=== PATIENT | female | born 1935 | race Caucasian/White ===

== ENCOUNTER 2023-06-09 07:44 | Inpatient (IN) | payer OTHER, SELFPAY ==
[2023-06-09] VITALS (42 sets, daily range): BP systolic 85–189; BP diastolic 40–94; PULSE 72; BMI 26.3
[2023-06-09 05:29] LABS: % Basophils 0.2 % (0-2); % Eosinophils 0.1 % (0-6); % Immature Granulocytes 0.5 % (0-0.5); % Lymphocytes 6.7 % (20.5-51.1); % Neutrophils 78.5 % (42.2-75.2); Absolute Lymphocytes 0.6 10^3/uL (1.2-3.4); Absolute Monocytes 1.2 10^3/uL (0.1-0.6); Absolute Neutrophils 6.7 10^3/uL (1.4-6.5); Hematocrit 30.4 % (37.0-47.0); Hemoglobin 10.6 g/dL (12.0-16.0); Mean Corp Hgb Conc. 34.9 g/dL (33.0-37.0); Mean Corpuscular Hgb 31.5 pg (27.0-31.0); Mean Corpuscular Volume 90.2 fL (81.0-99.0); Mean Platelet Volume 10.7 fL (7.4-10.4); Nucleated Red Blood Cells % 0 %; Platelet Count 186 10^3/uL (130-400); Red Blood Cell Count 3.37 10^6/uL (4.20-5.40); Red Cell Dist. Width 16.5 % (11.5-14.5); White Blood Cell Count 8.5 10^3/uL (4.8-10.8)
[2023-06-09 05:41] LABS: APTT 34.3 Sec (23.4-35.0)
[2023-06-09 05:48] LABS: ALT (SGPT) 14 U/L (0-35); AST (SGOT) 27 U/L (14-36); Albumin 2.9 g/dl (3.5-5.0); Alkaline Phosphatase 81 U/L (38-126); Blood Urea Nitrogen 26 mg/dl (7-17); Calcium 8.4 mg/dl (8.4-10.2); Carbon Dioxide 21 mmol/L (22-30); Chloride 98 mmol/L (98-107); Glucose 154 mg/dl (70-99); Potassium 3.9 mmol/L (3.5-5.1); Sodium 131 mmol/L (135-145); Total Bilirubin 1.4 mg/dl (0.2-1.3); Total Protein 5.4 g/dl (6.3-8.2); eGFR > 60.00
[2023-06-09 06:02] LABS: NT-proBNP 8220 pg/ml; Troponin I 0.375 ng/ml
[2023-06-09] MEDS: HEPARIN 4000 UNITS IV (07:18)
[2023-06-09] MEDS: HEPARIN 25000 UNITS/250 ML IV (07:26)
--- NOTE | 2023-06-09 07:28 | ED.GENMED ---
History of Present Illness
General
Chief Complaint: Chest Pain
Source: patient, records, family (Son) and ambulance crew
Exam Limitations: none
Time Seen by Provider: 06/09/23 06:03
Nursing documentation reviewed up to this point in time: agreed with
Travel History
Have you had any contact with someone who has COVID-19?: No
Do you have any symptoms of coronavirus? Fever > 100 degrees, chills, cough, shortness of breath, sore throat, loss of taste or smell, muscle aches, or headache?: No
History of Present Illness
History of Present Illness:
87-year-old female with a past medical history of hypertension, CAD status post stent, atrial fibrillation on Eliquis, pacemaker, Parkinson's disease who presents to the emergency department for evaluation of chest pain. Patient currently lives in
[facility] in assisted living facility. She says that she woke up in the middle the night with chest pain. She describes a dull pressure in the left side of her chest. No radiation. No clear trigger. Denies any associated symptoms
including nausea, vomiting, diaphoresis, shortness of breath. She says that she called the nurse at her living facility who called EMS to bring her to the hospital. EMS provided nitroglycerin and patient received another dose of nitroglycerin on
arrival here (verbal orders from night physician) and at the time my assessment she is completely chest pain-free. She also received a full dose aspirin from EMS. Patient says that she had similar symptoms with CO earlier this year�chart review
shows that she was admitted in January had cardiac catheterization at that point in time which showed triple-vessel disease, patient deemed not a surgical candidate, RCA was stented at that time with residual CAD to be managed medically. She sees
Dr. Weaver for cardiology.
Past History
Past History
ED Past Medical History: Arrthythmia (A. fib), CAD, HTN, CO, Psychiatric (Anxiety) and Other (Parkinson's disease, Vertigo, Chronic indwelling sykes, Macular degeneration, bladder prolapse)
ED Past Surgical History: Cardiac (Stent, Pacemaker), Gynecological (Hysterectomy) and Other (Hernia repair X 2)
Patient has exhibited threatening behavior?: No
PSI?: No
Social History
Tobacco: Non-smoker
Alcohol: None
Drug: None
Personal:
Living: assisted living
Review of Systems
Review of Systems
All Other Systems: ROS reviewed and negative except as documented in HPI and ROS
Constitutional: Denies fever or chills
EENT: Denies sore throat or runny nose
Respiratory: Denies cough or trouble breathing
Cardiac: Reports chest pain; Denies diaphoresis or palpitations
ABD/GI: Denies abdominal pain, nausea or vomiting
: Denies flank pain
Musculoskeletal: Denies edema, neck pain or back pain
Neurological: Denies dizzy, headache, weakness or numbness
Phy Exam
Physical Exam
Physical Exam:
General: Awake, alert; resting comfortably in no acute distress
Head: Normocephalic, atraumatic
Eyes: Conjunctiva normal, sclera anicteric
Throat: Airway intact, handling secretions
Neck: Trachea midline, supple without meningismus
Lungs: Clear to auscultation bilaterally, no wheezing, rales, rhonchi
Heart: Regular rate and rhythm, no murmurs, gallops, or rubs
Abd: Soft, non distended, nontender
Neuro: Cranial nerves grossly intact, speech fluid
Skin: no rash
Extremities: No edema in extremities, equal pulses in all extremities
Scores
Heart Failure Risk
Heart Failure Risk Score: Not Applicable
Heart Score for Chest Pain Patients
STEMI patient?: No
History: Moderately Suspicious
ECG: Nonspecific Repolarization
Age: >/= 65 years
Risk Factors: >/= 3 Risk Factors or History of CAD
Troponin: >/= 3 x Normal Limit
Heart Score for Chest Pain Patients: 8
Heart Score Risk: 72.7 % MACE over next 6 weeks
Withdrawal Assessment of Alcohol
Withdrawal Assessment Completed?: Not applicable
Course
Orders/Labs/Results
Orders:
Orders
06/09/23 05:05
Electrocardiogram (*1) Urgent
Reason for Study: Other
Other Reason for Exam: Respiratory Distress
Cardiac Monitoring- Treatment ONCE
EKG- Treatment ONCE
IV Insert/Care/Rem.- Treatment PRN
CR Chest - 2 Views Urgent
Comment:
Reason For Exam: respiratory distress
O2 Therapy [RESP] Urgent
Titrate/Wean O2 to maintain O2 sat greater than (%): 93
Special Instructions: TO MAINTAIN CONTINUOUS O2 SATS >/= 93%
Pulse Ox/cont/shift [RESP] Urgent
Quantity: 1
Special Instructions: continuous pulse ox
06/09/23 05:10
Complete Blood Count/With Diff Urgent
Comprehensive Metabolic Panel Urgent
NT-proBNP Urgent
Troponin I Urgent
06/09/23 05:14
PTT Urgent
06/09/23 06:44
CARDIOLOGY CONSULT Urgent
Consulting Provider: Gwyn Valle
Was physician already notified: Yes
06/09/23 07:04
Heparin 4,000 units IV NOW STA
Nursing to Place Non Medication Order As Directed
Physician Order: PTT 6 hours after initial start of Heparin infusion
06/09/23 07:15
Heparin 69570 Units/250 ml 25,000 units in 250 ml IV PER PROTOCOL
Weight to be used for heparin protocol in kilograms (kg):: 71.7
Protocol:: Cardiac Tx/Acute Coronary
PTT Goal Range to be used:: PTT 73 to 111 seconds
Order type:: Initial
INITIAL Infusion Dose (UNITS/KG/hr) & then follow protocol:: 12 units/kg/hr
Infusion Dose in UNITS/hr & then follow protocol (UNITS/hr):: 850
INFUSION RATE in mL/hr & then follow protocol (mL/hr):: 8.5
PTT less than or equal to 64 seconds:: Increase rate by 200 units/hr (+ 2 mL/hr)
PTT 64.1 to 72.9 seconds:: Increase rate by 100 units/hr (+ 1 mL/hr)
PTT 73 to 111 seconds:: Target Range. No change in rate.
PTT 111.1 to 130.9 seconds:: Decrease rate by 100 units/hr (- 1 mL/hr)
PTT 131 to 199.9 seconds:: HOLD for 1 hr. Then decrease rate by 200 units/hr (- 2 mL/hr)
PTT greater than or equal to 200 seconds:: HOLD for 2 hrs & Notify Provider. Then decrease by 200 units/hr (-
2 mL/hr)
Lab follow-up:: Each change, PTT q6h until 2 consecutive are therapeutic. Then PTT
daily.
Abnormal Lab Results
06/09/23
05:10
RBC 3.37 L 10^6/uL
(4.20-5.40)
Hgb 10.6 L g/dL
(12.0-16.0)
Hct 30.4 L %
(37.0-47.0)
MCH 31.5 H pg
(27.0-31.0)
RDW 16.5 H %
(11.5-14.5)
MPV 10.7 H fL
(7.4-10.4)
Absolute Neuts (auto) 6.7 H 10^3/uL
(1.4-6.5)
Absolute Lymphs (auto) 0.6 L 10^3/uL
(1.2-3.4)
Absolute Monos (auto) 1.2 H 10^3/uL
(0.1-0.6)
Neutrophils % 78.5 H %
(42.2-75.2)
Lymphocytes % 6.7 L %
(20.5-51.1)
Monocytes % 14.0 H %
(1.7-9.3)
Sodium 131 L mmol/L
(135-145)
Carbon Dioxide 21 L mmol/L
(22-30)
BUN 26 H mg/dl
(7-17)
Glucose 154 H mg/dl
(70-99)
Total Bilirubin 1.4 H mg/dl
(0.2-1.3)
Troponin I 0.375 H* ng/ml
Total Protein 5.4 L g/dl
(6.3-8.2)
Albumin 2.9 L g/dl
(3.5-5.0)
06/09/23 05:10
06/09/23 05:10
Vital Signs
Initial and Last Documented VS:
Initial Vital Signs
Temp Pulse Resp BP Pulse Ox
36.9 C 65 17 153/61 93
06/09/23 05:06 06/09/23 05:06 06/09/23 05:06 06/09/23 05:06 06/09/23 05:06
Last Documented Vital Signs
Temp Pulse Resp BP Pulse Ox
36.9 C 60 16 158/52 92
06/09/23 05:06 06/09/23 07:00 06/09/23 07:00 06/09/23 07:00 06/09/23 07:00
MDM/Problems Addressed
Differential Diagnosis Includes:
ACS, GERD, costochondritis, arrhythmia including A-fib; PE consideration but much less likely patient on Eliquis and with symptoms improved with nitroglycerin
MDM/Problems Addressed:
87-year-old female presents for evaluation of chest pain started last night similar to prior angina; symptoms resolved with nitro patient currently chest pain-free. She has some mild hypertension here with a blood pressure of 153/61. Rest of
vitals are within acceptable range. Physical exam as above. EKG shows some new T wave inversions precordial leads compared to prior. Plan to place an IV check labs including a CBC and a CMP, serial troponins. Check a chest x-ray. Repeat nitro
as needed for return of chest pain. Patient received full dose aspirin by EMS. Reassess after the above.
Labs reviewed: CBC shows stable anemia otherwise unremarkable. CMP shows acceptable creatinine. Troponin elevated to 0.375 concerning for NSTEMI. Will continue to trend. Will initiate heparin infusion. Case discussed with cardiology�agree with
above they will consult on patient. Case discussed with hospitalist for admission.
Chronic conditions affecting care:
CAD
Acute Exacerbation and/or Progression of Chronic Illness:
Acutely hypertensive
Acute Exacerbation and/or Progression of Chronic Illness: HTN
*Radiology
Radiology exam reviewed: preliminary read by ED provider (Chest x-ray reviewed by me-no pneumonia or, no clear signs of CHF, no other acute pathology when compared to prior)
*Pulse Oximetry
Patient hypoxic: no
*EKG
Interpreted by ED Provider?: Yes
Comparison EKG: changes noted (New T wave versions precordial leads)
Heart Rate: 66
Rate: normal
Rhythm: other (Atrial paced rhythm)
[place]: left axis deviation
QRS Pattern: left vent hypertrophy
Ischemia: T-wave inversion
*Critical Care Note
Total Time (30-74mins, 75-104mins- exclusive of procedures): Not Applicable
Data Reviewed
Review of Other/Old Records Reveals: Labs, Records, Operative Reports (Reviewed report from prior catheterization) and Discharge Summary
Source: patient, records, family and ambulance crew
Patient Management
Discussion with other providers: Hospitalist (Discussed with hospitalist) and Shank Skinner (Discussed with cardiology)
Escalation/DeEscalation of care consider admission/obs:
Admission indicated
ED Attending Note
-
Portions of this chart may have been created with voice recognition software.� Occasional wrong word or��sound alike� substitutions may have occurred due to the inherent limitations of voice recognition software.
Discharge Plan
Departure
Prescriptions:
No Action
Eliquis 5 MG tablet
5 mg PO BID
metoprolol succinate 50 MG tablet extended release 24 hr
50 mg PO DAILY
magnesium hydroxide [Milk of Magnesia] 400 MG/5 ML suspension
30 ml PO HSPRN PRN (Reason: if no bm on 2nd day)
ascorbic acid (vitamin C) [Vitamin C] 1,000 MG tablet
1,000 mg PO BID
meclizine 25 MG tablet
25 mg PO [id number] PRN (Reason: dizziness)
calcium carbonate 500 mg calcium (1,250 mg) Tablet,Chewable
500 mg PO [id number] PRN (Reason: heartburn )
metronidazole 1 % Gel
1 applic TOPICAL DAILYPRN PRN (Reason: rosacea)
Patient Comments:
apply to b/l cheeks and forehead
melatonin 3 mg Capsule
6 mg PO HSPRN PRN (Reason: insomnia)
bisacodyl [Dulcolax (bisacodyl)] 10 mg Suppository
10 mg MS DAILYPRN PRN (Reason: if no bm for 3 days)
lidocaine 4 % Adhesive Patch,Medicated
1 patch TOPICAL DAILYPRN PRN (Reason: lower back pain)
cholecalciferol (vitamin D3) [Vitamin D3] 50 mcg (2,000 unit) Capsule
50 mcg PO DAILY
nystatin 100,000 unit/gram Cream
1 applic TOPICAL BIDPRN PRN (Reason: rash)
atorvastatin 40 mg Tablet
40 mg PO QPM Qty: 30 0RF
clopidogrel 75 mg Tablet
75 mg PO DAILY Qty: 30 0RF
pantoprazole 40 mg Tablet,Delayed Release (Dr/Ec)
40 mg PO DAILY Qty: 30 0RF
acetaminophen 325 mg Tablet
650 mg PO Q6HPRN PRN (Reason: mild pain)
Fleet Enema 19-7 gram/118 mL Enema
118 ml MS DAILYPRN PRN (Reason: if no bm for 4 days )
carbidopa-levodopa 25-100 mg Tablet
2 tab PO TID
nitroglycerin 0.4 mg Tablet, Sublingual
0.4 mg SUBLINGUAL [id number] PRN (Reason: chest pain)
acetaminophen 325 mg Tablet
650 mg PO Q4HPRN PRN (Reason: mild pain/JAY/temp> 100.4F) Qty: 20 0RF
polyethylene glycol 3350 [Miralax] 17 gram Powder In Packet
17 g PO DAILY Qty: 0 0RF
Rx Instructions:
HOLD FOR LOOSE STOOLS
ondansetron HCl [Zofran] 4 mg Tablet
4 mg PO Q12H PRN (Reason: nausea)
amiodarone [Pacerone] 200 mg tablet
100 mg PO DAILY
Rx Instructions:
Take 400mg daily (2 tabs) x 2 weeks then 200mg daily (1 tab)
sertraline 25 mg tablet
50 mg PO DAILY
Referrals:
PRIVATE,PHYSICIAN [Family Provider] -
Interventions
Interventions:
*Risk Screen - Suicide Last Done: 06/09/23 05:06
*General Assessment Last Done: 06/09/23 05:06
*Neglect/Abuse Screening Last Done: 06/09/23 05:06
ED- Fall Risk Assessment Last Done: 06/09/23 05:12
*ED COVID-19 Vaccine History Last Done: 06/09/23 05:06
ED- Cardiac Assessment Last Done: 06/09/23 07:06
--- NOTE | 2023-06-09 07:31 | HPS.HSE ---
Family Physician
-
Family Physician: PHYSICIAN PRIVATE
Chief Complaint
-
Left sided chest pain
History of Present Illness
7 years old female presented with chest pain described as discomfort, central, not radiating that started earlier today, awoke her from sleeping.� She reports on and off chest discomfort.�.� She lives in assisted living.� Ambulance was called.� She
received aspirin.�
Was at the bedside, he denied history of cough, shortness of breath, GI symptoms or fever before this event. He took his mother to eye doctor 2 days ago and she was at her baseline.
Her ECG shows anterolateral T waves concerning for possible ischemia and she has an elevated troponin.
Medical History
Past Medical History
Past Medical History: Reports Other (Parkinson disease, hypertension, paroxysmal atrial fibrillation, chronic Padilla catheter.)
Past Surgical History: Reports Other (No recent major surgery )
Social History
Tobacco: Non-smoker
Alcohol: None
Drug: None
Personal: Single
Living: Assisted Living
Employment: Retired
Family History
Family History: Not pertinent
Allergies / Home Medications
Allergies reflects when Allergies were last updated in [employer].
Home Medications with original date entered in [employer]
Allergy/Medication List:
Allergies
Allergy/AdvReac Type Severity Reaction Status Date / Time
No Known Allergies Allergy Verified 06/09/23 05:06
Home Medications
apixaban 5 mg tablet (Eliquis) 5 mg PO BID Blood clot prevention/tx 09/21/19
metoprolol succinate 50 mg tablet,extended release 24 hr 50 mg PO HS Blood pressure 09/21/19
ascorbic acid (vitamin C) 1,000 mg tablet (Vitamin C) 1,000 mg PO BID Supplement 05/05/20
meclizine 25 mg tablet 25 mg PO [id number] PRN dizziness/vertigo 09/27/21
calcium carbonate 500 mg calcium (1,250 mg) chewable tablet 500 mg PO [id number] PRN heartburn 03/23/22
lidocaine 4 % topical patch 1 patch topical DAILYPRN PRN apply to lower back 03/23/22
metronidazole 1 % topical gel 1 applic topical DAILYPRN PRN apply to B/L cheeks/forehead 03/23/22
atorvastatin 40 mg tablet 40 mg PO QPM #30 tabs 02/08/23
clopidogrel 75 mg tablet 75 mg PO DAILY #30 tabs 02/08/23
pantoprazole 40 mg tablet,delayed release 40 mg PO DAILY #30 tabs 02/08/23
acetaminophen 325 mg tablet 650 mg PO Q6HPRN PRN mild pain/temp>100 02/09/23
carbidopa 25 mg-levodopa 100 mg tablet 2 tab PO TID 02/09/23
nitroglycerin 0.4 mg sublingual tablet 0.4 mg sublingual [id number] PRN chest pain 02/16/23
polyethylene glycol 3350 17 gram oral powder packet (Miralax) 17 g PO DAILY Constipation #0 ea 02/19/23
amiodarone 100 mg tablet 100 mg PO HS 06/09/23
cholecalciferol (vitamin D3) 25 mcg (1,000 unit) tablet 50 mcg PO DAILY 06/09/23
melatonin 3 mg tablet 6 mg PO HSPRN PRN insomnia 06/09/23
nystatin 100,000 unit/gram topical powder 1 applic topical [id number] PRN rash 06/09/23
ondansetron HCl 4 mg tablet 4 mg PO Q12H PRN nausea 06/09/23
sertraline 50 mg tablet 50 mg PO DAILY 06/09/23
Review of Systems
-
History Source: Patient
A 12 point ROS was completed and negative except as noted: Yes
Constitutional: Denies Fever
EENT: Denies Sore Throat
Respiratory: Denies Cough
Cardiac: Denies Chest Pain
Abdomen/GI: Denies Abdominal Pain
: Denies Dysuria
Musculoskeletal: Denies Joint Pain
Skin: Denies Rash
Neurological: Denies Numbness
Endocrine: Denies Temp Intolerance
Hematologic/Lymphatic: Denies Bruising
Psych: Denies Panic Disorder
Physical Exam
Vital Signs
Vital Signs
Temp Pulse Resp BP Pulse Ox
98.5 F 60 16 158/52 92
06/09/23 05:06 06/09/23 07:00 06/09/23 07:00 06/09/23 07:00 06/09/23 07:00
Physical Exam
General: No Apparent Distress and Comfortable
HEENT: Moist mucous membranes and Atraumatic
Respiratory: Clear
Cardiac: S1/S2
GI: Soft, Non Tender and Non Distended
Rectal: No Maroon Stools
Genito-urinary: No costovertebral tender
Musculoskeletal: No Cyanosis and No Edema
Skin: Warm and Dry
Neuro: Awake and Oriented; No Tremors
Psych: Calm; No Agitated
Laboratory Results
-
06/09/23 05:10
06/09/23 05:10
Laboratory Results
APTT 34.3 Sec (23.4-35.0) 06/09/23 05:14
Total Bilirubin 1.4 mg/dl (0.2-1.3) H 06/09/23 05:10
AST 27 U/L (14-36) 06/09/23 05:10
ALT 14 U/L (0-35) 06/09/23 05:10
Alkaline Phosphatase 81 U/L (38-126) 06/09/23 05:10
Troponin I 0.375 ng/ml H* 06/09/23 05:10
Impression/Plan
-
87 years old female presented with chest pain was found to have myocardial infarction
#Non-ST elevation myocardial infarction
Currently patient is pain-free.� Admit to the hospital, IVU.� Continue with heparin drip/monitor PTT.� Monitor vital signs.� Continue with antiplatelet therapy.� Plan for cardiac catheterization.
Echocardiogram is ordered
She is not hypotensive.� As needed nitroglycerin for chest pain
Appreciate cardiology input
#Paroxysmal atrial fibrillation
Currently sinus rhythm and heart rate around 60.� Continue with beta-blockers.� She takes Eliquis at home
# Hyponatremia, mild
BMP in AM
No hx of confusion
#Primary hypertension
Patient denies headache.
#Chronic Padilla catheter.
No history of fever or chills.
#History of Parkinson disease with memory impairment.� Continue medical treatment, eventual PT/OT
# code status,, she is DNR
Total time spent to see the patient, examine the patient on the floor, review data and lab results, discuss treatment plan with patient, ER doctor, family, nursing staff around 75 minutes.
PLAN:
--- NOTE | 2023-06-09 08:44 | CON.CAR ---
Consultation
Consultation Request
Date/Time Consultation Requested: 06/09/2023 0730
Date/Time Consultation Performed: 06/09/2023 0845
Requesting Provider: ER physician
Performing Provider: [facility]
Reason for Consultation: chest pain
Medical History
-
Chief Complaint: chest pain
History of Present Illness:
87 yo female, accompanied by her son, w/ PMH of PAF on Eliquis, HTN, Parkinson's disease, and chronic indwelling sykes catheter who was recently admitted for NSTEMI with RCA stent placement 02/03/23- residual disease with plans for medical management
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 She is here for chest pain that was abrupt and awoke her from sleeping. She describes it as similar to her pain in January, located centrally,
nonradiating, and severe in quality pressure/squeezing sensation. This is her first reoccurrence since January, however, the son notes progressive fatigue. She denies SOB and is able to sleep lying flat, and her weight appears stable. In
discussion with her and her son they would like to proceed with coronary angiography.
Her ECG shows anterolateral T waves concerning for possible ischemia and she has an elevated troponin.
Past Medical History
Past Medical History: Other (Arrhythmias, CAD, HTN and Other (parkinson's disease, chronic sykse))
Social History
Tobacco: Non-Smoker
Alcohol: None
Drug: None
Living: Assisted Living
Employment: Retired
Family History
Family History: Reviewed & Not Pertinent
Allergies / Home Medications
Allergy/AdvReac Type Severity Reaction Status Date / Time
No Known Allergies Allergy Verified 06/09/23 05:06
Medication Instructions Recorded Confirmed Type
apixaban 5 mg tablet (Eliquis) 5 mg PO BID Blood clot 09/21/19 06/09/23 History
prevention/tx
metoprolol succinate 50 mg 50 mg PO DAILY Blood pressure 09/21/19 06/09/23 History
tablet,extended release 24 hr
ascorbic acid (vitamin C) 1,000 mg 1,000 mg PO BID Supplement 05/05/20 06/09/23 History
tablet (Vitamin C)
magnesium hydroxide 400 mg/5 mL 30 ml PO HSPRN PRN if no bm on 2nd 05/05/20 06/09/23 History
oral suspension (Milk of Magnesia) day
meclizine 25 mg tablet 25 mg PO [id number] PRN dizziness 09/27/21 06/09/23 History
bisacodyl 10 mg rectal suppository 10 mg MA DAILYPRN PRN if no bm for 03/23/22 06/09/23 History
(Dulcolax (bisacodyl)) 3 days
calcium carbonate 500 mg calcium 500 mg PO [id number] PRN heartburn 03/23/22 06/09/23 History
(1,250 mg) chewable tablet
cholecalciferol (vitamin D3) 50 50 mcg PO DAILY Supplement 03/23/22 06/09/23 History
mcg (2,000 unit) capsule (Vitamin
D3)
lidocaine 4 % topical patch 1 patch topical DAILYPRN PRN lower 03/23/22 06/09/23 History
back pain
melatonin 3 mg capsule 6 mg PO HSPRN PRN insomnia 03/23/22 06/09/23 History
metronidazole 1 % topical gel 1 applic topical DAILYPRN PRN 03/23/22 06/09/23 History
rosacea
nystatin 100,000 unit/gram topical 1 applic topical BIDPRN PRN rash 02/03/23 06/09/23 History
cream
atorvastatin 40 mg tablet 40 mg PO QPM #30 tabs 02/08/23 06/09/23 Rx
clopidogrel 75 mg tablet 75 mg PO DAILY #30 tabs 02/08/23 06/09/23 Rx
pantoprazole 40 mg tablet,delayed 40 mg PO DAILY #30 tabs 02/08/23 06/09/23 Rx
release
acetaminophen 325 mg tablet 650 mg PO Q6HPRN PRN mild pain 02/09/23 06/09/23 History
carbidopa 25 mg-levodopa 100 mg 2 tab PO TID 02/09/23 06/09/23 History
tablet
sodium phosphates 19 gram-7 118 ml MA DAILYPRN PRN if no bm 02/09/23 06/09/23 History
gram/118 mL enema (Fleet Enema) for 4 days
nitroglycerin 0.4 mg sublingual 0.4 mg sublingual [id number] PRN 02/16/23 06/09/23 History
tablet chest pain
acetaminophen 325 mg tablet 650 mg PO Q4HPRN PRN mild 02/19/23 06/09/23 Rx
pain/JAY/temp> 100.4F #20 tabs
polyethylene glycol 3350 17 gram 17 g PO DAILY Constipation #0 ea 02/19/23 06/09/23 Rx
oral powder packet (Miralax)
amiodarone 200 mg tablet (Pacerone) 100 mg PO DAILY 06/09/23 06/09/23 History
ondansetron HCl 4 mg tablet 4 mg PO Q12H PRN nausea 06/09/23 06/09/23 History
sertraline 25 mg tablet 50 mg PO DAILY 06/09/23 06/09/23 History
Review of Systems
-
All other systems: Negative unless noted
Physical Exam
Vital Signs
Temp Pulse Resp BP Pulse Ox
98.5 F 66 17 157/50 93
06/09/23 05:06 06/09/23 08:30 06/09/23 08:30 06/09/23 08:00 06/09/23 08:15
Lab Results
06/09/23 05:10
06/09/23 05:10
Troponin I 0.375 ng/ml H* 06/09/23 05:10
Iul-F-Zezfjnanozg Pept 8220 pg/ml 06/09/23 05:10
Physical Exam
General: Well Developed
HEENT: Normocephalic and Anicteric
Respiratory: Clear and Non Labored Respirations
Cardiac: Other (a paced rhythm )
GI: Soft
Musculoskeletal: No Clubbing, No Cyanosis and No Edema
Skin: Warm and Dry
Neuro: AO x 3
Psych: Calm and Other (tired )
Impression / Plan
-
87 yo female, accompanied by her son, w/ PMH of PAF on Eliquis, HTN, Parkinson's disease, and chronic indwelling sykes catheter who was recently admitted for NSTEMI with RCA stent placement 02/03/23- followed by diagnosis of tachy-josafat syndrome
requiring pacemaker placement 02/07/23. She is here with similar CP awakening her from sleep and elevated troponin.
NSTEMI CAD w/ RCA stenting in Jan 2023
- heparin gtt, will give 325 aspirin
- cont atorvastatin, metoprolol
- cont plavix
- update TTE
pAF
- a paced
- hold Eliquis, on Heparin gtt
HLD
- atorvastatin
tachy-josafat syndrome
- s/p PPM
HTN
- med titration
hyponatremia
- per primary
parkinson's disease
chronic sykes
Data Reviewed
-
EKG: Tracing Personally Visualized and interpreted
Medical Tests (Nuc Med, Echo etc): Image Personally Visualized and interpreted
Labs: Labs Reviewed by me, Discussed with Patient and Discussed with Family
[2023-06-09] MEDS: TOPROL XL 50 MG PO (09:28)
[2023-06-09] MEDS: ASPIRIN 325 MG PO (09:28)
[2023-06-09 10:21] LABS: Troponin I 0.296 ng/ml
--- NOTE | 2023-06-09 10:41 | EDRN ---
Provider TT re - critical value troponin
[2023-06-09] MEDS: MORPHINE SULFATE 1 MG IV (13:36)
[2023-06-09 13:55] LABS: APTT 79.3 Sec (23.4-35.0)
[2023-06-09] MEDS: NITROSTAT (SUBLINGUAL) 0.400000000000000022 MG SL (14:24)
[2023-06-09] MEDS: NSS 1000 IV (16:15)
--- NOTE | 2023-06-09 16:43 | ITS.CL.CATH ---
Silverware Supervisor - Catheterization
Cardiac Catheterization
Procedure Report:
CARDIAC CATHETERIZATION REPORT
Date of Procedure: 06/09/2023
Referring: Gwyn Valle M.D.
INDICATION: Chest pain, non-ST elevation myocardial infarction, known coronary artery disease.
PROCEDURE:
1. Left heart catheterization.
2. Coronary angiography.
3. Intraprocedural consultation.
ACCESS:
6 Maltese right radial artery.
CATHETERS:
1. 5 Maltese JR4.
2. 5 Maltese JL 3.5.
HEMODYNAMIC DATA
Weight (kg): 71.7
AO (s/d/x, mmHg): 164/65/101
LV (s/x mmHg): 164/16
LEFT VENTRICULOGRAPHY: Not performed.
CORONARY ANGIOGRAPHY
Dominance: Right.
Left Main: Normal size, bifurcating vessel. There is no coronary artery disease.
LAD: Normal size vessel giving rise to 3 diagonals. The first diagonal is a small, vestigial vessel. The second diagonal is a more substantial vessel supplying part of the distal anterolateral wall. The third diagonal runs parallel to the
distal LAD. There is moderate, diffuse disease within the body of the LAD, including a long, 60% lesion spanning the origin of the second and third diagonal. There is a 90%, possibly culprit lesion in the terminal aspect of the second diagonal
right at the bifurcation into 2 smaller vessels.
Ramus: Congenitally absent.
Circumflex: Normal size, nondominant vessel giving rise to 3 obtuse marginals. The mid circumflex is a chronic total occlusion with robust collaterals to the distal circumflex, OM1 and OM 2 from both right to left and left to left collaterals.
OM1 is a reasonably substantial vessel with a 60% lesion in the proximal margin.
RCA: Large size, dominant vessel with a large posterolateral arcade. A patent stent is present in the mid vessel with no evidence of in-stent restenosis. There is a stable, 40-50% lesion in the distal RCA, immediately proximal to the RPDA.
INTERVENTION(S)
1. Intraprocedural consultation.
Narrative:
After reviewing the patient's angiography, I reviewed the prior films. I asked Drs. Person and made set to consult regarding possible revascularization versus medical therapy. Ultimately, we all agreed that medical therapy would be ideal given the
distal nature of the patient's culprit diagonal lesion and the small territory of myocardium that supplies.
Closure Device: Vascular band.
Radiation (mGy): 310.15
DAP (cm2.Gy): 26.3044
Fluoroscopy time (minutes): 2.1
Sedation time (minutes): 23
CONCLUSIONS
1. Right dominant circulation with a patent stent in the mid RCA, a stable 40-50% lesion in the distal RCA immediately proximal to the RPDA, diffuse, moderate disease within the body of the LAD including a long, 60% lesion spanning the origin of
the second and third diagonal, a ACTIVITIES COUNSELOR of the mid circumflex, a 60 lesion of the proximal OM 2% and a culprit, 90% lesion in the distal margin of the second diagonal. Compared to prior angiography from 02/03/2023, the distal D2 lesion appears worse
but the subtended myocardium is small. After intraprocedural consultation, the decision was made to pursue medical management only.
2. Severe systemic hypertension (200/110 mmHg at the beginning of the case).
3. Mildly elevated filling pressures (LVEDP = 16 mmHg at 71.7 kg).
RECOMMENDATIONS:
1. Expectant management after cardiac catheterization via right radial approach.
2. Limited weight bearing on the right wrist for one week.
3. Continue medical management and treatment of blood pressure.
4. Nitroglycerin drip was started for blood pressure control as well as for chest pain management.
5. We will uptitrate her antianginal medications.
6. Continue her antithrombotic and antiplatelet therapy.
7. Echocardiogram ordered and pending.
Copy to: Gwyn Valle M.D., HERIBERTO Angela, Jensen Talley M.D.
Waqas Gonzalez DO, FACC, FACP
[2023-06-09] MEDS: LIPITOR 40 MG PO (18:12)
[2023-06-09] MEDS: PACERONE 100 MG PO (23:33)
[2023-06-09] MEDS: TOPROL XL PO (23:34)
[2023-06-09] MEDS: SINEMET 25-100 2 TABLET PO (23:34)
[2023-06-10] VITALS (10 sets, daily range): BP systolic 104–144; BP diastolic 46–59; PULSE 74; O2SAT 95; BMI 26.3; BMI 26.0
--- NOTE | 2023-06-10 00:37 | PTCARENOTE ---
Pt received at start of shift HR SR w/ BBB 60s-70s. Nitro drip infusing at 40mcg/min. Per protocol, drip tapered down to off. Pt's BP remained SBP<160 and pt states CP free. Pt appears fatigued and withdrawn, arousing to verbal stimuli but only
giving short responses. Pt AAOx4, follows commands. Neuro check WNL. R radial dressing CDI, slightly ecchymotic. Pt denies any CP, SOB, or lightheadedness/dizziness at this time. Informed to notify RN if any changes, call ramirez within reach.
Evening Toprol held as BP not within admin parameters (SBP<100).
[2023-06-10 04:31] LABS: Hemoglobin 9.1 g/dL (12.0-16.0); Mean Corpuscular Hgb 30.8 pg (27.0-31.0); Mean Corpuscular Volume 88.1 fL (81.0-99.0); Mean Platelet Volume 10.9 fL (7.4-10.4); Platelet Count 168 10^3/uL (130-400); Red Blood Cell Count 2.95 10^6/uL (4.20-5.40); Red Cell Dist. Width 16.8 % (11.5-14.5); White Blood Cell Count 9.6 10^3/uL (4.8-10.8)
[2023-06-10 05:01] LABS: Blood Urea Nitrogen 27 mg/dl (7-17); Carbon Dioxide 23 mmol/L (22-30); Chloride 98 mmol/L (98-107); Estimated Creatinine Clearance 45 ml/min; Glucose 160 mg/dl (70-99); HDL Cholesterol 21 mg/dl; LDL Cholesterol, Calculated 33 mg/dl; Potassium 3.6 mmol/L (3.5-5.1); Sodium 130 mmol/L (135-145); Total Cholesterol 74 mg/dl (50-199); Triglyceride 100 mg/dl (10-149); Very Low Density Lipoprotein 20 mg/dl (0-30); eGFR > 60.00
--- NOTE | 2023-06-10 06:58 | W.PN.HOSP.TC ---
Today's Communication/Plan
-
likely dc today or tomorrow
Assessment / Plan
Assessment / Plan
Physical Exam
General: No Apparent Distress and Comfortable
HEENT: Moist mucous membranes and Atraumatic
Respiratory: Clear
Cardiac: S1/S2
GI: Soft, Non Tender and Non Distended
Rectal: No Maroon Stools
Genito-urinary: No costovertebral tender
Musculoskeletal: No Cyanosis and No Edema
Skin: Warm and Dry
Neuro: Awake and Oriented, + stiffness, flat facial expression,; No Tremors
Psych: Calm; No Agitated
87 years old female presented with chest pain was found to have myocardial infarction
#Non-ST elevation myocardial infarction
s/p cardiac cath 06/09, no stent, and recommended medical management
Consider oral nitrate therapy
c/w Plavix, BB,Statin, Eliquis.
Appreciate cardiology help
#HTN urgency, hx of primary HTN
started on Nitro gtt over night and then weaned off
#Paroxysmal atrial fibrillation
c/w Amiodarone, BB, Eliquis
Off heparin gtt
# Hyponatremia, mild
c/w regular diet
No hx of confusion
#Chronic Padilla catheter.
No history of fever or chills.
#History of Parkinson disease with memory impairment.� Continue medical treatment, eventual PT/OT
# code status,, she is DNR
Total time spent to see the patient on the floor, examine the patient, review data and lab results, discuss treatment plan with patient and nursing staff around 55 minutes
Anticipated Discharge: Within 24 hours
Subjective/Interval History
-
Date of Service: June 10, 2023
Off nitro gtt
No chest pain over night
Objective Data
-
Labs:
Laboratory Results
06/10/23 06/10/23
03:54 03:55
WBC 9.6
Hgb 9.1 L
Hct 26.0 L
Plt Count 168
Sodium 130 L
Potassium 3.6
Chloride 98
Carbon Dioxide 23
BUN 27 H
Creatinine 0.8
Glucose 160 H
Calcium 8.0 L
Vital Signs:
Vital Signs
Temp Pulse Resp BP Pulse Ox
97.5 F 75 20 125/49 95
06/10/23 06:51 06/10/23 06:51 06/10/23 06:51 06/10/23 03:41 06/10/23 06:51
I&O
06/08/23 06/09/23 06/10/23
06:59 06:59 06:59
Output Total 375 / 375
Balance -375 / -375
--- NOTE | 2023-06-10 07:48 | W.PN.CD ---
Today's Communication / Plan
-
- TTE pending
- addition of Imdur
Impression / Plan
-
87 yo female, accompanied by her son, w/ PMH of PAF on Eliquis, HTN, Parkinson's disease, and chronic indwelling sykes catheter who was recently admitted for NSTEMI with RCA stent placement 02/03/23- followed by diagnosis of tachy-josafat syndrome
requiring pacemaker placement 02/07/23. She is here with similar CP awakening her from sleep and elevated troponin.
NSTEMI CAD w/ RCA stenting in Jan 2023
- Diagonal culprit felt to distal and supplied only small amount of myocardium --> medical management
- cont atorvastatin, metoprolol
- cont plavix
- update TTE
- Add Imdur today
pAF
- a paced
- cont Eliquis
HLD
- atorvastatin
tachy-josafat syndrome
- s/p PPM
HTN
- stable
hyponatremia
- per primary
parkinson's disease
chronic sykes
Physical Exam
Vital Signs/Labs
Vital Signs
Temp Pulse Resp BP Pulse Ox
97.5 F 68 20 129/55 95
06/10/23 06:51 06/10/23 07:00 06/10/23 06:51 06/10/23 06:53 06/10/23 06:51
06/09/23 06/10/23 06/11/23
06:59 06:59 06:59
Actual Weight 158 lb 1.143 oz 156 lb 4 oz
06/10/23 03:55
06/10/23 03:54
APTT 79.3 Sec (23.4-35.0) H 06/09/23 13:34
Triglycerides 100 mg/dl (10-149) 06/10/23 03:54
LDL Cholesterol, Calc 33 mg/dl 06/10/23 03:54
VLDL Cholesterol, Calc 20 mg/dl (0-30) 06/10/23 03:54
HDL Cholesterol 21 mg/dl 06/10/23 03:54
06/09/23
05:10
Udv-X-Duyammklkot Pept 8220
LAB Results
06/09/23 06/09/23
05:10 09:47
Troponin I 0.375 H* 0.296 H*
Physical Exam
Constitutional: No acute distress and Comfortable
Cardiovascular: Rhythm & rate is regular and Pedal edema is absent
Respiratory: Respiratory effort normal and Lungs clear to auscul.
GI: Soft
Neuro/Psych: Alert and Oriented
Data Reviewed
-
Date of Service: June 10, 2023
EKG: Tracing Personally Visualized and interpreted
Labs: Labs Reviewed by me
[2023-06-10] MEDS: IMDUR (EXTENDED RELEASE) 30 MG PO (09:09)
[2023-06-10] MEDS: PROTONIX 40 MG PO (09:09)
[2023-06-10] MEDS: SINEMET 25-100 2 TABLET PO ×3 (09:09→22:27)
[2023-06-10] MEDS: ELIQUIS 5 MG PO ×2 (09:10→19:41)
[2023-06-10] MEDS: PLAVIX 75 MG PO (09:10)
[2023-06-10] MEDS: ZOLOFT 50 MG PO (09:10)
--- NOTE | 2023-06-10 11:00 | CM ---
Addendum entered by Torie Escalante RN 06/10/23 16:34:
I spoke to the patient's son and he is interested in his mom going to [facility] or [facility]. Referral placed to both. [facility] not have a bed until Tuesday and [facility] not have a female bed available. CM to follow up on Tuesday.
Addendum entered by Torie Escalante RN 06/10/23 15:33:
[facility] let us know they won't have a bed until Tuesday. Also waiting on therapy notes to send for insurance authorization.
Original Note:
Chart reviewed. Met with the patient and her son, Iglesia, at bedside. Patient lives in the assisted living at [facility] and receives care from private aides in the morning and evening. Patient is not current with VN. Patient's son expressed concern
about his mom being weak and deconditioned. Consult requested for PT/OT evaluation. Plan is for the patient to go to skilled rehab when medically stable for discharge. Patient has [employer] Insurance, so she will need authorization. Case management
to follow
[2023-06-10] MEDS: TYLENOL 650 MG PO (15:53)
[2023-06-10] MEDS: LIPITOR 40 MG PO (16:34)
--- NOTE | 2023-06-10 17:42 | PTCARENOTE ---
Pt c/o chest pain, L side of chest, rated 5/10. She recently came back from echo. The pain is reproducible. Dr Daniel aware. Med with Tylenol 650 mg PO with relief noted.
[2023-06-10] MEDS: TOPROL XL 50 MG PO (22:27)
[2023-06-10] MEDS: PACERONE 100 MG PO (22:27)
--- NOTE | 2023-06-10 22:45 | PTCARENOTE ---
Addendum entered by Ashli Lorenzo RN 06/11/23 03:33:
Pt c/o dull CP 5/10. Pt agrees to take Tylenol. See MAR.
Original Note:
Received pt at handoff. Aox4. Assessment noted as documented. R radial site c/d/i. Complains of dull CP 4/10. Pt refused Tylenol. After re-assessing one hour later, pt states relief from CP. No other c/o pain/discomfort. Pt OOB to commode for BM via
walker and x1 nursing assist. Pt resting in bed; call james w/in reach.
[2023-06-11] VITALS (7 sets, daily range): BP systolic 90–146; BP diastolic 45–57
[2023-06-11] MEDS: TYLENOL 650 MG PO ×2 (02:56→11:04)
--- NOTE | 2023-06-11 06:24 | W.PN.HOSP.TC ---
Addendum entered and electronically signed by Phuc Daniel MD 06/11/23 12:14:
Addendum
Patient had shivering with fever at 100.8
Will do stat COVID test. t denies sore throat / cough/ no hypoxia
Will do urinalysis and empiric Rocephin. Chronic Padilla is a risk for CAUTI
Give one time bolus NSS to help with fever.
Blood culture X2
Padilla and urine bag looked dark yellow urine.
End
Original Note:
Today's Communication/Plan
-
.
Assessment / Plan
Assessment / Plan
Physical Exam
General: No Apparent Distress and Comfortable
HEENT: Moist mucous membranes and Atraumatic
Respiratory: Clear
Cardiac: S1/S2
GI: Soft, Non Tender and Non Distended
Rectal: No Maroon Stools
Genito-urinary: No costovertebral tender
Musculoskeletal: No Cyanosis and No Edema
Skin: Warm and Dry
Neuro: Awake and Oriented, + stiffness, flat facial expression,; No Tremors
Psych: Calm; No Agitated
87 years old female presented with chest pain was found to have myocardial infarction
#Non-ST elevation myocardial infarction
s/p cardiac cath 06/09, no stent, and recommended medical management
Echocardiogram showed normal left ventricular function, left ventricular ejection fraction of 55 to 60%, mild mitral regurgitation.
Started on extended release oral nitrate therapy
c/w Plavix, BB,Statin, Eliquis.
Appreciate cardiology help
#HTN urgency, hx of primary HTN
started on Nitro gtt over night and then weaned off
Continue with metoprolol, isosorbide mononitrate
#Paroxysmal atrial fibrillation
c/w Amiodarone, BB, Eliquis
Off heparin gtt
#Infrequent chest pain which could be noncardiac. Add Maalox
# Hyponatremia, mild
c/w regular diet
No hx of confusion
#Chronic Padilla catheter.
No history of fever or chills.
#History of Parkinson disease with memory impairment.� Continue medical treatment, eventual PT/OT
# code status,, she is DNR
# Gait dysfunction. Rehab
Total time spent to see the patient on the floor, examine the patient, review data and lab results, discuss treatment plan with patient and nursing staff around 57 minutes
Anticipated Discharge: 24 - 48 hours
Subjective/Interval History
-
Date of Service: June 11, 2023
No chest pain over night
Objective Data
-
Vital Signs:
Vital Signs
Temp Pulse Resp BP Pulse Ox
98.5 F 69 20 137/56 91
06/11/23 02:53 06/11/23 03:00 06/11/23 02:53 06/11/23 02:42 06/11/23 02:53
I&O
06/09/23 06/10/23 06/11/23
06:59 06:59 06:59
Output Total 375 / 375 300 / 300
Balance -375 / -375 -300 / -300
[2023-06-11] MEDS: ELIQUIS 5 MG PO ×2 (09:17→19:27)
[2023-06-11] MEDS: PLAVIX 75 MG PO (09:17)
[2023-06-11] MEDS: PROTONIX 40 MG PO (09:17)
[2023-06-11] MEDS: ZOLOFT 50 MG PO (09:17)
[2023-06-11] MEDS: IMDUR (EXTENDED RELEASE) 30 MG PO (09:17)
[2023-06-11] MEDS: SINEMET 25-100 2 TABLET PO ×3 (09:17→22:13)
--- NOTE | 2023-06-11 11:57 | W.PN.CD ---
Addendum entered and electronically signed by Iglesia Weaver MD 06/11/23 12:54:
I saw and examined the patient.
The TRANSMITTER OPERATOR or PA's note was reviewed and I agree with the note.
Comment: Chest pain has resolved
Cont w Med Rx for CAD and chest pain
please call back if needed
Original Note:
Today's Communication / Plan
-
Stable on cardiac meds
Fever today-primary team following.
f/u as OP , will sign off , please call back if any new issues.
Impression / Plan
-
87 yo female, accompanied by her son, w/ PMH of PAF on Eliquis, HTN, Parkinson's disease, and chronic indwelling sykes catheter who was recently admitted for NSTEMI with RCA stent placement 02/03/23- followed by diagnosis of tachy-josafat syndrome
requiring pacemaker placement 02/07/23. She is here with similar CP awakening her from sleep and elevated troponin.
NSTEMI CAD w/ RCA stenting in Jan 2023
- Diagonal culprit felt to distal and supplied only small amount of myocardium --> medical management
- cont atorvastatin, metoprolol
- cont plavix
- echo 06/10/23 EF 55-60, MAC trace MR, dilated aortic root
- imdur added this admit
PAF
- a paced/SR
- cont Eliquis , chronic amio
HLD
- atorvastatin
tachy-josafat syndrome
- s/p PPM
HTN
- stable
Fever/chills today:
-primary team following
-chronic sykes
hyponatremia
- per primary
parkinson's disease
Subjective: Pt c/o chills and fever today. She denies CP, SOB.
Physical Exam
Vital Signs/Labs
Vital Signs
Temp Pulse Resp BP Pulse Ox
100.8 F H 69 18 137/56 92
06/11/23 10:49 06/11/23 03:00 06/11/23 08:44 06/11/23 02:42 06/11/23 08:44
06/10/23 06/11/23 06/12/23
06:59 06:59 06:59
Actual Weight 70.874 kg
06/10/23 03:55
06/10/23 03:54
APTT 79.3 Sec (23.4-35.0) H 06/09/23 13:34
Triglycerides 100 mg/dl (10-149) 06/10/23 03:54
LDL Cholesterol, Calc 33 mg/dl 06/10/23 03:54
VLDL Cholesterol, Calc 20 mg/dl (0-30) 06/10/23 03:54
HDL Cholesterol 21 mg/dl 06/10/23 03:54
06/09/23
05:10
Dbh-Z-Fvcswhmfgaj Pept 8220
LAB Results
06/09/23 06/09/23
05:10 09:47
Troponin I 0.375 H* 0.296 H*
Physical Exam
Constitutional: No acute distress
Cardiovascular: Rhythm & rate is regular and Pedal edema is absent
Respiratory: Respiratory effort normal and Lungs clear to auscul.
Neuro/Psych: AO x 3
Data Reviewed
-
Date of Service: June 11, 2023
Echo: Report Reviewed by me (Echo 06/10/23 Normal left ventricular size, wall thickness and systolic function. Thickened aortic valve with normal leaflet excursion. This is a follow-up study for comparison with 02/09/2023. Mitral regurgitation
appears less significant in the present study. Otherwise, there is no significan)
Labs: Labs Reviewed by me
[2023-06-11] MEDS: ROCEPHIN 1000 MG IV (12:51)
[2023-06-11] MEDS: STERILE WATER FOR INJECTION 10 ML IV (12:51)
[2023-06-11 12:58] LABS: Urine Albumin 2+ (Neg - Trace); Urine Bilirubin Negative (Negative); Urine Character Slightly Cloudy (Clear); Urine Color Yellow; Urine Glucose Negative (Negative); Urine Ketone Negative (Negative); Urine Leukocyte 2+ (Negative); Urine Nitrite Negative (Negative); Urine Occult Blood 3+ (Negative); Urine Specific Gravity 1.015 (<1.030); Urine Urobilinogen 2+ (Neg - 1+)
[2023-06-11] MEDS: NSS 500 IV (13:11)
[2023-06-11 13:28] LABS: COVID-19 Antigen Negative (Negative)
[2023-06-11 13:37] LABS: Urine White Cell >100 /HPF (0-5)
[2023-06-11 13:42] LABS: Urine Bacteria Many (Negative)
--- NOTE | 2023-06-11 14:43 | PTCARENOTE ---
Pt having chills and temp [address] Daniel notified. Cov test done and negative. Blood cultures and urine C&S sent. Medicated with tylenol 650mg po as ordered. Rocephin IV started and 500m NSS bolus completed. Temp 97.7 at 1400.
[2023-06-11] MEDS: LIPITOR 40 MG PO (17:07)
--- NOTE | 2023-06-11 17:30 | PTCARENOTE ---
Pt slept off and on most of the day. Temp 98.4. Assisted oob to the chair for dinner with the walker. Gait steady with 1-2 assists.
--- NOTE | 2023-06-11 20:00 | PTCARENOTE ---
Received pt at handoff. AOx4. Assessment noted as documented. Pt tele reads afib 90-100s. Asymptomatic. BP 90/48. Pt aware of her history w/ afib. Pt sating at 92% and dyspneic at rest. 2L O2 nasal cannula placed per order. Now sating at 97%. Padilla
care completed. No other c/o pain/discomfort. Pt in bed; call ramirez w/in reach.
[2023-06-11] MEDS: TOPROL XL PO (22:13)
[2023-06-11] MEDS: PACERONE 100 MG PO (22:13)
[2023-06-12] VITALS (12 sets, daily range): BP systolic 110–193; BP diastolic 41–80; PULSE 69
[2023-06-12 01:57] LABS: Glucose - Point of Care 146 mg/dl (70-99)
--- NOTE | 2023-06-12 02:34 | PTCARENOTE ---
Addendum entered by Ashli Lorenzo RN 06/12/23 05:12:
Reassessed pt. BP 114/41. Temp 98.8
Original Note:
At 0200 pt rang call james. Pt reports being very cold. Pt very shaky, temp 98.4. Manual BP 168/50. Clint Benavides PLATE FURNACE OPERATOR aware. No further orders but will continue to monitor BP. Warm blankets provided. Padilla bag changed draining cloudy yellow urine. Blood
and urine cultures pending. No c/o pain. Labs drawn and sent. Call james w/in reach.
[2023-06-12 02:56] LABS: Hematocrit 27.4 % (37.0-47.0); Hemoglobin 9.5 g/dL (12.0-16.0); Mean Corp Hgb Conc. 34.7 g/dL (33.0-37.0); Mean Corpuscular Hgb 31.5 pg (27.0-31.0); Mean Corpuscular Volume 90.7 fL (81.0-99.0); Platelet Count 220 10^3/uL (130-400); Red Blood Cell Count 3.02 10^6/uL (4.20-5.40); Red Cell Dist. Width 17.2 % (11.5-14.5); White Blood Cell Count 10.3 10^3/uL (4.8-10.8)
[2023-06-12 03:23] LABS: ALT (SGPT) 11 U/L (0-35); AST (SGOT) 46 U/L (14-36); Albumin 2.4 g/dl (3.5-5.0); Alkaline Phosphatase 240 U/L (38-126); Blood Urea Nitrogen 39 mg/dl (7-17); Calcium 8.3 mg/dl (8.4-10.2); Carbon Dioxide 19 mmol/L (22-30); Chloride 98 mmol/L (98-107); Estimated Creatinine Clearance 32 ml/min; Glucose 152 mg/dl (70-99); Potassium 3.7 mmol/L (3.5-5.1); Sodium 129 mmol/L (135-145); Total Bilirubin 2.4 mg/dl (0.2-1.3); Total Protein 4.8 g/dl (6.3-8.2); eGFR 48.63
--- NOTE | 2023-06-12 06:55 | W.PN.HOSP.TC ---
Addendum entered and electronically signed by Phuc Daniel MD 06/12/23 11:29:
Addendum
I was just more notified by microbiology that initial culture showing extended spectrum beta-lactamase E. coli
Will stop Rocephin. Will start the patient on ertapenem.
Start isolation precautions
End
Original Note:
Today's Communication/Plan
-
.
Assessment / Plan
Assessment / Plan
Physical Exam
General: No Apparent Distress and Comfortable
HEENT: Moist mucous membranes and Atraumatic
Respiratory: Clear
Cardiac: S1/S2
GI: Soft, Non Tender and Non Distended
Rectal: No Maroon Stools
Genito-urinary: No costovertebral tender
Musculoskeletal: No Cyanosis and No Edema
Skin: Warm and Dry
Neuro: Awake and Oriented, + stiffness, flat facial expression,; No Tremors
Psych: Calm; No Agitated
87 years old female presented with chest pain was found to have myocardial infarction
# Gram-negative bacteremia, source UTI
Sepsis POA and evolving while in hospital
No fever overnight. White count is normal. She reports feeling better today
Blood culture 06/11 showed positive culture. Started empirically on Rocephin. Will increase the dose to 2 g
Await urine and blood culture
Repeat culture 06/12
#Non-ST elevation myocardial infarction
s/p cardiac cath 06/09, no stent, and recommended medical management
Echocardiogram showed normal left ventricular function, left ventricular ejection fraction of 55 to 60%, mild mitral regurgitation.
Started on extended release oral nitrate therapy
c/w Plavix, BB,Statin, Eliquis.
Appreciate cardiology help
#HTN urgency, hx of primary HTN
started on Nitro gtt over night and then weaned off
Continue with metoprolol, isosorbide mononitrate
#Paroxysmal atrial fibrillation
c/w Amiodarone, BB, Eliquis
Off heparin gtt
#Infrequent chest pain which could be noncardiac. Added Maalox
# Hyponatremia, mild
c/w regular diet
No hx of confusion
#Chronic Padilla catheter.
No history of fever or chills.
#History of Parkinson disease with memory impairment.� Continue medical treatment, eventual PT/OT
# code status,, she is DNR
# Gait dysfunction. Rehab
Total time spent to see the patient on the floor, examine the patient, review data and lab results, discuss treatment plan with patient, son and nursing staff around 59 minutes
Anticipated Discharge: 24 - 48 hours
Subjective/Interval History
-
Date of Service: June 12, 2023
No chest pain
No sob
No abd pain
Objective Data
-
Labs:
Laboratory Results
06/12/23
02:27
WBC 10.3
Hgb 9.5 L
Hct 27.4 L
Plt Count 220 D
Sodium 129 L
Potassium 3.7
Chloride 98
Carbon Dioxide 19 L
BUN 39 H
Creatinine 1.1 H
Glucose 152 H
Calcium 8.3 L
Total Bilirubin 2.4 H D
AST 46 H
ALT 11
Alkaline Phosphatase 240 H
Vital Signs:
Vital Signs
Temp Pulse Resp BP Pulse Ox
98.5 F 74 20 133/50 95
06/12/23 06:50 06/12/23 05:02 06/12/23 06:50 06/12/23 06:50 06/12/23 06:50
I&O
06/10/23 06/11/23 06/12/23
06:59 06:59 06:59
Intake Total 740 / 740
Output Total 375 / 375 300 / 300 750 / 750
Balance -375 / -375 -300 / -300 -10 / -10
[2023-06-12] MEDS: ROCEPHIN 1000 MG IV ×2 (07:22→09:57)
[2023-06-12] MEDS: STERILE WATER FOR INJECTION 10 ML IV ×2 (07:22→09:57)
[2023-06-12] MEDS: SINEMET 25-100 2 TABLET PO ×3 (07:32→22:33)
[2023-06-12] MEDS: ELIQUIS 5 MG PO ×2 (07:33→20:26)
[2023-06-12] MEDS: IMDUR (EXTENDED RELEASE) 30 MG PO (07:33)
[2023-06-12] MEDS: PROTONIX 40 MG PO (07:33)
[2023-06-12] MEDS: PLAVIX 75 MG PO (07:33)
[2023-06-12] MEDS: ZOLOFT 50 MG PO (07:33)
--- NOTE | 2023-06-12 11:20 | PTCARENOTE ---
Pt remains afebrile. Assisted OOB to the chair with the walker. Blood culture results back for E coli - ESBL. Dr. Daniel notified.
[2023-06-12] MEDS: INVANZ 60 MG IV (11:54)
[2023-06-12] MEDS: LIPITOR 40 MG PO (18:19)
--- NOTE | 2023-06-12 18:24 | PTCARENOTE ---
Pt tolerated oob in the chair until 1700. Denies any pain or discomfort.
[2023-06-12] MEDS: FLUSH (NSS) 1 FLUSH IV (20:26)
[2023-06-12] MEDS: PACERONE 100 MG PO (22:33)
[2023-06-12] MEDS: TOPROL XL 50 MG PO (22:34)
--- NOTE | 2023-06-12 22:43 | PTCARENOTE ---
Received patient at change of shift this PM. AAOx3. She has Parkinson Disease and has a flat affect in the room. VSS. She is NSR on the monitor. HR in the 60s-70s. INT patent. Right radial site is ZULMA and is clean, dry, and intact. She denies chest
pain or discomfort. Plan of care discussed. She appearsw receptive to teaching, but may need encouragement. We discussed her medications. She understands that she is to continue to received antibiotics. She denies pain and appears comfortable in bed
at this time. Will continue to monitor.
[2023-06-13 04:10] VITALS: BP 146/59
[2023-06-13 04:45] LABS: Hematocrit 26.4 % (37.0-47.0); Hemoglobin 9.1 g/dL (12.0-16.0); Mean Corp Hgb Conc. 34.5 g/dL (33.0-37.0); Mean Corpuscular Hgb 31.2 pg (27.0-31.0); Mean Corpuscular Volume 90.4 fL (81.0-99.0); Mean Platelet Volume 10.5 fL (7.4-10.4); Platelet Count 263 10^3/uL (130-400); Red Blood Cell Count 2.92 10^6/uL (4.20-5.40); Red Cell Dist. Width 17.2 % (11.5-14.5); White Blood Cell Count 13.3 10^3/uL (4.8-10.8)
[2023-06-13 05:13] LABS: ALT (SGPT) < 10 U/L (0-35); AST (SGOT) 32 U/L (14-36); Albumin 2.3 g/dl (3.5-5.0); Alkaline Phosphatase 168 U/L (38-126); Blood Urea Nitrogen 45 mg/dl (7-17); Calcium 8.4 mg/dl (8.4-10.2); Carbon Dioxide 25 mmol/L (22-30); Chloride 98 mmol/L (98-107); Estimated Creatinine Clearance 36 ml/min; Glucose 142 mg/dl (70-99); Potassium 3.9 mmol/L (3.5-5.1); Sodium 129 mmol/L (135-145); Total Bilirubin 1.1 mg/dl (0.2-1.3); Total Protein 4.7 g/dl (6.3-8.2); eGFR 54.53
[2023-06-13 08:31] VITALS: BP 132/57
[2023-06-13] MEDS: IMDUR (EXTENDED RELEASE) 30 MG PO (08:32)
[2023-06-13] MEDS: ZOLOFT 50 MG PO (08:32)
[2023-06-13] MEDS: PLAVIX 75 MG PO (08:32)
[2023-06-13] MEDS: SINEMET 25-100 2 TABLET PO ×3 (08:32→22:34)
[2023-06-13] MEDS: PROTONIX 40 MG PO (08:32)
[2023-06-13] MEDS: ELIQUIS 5 MG PO ×2 (08:32→20:35)
[2023-06-13] MEDS: FLUSH (NSS) 1 FLUSH IV ×2 (08:33→20:34)
--- NOTE | 2023-06-13 09:12 | W.PN.HOSP.TC ---
Today's Communication/Plan
-
see bold
Assessment / Plan
Assessment / Plan
87 years old female presented with chest pain was found to have myocardial infarction
# ESBL positive E. coli/multidrug resistant bacteremia and urinary tract infection
ID consulted, continue ertapenem day 2
Repeat culture 06/11 NTD, 06/12 NTD
#Non-ST elevation myocardial infarction
S/p cardiac cath 06/09, no stent, and recommended medical management
Echocardiogram showed normal left ventricular function, left ventricular ejection fraction of 55 to 60%, mild mitral regurgitation.
Started on extended release oral nitrate therapy
Cardiology following, continue Plavix, BB,Statin, Eliquis.
#HTN urgency, hx of primary HTN
S/p Nitro gtt
Continue with metoprolol, isosorbide mononitrate
#Paroxysmal atrial fibrillation
C/w Amiodarone, BB, Eliquis
S/p heparin gtt
#Infrequent chest pain which could be noncardiac. Added Maalox
# Hyponatremia
Fluid restrict, check TSH, free T4, urine studies
#Chronic Padilla catheter.
No history of fever or chills.
#History of Parkinson disease with memory impairment.� Continue medical treatment, eventual PT/OT
# Gait dysfunction. Rehab
DVT prophylaxis�Eliquis
DNR
Total time spent to see the patient on the floor, examine the patient, review data and lab results, discuss treatment plan with patient, nursing staff around 51 minutes.
Physical Exam
General: No Apparent Distress and Comfortable
HEENT: Moist mucous membranes and Atraumatic
Respiratory: Clear
Cardiac: S1/S2
GI: Soft, Non Tender and Non Distended
Rectal: No Maroon Stools
Genito-urinary: No costovertebral tender
Musculoskeletal: No Cyanosis and No Edema
Skin: Warm and Dry
Neuro: Awake and Oriented, + stiffness, flat facial expression
Anticipated Discharge: > 48 hours
Subjective/Interval History
-
Date of Service: June 13, 2023
Patient reports feeling weak.
Objective Data
-
Labs:
Laboratory Results
06/13/23
04:20
WBC 13.3 H
Hgb 9.1 L
Hct 26.4 L
Plt Count 263
Sodium 129 L
Potassium 3.9
Chloride 98
Carbon Dioxide 25
BUN 45 H
Creatinine 1.0
Glucose 142 H
Calcium 8.4
Total Bilirubin 1.1 D
AST 32
ALT < 10
Alkaline Phosphatase 168 H
Vital Signs:
Vital Signs
Temp Pulse Resp BP Pulse Ox
98.3 F 63 20 132/57 95
06/13/23 08:07 06/13/23 08:31 06/13/23 08:07 06/13/23 08:31 06/13/23 08:07
I&O
06/12/23 06/13/23 06/14/23
06:59 06:59 06:59
Intake Total 740 / 740 240 / 240
Output Total 750 / 750 375 / 375 450 / 450
Balance -10 / -10 -135 / -135 -450 / -450
--- NOTE | 2023-06-13 09:27 | PTCARENOTE ---
Received patient this morning resting in bed and requesting to use the commode. Required assist of two with the rolling walker to transfer from the bed to the commode. Encouraged to sit oob in the chair, however rang ramirez several times after one
hour, requesting to go back to bed with complaints that her back was bothering her despite being repositioned. Patient's affect is very flat but answers questions appropriately when asked but does not engage in conversation. Resting in bed now, call
ramirez within reach.
--- NOTE | 2023-06-13 10:16 | CON.ID ---
Consultation
-
Date/Time Consultation Requested: June 12, 2023 1129
Date/Time Consultation Performed: June 13, 2023 1015
Requesting Provider: Dr. Cesilia Daniel
Performing Provider: Dr. Tyra Steen
Reason for Consultation: Bacteremia
Chief Complaint / Past History
Chief Complaint
Chest pain
History of Present Illness
87-year-old female with Parkinson's, urinary retention with chronic indwelling Sykes catheter, CAD, history of pacemaker placement who presented from assisted living facility on June 09 complaining of acute onset of chest pain that woke her up.
Admission temperature was 100.4. Patient was very hypertensive. Troponin positive. EKG suggestive of non-ST elevation CO. She was taken to the [facility] which showed diffuse disease to be manage medically. On June 11 she spiked fevers up to
101. COVID-negative. Influenza negative. She was pancultured including urine. She was started on empiric ceftriaxone. However the blood culture resulted as ESBL E. coli. Ceftriaxone was changed to ertapenem yesterday. She denies suprapubic
pain or flank pain. She reports no history of frequent UTI.. Sykes is changed once a month.
Past History
Additional Past Medical History:
Hypertension
Parkinson's
CAD status post stent
Arrhythmia status post pacemaker placement
Atrial fibrillation
Urinary retention with chronic indwelling Sykes catheter
Allergy History:
No Known Allergies Allergy (Verified 06/09/23 05:06)
Medications Reviewed: Yes
Current Antibiotics:
Ertapenem d2
Social History
Tobacco: Non-Smoker
Alcohol: None
Drug: None
Living: Assisted Living
Family History
Family History: Not Pertinent
Review of Systems
Review of Systems
General: Change in Appetite
HEENT: Negative Stiff Neck, Sinus Problems or Headache
Respiratory: Negative Dyspnea or Cough
Gasteroenterology: Other (no diarrhea); Negative Nausea or Vomiting
Genital / Urological: Negative Dysuria or Flank Pain
Endocrine: Weakness
Skin / Hair / Nails: Negative Rash
Neurological: Negative Headache or Dizziness
All systems: All other systems were reviewed and were negative
Vital Signs
Temp Pulse Resp BP Pulse Ox
98.3 F 63 20 132/57 95
06/13/23 08:07 06/13/23 08:31 06/13/23 08:07 06/13/23 08:31 06/13/23 08:07
Physical Exam
Physical Exam
Constitutional: Comfortable
Eyes: No Conjunctival Hemorrhage and Sclera Anicteric
Cardiovascular: Regular Rate and S1/S2
Pulmonary: Clear
Gastrointestinal: Soft, Non Tender, Non Distended and Normal Bowel Sounds
Genito-Urinary: Sykes and Clear Urine
Extremities: Negative Edema
Neurological: Awake and Alert
Psychological: Other (Flat affect)
Lab / Diagnostic Study Results
06/13/23 04:20
06/13/23 04:20
Abs Immat Gran (auto) 0.0 10^3/uL (0-0.05) 06/09/23 05:10
Absolute Neuts (auto) 6.7 10^3/uL (1.4-6.5) H 06/09/23 05:10
Absolute Lymphs (auto) 0.6 10^3/uL (1.2-3.4) L 06/09/23 05:10
Absolute Monos (auto) 1.2 10^3/uL (0.1-0.6) H 06/09/23 05:10
Absolute Basos (auto) 0.0 10^3/uL (0-0.2) 06/09/23 05:10
Immature Gran % 0.5 % (0-0.5) 06/09/23 05:10
Neutrophils % 78.5 % (42.2-75.2) H 06/09/23 05:10
Lymphocytes % 6.7 % (20.5-51.1) L 06/09/23 05:10
Monocytes % 14.0 % (1.7-9.3) H 06/09/23 05:10
Eosinophils % 0.1 % (0-6) 06/09/23 05:10
Basophils % 0.2 % (0-2) 06/09/23 05:10
Ur Squamous Epith Cells 11-15 /LPF (Few) 06/11/23 12:28
Microbiology Results
Micro:
06/12/23 09:32 Blood Culture - Preliminary
Blood/Venous No Growth in 24 hours- Final report to follow
06/11/23 12:28 Urine Culture - Final
Urine Escherichia coli - ESBL
06/11/23 13:07 Blood Culture - Preliminary
Blood/Venous Escherichia coli - ESBL
Gram Stain - Preliminary
06/11/23 13:46 Blood Culture - Preliminary
Blood/Venous No Growth in 24 hours- Final report to follow
06/09/23 20:08 MRSA Screen - Final
Nose No Methicillin Resistant Staphylococcus aureus isolated.
06/09/23 CXR: No acute cardiopulmonary process.
Assessment / Plan
# ESBL E. coli CAUTI
# ESBL E. coli bacteremia
# Fever resolved
# Leukocytosis today
- Continue Ertapenem.
-Repeat blood cx's
- Change sykes.
-Follow wbc.
Care Review
Plan reviewed with: Physician (Dr. Leanna Rivas)
--- NOTE | 2023-06-13 12:01 | PTCARENOTE ---
Sykes draining lizbeth urine with cloudy discharge noted in catheter tubing. Sykes removed as per ID order. Yokasta care given and sykes replaced with 16F sykes without difficulty. Patient more alert, eating yogurt and drinking juice. Call ramirez at the
bedside.
[2023-06-13 12:28] VITALS: BP 114/44
--- NOTE | 2023-06-13 12:40 | CM ---
Chart reviewed. Patient is currently living in the Assisted Care at [facility] with private care givers in the morning and evening. Patient with a supportive son to assist in decision making. PT/OT evaluation recommending Skilled Rehab.
Patient's son prefers patient to go to [facility]. [facility] will have a bed available tomorrow. Precertification request for SNF requested from [facility]. Ref# [id number] Fax . CM to follow
[2023-06-13] MEDS: INVANZ 60 MG IV (12:47)
[2023-06-13 16:22] VITALS: BP 115/53
[2023-06-13] MEDS: LIPITOR 40 MG PO (17:06)
[2023-06-13 17:47] LABS: Osmolality Urine 410 mOsm/kg (300-900)
--- NOTE | 2023-06-13 17:55 | PTCARENOTE ---
Patient's son spent the afternoon with her. She remained in bed, not wanting to get oob. Very poor appetite, unable to talk her into eating anything. Drinking PO fluids, but not excessively. Son brought in a chocolate protein drink that she sipped
on but did not want anymore. Repositioned and lying on her side, rectal temp 100, urines sent to the lab.
[2023-06-13 18:06] LABS: Urine Sodium < 5 mmol/L (30-90)
[2023-06-13 20:13] VITALS: BP 128/49
[2023-06-13 22:27] VITALS: BP 118/44
[2023-06-13] MEDS: PACERONE 100 MG PO (22:34)
[2023-06-13] MEDS: TOPROL XL 50 MG PO (22:34)
--- NOTE | 2023-06-13 23:59 | PTCARENOTE ---
Received patient at change of shift this PM. AAOx3. She has a history of Parkinsons with generalized weakness and occasional tremors. VSS. She is NSR on the monitor. HR in the 60s-80s. INT patent. Right radial site is [employer] SPEC and clean, dry, and intact.
She denies chest pain or discomfort. Plan of care discussed. She is receptive to teaching, but lacks motivation and is mostly uninterested. We discussed her medications. She denies pain and appears comfortable in bed at this time. Will continue to
monitor.
[2023-06-14] VITALS (10 sets, daily range): BP systolic 102–155; BP diastolic 34–70; PULSE 63–70; O2SAT 92
[2023-06-14 04:15] LABS: Hematocrit 26.3 % (37.0-47.0); Mean Corp Hgb Conc. 34.2 g/dL (33.0-37.0); Mean Corpuscular Hgb 30.5 pg (27.0-31.0); Mean Corpuscular Volume 89.2 fL (81.0-99.0); Mean Platelet Volume 10.3 fL (7.4-10.4); Platelet Count 268 10^3/uL (130-400); Red Blood Cell Count 2.95 10^6/uL (4.20-5.40); Red Cell Dist. Width 17.4 % (11.5-14.5); White Blood Cell Count 12.7 10^3/uL (4.8-10.8)
[2023-06-14 04:47] LABS: Blood Urea Nitrogen 47 mg/dl (7-17); Calcium 8.3 mg/dl (8.4-10.2); Carbon Dioxide 23 mmol/L (22-30); Chloride 98 mmol/L (98-107); Estimated Creatinine Clearance 40 ml/min; Glucose 105 mg/dl (70-99); Phosphorus 4.2 mg/dl (2.5-4.5); Potassium 4.2 mmol/L (3.5-5.1); Sodium 129 mmol/L (135-145); eGFR > 60.00
[2023-06-14 05:16] LABS: TSH Reflex To Free T4 1.32 uIU/ml (0.47-4.68)
--- NOTE | 2023-06-14 08:26 | PTCARENOTE ---
Received patient this morning lying in bed, pressed call button stating that she had to move her bowels. Patient is alert and oriented but appears very weak, mouth breathing and required maximum assistance to turn in the bed. Unable to transfer to "the bedside commode due to her generalized weakness and placed on the bedpan. Patient very withdrawn but after questioning admits to feeling very weak, appetite remains very poor.
--- NOTE | 2023-06-14 08:43 | PN.CDI ---
CDI
- -
CDI:
Physician Documentation Request
Admit Date: 06/09/23 07:44
Dear Doctor Do,
Patient admitted with NSTEMI.
06/13 PN, 'ESBL positive E. coli/multidrug resistant bacteremia and urinary tract infection....Chronic Padilla catheter.'
Please clarify the likely relationship between these conditions:
Yes, UTI is related to/associated with/due to chronic Padilla catheter.
No, UTI is not related to/associated with/due to chronic Padilla catheter but it is due to ___. (Please specify)
Unable to determine
Use of terms such as suspected, likely, concern for, or probable (associated with a specific diagnosis that is being evaluated, monitored, or treated as if it exists) are acceptable and can be coded in the inpatient setting, when documented at the
time of discharge.
Thank you,
Becki MCGRAW,RN,CCDS
CDI Specialist
Available via [place] text
Please use your independent medical judgment in providing your response.
--- NOTE | 2023-06-14 08:45 | W.PN.HOSP.TC ---
Today's Communication/Plan
-
see bold
Assessment / Plan
Assessment / Plan
87 years old female presented with chest pain was found to have myocardial infarction
#ESBL positive E. coli/multidrug resistant bacteremia
#Padilla catheter associated UTI
ID consulted, continue ertapenem day 3
Padilla changed on 06/13
Repeat culture 06/11 NTD, 06/12 NTD
# Hyponatremia
TSH/a.m. cortisol normal, urine studies reviewed
Patient is vomiting with sodium 129, continue fluids restriction, gentle IV fluids, consult nephrology
#Non-ST elevation myocardial infarction
S/p cardiac cath 06/09, no stent, and recommended medical management
Echocardiogram showed normal left ventricular function, left ventricular ejection fraction of 55 to 60%, mild mitral regurgitation.
Started on extended release oral nitrate therapy
Cardiology signed off, continue Plavix, BB,Statin, Eliquis.
#HTN urgency, hx of primary HTN
S/p Nitro gtt
Continue with metoprolol, isosorbide mononitrate
#Paroxysmal atrial fibrillation
C/w Amiodarone, BB, Eliquis
S/p heparin gtt
#Infrequent chest pain which could be noncardiac. Added Maalox
#Chronic Padilla catheter.
No history of fever or chills.
#History of Parkinson disease with memory impairment
Continue Sinemet, PT/OT recommends SNF
# Gait dysfunction. Rehab
DVT prophylaxis�Eliquis
DNR
Updated son on the phone 06/14
Total time spent to see the patient on the floor, examine the patient, review data and lab results, discuss treatment plan with patient, nursing staff around 50 minutes.
Physical Exam
General: Appears to not feel well, lethargic, but in no acute distress
HEENT: Normocephalic, Atraumatic, EOMI, MMM
Respiratory: Clear to Auscultation bilaterally
Cardiac: Normal S1/S2, Regular Rate and Rhythm
GI: Soft, Nontender, Nondistended, Normal Bowel Sounds
Extremities: No Clubbing, Cyanosis, or Edema
Neuro: Cogwheel rigidity noted
Anticipated Discharge: > 48 hours
Subjective/Interval History
-
Date of Service: June 14, 2023
Patient appears weak and lethargic, she is nauseated this morning.
Objective Data
-
Labs:
Laboratory Results
06/14/23
03:39
WBC 12.7 H
Hgb 9.0 L
Hct 26.3 L
Plt Count 268
Sodium 129 L
Potassium 4.2
Chloride 98
Carbon Dioxide 23
BUN 47 H
Creatinine 0.9
Glucose 105 H
Calcium 8.3 L
Vital Signs:
Vital Signs
Temp Pulse Resp BP Pulse Ox
100 F 68 22 130/61 92
06/14/23 07:30 06/14/23 07:20 06/14/23 07:30 06/14/23 07:20 06/14/23 07:30
I&O
06/13/23 06/14/23 06/15/23
06:59 06:59 06:59
Intake Total 240 / 240 470 / 470 240 / 240
Output Total 375 / 375 750 / 750 350 / 350
Balance -135 / -135 -280 / -280 -110 / -110
[2023-06-14] MEDS: SINEMET 25-100 2 TABLET PO ×3 (09:49→22:47)
[2023-06-14] MEDS: ELIQUIS 5 MG PO ×2 (09:49→20:08)
[2023-06-14] MEDS: PLAVIX 75 MG PO (09:49)
[2023-06-14] MEDS: PROTONIX 40 MG PO (09:49)
[2023-06-14] MEDS: IMDUR (EXTENDED RELEASE) 30 MG PO (09:50)
[2023-06-14] MEDS: ZOLOFT 50 MG PO (09:50)
[2023-06-14] MEDS: FLUSH (NSS) 1 FLUSH IV ×2 (09:50→20:08)
--- NOTE | 2023-06-14 11:33 | W.PN.ID1 ---
Date of Service
Date of Service: June 14, 2023
Today's Communication
- Continue Ertapenem (d3)
-At time of discharge, can transition to Bactrim DS 1 tab bid through 06/21/23
Follow K+ and Cr while on Bactrim.
Assessment / Plan
# ESBL E. coli CAUTI
# ESBL E. coli bacteremia
# Fever resolved
# Leukocytosis improving
-Repeat blood cx's neg to date
-Padilla changed
- Continue Ertapenem (d3)
-At time of discharge, can transition to Bactrim DS 1 tab bid through 06/21/23
Follow K+ and Cr while on Bactrim.
-Follow wbc.
#Additional Past Medical History:
Hypertension
Parkinson's
CAD status post stent
Arrhythmia status post pacemaker placement
Atrial fibrillation
Urinary retention with chronic indwelling Padilla catheter
Chief Complaint
-: UTI and Bacteremia
Vital Signs / Physical Exam
Vital Signs
Vital Signs
Temp Pulse Resp BP Pulse Ox
100 F 68 22 130/61 92
06/14/23 07:30 06/14/23 07:20 06/14/23 07:30 06/14/23 07:20 06/14/23 07:30
Physical Exam
Cardiovascular: Regular Rate and S1/S2
Pulmonary: Clear
Gastrointestinal: Soft, Non Tender, Non Distended and Normal Bowel Sounds
Genito-Urinary: Padilla; Negative Clear Urine
Objective Data
Lab Data
Lab Results
06/14/23 03:39
06/14/23 03:39
APTT 79.3 Sec (23.4-35.0) H 06/09/23 13:34
Estimated Creat Clear 40 ml/min 06/14/23 03:39
Total Bilirubin 1.1 mg/dl (0.2-1.3) D 06/13/23 04:20
AST 32 U/L (14-36) 06/13/23 04:20
ALT < 10 U/L (0-35) 06/13/23 04:20
Alkaline Phosphatase 168 U/L (38-126) H 06/13/23 04:20
Most recent labs reviewed.
Micro Results:
06/12/23 09:32 Blood Culture - Preliminary
Blood/Venous No Growth in 48 hours- Final report to follow
06/11/23 13:07 Blood Culture - Final
Blood/Venous Escherichia coli - ESBL
Gram Stain - Final
06/11/23 13:46 Blood Culture - Preliminary
Blood/Venous No Growth in 48 hours- Final report to follow
06/11/23 12:28 Urine Culture - Final
Urine Escherichia coli - ESBL
06/09/23 20:08 MRSA Screen - Final
Nose No Methicillin Resistant Staphylococcus aureus isolated.
06/09/23 CXR: No acute cardiopulmonary process.
Care Review
Plan reviewed with: Physician (Dr. alvaro Rivas)
[2023-06-14] MEDS: INVANZ 60 MG IV (12:00)
--- NOTE | 2023-06-14 12:56 | PTCARENOTE ---
Son and granddaughter in to visit and updated on the patient's status and lethargy this morning. Son very concerned about how deconditioned his mother is becoming and that she wasn't able to participate in PT today. Requesting to speak with case
er manager re: discharge planning.
[2023-06-14] MEDS: NSS 1000 IV (14:27)
[2023-06-14] MEDS: LIPITOR 40 MG PO (16:25)
--- NOTE | 2023-06-14 16:48 | CON.MD ---
Consultation - Medical
-
Assessment
-hyponatremia
-hypotension
-NSTEMI, CAD
-ESBL bacteremia/sepsis
-poor po intake
-PAFib
-chronic sykes
Plan
-urine suggests hypovolemic hyponatremia
-try NSS first
-if Na remains low can do 3%NaCl tomorrow
-abx per ID
-maintain light FR, pt currently will not drink enough to exceed it anyways
-d/w family at bedside
[id number]
[2023-06-14] MEDS: TOPROL XL 50 MG PO (22:53)
[2023-06-14] MEDS: PACERONE 100 MG PO (22:54)
--- NOTE | 2023-06-15 02:05 | PTCARENOTE ---
Received patient at [facility] e of shift this PM. AAOx3. She is more drowsy and lethargic at this time. VSS. She is NSR on the monitor. HR in the 60s. INT patent. Right radial site is [employer] and appears clean, dry, and intact. She denies chest pain or
discomfort. Plan of care discussed with her son at the bedside. She is disinterested and unable to learn much at this time and needs reinforcement in teaching. She denies pain and appears comfortable at this time. Will continue to monitor.
[2023-06-15 02:45] VITALS: BP 127/54
[2023-06-15 03:30] LABS: Hematocrit 23.4 % (37.0-47.0); Hemoglobin 8.3 g/dL (12.0-16.0); Mean Corp Hgb Conc. 35.5 g/dL (33.0-37.0); Mean Corpuscular Hgb 31.4 pg (27.0-31.0); Mean Corpuscular Volume 88.6 fL (81.0-99.0); Mean Platelet Volume 10.3 fL (7.4-10.4); Platelet Count 254 10^3/uL (130-400); Red Blood Cell Count 2.64 10^6/uL (4.20-5.40); Red Cell Dist. Width 17.8 % (11.5-14.5); White Blood Cell Count 11.5 10^3/uL (4.8-10.8)
[2023-06-15 03:49] LABS: Blood Urea Nitrogen 40 mg/dl (7-17); Calcium 7.8 mg/dl (8.4-10.2); Carbon Dioxide 23 mmol/L (22-30); Chloride 100 mmol/L (98-107); Estimated Creatinine Clearance 45 ml/min; Glucose 111 mg/dl (70-99); Phosphorus 4.1 mg/dl (2.5-4.5); Potassium 3.9 mmol/L (3.5-5.1); Sodium 131 mmol/L (135-145); eGFR > 60.00
[2023-06-15 06:44] VITALS: BP 133/57
--- NOTE | 2023-06-15 08:02 | W.PN.HOSP.TC ---
Today's Communication/Plan
-
see bold
Assessment / Plan
Assessment / Plan
87 years old female presented with chest pain was found to have myocardial infarction
#ESBL positive E. coli/multidrug resistant bacteremia
#Padilla catheter associated UTI
ID consulted, continue ertapenem day 4
Padilla changed on 06/13
Repeat culture 06/11 NTD, 06/12 NTD
#Hypovolemic hyponatremia
TSH/a.m. cortisol normal, urine studies reviewed
Appreciate nephrology input, sodium improved to 131 status post IV fluid
Salt tabs as per nephrology
#Non-ST elevation myocardial infarction
S/p cardiac cath 06/09, no stent, and recommended medical management
Echocardiogram showed normal left ventricular function, left ventricular ejection fraction of 55 to 60%, mild mitral regurgitation.
Started on extended release oral nitrate therapy
Cardiology signed off, continue Plavix, BB,Statin, Eliquis.
#Anemia
Due to sepsis
No signs or symptoms of bleeding, continue to monitor
#HTN urgency, hx of primary HTN
S/p Nitro gtt
Continue with metoprolol, isosorbide mononitrate
#Paroxysmal atrial fibrillation
C/w Amiodarone, BB, Eliquis
S/p heparin gtt
#Infrequent chest pain which could be noncardiac. Added Maalox
#Chronic Padilla catheter.
No history of fever or chills.
#History of Parkinson disease with memory impairment
Continue Sinemet, PT/OT recommends SNF
# Gait dysfunction. Rehab
DVT prophylaxis�Eliquis
DNR
Updated son on the phone 06/15
Physical Exam
General: Appears to not feel well, lethargic, but in no acute distress
HEENT: Normocephalic, Atraumatic, EOMI, MMM
Respiratory: Clear to Auscultation bilaterally
Cardiac: Normal S1/S2, Regular Rate and Rhythm
GI: Soft, Nontender, Nondistended, Normal Bowel Sounds
Extremities: No Clubbing, Cyanosis, or Edema
Neuro: Cogwheel rigidity noted
Anticipated Discharge: > 48 hours
Subjective/Interval History
-
Date of Service: June 15, 2023
Patient continues to be lethargic and tired. Minimal oral intake.
Objective Data
-
Labs:
Laboratory Results
06/15/23
02:51
WBC 11.5 H
Hgb 8.3 L
Hct 23.4 L
Plt Count 254
Sodium 131 L
Potassium 3.9
Chloride 100
Carbon Dioxide 23
BUN 40 H
Creatinine 0.8
Glucose 111 H
Calcium 7.8 L
Vital Signs:
Vital Signs
Temp Pulse Resp BP Pulse Ox
97.6 F 65 18 133/57 94
06/15/23 06:45 06/15/23 06:45 06/15/23 06:45 06/15/23 06:44 06/15/23 06:45
I&O
06/14/23 06/15/23 06/16/23
06:59 06:59 06:59
Intake Total 470 / 470 1080 / 1080
Output Total 750 / 750 650 / 650
Balance -280 / -280 430 / 430
[2023-06-15] MEDS: IMDUR (EXTENDED RELEASE) 30 MG PO (09:20)
[2023-06-15] MEDS: ZOLOFT 50 MG PO (09:20)
[2023-06-15] MEDS: PLAVIX 75 MG PO (09:20)
[2023-06-15] MEDS: PROTONIX 40 MG PO (09:20)
[2023-06-15] MEDS: ELIQUIS 5 MG PO ×2 (09:21→21:16)
[2023-06-15] MEDS: SINEMET 25-100 2 TABLET PO ×3 (09:21→21:16)
[2023-06-15 11:23] VITALS: BP 112/51
--- NOTE | 2023-06-15 11:28 | W.PN.NEPH.PH ---
Today's Communication / Plan
-
observe
salt tab
Assessment/Plan
-
Assessment
-hyponatremia
-hypotension
-NSTEMI, CAD
-ESBL bacteremia/sepsis
-poor po intake
-PAFib
-chronic sykes
Plan
-urine suggests hypovolemic hyponatremia
improving sodium with NS
encourage solute intake
-abx per ID
-maintain light FR
may add salt tab
-
-
Date of Service: June 15, 2023
CC / HPI / ROS
-
Chief Complaint:
hyponatremia
History of Present Illness:
sodium better at 131
Bp stable
hb low 8.3
Review of Systems:
feels well today more awake
eating well
no n/v
no cp or sob
Labs
-
Labs:
WBC 11.5 10^3/uL (4.8-10.8) H 06/15/23 02:51
RBC 2.64 10^6/uL (4.20-5.40) L 06/15/23 02:51
Hgb 8.3 g/dL (12.0-16.0) L 06/15/23 02:51
Hct 23.4 % (37.0-47.0) L 06/15/23 02:51
Plt Count 254 10^3/uL (130-400) 06/15/23 02:51
Sodium 131 mmol/L (135-145) L 06/15/23 02:51
Potassium 3.9 mmol/L (3.5-5.1) 06/15/23 02:51
Chloride 100 mmol/L (98-107) 06/15/23 02:51
Carbon Dioxide 23 mmol/L (22-30) 06/15/23 02:51
BUN 40 mg/dl (7-17) H 06/15/23 02:51
Creatinine 0.8 mg/dL (0.6-1.0) 06/15/23 02:51
eGFR > 60.00 06/15/23 02:51
Glucose 111 mg/dl (70-99) H 06/15/23 02:51
Calcium 7.8 mg/dl (8.4-10.2) L 06/15/23 02:51
Phosphorus 4.1 mg/dl (2.5-4.5) 06/15/23 02:51
Prp-A-Jviuvtivdkt Pept 8220 pg/ml 06/09/23 05:10
Albumin 2.3 g/dl (3.5-5.0) L 06/13/23 04:20
Physical Exam
-
Vital Signs:
Vital Signs
Temp Pulse Resp BP Pulse Ox
98.2 F 62 18 133/57 94
06/15/23 11:23 06/15/23 11:23 06/15/23 11:23 06/15/23 06:44 06/15/23 11:23
Cardiovascular:: Regular rate and rhythm
Respiratory:: Bilateral: CTA
Lung Excursion:: Normal
Abdomen:: Nontender and Soft
Extremity Edema:: None: Bilateral:
Sykes Catheter: No
[2023-06-15] MEDS: SODIUM CHLORIDE 0.5 GRAM PO ×2 (13:09→21:15)
[2023-06-15] MEDS: INVANZ 60 MG IV (13:09)
--- NOTE | 2023-06-15 13:22 | W.PN.ID1 ---
Date of Service
Date of Service: June 15, 2023
Today's Communication
Continue Ertapenem (d4)
At time of discharge, can transition to Bactrim DS 1 tab bid through 06/21/23
Follow K+ and Cr while on Bactrim.
Assessment / Plan
# ESBL E. coli CAUTI
# ESBL E. coli bacteremia
# Fever resolved
# Leukocytosis improving
-Repeat blood cx's neg to date
-Padilla changed
- Continue Ertapenem (d4)
-At time of discharge, can transition to Bactrim DS 1 tab bid through 06/21/23
Follow K+ and Cr while on Bactrim.
#Additional Past Medical History:
Hypertension
Parkinson's
CAD status post stent
Arrhythmia status post pacemaker placement
Atrial fibrillation
Urinary retention with chronic indwelling Padilla catheter
Chief Complaint
-: UTI and Bacteremia
Subjective / Review of Systems
Sitting up in chair. Feeling better. No bladder pain. No flank pain.
Vital Signs / Physical Exam
Vital Signs
Vital Signs
Temp Pulse Resp BP Pulse Ox
98.2 F 62 18 133/57 94
06/15/23 11:23 06/15/23 11:23 06/15/23 11:23 06/15/23 06:44 06/15/23 11:23
Physical Exam
Constitutional: No Acute Distress and Comfortable
Pulmonary: Clear
Gastrointestinal: Soft, Non Tender and Non Distended
Genito-Urinary: Padilla and Clear Urine; Negative CVA Tenderness
Neurological: Awake and Alert
Objective Data
Lab Data
Lab Results
06/15/23 02:51
06/15/23 02:51
APTT 79.3 Sec (23.4-35.0) H 06/09/23 13:34
Estimated Creat Clear 45 ml/min 06/15/23 02:51
Total Bilirubin 1.1 mg/dl (0.2-1.3) D 06/13/23 04:20
AST 32 U/L (14-36) 06/13/23 04:20
ALT < 10 U/L (0-35) 06/13/23 04:20
Alkaline Phosphatase 168 U/L (38-126) H 06/13/23 04:20
Most recent labs reviewed.
Micro Results:
06/12/23 09:32 Blood Culture - Preliminary
Blood/Venous No Growth in 72 hours- Final report to follow
06/11/23 13:46 Blood Culture - Preliminary
Blood/Venous No Growth in 72 hours- Final report to follow
06/11/23 13:07 Blood Culture - Final
Blood/Venous Escherichia coli - ESBL
Gram Stain - Final
06/11/23 12:28 Urine Culture - Final
Urine Escherichia coli - ESBL
06/09/23 20:08 MRSA Screen - Final
Nose No Methicillin Resistant Staphylococcus aureus isolated.
06/09/23 CXR: No acute cardiopulmonary process.
--- NOTE | 2023-06-15 13:59 | CM ---
Chart reviewed. Patient more awake and interactive today, son at bedside. I spoke to Dr. Rivas, looks like the patient may be able to go to SNF or Tuesday. Patient currently lives assisted living at [facility], with a aviation survival technician Tuesday
and Tuesday. PT/OT evaluation recommending Skilled Rehab. Patient's son would like for the patient to go [facility] for [facility]. Authorization obtained from [employer]. DENISE 06/17. CM to follow
[2023-06-15 15:45] VITALS: BP 118/46
[2023-06-15] MEDS: LIPITOR 40 MG PO (17:18)
--- NOTE | 2023-06-15 17:27 | PTCARENOTE ---
Pt OOB in chair today with max assist of 2 and rolling walker. She walked later with 2 assist about 10 feet before she could no longer bear weight and needed to sit in chair. Her appetite today has been slightly better, she ate approx 50% of 2 of
her meals.
[2023-06-15 19:36] VITALS: BP 119/50
[2023-06-15 21:14] VITALS: BP 108/47
[2023-06-15] MEDS: PACERONE 100 MG PO (21:16)
[2023-06-15] MEDS: TOPROL XL 50 MG PO (21:16)
[2023-06-16] VITALS (8 sets, daily range): BP systolic 96–154; BP diastolic 52–68; PULSE 61–63; O2SAT 95
[2023-06-16 04:22] LABS: Hemoglobin 8.7 g/dL (12.0-16.0); Mean Corp Hgb Conc. 34.8 g/dL (33.0-37.0); Mean Corpuscular Hgb 31.3 pg (27.0-31.0); Mean Corpuscular Volume 89.9 fL (81.0-99.0); Mean Platelet Volume 10.2 fL (7.4-10.4); Platelet Count 279 10^3/uL (130-400); Red Blood Cell Count 2.78 10^6/uL (4.20-5.40); Red Cell Dist. Width 17.3 % (11.5-14.5); White Blood Cell Count 10.9 10^3/uL (4.8-10.8)
[2023-06-16 04:47] LABS: Blood Urea Nitrogen 36 mg/dl (7-17); Calcium 7.9 mg/dl (8.4-10.2); Carbon Dioxide 25 mmol/L (22-30); Chloride 104 mmol/L (98-107); Estimated Creatinine Clearance 45 ml/min; Glucose 123 mg/dl (70-99); Magnesium 2.2 mg/dl (1.6-2.3); Phosphorus 3.4 mg/dl (2.5-4.5); Potassium 4.2 mmol/L (3.5-5.1); Sodium 131 mmol/L (135-145); eGFR > 60.00
--- NOTE | 2023-06-16 07:33 | W.PN.HOSP.TC ---
Today's Communication/Plan
-
Discharge to rehab when bed available
Assessment / Plan
Assessment / Plan
87 years old female presented with chest pain was found to have myocardial infarction
#ESBL positive E. coli/multidrug resistant bacteremia
#Padilla catheter associated UTI
ID following, continue ertapenem day 5
Padilla changed on 06/13. Repeat culture 06/11 NTD, 06/12 NTD
At time of discharge, can transition to Bactrim DS 1 tab bid through 06/21/23.� Follow K+ and Cr while on Bactrim.
#Hypovolemic hyponatremia
TSH/a.m. cortisol normal, urine studies reviewed
Appreciate nephrology input, sodium improved to 131 status post IV fluid and salt tabs
Salt tabs as per nephrology
#Non-ST elevation myocardial infarction
S/p cardiac cath 06/09, no stent, and recommended medical management
Echocardiogram showed normal left ventricular function, left ventricular ejection fraction of 55 to 60%, mild mitral regurgitation.
Started on extended release oral nitrate therapy
Cardiology signed off, continue Plavix, BB,Statin, Eliquis.
#Anemia
Due to sepsis
No signs or symptoms of bleeding, continue to monitor
#HTN urgency, hx of primary HTN
S/p Nitro gtt
Continue with metoprolol, isosorbide mononitrate
#Paroxysmal atrial fibrillation
C/w Amiodarone, BB, Eliquis
S/p heparin gtt
#Infrequent chest pain which could be noncardiac. Added Maalox
#Chronic Padilla catheter.
No history of fever or chills.
#History of Parkinson disease with memory impairment
Continue Sinemet, PT/OT recommends SNF
# Gait dysfunction. Rehab
DVT prophylaxis�Eliquis
DNR
Updated son on the phone 06/15
Physical Exam
General: Appears to not feel well, lethargic, but in no acute distress
HEENT: Normocephalic, Atraumatic, EOMI, MMM
Respiratory: Clear to Auscultation bilaterally
Cardiac: Normal S1/S2, Regular Rate and Rhythm
GI: Soft, Nontender, Nondistended, Normal Bowel Sounds
Extremities: No Clubbing, Cyanosis, or Edema
Neuro: Cogwheel rigidity noted
Anticipated Discharge: Today
Subjective/Interval History
-
Date of Service: June 16, 2023
Patient is sleepy and lethargic in the morning, but she perks up later in the day. Nursing staff reports she ate 50% of her meals yesterday.
Objective Data
-
Labs:
Laboratory Results
06/16/23
04:01
WBC 10.9 H
Hgb 8.7 L
Hct 25.0 L
Plt Count 279
Sodium 131 L
Potassium 4.2
Chloride 104
Carbon Dioxide 25
BUN 36 H
Creatinine 0.8
Glucose 123 H
Calcium 7.9 L
Vital Signs:
Vital Signs
Temp Pulse Resp BP Pulse Ox
98.9 F 63 20 122/52 92
06/16/23 07:11 06/16/23 04:00 06/16/23 07:11 06/16/23 04:06 06/16/23 07:11
I&O
06/15/23 06/16/23 06/17/23
06:59 06:59 06:59
Intake Total 1080 / 1080
Output Total 650 / 650 450 / 450
Balance 430 / 430 -450 / -450
--- NOTE | 2023-06-16 09:33 | W.PN.ID1 ---
Date of Service
Date of Service: June 16, 2023
Today's Communication
At time of discharge, can transition to Bactrim DS 1 tab bid through 06/21/23. Follow K+ and Cr while on Bactrim.
Assessment / Plan
# ESBL E. coli CAUTI
# ESBL E. coli bacteremia
# Fever resolved
# Leukocytosis resolving
-Repeat blood cx's neg t
-Padilla changed
- Continue Ertapenem (d5)
-At time of discharge, can transition to Bactrim DS 1 tab bid through 06/21/23
Follow K+ and Cr while on Bactrim.
#Additional Past Medical History:
Hypertension
Parkinson's
CAD status post stent
Arrhythmia status post pacemaker placement
Atrial fibrillation
Urinary retention with chronic indwelling Padilla catheter
Chief Complaint
-: UTI and Bacteremia
Subjective / Review of Systems
Feels OK
Vital Signs / Physical Exam
Vital Signs
Vital Signs
Temp Pulse Resp BP Pulse Ox
98.9 F 63 20 122/52 92
06/16/23 07:11 06/16/23 04:00 06/16/23 07:11 06/16/23 04:06 06/16/23 07:11
Physical Exam
Constitutional: No Acute Distress
Cardiovascular: Regular Rate and S1/S2
Pulmonary: Clear
Genito-Urinary: Padilla and Clear Urine
Neurological: Awake and Alert
Objective Data
Lab Data
Lab Results
06/16/23 04:01
06/16/23 04:01
APTT 79.3 Sec (23.4-35.0) H 06/09/23 13:34
Estimated Creat Clear 45 ml/min 06/16/23 04:01
Total Bilirubin 1.1 mg/dl (0.2-1.3) D 06/13/23 04:20
AST 32 U/L (14-36) 06/13/23 04:20
ALT < 10 U/L (0-35) 06/13/23 04:20
Alkaline Phosphatase 168 U/L (38-126) H 06/13/23 04:20
Most recent labs reviewed.
Micro Results:
06/11/23 13:46 Blood Culture - Preliminary
Blood/Venous No Growth in 4 days- Final report to follow
06/12/23 09:32 Blood Culture - Preliminary
Blood/Venous No Growth in 72 hours- Final report to follow
06/11/23 13:07 Blood Culture - Final
Blood/Venous Escherichia coli - ESBL
Gram Stain - Final
06/11/23 12:28 Urine Culture - Final
Urine Escherichia coli - ESBL
06/09/23 20:08 MRSA Screen - Final
Nose No Methicillin Resistant Staphylococcus aureus isolated.
06/09/23 CXR: No acute cardiopulmonary process.
[2023-06-16] MEDS: SODIUM CHLORIDE 0.5 GRAM PO (09:51)
[2023-06-16] MEDS: PROTONIX 40 MG PO (09:51)
[2023-06-16] MEDS: IMDUR (EXTENDED RELEASE) 30 MG PO (09:51)
[2023-06-16] MEDS: ELIQUIS 5 MG PO (09:53)
[2023-06-16] MEDS: PLAVIX 75 MG PO (09:53)
[2023-06-16] MEDS: ZOLOFT 50 MG PO (09:53)
[2023-06-16] MEDS: SINEMET 25-100 2 TABLET PO (09:54)
[2023-06-16] MEDS: INVANZ 60 MG IV (12:01)
--- NOTE | 2023-06-16 12:50 | W.PN.NEPH.PH ---
Today's Communication / Plan
-
cont slat tab and FR
BMP on Tuesday
f/u PCP
Assessment/Plan
-
Assessment
-hyponatremia
-hypotension
-NSTEMI, CAD
-ESBL bacteremia/sepsis
-poor po intake
-PAFib
-chronic sykes
Plan
-urine suggests hypovolemic hyponatremia
sodium stable at 131, cont salt tab and FR
encourage solute intake
-abx per ID
d/c plan
-
-
Date of Service: June 16, 2023
CC / HPI / ROS
-
Chief Complaint:
hyponatremia
History of Present Illness:
sodium stable at 131
Bp stable
hb stable 8.7
Review of Systems:
feels well today more awake
eating well
no n/v
no cp or sob
Labs
-
Labs:
WBC 10.9 10^3/uL (4.8-10.8) H 06/16/23 04:01
RBC 2.78 10^6/uL (4.20-5.40) L 06/16/23 04:01
Hgb 8.7 g/dL (12.0-16.0) L 06/16/23 04:01
Hct 25.0 % (37.0-47.0) L 06/16/23 04:01
Plt Count 279 10^3/uL (130-400) 06/16/23 04:01
Sodium 131 mmol/L (135-145) L 06/16/23 04:01
Potassium 4.2 mmol/L (3.5-5.1) 06/16/23 04:01
Chloride 104 mmol/L (98-107) 06/16/23 04:01
Carbon Dioxide 25 mmol/L (22-30) 06/16/23 04:01
BUN 36 mg/dl (7-17) H 06/16/23 04:01
Creatinine 0.8 mg/dL (0.6-1.0) 06/16/23 04:01
eGFR > 60.00 06/16/23 04:01
Glucose 123 mg/dl (70-99) H 06/16/23 04:01
Calcium 7.9 mg/dl (8.4-10.2) L 06/16/23 04:01
Phosphorus 3.4 mg/dl (2.5-4.5) 06/16/23 04:01
Oty-J-Wzswfjvpjfj Pept 8220 pg/ml 06/09/23 05:10
Albumin 2.3 g/dl (3.5-5.0) L 06/13/23 04:20
Physical Exam
-
Vital Signs:
Vital Signs
Temp Pulse Resp BP Pulse Ox
98.9 F 64 20 154/59 95
06/16/23 07:11 06/16/23 10:00 06/16/23 07:11 06/16/23 09:16 06/16/23 08:55
Cardiovascular:: Regular rate and rhythm
Respiratory:: Bilateral: Rales (at bases better with deep inspiration)
Lung Excursion:: Normal
Abdomen:: Nontender and Soft
Extremity Edema:: None: Bilateral: (trace)
Sykes Catheter: Yes
--- NOTE | 2023-06-16 14:27 | PTCARENOTE ---
Prt very drowsy this morning but awake to take her meds with applesauce. Pt sitting OOB in chair all morning. She ate 25% of her breakfast
--- NOTE | 2023-06-16 14:36 | W.DCSUMMARY ---
Discharge Summary
Discharge Data
Date of Admission: 06/09/23
Date of Discharge: 06/16/23
-
Pending Results: No
Hospital Course
Discharge diagnoses:
Multidrug-resistant bacteremia
Multidrug-resistant Padilla catheter associated urinary tract infection
Chronic urinary retention with chronic Padilla catheter
Non-ST elevation myocardial infarction status post cardiac catheterization
Lethargy/weakness
Hypovolemia hyponatremia
Acute normocytic anemia
Paroxysmal atrial fibrillation on Eliquis
Parkinson's disease
Ambulatory dysfunction
Consults: Cardiology, ID, nephrology
Procedures:
06/09/2023 cardiac catheterization showing 90% stenosis of the distal margin of the second diagonal.
Hospital course:
87-year-old female with a past medical history of paroxysmal atrial fibrillation on Eliquis, Parkinson's disease, and ambulatory dysfunction was admitted for chest pain. Patient was seen in conjunction with cardiology, and had cardiac
catheterization showing 90% stenosis of the distal margin of the second diagonal. Cardiology recommends conservative management. She was treated with Imdur, Plavix, Eliquis, and statin. Her chest pain resolved.
Patient's hospital course was complicated by ESBL positive E. coli bacteremia from ESBL positive UTI. Patient has a chronic Padilla, that was changed. She was seen in conjunction with ID, and treated with Invanz. She received 5 days of Invanz, and
will be discharged on Bactrim double strength tabs twice a day through 06/21/2023.
Patient also had poor oral intake and lethargy. She had hyponatremic hypovolemia. She was seen in conjunction with nephrology, received gentle IV fluids. She was started on salt tablets 500 mg twice a day. Her sodium improved, and was 131 on the
day of discharge. Nephrology recommends her continuing a light fluid restriction as well as the salt tablets upon discharge.
Patient had acute on chronic normocytic anemia. Her hemoglobin was 10.6 upon admission, trended down to 8.7 on the day of discharge. There were no signs or symptoms of bleeding. Suspect this is due to her sepsis.
Patient has a history of Parkinson's disease, is chronically weak and lethargic. She did tolerate 50% of her meals. Her medical conditions are optimized. She is discharged to short-term rehab in hopes of regaining her strength. The rehab has
been instructed to check a CBC and BMP on 06/20/2023. Patient has been instructed to follow-up with her primary care doctor 1 week after she leaves rehab.
Disposition: Short-term rehab
Discharge planning: Required 45 minutes
Discharge Plan
-
Patient Disposition: Longterm/SNF
Discharge Diagnosis/Procedures: Bacteremia, urinary tract infection, hyponatremia, myocardial infarction status post cardiac cath, paroxysmal atrial fibrillation, chronic Padilla catheter, Parkinson's disease, gait dysfunction
Condition: Fair
Diet: Low Cholesterol and Restrict fluids to 64 oz
Activity: As tolerated
Driving Restrictions: No driving
Blood Work: CBC and BMP on Tuesday, 06/20
Activity Restrictions/Additional Instructions:
Take Bactrim DS 1 tab bid through 06/21/23, start first dose 06/17/23.�
Follow K+ and Cr while on Bactrim.
Stand Alone Forms: DC Instructions- Cath/EP Lab
Referrals:
[facility] [Outside]
Mary Zelaya NP [Specified Professional Personl] - 06/29/25 10:20 am
PRIVATE,PHYSICIAN [Family Provider] - in one week
Prescriptions:
New
isosorbide mononitrate 30 mg Tablet Extended Release 24 Hr
30 mg PO DAILY Qty: 0 0RF
sodium chloride 1,000 mg Tablet,Soluble
500 mg PO BID Qty: 0 0RF
sulfamethoxazole-trimethoprim [Bactrim DS] 800-160 mg tablet
1 tab PO BID 5 Days Qty: 10 0RF
Continued
Eliquis 5 MG tablet
5 mg PO BID
metoprolol succinate 50 MG tablet extended release 24 hr
50 mg PO HS
Rx Instructions:
06/09/2023, hold if SBP<100 or HR<60.
ascorbic acid (vitamin C) [Vitamin C] 1,000 MG tablet
1,000 mg PO BID
meclizine 25 MG tablet
25 mg PO [id number] PRN (Reason: dizziness/vertigo)
calcium carbonate 500 mg calcium (1,250 mg) Tablet,Chewable
500 mg PO [id number] PRN (Reason: heartburn )
metronidazole 1 % Gel
1 applic TOPICAL DAILYPRN PRN (Reason: apply to B/L cheeks/forehead)
lidocaine 4 % Adhesive Patch,Medicated
1 patch TOPICAL DAILYPRN PRN (Reason: apply to lower back)
atorvastatin 40 mg Tablet
40 mg PO QPM Qty: 30 0RF
clopidogrel 75 mg Tablet
75 mg PO DAILY Qty: 30 0RF
pantoprazole 40 mg Tablet,Delayed Release (Dr/Ec)
40 mg PO DAILY Qty: 30 0RF
acetaminophen 325 mg Tablet
650 mg PO Q6HPRN MDD 3000 mg PRN (Reason: mild pain/temp>100)
carbidopa-levodopa 25-100 mg Tablet
2 tab PO TID
nitroglycerin 0.4 mg Tablet, Sublingual
0.4 mg SUBLINGUAL [id number] PRN (Reason: chest pain)
polyethylene glycol 3350 [Miralax] 17 gram Powder In Packet
17 g PO DAILY Qty: 0 0RF
Rx Instructions:
06/09/2023, hold for loose stools.
ondansetron HCl 4 mg Tablet
4 mg PO Q12H PRN (Reason: nausea)
melatonin 3 mg Tablet
6 mg PO HSPRN PRN (Reason: insomnia)
nystatin 100,000 unit/gram Powder
1 applic TOPICAL [id number] PRN (Reason: rash)
sertraline 50 mg Tablet
50 mg PO DAILY
amiodarone 100 mg Tablet
100 mg PO HS
cholecalciferol (vitamin D3) 25 mcg (1,000 unit) Tablet
50 mcg PO DAILY
Discharge Orders:
Discharge Patient (As Directed); Ordered 06/16/23
Ordered By: Ezekiel Rivas
Care Plan Goals
Care Plan Goals:
Problem: Readiness for enhanced knowledge related to diagnosis and treatment plan
Goal: Understand your diagnosis and treatment plan needs, including medications if applicable.
Instructions: Know your diagnosis, underlying causes and treatment plan options, including medications if applicable. Consult with your health care team to learn about your diagnosis and treatment plan, including medications if applicable.
== END 2023-06-16 15:53 | DRG 280 ==
LOC: IVU 07:44
PROVIDERS: Emergency Medicine; Internal Medicine Cardiovascular Disease; Nurse Practitioner Adult Health; ADMITTING PHYSICIAN Internal Medicine; ATTENDING PHYSICIAN Family Medicine; CONSULT PHYSICIAN Internal Medicine Cardiovascular Disease; CONSULT PHYSICIAN Specialist; EMERGENCY PHYSICIAN Emergency Medicine; OTHER PHYSICIAN Internal Medicine Infectious Disease
PROC: B2111ZZ Fluoroscopy of Multiple Coronary Arteries using Low Osmolar Contrast (ICD-10-PCS; 2023-06-09)
PROC: 4A023N7 Measurement of Cardiac Sampling and Pressure, Left Heart, Percutaneous Approach (ICD-10-PCS; 2023-06-09)
DX: I21.4 Non-ST elevation (NSTEMI) myocardial infarction (principal); A41.51 Sepsis due to Escherichia coli [E. coli]; T83.511A Infection and inflammatory reaction due to indwelling urethral catheter, initial encounter; E87.1 Hypo-osmolality and hyponatremia; Z16.24 Resistance to multiple antibiotics; N39.0 Urinary tract infection, site not specified; I10 Essential (primary) hypertension; G20.A1 Parkinson's disease without dyskinesia, without mention of fluctuations; I48.0 Paroxysmal atrial fibrillation; I25.10 Atherosclerotic heart disease of native coronary artery without angina pectoris; Z95.0 Presence of cardiac pacemaker; I49.5 Sick sinus syndrome; D64.9 Anemia, unspecified; E86.1 Hypovolemia; Y84.6 Urinary catheterization as the cause of abnormal reaction of the patient, or of later complication, without mention of misadventure at the time of the procedure; Z11.52 Encounter for screening for COVID-19; I16.0 Hypertensive urgency
CPT/HCPCS: 71046; 80048; 80053; 80061; 81003; 81015; 82533; 82570; 82962; 83735; 83880; 83935; 84100; 84300; 84443; 84484; 85025; 85027; 85730; 87040; 87070; 87077; 87086; 87149; 87186; 87205; 87811; 93005; 93306; 93458; 96374; 97162; 97166; 97530; 97535; 99285; C1894; J1335; Q9967

== ENCOUNTER 2023-06-25 04:12 | Emergency (ER) | payer OTHER, SELFPAY ==
[2023-06-25 04:17] VITALS: BP 149/57
[2023-06-25 04:19] VITALS: BP 149/57
--- NOTE | 2023-06-25 04:29 | ED.GENMED ---
History of Present Illness
<ANNETTE Joseph - Last Filed: 06/25/23 04:52>
General
Chief Complaint: Fall
Source: records and ambulance crew
Exam Limitations: clinical condition
Time Seen by Provider: 06/25/23 04:29
Nursing documentation reviewed up to this point in time: agreed with
History of Present Illness
History of Present Illness:
Pt is an 87 year old female, with a PMH of chronic urinary retention, NSTEMI, anemia, atrial fibrillation on Eliquis, and Parkinsons, who reports to the ED via EMS s/p fall. Per EMS, pt is a resident at [facility] and had an unwitnessed fall
around 5 hours ago. She also fell 2 days ago. Pt's PCP wanted her to have a CAT Scan. Pt is in and out of deep sleep and briefly complained of right shoulder pain. History limited due to pt's condition.
Past History
<ANNETTE Joseph - Last Filed: 06/25/23 04:52>
Past History
ED Past Medical History: Arrthythmia (A. fib), CAD, HTN, MA, Psychiatric (Anxiety) and Other (Parkinson's disease, Vertigo, Chronic indwelling sykes, Macular degeneration, bladder prolapse)
ED Past Surgical History: Cardiac (Stent, Pacemaker), Gynecological (Hysterectomy) and Other (Hernia repair X 2)
Patient has exhibited threatening behavior?: No
PSI?: No
Social History
Tobacco: Non-smoker
Alcohol: None
Drug: None
Personal:
Living: assisted living
Review of Systems
<ANNETTE Joseph - Last Filed: 06/25/23 04:52>
Review of Systems
Allergies reviewed?: Yes
Unable to obtain full review of systems at this time due to: other
Other source history: ambulance crew
All Other Systems: Not applicable
Phy Exam
<ANNETTE Joseph - Last Filed: 06/25/23 04:52>
General Physical Exam
General Presentation: no apparent distress
General Skin: warm and dry
General Habitus: elderly
General Mental: other (pt in deep sleep, arouses to painful stimulation, does not respond to voice)
General Chronic Disability: urinary catheter
Eye Exam
Eye Exam: PERRL
Cardiovascular Exam
Cardiovascular Exam: regular rate/rhythm, no murmur and normal peripheral pulses
Heart Sounds: normal
Pulmonary Exam
Pulmonary Exam: lungs clear, no respiratory distress, no rales, no rhonchi and no cough
Oxygen Status: room air
Gastrointestinal Exam
Gastrointestinal Exam: normal bowel sounds, non tender, soft and non distended
Neurological Exam
Neurological Exam: other (pt is in deep sleep, arousable only to painful stimuli)
Musculoskeletal Exam
Musculoskeletal Exam: other (b/l hip pain upon passive ROM)
Skin Exam
Skin Exam: warm/dry and other (ecchymoses along L dorsal hand)
<Johan Garcia DO - Last Filed: 06/25/23 05:50>
Physical Exam
Physical Exam:
Physical Exam
General: elderly female no signs of head or neck trauma
Neck: No tongue bite
Heart: Urinary
Lungs: no acute respiratory distress.
Abdomen: Nontender
Neuro: Elderly female sleeping arouses
Skin: no rash
Extremities: No pain with range of motion of the shoulders, minimal pain with range of motion of bilateral hips
Course
<ANNETTE Joseph - Last Filed: 06/25/23 04:52>
Orders/Labs/Results
Orders:
Orders
06/25/23 04:49
Pelvis, 1 or 2 Views CR [CR Pelvis - 1 Or 2 Views ] Urgent
Comment:
Reason For Exam: fall
06/25/23 04:50
CT Cervical Spine W/o Iv Contr Urgent
Comment:
Reason For Exam: fall
CT Head W/o Iv Contrast Urgent
Comment:
Reason For Exam: fall
Cardiac Monitoring- Treatment ONCE
Vital Signs
Initial and Last Documented VS:
Initial Vital Signs
Temp Pulse Resp BP Pulse Ox
98.0 F 67 16 149/57 94
06/25/23 04:17 06/25/23 04:17 06/25/23 04:17 06/25/23 04:17 06/25/23 04:17
Last Documented Vital Signs
Temp Pulse Resp BP Pulse Ox
98.0 F 61 22 122/61 93
06/25/23 04:17 06/25/23 05:00 06/25/23 04:45 06/25/23 05:00 06/25/23 04:19
<Johan Garcia, DO - Last Filed: 06/25/23 05:50>
Orders/Labs/Results
Orders:
Orders
06/25/23 04:49
Pelvis, 1 or 2 Views CR [CR Pelvis - 1 Or 2 Views ] Urgent
Comment:
Reason For Exam: fall
06/25/23 04:50
CT Cervical Spine W/o Iv Contr Urgent
Comment:
Reason For Exam: fall
CT Head W/o Iv Contrast Urgent
Comment:
Reason For Exam: fall
Cardiac Monitoring- Treatment ONCE
Vital Signs
Initial and Last Documented VS:
Initial Vital Signs
Temp Pulse Resp BP Pulse Ox
98.0 F 67 16 149/57 94
06/25/23 04:17 06/25/23 04:17 06/25/23 04:17 06/25/23 04:17 06/25/23 04:17
Last Documented Vital Signs
Temp Pulse Resp BP Pulse Ox
98.0 F 61 22 122/61 93
06/25/23 04:17 06/25/23 05:00 06/25/23 04:45 06/25/23 05:00 06/25/23 04:19
<Johan Garcia DO - Last Filed: 06/25/23 05:50>
MDM/Problems Addressed
Differential Diagnosis Includes:
Fall hemorrhage subdural pelvic fracture fracture
Chronic conditions affecting care: Arrhythmia
Acute Exacerbation and/or Progression of Chronic Illness: Arrhythmia
<Johan Garcia DO - Last Filed: 06/25/23 05:50>
*Radiology
Radiology exam reviewed: preliminary read by ED provider
*Pulse Oximetry
Patient hypoxic: no
*Receiver Dispatcher Interpretation
Rate: normal
Heart Rate: 78
Rhythm: a-fib
*Critical Care Note
Total Time (30-74mins, 75-104mins- exclusive of procedures): Not Applicable
<Johan Garcia DO - Last Filed: 06/25/23 05:50>
Update Note
Update Note:
Vision radiology report noted pelvis film noted
ED Attending Note
<ANNETTE Joseph - Last Filed: 06/25/23 04:52>
-
Portions of this chart may have been created with voice recognition software.� Occasional wrong word or��sound alike� substitutions may have occurred due to the inherent limitations of voice recognition software.
<Johan Garcia DO - Last Filed: 06/25/23 05:50>
ED Attending Note
Patient seen and examined by attending physician: Yes
I performed the substantive portion of visit, reviewed & personally made and approve the management plan that is documented in note by myself or MIHIR.: Yes
ED Attending Note:
Seen with student examined independently elderly female on blood thinner with a fall at her facility, here she is sleeping easily arousable no overt signs of head or neck trauma I do not see any pain or bruising about the shoulders, mild pain with
range of motion of the hips, will check CT of the head cervical spine plain film of the pelvis
Discharge Plan
Departure
Patient Disposition: Home (Routine Discharge)
Date of Disposition: 06/25/23
Time of Disposition: 05:50
Patient with high blood pressure during this ER visit?: No
Condition: Good
Covid-19: Not Applicable
Discharge Problem:
Fall
Instructions: Preventing falls in adults
Prescriptions:
No Action
Eliquis 5 MG tablet
5 mg PO BID
metoprolol succinate 50 MG tablet extended release 24 hr
50 mg PO HS
Rx Instructions:
06/09/2023, hold if SBP<100 or HR<60.
ascorbic acid (vitamin C) [Vitamin C] 1,000 MG tablet
1,000 mg PO BID
meclizine 25 MG tablet
25 mg PO [id number] PRN (Reason: dizziness/vertigo)
calcium carbonate 500 mg calcium (1,250 mg) Tablet,Chewable
500 mg PO [id number] PRN (Reason: heartburn )
metronidazole 1 % Gel
1 applic TOPICAL DAILYPRN PRN (Reason: apply to B/L cheeks/forehead)
lidocaine 4 % Adhesive Patch,Medicated
1 patch TOPICAL DAILYPRN PRN (Reason: apply to lower back)
atorvastatin 40 mg Tablet
40 mg PO QPM Qty: 30 0RF
clopidogrel 75 mg Tablet
75 mg PO DAILY Qty: 30 0RF
pantoprazole 40 mg Tablet,Delayed Release (Dr/Ec)
40 mg PO DAILY Qty: 30 0RF
acetaminophen 325 mg Tablet
650 mg PO Q6HPRN MDD 3000 mg PRN (Reason: mild pain/temp>100)
carbidopa-levodopa 25-100 mg Tablet
2 tab PO TID
nitroglycerin 0.4 mg Tablet, Sublingual
0.4 mg SUBLINGUAL [id number] PRN (Reason: chest pain)
polyethylene glycol 3350 [Miralax] 17 gram Powder In Packet
17 g PO DAILY Qty: 0 0RF
Rx Instructions:
06/09/2023, hold for loose stools.
ondansetron HCl 4 mg Tablet
4 mg PO Q12H PRN (Reason: nausea)
melatonin 3 mg Tablet
6 mg PO HSPRN PRN (Reason: insomnia)
nystatin 100,000 unit/gram Powder
1 applic TOPICAL [id number] PRN (Reason: rash)
sertraline 50 mg Tablet
50 mg PO DAILY
amiodarone 100 mg Tablet
100 mg PO HS
cholecalciferol (vitamin D3) 25 mcg (1,000 unit) Tablet
50 mcg PO DAILY
isosorbide mononitrate 30 mg Tablet Extended Release 24 Hr
30 mg PO DAILY Qty: 0 0RF
sodium chloride 1,000 mg Tablet,Soluble
500 mg PO BID Qty: 0 0RF
sulfamethoxazole-trimethoprim [Bactrim DS] 800-160 mg tablet
1 tab PO BID 5 Days Qty: 10 0RF
Referrals:
Juan Diego York MD [Family Provider] -
Interventions
Interventions:
*Risk Screen - Suicide Last Done: 06/25/23 04:17
*General Assessment Last Done: 06/25/23 04:17
*Neglect/Abuse Screening Last Done: 06/25/23 04:17
ED- Neurological Assessment Last Done: 06/25/23 04:34
ED-Skin Assessment Last Done: 06/25/23 04:36
[2023-06-25 05:00] VITALS: BP 122/61
[2023-06-25 06:00] VITALS: BP 156/64
== END 2023-06-25 10:20 | disposition home or self-care (01) ==
LOC: EMR 04:12
PROVIDERS: EMERGENCY PHYSICIAN Emergency Medicine; FAMILY PHYSICIAN Family Medicine
DX: M25.511 Pain in right shoulder (principal); W19.XXXA Unspecified fall, initial encounter; I25.2 Old myocardial infarction; I48.91 Unspecified atrial fibrillation; Z79.01 Long term (current) use of anticoagulants
CPT/HCPCS: 99284; 70450; 72125; 72170

== ENCOUNTER 2023-07-18 20:29 | Inpatient (IN) | payer OTHER, SELFPAY ==
[2023-07-18] VITALS (7 sets, daily range): BP systolic 131–190; BP diastolic 47–67; BMI 26.5
[2023-07-18 17:29] LABS: Glucose - Point of Care 109 mg/dl (70-99)
[2023-07-18 17:30] LABS: % Basophils 0.7 % (0-2); % Eosinophils 0.9 % (0-6); % Immature Granulocytes 0.5 % (0-0.5); % Lymphocytes 11.3 % (20.5-51.1); % Monocytes 8.8 % (1.7-9.3); % Neutrophils 77.8 % (42.2-75.2); Absolute Basophils 0.1 10^3/uL (0-0.2); Absolute Eosinophils 0.1 10^3/uL (0-0.7); Absolute Monocytes 0.8 10^3/uL (0.1-0.6); Absolute Neutrophils 6.8 10^3/uL (1.4-6.5); Hematocrit 34.2 % (37.0-47.0); Hemoglobin 11.9 g/dL (12.0-16.0); Mean Corp Hgb Conc. 34.8 g/dL (33.0-37.0); Mean Corpuscular Hgb 30.4 pg (27.0-31.0); Mean Corpuscular Volume 87.5 fL (81.0-99.0); Mean Platelet Volume 9.6 fL (7.4-10.4); Nucleated Red Blood Cells % 0 %; Platelet Count 357 10^3/uL (130-400); Red Blood Cell Count 3.91 10^6/uL (4.20-5.40); Red Cell Dist. Width 16.8 % (11.5-14.5); White Blood Cell Count 8.8 10^3/uL (4.8-10.8)
[2023-07-18 17:42] LABS: Lactic Acid 0.8 mmol/L (0.7-2.0)
[2023-07-18 17:44] LABS: ALT (SGPT) 10 U/L (0-35); AST (SGOT) 17 U/L (14-36); Alkaline Phosphatase 96 U/L (38-126); Blood Urea Nitrogen 18 mg/dl (7-17); Carbon Dioxide 27 mmol/L (22-30); Chloride 98 mmol/L (98-107); Glucose 99 mg/dl (70-99); Potassium 3.9 mmol/L (3.5-5.1); Sodium 132 mmol/L (135-145); Total Bilirubin 1.8 mg/dl (0.2-1.3); Total Protein 6.7 g/dl (6.3-8.2); eGFR 54.53
--- NOTE | 2023-07-18 17:59 | ED.GENMED ---
History of Present Illness
General
Chief Complaint: Change Level of Consciousness
Source: records and other (rn)
Time Seen by Provider: 07/18/23 17:28
Travel History
Have you had any contact with someone who has COVID-19?: Unable to Answer
Do you have any symptoms of coronavirus? Fever > 100 degrees, chills, cough, shortness of breath, sore throat, loss of taste or smell, muscle aches, or headache?: Unable to Answer
History of Present Illness
History of Present Illness:
This patient is an 87-year-old female who is nonverbal at baseline who presents to the emergency department because of noted increasing lethargy throughout the day. History is obviously unavailable from patient.
Past History
Past History
ED Past Medical History: Arrthythmia (A. fib), CAD, HTN, CO, Psychiatric (Anxiety) and Other (Parkinson's disease, Vertigo, Chronic indwelling sykes, Macular degeneration, bladder prolapse)
ED Past Surgical History: Cardiac (Stent, Pacemaker), Gynecological (Hysterectomy) and Other (Hernia repair X 2)
Patient has exhibited threatening behavior?: No
PSI?: No
Social History
Tobacco: Non-smoker
Alcohol: None
Drug: None
Personal:
Living: assisted living
Phy Exam
Physical Exam
Physical Exam:
GENERAL: Awake, eyes closed but open to voice, in no apparent distress
EYE: pupils equal and reactive, no photophobia
NECK: Supple, no significant adenopathy.
ENT: o/p clr, mm, slightly dry
CARDIAC: Regular rate and rhythm .
LUNGS: Clear breath sounds bilaterally, no acute respiratory distress, no wheezes/rales/rhonchi
ABDOMEN: Soft, without focal tenderness, no r/g
NEUROLOGICAL: Awake but nonverbal, does follow most commands, moves all extremities equally, does not follow cerebellar cranial nerve exam
SKIN: Warm and dry, skin intact.
MUSCULOSKELETAL: No edema, well perfused.
PSYCH: Nonverbal
Course
Orders/Labs/Results
Orders:
Orders
07/18/23 17:18
CBC/With Diff [Complete Blood Count/With Diff] Urgent
CMP [Comprehensive Metabolic Panel] Urgent
Urinalysis Reflex To Culture Urgent
Date Specimen was Collected: 07/18/23
Time Specimen was Collected: 17:16
Urine Microscopic Reflex Cult Urgent
Blood Culture Q30M
PRANEETH Source: Blood/Venous
Specimen Description:
Urine Culture Urgent
PRANEETH Source: U
Specimen Description:
Date Specimen was Collected: 07/18/23
Time Specimen was Collected: 17:16
07/18/23 17:21
Lactate Level [Lactic Acid] Urgent
Blood Culture Q30M
PRANEETH Source: Blood/Venous
Specimen Description:
07/18/23 17:45
CT Head W/o Iv Contrast Urgent
Comment:
Reason For Exam: ms change
07/18/23 19:51
Piperacillin/Tazo 3.375 Gram [Zosyn] 3.375 gram in 50 ml IV NOW
07/18/23 20:06
Admit/Transfer Patient As Directed
Co-Sign Provider:
Level of Care: Inpatient admission
Assign to:: Medical/Surgical
Physician / Group: [facility]
Diagnosis: catheter associated uti
Reason for Hospitalization: catheter associated uti
Expected length of stay greater than two midnights?: Yes
ELOS- Estimated Length of Stay in days: 2
I certify the patient meets the requirements for IP care: Yes
07/18/23 20:07
Code Status As Directed
Resuscitation Status: Do not resuscitate
Reached after discussion with pt or family/Healthcare POA: Yes
DNR Bracelet Application ONCE
07/18/23 20:09
Sykes Catheter [Catheter- Indwelling] As Directed
Reason for insertion: Chronic Sykes on Admit
Comment: replace sykes
07/18/23 21:04
0.9% Sodium Chloride 1000 ml [Nss] 1,000 ml IV 80 mls/hr
Acetaminophen [Tylenol] 650 mg PO Q4HPRN PRN
Meclizine [Antivert] 25 mg PO [id number] PRN
Nitroglycerin Sublingual [Nitrostat (Sublingual)] 0.4 mg SL [id number] PRN
Ondansetron HCl [Zofran] 4 mg PO [id number] PRN
metronidazole 1 applic TOPICAL DAILYPRN PRN
07/18/23 21:04
Activity As Directed
Activity Level: As Tolerated
Pneumatic Compression Sleeves As Directed
Type: Knee high
Vital Signs As Directed
Frequency: Per unit guidelines
DX Deep Vein Thrombosis Video Routine
07/18/23 21:16
Calcium Carbonate Chewable [Tums] 500 tablet PO [id number] PRN
07/18/23 22:00
Ertapenem [Invanz] 1,000 mg 0.9% Sodium Chloride [Nss] 50 ml IV Q24H
Metoprolol Xl [Toprol Xl] 50 mg PO HS
07/18/23 22:01
Miconazole Nitrate [Desenex/Mitrazol/Zeasorb] 0 applic TOPICAL [id number] PRN
07/19/23 05:07
Complete Blood Count/With Diff IN AM
Comprehensive Metabolic Panel IN AM
07/19/23 08:00
Amiodarone [Pacerone] 100 mg PO DAILY
Apixaban [Eliquis] 5 mg PO BID
Ascorbic Acid [Vitamin C] 1,000 mg PO BID
ISOSORBIDE MONOnitrate ER [Imdur (Extended Release)] 30 mg PO DAILY
Lidocaine [Lidocaine 4% Patch] 1 patch TOPICAL DAILY
Methylsalicylate/Menthol [BenGay-Like] 0 applic TOPICAL DAILY
Pantoprazole [Protonix] 40 mg PO DAILY
Polyethylene Glycol Powder [Miralax] 17 grams PO DAILY
Sertraline HCl [Zoloft] 50 mg PO DAILY
Sodium Chloride 0.5 gram PO BID
07/19/23 10:00
Clopidogrel Bisulfate [Plavix] 75 mg PO DAILY@1000
Abnormal Lab Results
07/18/23 07/18/23
17:18 17:27
RBC 3.91 L 10^6/uL
(4.20-5.40)
Hgb 11.9 L g/dL
(12.0-16.0)
Hct 34.2 L %
(37.0-47.0)
RDW 16.8 H %
(11.5-14.5)
Absolute Neuts (auto) 6.8 H 10^3/uL
(1.4-6.5)
Absolute Lymphs (auto) 1.0 L 10^3/uL
(1.2-3.4)
Absolute Monos (auto) 0.8 H 10^3/uL
(0.1-0.6)
Neutrophils % 77.8 H %
(42.2-75.2)
Lymphocytes % 11.3 L %
(20.5-51.1)
Sodium 132 L mmol/L
(135-145)
BUN 18 H mg/dl
(7-17)
Total Bilirubin 1.8 H mg/dl
(0.2-1.3)
Urine Ketones Trace A
(Negative)
Ur Occult Blood Reflex 2+ A
(Negative)
Urine Nitrite (Reflex) Positive A
(Negative)
Leukocyte Esterase Rfl 2+ A
(Negative)
Urine WBC (Reflex) >100 A /HPF
(0-5)
Urine Bacteria (Reflex) Moderate A
(Negative)
Urine Albumin (Reflex) 1+ A
(Neg - Trace)
POC Glucose 109 H mg/dl
(70-99)
07/18/23 17:18
07/18/23 17:18
Vital Signs
Initial and Last Documented VS:
Initial Vital Signs
BP
190/60
07/18/23 17:06
Last Documented Vital Signs
Temp Pulse Resp BP Pulse Ox
98.0 F 68 17 165/65 98
07/27/23 07:40 07/27/23 07:40 07/27/23 07:40 07/27/23 07:40 07/27/23 07:40
*Critical Care Note
Total Time (30-74mins, 75-104mins- exclusive of procedures): Not Applicable
Update Note
Update Note:
Patient presents to the Emergency Department with ____mental status change
Number and Complexity of Problems Addressed at the Encounter
� Chronic conditions affecting care:
� Acute Exacerbation and/or Progression of Chronic Illness:
� Differential Diagnosis includes: But not limited to electrolyte disorder, UTI, pneumonia, hyponatremia, etc.
Amount and/or Complexity of Data to be Reviewed and Analyzed
� I performed an independent evaluation of and my interpretation is:
EKG:
CT:nad
Xrays:
Laboratory Studies:baseline anemia, min renal insuffic, u/a wuith >100 wbc
Other:
� Review of other/old records reveals: Patient was most recently hospitalized June 2023, noted to have coronary artery disease, ESBL positive E. coli bacteremia from a ESBL positive UTI, hyponatremia, anemia. Patient is
reportedly 'chronically weak and lethargic'. ucx 2 UTI ESBL S to zoysn
� Clinical information was obtained by an independent historian:son who is at bedside
� Prescriptions/Medications Considered but not given:
� Further testing considered but not performed:
Risk of Complications and/or Morbidity or Mortality of Patient Management
� Social determinants of health affecting care:
pt lives with aide that comes to help with ADL's, she typically feeds herself
� Discussion with other providers (PCP, Hospitalists, Consultants, etc):
� Escalation of care including admission/observation vs risk of discharge considered: Long d/w son...pt typically feed herself, walks with walker, gradual decline in ADL's and concern re:appropriate level of care. Clearly,
given her altered ms/lethargy today, she is not a cnadidate for return to home, may have developed UTI. ABx written for c/w sensitivity of ESBL from last month. Will need CM consult. case d/w hospitalist, dr Goodman.
ED Attending Note
-
Portions of this chart may have been created with voice recognition software.� Occasional wrong word or��sound alike� substitutions may have occurred due to the inherent limitations of voice recognition software.
Discharge Plan
Departure
Patient Disposition: Admit
Date of Disposition: 07/18/23
Time of Disposition: 19:50
Admit to: Telemetry
Presentation/result/management discussed w/ accepting MD/DO: Hospitalist
Condition: Fair
Discharge Problem:
Altered mental status
Interventions
Interventions:
*General Assessment Last Done: 07/18/23 17:08
*Neglect/Abuse Screening Last Done: 07/18/23 17:08
ED- Fall Risk Assessment Last Done: 07/18/23 17:10
*Nursing Disposition Last Done: 07/19/23 14:56
ED- Cardiac Assessment Last Done: 07/18/23 17:10
ED- Neurological Assessment Last Done: 07/18/23 17:10
ED-Psychological Assessment Last Done: 07/18/23 17:10
ED- Pulmonary Assessment Last Done: 07/18/23 17:10
Discharge Date and Time
Discharge Date/Time: 07/19/23 14:56
[2023-07-18 19:17] LABS: Urine Albumin 1+ (Neg - Trace); Urine Bilirubin Negative (Negative); Urine Character Very Cloudy (Clear); Urine Color Yellow; Urine Glucose Negative (Negative); Urine Ketone Trace (Negative); Urine Leukocyte 2+ (Negative); Urine Nitrite Positive (Negative); Urine Occult Blood 2+ (Negative); Urine Urobilinogen Negative (Neg - 1+)
[2023-07-18 19:31] LABS: Urine Bacteria Moderate (Negative); Urine White Cell >100 /HPF (0-5)
--- NOTE | 2023-07-18 20:10 | HPS.HSE ---
Family Physician
-
Family Physician: Becki Austin
Chief Complaint
-
lethargy
History of Present Illness
87-year-old female with past medical history of paroxysmal atrial fibrillation on Eliquis with pacemaker, CAD, recent ESBL positive E. coli/multidrug-resistant bacteremia secondary to catheter associated UTI, anemia, hypertension, Parkinson's
disease, urinary retention presenting from [facility] with increased lethargy throughout the day. She was apparently less responsive. No fevers or chills or nausea or vomiting noted. No new medications apart from Lasix.
Medical History
Past Medical History
Past Medical History: Reports Other (paroxysmal atrial fibrillation on Eliquis with pacemaker, CAD, recent ESBL positive E. coli/multidrug-resistant bacteremia secondary to catheter associated UTI, anemia, hypertension, Parkinson's disease, urinary
retention)
Past Surgical History: Reports Other ( Cardiac (Stent, Pacemaker), Gynecological (Hysterectomy) and Other (Hernia repair X 2))
Social History
Tobacco: Non-smoker
Alcohol: None
Drug: None
Family History
Family History: Not pertinent
Allergies / Home Medications
Allergies reflects when Allergies were last updated in [facility].
Home Medications with original date entered in [facility]
Allergy/Medication List:
Allergies
Allergy/AdvReac Type Severity Reaction Status Date / Time
No Known Allergies Allergy Verified 07/18/23 17:14
Home Medications
apixaban 5 mg tablet (Eliquis) 5 mg PO BID Blood clot prevention/tx 09/21/19
metoprolol succinate 50 mg tablet,extended release 24 hr 50 mg PO HS Blood pressure 09/21/19
ascorbic acid (vitamin C) 1,000 mg tablet (Vitamin C) 1,000 mg PO BID Supplement 05/05/20
meclizine 25 mg tablet 25 mg PO [id number] PRN dizziness/vertigo 09/27/21
calcium carbonate 500 mg calcium (1,250 mg) chewable tablet 500 mg PO [id number] PRN heartburn 03/23/22
lidocaine 4 % topical patch 1 patch topical DAILYPRN PRN apply to lower back 03/23/22
metronidazole 1 % topical gel 1 applic topical DAILYPRN PRN apply to B/L cheeks/forehead 03/23/22
pantoprazole 40 mg tablet,delayed release 40 mg PO DAILY #30 tabs 02/08/23
acetaminophen 325 mg tablet 650 mg PO Q6HPRN PRN mild pain/temp>100 02/09/23
nitroglycerin 0.4 mg sublingual tablet 0.4 mg sublingual [id number] PRN chest pain 02/16/23
polyethylene glycol 3350 17 gram oral powder packet (Miralax) 17 g PO DAILY Constipation #0 ea 02/19/23
amiodarone 100 mg tablet 100 mg PO DAILY Arrhythmia 06/09/23
cholecalciferol (vitamin D3) 25 mcg (1,000 unit) tablet 50 mcg PO DAILY Supplement 06/09/23
melatonin 3 mg tablet 6 mg PO HSPRN PRN insomnia 06/09/23
nystatin 100,000 unit/gram topical powder 1 applic topical [id number] PRN rash 06/09/23
ondansetron HCl 4 mg tablet 4 mg PO Q12H PRN nausea 06/09/23
sertraline 50 mg tablet 50 mg PO DAILY Depression 06/09/23
isosorbide mononitrate 30 mg tablet,extended release 24 hr 30 mg PO DAILY #0 tabs 06/16/23
sodium chloride 1,000 mg soluble tablet 500 mg PO BID #0 tabs 06/16/23
atorvastatin 40 mg tablet 40 mg PO HS 07/18/23
clopidogrel 75 mg tablet 75 mg PO DAILY@1000 07/18/23
menthol 5 % topical patch (Icy Hot (menthol)) 1 patch topical DAILY 07/18/23
Review of Systems
-
History Source: Patient
A 12 point ROS was completed and negative except as noted: Yes
Constitutional: Reports No Symptoms
EENT: Reports No Symptoms
Respiratory: Reports No Symptoms
Cardiac: Reports No Symptoms
Abdomen/GI: Reports No Symptoms
: Reports No Symptoms
Musculoskeletal: Reports No Symptoms
Skin: Reports No Symptoms
Neurological: Reports No Symptoms
Endocrine: Reports No Symptoms
Hematologic/Lymphatic: Reports No Symptoms
Psych: Reports No Symptoms
Physical Exam
Vital Signs
Vital Signs
Temp Pulse Resp BP Pulse Ox
98.7 F 70 13 176/50 96
07/18/23 17:08 07/18/23 19:05 07/18/23 19:05 07/18/23 18:00 07/18/23 19:05
Physical Exam
General: Well Developed, Well Nourished and No Apparent Distress
HEENT: NormoCephalic, Moist mucous membranes and Atraumatic
Respiratory: Clear
Cardiac: S1/S2 and Regular Rhythm; No Murmur or Rub
GI: Soft, Non Tender, Non Distended and Normal Bowel Sounds; No Organomegaly
Rectal: Deferred by Provider
Musculoskeletal: No Clubbing, No Cyanosis and No Edema
Skin: No Rash
Neuro: Nonfocal/grossly intact
Laboratory Results
-
07/18/23 17:18
07/18/23 17:18
Laboratory Results
Lactic Acid 0.8 mmol/L (0.7-2.0) 07/18/23 17:21
Total Bilirubin 1.8 mg/dl (0.2-1.3) H 07/18/23 17:18
AST 17 U/L (14-36) 07/18/23 17:18
ALT 10 U/L (0-35) 07/18/23 17:18
Alkaline Phosphatase 96 U/L (38-126) 07/18/23 17:18
Data Reviewed
-
Lab Data: Labs Reviewed by me
Old Records: Reviewed
Impression/Plan
-
IMPRESSION:
PLAN:
# Recurrent catheter associated UTI
# Recent ESBL E. coli catheter associated UTI with bacteremia/ESBL Klebsiella
-Urinalysis shows positive nitrates, +2 leukocyte esterase, greater than 100 WBC, moderate bacteria
-Check urine culture, blood culture
-IV fluids
-Given Zosyn in ER, switch to ertapenem
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
-Exchange Padilla catheter
Paroxysmal atrial fibrillation with pacemaker
-Continue amiodarone
-Continue Eliquis
-Continue metoprolol
Coronary artery disease
Recent NSTEMI
-Continue Plavix
-Continue statin
-Continue isosorbide mononitrate
Chronic anemia
-Hemoglobin better than previous
Essential hypertension
Parkinson's disease
Chronic gait dysfunction
Anxiety/depression
-Continue sertraline
Chronic hyponatremia
-Stable
-Continue sodium tablets
Chronic vertigo
-Continue meclizine
DNR/DNI
DVT prophylaxis�Eliquis
Regular diet
[2023-07-18] MEDS: ZOSYN 50 IV (20:29)
[2023-07-18] MEDS: NSS 1000 IV (21:42)
[2023-07-18] MEDS: TOPROL XL PO (22:40)
[2023-07-18] MEDS: INVANZ 60 MG IV (22:46)
[2023-07-19] VITALS (21 sets, daily range): BP systolic 119–184; BP diastolic 45–66; BMI 26.5
[2023-07-19 05:20] LABS: % Basophils 0.5 % (0-2); % Eosinophils 1.1 % (0-6); % Immature Granulocytes 0.3 % (0-0.5); % Lymphocytes 7.7 % (20.5-51.1); % Neutrophils 81.4 % (42.2-75.2); Absolute Basophils 0.1 10^3/uL (0-0.2); Absolute Eosinophils 0.1 10^3/uL (0-0.7); Absolute Lymphocytes 0.8 10^3/uL (1.2-3.4); Absolute Monocytes 0.9 10^3/uL (0.1-0.6); Absolute Neutrophils 8.5 10^3/uL (1.4-6.5); Hematocrit 32.6 % (37.0-47.0); Hemoglobin 10.8 g/dL (12.0-16.0); Mean Corp Hgb Conc. 33.1 g/dL (33.0-37.0); Mean Corpuscular Hgb 29.8 pg (27.0-31.0); Mean Corpuscular Volume 90.1 fL (81.0-99.0); Mean Platelet Volume 9.6 fL (7.4-10.4); Nucleated Red Blood Cells % 0 %; Platelet Count 279 10^3/uL (130-400); Red Blood Cell Count 3.62 10^6/uL (4.20-5.40); Red Cell Dist. Width 16.4 % (11.5-14.5); White Blood Cell Count 10.5 10^3/uL (4.8-10.8)
[2023-07-19 05:47] LABS: ALT (SGPT) < 10 U/L (0-35); AST (SGOT) 14 U/L (14-36); Albumin 3.1 g/dl (3.5-5.0); Alkaline Phosphatase 67 U/L (38-126); Blood Urea Nitrogen 18 mg/dl (7-17); Calcium 8.5 mg/dl (8.4-10.2); Carbon Dioxide 27 mmol/L (22-30); Chloride 100 mmol/L (98-107); Estimated Creatinine Clearance 45 ml/min; Glucose 94 mg/dl (70-99); Potassium 3.6 mmol/L (3.5-5.1); Sodium 136 mmol/L (135-145); Total Bilirubin 1.6 mg/dl (0.2-1.3); Total Protein 5.6 g/dl (6.3-8.2); eGFR > 60.00
[2023-07-19] MEDS: NSS 1000 IV ×2 (09:33→20:50)
[2023-07-19] MEDS: PROTONIX 40 MG PO (10:25)
[2023-07-19] MEDS: ZOLOFT 50 MG PO (10:25)
[2023-07-19] MEDS: SODIUM CHLORIDE 0.5 GRAM PO ×2 (10:25→20:08)
[2023-07-19] MEDS: PLAVIX 75 MG PO (10:25)
[2023-07-19] MEDS: PACERONE 100 MG PO (10:26)
[2023-07-19] MEDS: LIDOCAINE 4% PATCH 1 PATCH TOPICAL (10:26)
[2023-07-19] MEDS: IMDUR (EXTENDED RELEASE) 30 MG PO (10:26)
[2023-07-19] MEDS: MIRALAX 17 GRAMS PO (10:26)
[2023-07-19] MEDS: BenGay-Like 1 APPLIC TOPICAL (10:27)
[2023-07-19] MEDS: DESENEX/MITRAZOL/ZEASORB 1 APPLIC TOPICAL (10:27)
[2023-07-19] MEDS: ELIQUIS 5 MG PO ×2 (10:29→20:08)
[2023-07-19] MEDS: VITAMIN C PO (10:31)
--- NOTE | 2023-07-19 13:48 | W.PN.HOSP.TC ---
Today's Communication/Plan
-
change diet to Pureed
ID consult
Assessment / Plan
Assessment / Plan
# Recurrent catheter associated UTI
# Recent ESBL E. coli catheter associated UTI with bacteremia/ESBL Klebsiella
hospitalization 06/09-06/16/23
-Urinalysis shows positive nitrates, +2 leukocyte esterase, greater than 100 WBC, moderate bacteria
-Check urine culture, blood culture
-IV fluids
-Given Zosyn in ER, switch to ertapenem
WBC 10.5
Blood cx Presumptive E.Coli/ESBL
Poorly responsive
discussed with nursing, she is waking up and able to take small bites and her medications
will request speech eval and change diet to pureed with thickened liquids
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
-Exchanged Padilla catheter
Paroxysmal atrial fibrillation with pacemaker
-Continue amiodarone
-Continue Eliquis
-Continue metoprolol
Coronary artery disease
Recent NSTEMI
-Continue Plavix
-Continue statin
-Continue isosorbide mononitrate
Chronic anemia
-Hemoglobin better than previous
Essential hypertension
Most recent BP 173/59
Parkinson's disease
Chronic gait dysfunction
Anxiety/depression
-Continue sertraline
Chronic hyponatremia
-Stable
-Continue sodium tablets
Chronic vertigo
-Continue meclizine
DNR/DNI
DVT prophylaxis�Eliquis
Pureed diet
continue IVF
Anticipated Discharge: > 48 hours
Subjective/Interval History
-
Date of Service: July 19, 2023
nonresponsive, noncommunicative
Objective Data
-
Labs:
Laboratory Results
07/19/23
05:07
WBC 10.5
Hgb 10.8 L
Hct 32.6 L
Plt Count 279 D
Sodium 136
Potassium 3.6
Chloride 100
Carbon Dioxide 27
BUN 18 H
Creatinine 0.8
Glucose 94
Calcium 8.5
Total Bilirubin 1.6 H
AST 14
ALT < 10
Alkaline Phosphatase 67
Vital Signs:
Vital Signs
Temp Pulse Resp BP Pulse Ox
98.7 F 67 14 173/59 96
07/19/23 09:04 07/19/23 09:48 07/19/23 09:48 07/19/23 10:26 07/19/23 09:48
I&O
07/18/23 07/19/23 07/20/23
06:59 06:59 06:59
Output Total 150 / 150 250 / 250
Balance -150 / -150 -250 / -250
Review of Systems
-
History Source: Coordinated Provider
Constitutional: Denies Fever
Respiratory: Reports No Symptoms
Cardiac: Reports No Symptoms
Abdomen/GI: Reports No Symptoms
Physical Exam
-
General: Well Developed, Well Nourished and Other (unresponsive)
HEENT: Normocephalic, Atraumatic and Moist Mucous Membranes
Respiratory: Clear to Auscultation; Negative Wheezes, Rales or Rhonchi
Cardiac: Regular Rhythm and S1/S2
GI: Soft, Nontender and Nondistended
Musculoskeletal: No Clubbing, No Cyanosis and No Edema
Neuro: Negative Awake or Alert
--- NOTE | 2023-07-19 15:03 | PTCARENOTE ---
3/- Patient transferred and oriented to Unit without issue. AAOX3 but lethargic, drowsy and flat affect. Face flushed, but T=98.3. Skin=CDI except indurated blanchable red area on sacrum. Barrier ointment applied, and position changed. NSS
running at 80ml/hr into L-AC IV. Padilla catheter CDI, draining cloudy lizbeth urine. Patient and deny any needs at this time.
--- NOTE | 2023-07-19 16:14 | CM ---
Addendum entered by CARO Boss 07/19/23 16:20:
Per call from [employer]'s office the [employer] did come to see patient today.
Original Note:
Spoke to son of patient admitted from [facility] with UTI. Son reports she has had falls at home. She uses rolling walker.
She was d/c from to [facility] on 06/16/23. INsurance covered 2 and half weeks and then family paid privately for another week. Patient just returned to [facility] last tuesday or Tuesday. She had private aides come to her apt daily for 6
hours.
She was walking with rolling walker and feeding herself, toileting. IF patient needs short term rehab son prefers [facility] and second choice [facility].
PCP Dr. Austin
Pharmacy for [facility] is [place].
PLAN:SNF or back to [facility].
--- NOTE | 2023-07-19 16:28 | CON.ID ---
Consultation
-
Date/Time Consultation Requested: 07/19/2023 1357
Date/Time Consultation Performed: 07/19/2023 1627
Requesting Provider: Dr. Zelaya
Performing Provider: Dr. Diggs
Reason for Consultation: Complicated urinary tract infection
Chief Complaint / Past History
History of Present Illness
Dayan Abdullahi is an 87-year-old female being evaluated at the request of Dr. Zelaya in regards to a complicated urinary tract infection secondary to ESBL E. coli. History is obtained from chart review, along with patient interview.
Patient presents to the ER on 07/17 secondary to increasing lethargy over 1 day at the assisted living facility where she resides. Workup in the ER did not reveal leukocytosis nor fever, but urinalysis revealed cloudy yellow urine that was positive
for nitrates and leukocyte esterase. Additionally, blood cultures are positive for presumptive ESBL E. coli (by PCR methodology). Infectious Diseases is asked to comment upon further antimicrobial therapy.
No history is available from the patient secondary to underlying Parkinson disease, although the patient's son, who is at the bedside, reports that she has had her Padilla catheter in place for the past 2 years (although changed monthly by visiting
nurse). He also reports that she often drinks less then she probably should. He does not report that she has complained of any pain.
Past History
Additional Past Medical History:
P A-fib; on Eliquis
CAD
Anemia
HTN
Parkinson's disease
Urinary retention
Additional Past Surgical History:
PPM placement
PCTA with stenting
Hysterectomy
Hernia repair x 2
Allergy History:
No Known Allergies Allergy (Verified 07/18/23 17:14)
Medications Reviewed: Yes
Current Antibiotics:
Ertapenem 1 g IV every 24 hours
Social History
Tobacco: Non-Smoker
Alcohol: None
Drug: None
Review of Systems
Vital Signs
Temp Pulse Resp BP Pulse Ox
98.3 F 76 18 145/66 95
07/19/23 14:55 07/19/23 14:55 07/19/23 14:55 07/19/23 14:55 07/19/23 14:55
Physical Exam
Physical Exam
Constitutional: No Acute Distress, Comfortable, Chronically Ill and Non-toxic
Eyes: Pupils Equal, Pupils Round, No Conjunctival Hemorrhage and Sclera Anicteric
Oral: No Thrush and No Ulcers
Cardiovascular: S1/S2; Negative S3/S4 or Murmur
Pulmonary: Clear; Negative Wheezes, Rales or Rhonchi
Gastrointestinal: Soft, Non Tender, Non Distended, Normal Bowel Sounds, No Rebound and No Guarding
Genito-Urinary: Padilla and Clear Urine; Negative Turbid Urine or Hematuria
Extremities: Edema (Trace); Negative Cyanosis or Erythema
Skin: Warm and Dry; Negative Rash or Jaundice
Neurological: Awake and Other (Responsive to voice.)
Psychological: Calm
.
Lab / Diagnostic Study Results
07/19/23 05:07
07/19/23 05:07
Abs Immat Gran (auto) 0.0 10^3/uL (0-0.05) 07/19/23 05:07
Absolute Neuts (auto) 8.5 10^3/uL (1.4-6.5) H 07/19/23 05:07
Absolute Lymphs (auto) 0.8 10^3/uL (1.2-3.4) L 07/19/23 05:07
Absolute Monos (auto) 0.9 10^3/uL (0.1-0.6) H 07/19/23 05:07
Absolute Basos (auto) 0.1 10^3/uL (0-0.2) 07/19/23 05:07
Immature Gran % 0.3 % (0-0.5) 07/19/23 05:07
Neutrophils % 81.4 % (42.2-75.2) H 07/19/23 05:07
Lymphocytes % 7.7 % (20.5-51.1) L 07/19/23 05:07
Monocytes % 9.0 % (1.7-9.3) 07/19/23 05:07
Eosinophils % 1.1 % (0-6) 07/19/23 05:07
Basophils % 0.5 % (0-2) 07/19/23 05:07
Lactic Acid 0.8 mmol/L (0.7-2.0) 07/18/23 17:21
Microbiology Results
Micro:
07/18/23 17:18 Urine Culture - Preliminary
Urine Gram negative bacilli
07/18/23 17:18 Blood Culture - Preliminary
Blood/Venous Escherichia coli - ESBL
Gram Stain - Preliminary
07/18/23 17:21 Blood Culture - Pending
Blood/Venous
Assessment / Plan
Complicated urinary tract infection
ESBL E. coli bacteremia
P A-fib; on Eliquis
CAD
Anemia
HTN
Parkinson's disease
Recommendations:
Continue with ertapenem.
Repeat blood cultures to assess clearance.
Await final sensitivity data from currently positive blood cultures to guide further antimicrobial selection/de-escalation.
Check renal ultrasound to assess for obstructive uropathy.
Monitor white count and temperature curve.
[2023-07-19] MEDS: VITAMIN C 1000 MG PO (20:08)
[2023-07-19] MEDS: TOPROL XL 50 MG PO (20:45)
[2023-07-19] MEDS: INVANZ 60 MG IV (21:58)
[2023-07-20 07:30] VITALS: BP 169/63
[2023-07-20 07:50] VITALS: BMI 26.5
[2023-07-20] MEDS: NSS 1000 IV (09:00)
[2023-07-20] MEDS: LIDOCAINE 4% PATCH TOPICAL ×2 (09:03→09:22)
[2023-07-20] MEDS: MIRALAX 17 GRAMS PO (09:04)
[2023-07-20] MEDS: ZOLOFT 50 MG PO (09:04)
[2023-07-20] MEDS: PACERONE 100 MG PO (09:04)
[2023-07-20] MEDS: PLAVIX 75 MG PO (09:05)
[2023-07-20] MEDS: SODIUM CHLORIDE 0.5 GRAM PO ×2 (09:05→21:00)
[2023-07-20] MEDS: IMDUR (EXTENDED RELEASE) 30 MG PO (09:05)
[2023-07-20] MEDS: ELIQUIS 5 MG PO ×2 (09:06→21:00)
[2023-07-20] MEDS: PROTONIX 40 MG PO (09:06)
[2023-07-20] MEDS: DESENEX/MITRAZOL/ZEASORB TOPICAL (09:07)
[2023-07-20] MEDS: BenGay-Like TOPICAL ×2 (09:07→09:21)
--- NOTE | 2023-07-20 09:49 | CM ---
Chart reviewed and patient was recently a patient at [facility] and was sent to [facility] for skilled placement, patient is form [facility] assisted living/personal care. Patient would benefit from PT/OT evaluations to assist
with discharge planning for patient.
Plan; Will await PT/OT evaluations to assist with discharge planning for patient.
--- NOTE | 2023-07-20 10:46 | PTOTSP ---
SPEECH THERAPY SWALLOW EVALUATION:
Clinical signs of oropharyngeal dysphagia, likely chronic related to Parkinson's disease and acutely exacerbated by generalized weakness/confusion secondary to UTI. Patient remains at risk for aspiration given confusion. Recommend IDDSI Level 5
Minced and Moist diet with thin liquids. Medications whole in puree. Aspiration precautions including: upright positioning; small single sips and bites; partial assistance/100% supervision; eat only when awake/alert; Oral care 3x/day. Speech therapy
to follow, assess diet tolerance and modify as appropriate, monitor CXR and labs, provide continued education regarding aspiration risks and precautions, and provide continued diagnostic treatment as appropriate. Discussed with RN and MD.
RECOMMEND:
1) IDDSI Level 5 Minced and Moist diet with thin liquids
2) Medications whole in puree
3) Aspiration precautions including: upright positioning; small single sips and bites; partial assistance/100% supervision; eat only when awake/alert; Oral care 3x/day
4) Speech therapy to follow, assess diet tolerance and modify as appropriate, monitor CXR and labs, provide continued education regarding aspiration risks and precautions, and provide continued diagnostic treatment as appropriate.
[2023-07-20] MEDS: VITAMIN C 1000 MG PO ×2 (11:15→21:00)
[2023-07-20 11:21] VITALS: BP 140/59
--- NOTE | 2023-07-20 14:06 | W.PN.HOSP.TC ---
Today's Communication/Plan
-
await sensitivities
advance diet
PT/OT
Assessment / Plan
Assessment / Plan
# Recurrent catheter associated UTI
# Recent ESBL E. coli catheter associated UTI with bacteremia/ESBL Klebsiella
hospitalization 06/09-06/16/23
-Urinalysis shows positive nitrates, +2 leukocyte esterase, greater than 100 WBC, moderate bacteria
-Check urine culture, blood culture
-IV fluids
-Given Zosyn in ER, switch to ertapenem
WBC 10.5
Blood cx Presumptive E.Coli/ESBL
Much more responsive. input of speech therapy appreciated, will advance diet
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
-Exchanged Padilla catheter
Paroxysmal atrial fibrillation with pacemaker
-Continue amiodarone
-Continue Eliquis
-Continue metoprolol
Coronary artery disease
Recent NSTEMI
-Continue Plavix
-Continue statin
-Continue isosorbide mononitrate
Chronic anemia
-Hemoglobin better than previous
Essential hypertension
Most recent BP 173/59
Parkinson's disease
Chronic gait dysfunction
Anxiety/depression
-Continue sertraline
Chronic hyponatremia
-Stable
-Continue sodium tablets
Chronic vertigo
-Continue meclizine
DNR/DNI
DVT prophylaxis�Eliquis
stop IVF
Anticipated Discharge: 24 - 48 hours
Subjective/Interval History
-
Date of Service: July 20, 2023
Remarkably more awake and alert, answering basic questions
Objective Data
-
Vital Signs:
Vital Signs
Temp Pulse Resp BP Pulse Ox
97.7 F 60 14 140/59 97
07/20/23 11:21 07/20/23 11:21 07/20/23 11:21 07/20/23 11:21 07/20/23 11:21
I&O
07/19/23 07/20/23 07/21/23
06:59 06:59 06:59
Intake Total 1380 / 1380
Output Total 150 / 150 950 / 950
Balance -150 / -150 430 / 430
Review of Systems
-
History Source: Coordinated Provider
Constitutional: Denies Fever
Respiratory: Reports No Symptoms
Cardiac: Reports No Symptoms
Abdomen/GI: Reports No Symptoms
Genitourinary: Reports No Symptoms; Denies Dysuria
Physical Exam
-
General: Well Developed, Well Nourished and Other (unresponsive)
HEENT: Normocephalic, Atraumatic and Moist Mucous Membranes
Respiratory: Clear to Auscultation; Negative Wheezes, Rales or Rhonchi
Cardiac: Regular Rhythm and S1/S2
GI: Soft, Nontender and Nondistended
Musculoskeletal: No Clubbing, No Cyanosis and No Edema
Neuro: Awake and Alert
[2023-07-20] MEDS: SINEMET 25-100 1 TABLET PO ×2 (14:57→22:46)
[2023-07-20 15:15] VITALS: BP 170/64
[2023-07-20 15:46] VITALS: BMI 24.1
--- NOTE | 2023-07-20 17:50 | W.PN.ID1 ---
Date of Service
Date of Service: July 20, 2023
Today's Communication
Continue abx.
Assessment / Plan
Complicated urinary tract infection
ESBL E. coli bacteremia
P A-fib; on Eliquis
CAD
Anemia
HTN
Parkinson's disease
Recommendations:
Continue with ertapenem.
Following repeat blood cultures to assess clearance.
Await renal ultrasound to assess for obstructive uropathy.
Monitor white count and temperature curve.
����������������������������������������������������������
Chief Complaint
-: UTI and Bacteremia
Subjective / Review of Systems
Review of Systems: No Fever
Vital Signs / Physical Exam
Vital Signs
Vital Signs
Temp Pulse Resp BP Pulse Ox
98.1 F 61 18 170/64 96
07/20/23 15:15 07/20/23 15:15 07/20/23 15:15 07/20/23 15:15 07/20/23 15:15
Physical Exam
Constitutional: Comfortable and Chronically Ill
Eyes: Sclera Anicteric
Pulmonary: Non Labored
Genito-Urinary: Padilla and Clear Urine; Negative Turbid Urine or Hematuria
Neurological: Awake and Alert
Psychological: Calm
Objective Data
Lab Data
Lab Results
07/19/23 05:07
07/19/23 05:07
Estimated Creat Clear 45 ml/min 07/19/23 05:07
Lactic Acid 0.8 mmol/L (0.7-2.0) 07/18/23 17:21
Total Bilirubin 1.6 mg/dl (0.2-1.3) H 07/19/23 05:07
AST 14 U/L (14-36) 07/19/23 05:07
ALT < 10 U/L (0-35) 07/19/23 05:07
Alkaline Phosphatase 67 U/L (38-126) 07/19/23 05:07
Most recent labs reviewed.
Micro Results:
07/18/23 17:21 Blood Culture - Preliminary
Blood/Venous No Growth in 48 hours- Final report to follow
07/19/23 17:12 Blood Culture - Preliminary
Blood/Venous No Growth in 24 hours- Final report to follow
07/18/23 17:18 Urine Culture - Final
Urine Escherichia coli - ESBL
07/18/23 17:18 Blood Culture - Preliminary
Blood/Venous Escherichia coli - ESBL
Gram Stain - Preliminary
07/19/23 18:10 Blood Culture - Pending
Blood/Venous
Imaging:
Renal ultrasound : Pending
[2023-07-20 22:45] VITALS: BP 181/69
[2023-07-20] MEDS: INVANZ 60 MG IV (22:46)
[2023-07-20] MEDS: TOPROL XL 50 MG PO (22:46)
[2023-07-21 00:13] VITALS: BP 179/69
[2023-07-21 05:42] VITALS: BP 179/69
[2023-07-21 07:09] LABS: % Basophils 0.8 % (0-2); % Eosinophils 2.6 % (0-6); % Immature Granulocytes 0.3 % (0-0.5); % Lymphocytes 14.5 % (20.5-51.1); % Monocytes 11.3 % (1.7-9.3); % Neutrophils 70.5 % (42.2-75.2); Absolute Basophils 0.1 10^3/uL (0-0.2); Absolute Eosinophils 0.2 10^3/uL (0-0.7); Absolute Monocytes 0.7 10^3/uL (0.1-0.6); Absolute Neutrophils 4.6 10^3/uL (1.4-6.5); Hematocrit 33.7 % (37.0-47.0); Hemoglobin 11.7 g/dL (12.0-16.0); Mean Corp Hgb Conc. 34.7 g/dL (33.0-37.0); Mean Corpuscular Volume 86.4 fL (81.0-99.0); Mean Platelet Volume 9.9 fL (7.4-10.4); Nucleated Red Blood Cells % 0 %; Platelet Count 268 10^3/uL (130-400); Red Cell Dist. Width 15.8 % (11.5-14.5); White Blood Cell Count 6.6 10^3/uL (4.8-10.8)
[2023-07-21 07:30] VITALS: BP 180/68
[2023-07-21] MEDS: DESENEX/MITRAZOL/ZEASORB 1 APPLIC TOPICAL (07:37)
[2023-07-21] MEDS: BenGay-Like 1 APPLIC TOPICAL (07:37)
[2023-07-21] MEDS: SODIUM CHLORIDE 0.5 GRAM PO ×2 (07:38→20:07)
[2023-07-21] MEDS: MIRALAX 17 GRAMS PO (07:38)
[2023-07-21] MEDS: LIDOCAINE 4% PATCH 1 PATCH TOPICAL (07:38)
[2023-07-21] MEDS: SINEMET 25-100 1 TABLET PO ×3 (07:39→20:06)
[2023-07-21] MEDS: VITAMIN C 1000 MG PO ×2 (07:39→20:06)
[2023-07-21] MEDS: ZOLOFT 50 MG PO (07:39)
[2023-07-21] MEDS: IMDUR (EXTENDED RELEASE) 30 MG PO (07:39)
[2023-07-21 07:40] LABS: Blood Urea Nitrogen 15 mg/dl (7-17); Calcium 8.7 mg/dl (8.4-10.2); Carbon Dioxide 23 mmol/L (22-30); Chloride 103 mmol/L (98-107); Estimated Creatinine Clearance 59 ml/min; Glucose 103 mg/dl (70-99); Potassium 3.7 mmol/L (3.5-5.1); Sodium 136 mmol/L (135-145); eGFR > 60.00
[2023-07-21] MEDS: PACERONE 100 MG PO (07:40)
[2023-07-21] MEDS: PROTONIX 40 MG PO (07:40)
[2023-07-21] MEDS: ELIQUIS 5 MG PO ×2 (07:40→20:06)
[2023-07-21] MEDS: PLAVIX 75 MG PO (07:41)
--- NOTE | 2023-07-21 09:58 | CM ---
pararescue manager reviewed patient's chart and patient has been evaluated by speech, case briefer will await PT/OT evaluations to assist with discharge planning needs.
Plan; Await PT/OT evaluations for discharge planning needs.
[2023-07-21 10:30] VITALS: BP 164/60
--- NOTE | 2023-07-21 13:58 | W.PN.ID1 ---
Date of Service
Date of Service: July 21, 2023
Today's Communication
Continue antibiotics.
Assessment / Plan
Complicated urinary tract infection
ESBL E. coli bacteremia
P A-fib; on Eliquis
CAD
Anemia
HTN
Parkinson's disease
Recommendations:
Continue with ertapenem.
Following repeat blood cultures to assess clearance. Patient will need 10 days of antibiotics from the first negative blood culture.
If cultures remain negative tomorrow, can place midline.
Await renal ultrasound to assess for obstructive uropathy.
Monitor white count and temperature curve.
����������������������������������������������������������
Chief Complaint
-: UTI and Bacteremia
Subjective / Review of Systems
Review of Systems: No Fever and No Chills
Vital Signs / Physical Exam
Vital Signs
Vital Signs
Temp Pulse Resp BP Pulse Ox
98.1 F 61 18 164/60 99
07/21/23 10:30 07/21/23 10:30 07/21/23 10:30 07/21/23 10:30 07/21/23 10:30
Physical Exam
Constitutional: No Acute Distress, Comfortable, Chronically Ill and Non-toxic
Eyes: No Conjunctival Hemorrhage and Sclera Anicteric
Cardiovascular: S1/S2; Negative S3/S4
Pulmonary: Non Labored; Negative Wheezes
Gastrointestinal: Soft and Non Tender
Genito-Urinary: Padilla and Clear Urine
Extremities: Edema (trace)
Neurological: Awake and Alert
Psychological: Calm
Objective Data
Lab Data
Lab Results
07/21/23 06:56
07/21/23 06:56
Estimated Creat Clear 59 ml/min 07/21/23 06:56
Lactic Acid 0.8 mmol/L (0.7-2.0) 07/18/23 17:21
Total Bilirubin 1.6 mg/dl (0.2-1.3) H 07/19/23 05:07
AST 14 U/L (14-36) 07/19/23 05:07
ALT < 10 U/L (0-35) 07/19/23 05:07
Alkaline Phosphatase 67 U/L (38-126) 07/19/23 05:07
Most recent labs reviewed.
Micro Results:
07/18/23 17:18 Blood Culture - Preliminary
Blood/Venous Escherichia coli - ESBL
Gram Stain - Preliminary
07/19/23 18:10 Blood Culture - Preliminary
Blood/Venous No Growth in 24 hours- Final report to follow
07/20/23 18:00 MRSA Screen - Pending
Nose
07/18/23 17:21 Blood Culture - Preliminary
Blood/Venous No Growth in 48 hours- Final report to follow
07/19/23 17:12 Blood Culture - Preliminary
Blood/Venous No Growth in 24 hours- Final report to follow
07/18/23 17:18 Urine Culture - Final
Urine Escherichia coli - ESBL
Imaging:
Renal ultrasound : Pending
--- NOTE | 2023-07-21 14:00 | W.PN.HOSP.TC ---
Today's Communication/Plan
-
renal US
continue current abx as per ID
Assessment / Plan
Assessment / Plan
# Recurrent catheter associated UTI
# Recent ESBL E. coli catheter associated UTI with bacteremia/ESBL Klebsiella
hospitalization 06/09-06/16/23
-Urinalysis shows positive nitrates, +2 leukocyte esterase, greater than 100 WBC, moderate bacteria
-Urine and Blood Cx demonstrate E.Coli, ESBL
-dc'ed IV fluids
-Given Zosyn in ER, switch to ertapenem
WBC 10.5-->6.6
Blood cx Presumptive E.Coli/ESBL
Much more responsive. input of speech therapy appreciated, will advance diet
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
-Exchanged Padilla catheter
Paroxysmal atrial fibrillation with pacemaker
-Continue amiodarone
-Continue Eliquis
-Continue metoprolol
Coronary artery disease
Recent NSTEMI
-Continue Plavix
-Continue statin
-Continue isosorbide mononitrate
Chronic anemia
-Hemoglobin better than previous
Essential hypertension
Most recent BP 173/59
Parkinson's disease
Chronic gait dysfunction
Anxiety/depression
-Continue sertraline
Chronic hyponatremia
-Stable
-Continue sodium tablets
Chronic vertigo
-Continue meclizine
DNR/DNI
DVT prophylaxis�Eliquis
Anticipated Discharge: 24 - 48 hours
Subjective/Interval History
-
Date of Service: July 21, 2023
much more alert, tolerating diet
Objective Data
-
Labs:
Laboratory Results
07/21/23
06:56
WBC 6.6
Hgb 11.7 L
Hct 33.7 L
Plt Count 268
Sodium 136
Potassium 3.7
Chloride 103
Carbon Dioxide 23
BUN 15
Creatinine 0.5 L
Glucose 103 H
Calcium 8.7
Vital Signs:
Vital Signs
Temp Pulse Resp BP Pulse Ox
98.1 F 61 18 164/60 99
07/21/23 10:30 07/21/23 10:30 07/21/23 10:30 07/21/23 10:30 07/21/23 10:30
I&O
07/20/23 07/21/23 07/22/23
06:59 06:59 06:59
Intake Total 1380 / 1380 660 / 660
Output Total 950 / 950 1750 / 1750
Balance 430 / 430 -1090 / -1090
Review of Systems
-
History Source: Coordinated Provider
Constitutional: Denies Fever
Respiratory: Reports No Symptoms
Cardiac: Reports No Symptoms
Abdomen/GI: Reports No Symptoms
Genitourinary: Reports No Symptoms; Denies Dysuria
Physical Exam
-
General: Well Developed, Well Nourished, No Apparent Distress and Appears Chronically Ill
HEENT: Normocephalic, Atraumatic and Moist Mucous Membranes
Respiratory: Clear to Auscultation; Negative Wheezes, Rales or Rhonchi
Cardiac: Regular Rhythm and S1/S2
GI: Soft, Nontender and Nondistended
Musculoskeletal: No Clubbing, No Cyanosis and No Edema
Neuro: Awake, Alert and Other (answering basic questions)
--- NOTE | 2023-07-21 15:14 | PN.CDI ---
CDI
- -
CDI:
Physician Documentation Request
Admit Date: 07/18/23 20:29
Dear Doctor Nathalie,
Clinical Indicators:
Patient admitted with lethargy & CAUTI; PMH includes Parkinson's disease.
07/19 note/assessment, -'CBW reflects a wt loss of 25lbs 14.7% change within 3 months from external medical
summary wt. Wt loss from previous hospital admission reveals a loss of 12lbs loss or
7.7% change within in 2 months- significant loss.'
-'Pt meets ASPEN and AND criteria of severe protein calorie malnutrition with wt loss
and decreased oral intake.'
Based on the information, which of the following most accurately represents the patient's nutritional status?
Severe Protein Calorie Malnutrition
Moderate Protein Calorie Malnutrition
Mild Protein Calorie Malnutrition
Other (please specify)
[place] Criteria ([facility] Hospitalist 2017)
2 or more criteria must be present for either
non severe or severe malnutrition
Note that the criteria differs related to the
presence of an acute or chronic illness
Acute Illness Chronic Illness
Energy Intake Non Severe: <75% for >7 days Non Severe: <75% for >1 month
Severe: <50% for >5 days Severe: <75% for >1 month
Weight Loss Non Severe: 1-2% over 1 week Non Severe: 5% over 1 month
5% over 1 month 7.5% over 3 months
7.5% over 3 months 10% over 6 months
1 year N/A 20% over 1 year
Severe: >2% over 1 week Severe: >5% over 1 month
>5% over 1 month >7.5% over 3 months
>7.5% over 3 months >10% over 6 months
1 year N/A >20% over 1 year
Body Fat Non Severe: Mild Decrease Non Severe: Mild Loss
Severe: Moderate Decrease Severe: Severe Loss
Muscle Mass Non Severe: Mild Decrease Non Severe: Mild Loss
Severe: Moderate Decrease Severe: Severe Loss
Fluid Accumulation Non Severe: Mild Accumulation Non Severe: Mild Accumulation
Severe: Moderate to severe Severe: Moderate to severe
accumulation accumulation
Reduced Irrigation Tax Ass[employer]or Collector Strength Non Severe: N/A Non Severe: N/A
Severe: Measurably reduced Severe: Measurably reduced
Additional criteria that can be used to Determine if Mild or Moderate Malnutrition ([employer]ck Manual 2018)
Mild Moderate Severe
Albumin gm/dl <3.0 gm/dl <2.5 gm/dl <2.0 gm/dl
Pre Albumin mg/dl <15 gm/dl <10 mg/dl <5.0 mg/dl
BMI <18.5 <17 <16
Use of terms such as suspected, likely, concern for, or probable (associated with a specific diagnosis that is being evaluated, monitored, or treated as if it exists) are acceptable and can be coded in the inpatient setting, when documented at the
time of discharge.
Thank you,
LUCIEN Larry RN
CDI Specialist
available via tiger text
Please use your independent medical judgment in providing your response.
--- NOTE | 2023-07-21 15:27 | PN.CDI ---
CDI
- -
CDI:
Physician Documentation Request
Admit Date: 07/18/23 20:29
Dear Doctor Nathalie,
Clinical Indicators:
Patient admitted with lethargy & CAUTI; PMH includes Parkinson's disease.
3/5 RN Skin/wound assessment: Sacrum Stage 1 Pressure Injury, POA.
Treatment: Barrier ointment per protocol.
Physician documentation of the type and location of wounds is required for compliant documentation. Based on the above clinical findings and your assessment, please provide the following in your progress note:
1. Location of the ulcer/wound, including laterality.
2. Type (etiology) of ulcer/wound:
- Pressure (decubitus) ulcer
- Other, please specify
- Unable to determine
3. If a pressure ulcer, please also include the stage* of the ulcer:
- Stage 1 - Skin intact, non-blanchable redness
- Stage 2 - Partial thickness loss of dermis, includes intact or open blister
- Stage 3 - Full thickness tissue not including bone, tendon or muscle
- Stage 4 - Full thickness tissue loss, including exposed bone, tendon or muscle
- Unstageable - Full thickness loss in which the base of the ulcer is covered by slough (yellow, rios, sanchez, green or brown) and/or eschar (rios, brown or black) in the wound bed.
- Unable to determine
Use of terms such as suspected, likely, concern for, or probable (associated with a specific diagnosis that is being evaluated, monitored, or treated as if it exists) are acceptable and can be coded in the inpatient setting, when documented at the
time of discharge.
Thank you,
LUCIEN Larry RN
CDI Specialist
available via tiger text
Please use your independent medical judgment in providing your response.
*Source: National Pressure Ulcer Advisory Panel (NPUAP)
[2023-07-21 15:30] VITALS: BP 177/67
[2023-07-21 20:05] VITALS: BP 150/56
[2023-07-21] MEDS: TOPROL XL 50 MG PO (20:06)
[2023-07-21] MEDS: COLACE 100 MG PO (20:06)
[2023-07-21] MEDS: INVANZ 60 MG IV (21:04)
[2023-07-22 00:04] VITALS: BP 160/96
[2023-07-22 08:00] VITALS: BP 182/61
[2023-07-22] MEDS: PROTONIX 40 MG PO (08:36)
[2023-07-22] MEDS: IMDUR (EXTENDED RELEASE) 30 MG PO (08:36)
[2023-07-22] MEDS: ELIQUIS 5 MG PO ×2 (08:36→22:47)
[2023-07-22] MEDS: MIRALAX 17 GRAMS PO (08:36)
[2023-07-22] MEDS: COLACE 100 MG PO ×2 (08:36→22:47)
[2023-07-22] MEDS: VITAMIN C 1000 MG PO ×2 (08:36→22:48)
[2023-07-22] MEDS: ZOLOFT 50 MG PO (08:36)
[2023-07-22] MEDS: LIDOCAINE 4% PATCH 1 PATCH TOPICAL (08:37)
[2023-07-22] MEDS: SINEMET 25-100 1 TABLET PO ×3 (08:37→22:46)
[2023-07-22] MEDS: PACERONE 100 MG PO (08:37)
[2023-07-22] MEDS: SODIUM CHLORIDE 0.5 GRAM PO ×2 (08:38→22:48)
[2023-07-22] MEDS: BenGay-Like 1 APPLIC TOPICAL (08:42)
[2023-07-22] MEDS: PLAVIX 75 MG PO (10:11)
--- NOTE | 2023-07-22 11:40 | W.PN.HOSP.TC ---
Today's Communication/Plan
-
await decision about abx from Inf Disease
Assessment / Plan
Assessment / Plan
# Recurrent catheter associated UTI/Bacteremia
# Recent ESBL E. coli catheter associated UTI with bacteremia/ESBL Klebsiella
hospitalization 06/09-06/16/23
-Urinalysis shows positive nitrates, +2 leukocyte esterase, greater than 100 WBC, moderate bacteria
-Urine and Blood Cx demonstrate E.Coli, ESBL
-dc'ed IV fluids
-Given Zosyn in ER, switch to ertapenem
discussed with Dr. Diggs. He will make a decision on abx
WBC 10.5-->6.6
Blood cx/Ur cx E.Coli/ESBL: Amoxicillin/Potas. Clavulanate <=8/4 S
Ampicillin >16 R
Ampicillin/Sulbactam <=8/4 S
Cefazolin >16 R
Cefepime >16 R
Ceftazidime >16 R
Ceftriaxone >2 R
Ertapenem <=0.5 S
Ciprofloxacin >2 R
Gentamicin <=4 S
Levofloxacin >4 R
Meropenem <=1 S
Piperacillin/Tazobactam <=16 S
Tobramycin <=4 S
Trimethoprim/Sulfamethoxazole <=2/38 S
Much more responsive. input of speech therapy appreciated, will advance diet
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
-Exchanged Padilla catheter
Paroxysmal atrial fibrillation with pacemaker
-Continue amiodarone
-Continue Eliquis
-Continue metoprolol
07/18 RN Skin/wound assessment: Sacrum Stage 1 Pressure Injury, POA.
Treatment: Barrier ointment per protocol.
Coronary artery disease
Recent NSTEMI
-Continue Plavix
-Continue statin
-Continue isosorbide mononitrate
Mild Protein Calorie Malnutrition
extensive wt loss prior to admission, but alb was 4.0 on admission with BMI 24.1
Chronic anemia
-Hemoglobin better than previous
Essential hypertension
Most recent BP 173/59
Parkinson's disease
Chronic gait dysfunction
Anxiety/depression
-Continue sertraline
Chronic hyponatremia
-Stable
-Continue sodium tablets
Chronic vertigo
-Continue meclizine
DNR/DNI
DVT prophylaxis�Eliquis
Anticipated Discharge: 24 - 48 hours
Subjective/Interval History
-
Date of Service: July 22, 2023
Awake, alert, [facility]
Objective Data
-
Vital Signs:
Vital Signs
Temp Pulse Resp BP Pulse Ox
97.5 F 61 16 182/61 97
07/22/23 08:00 07/22/23 08:37 07/22/23 08:00 07/22/23 08:37 07/22/23 08:00
I&O
07/21/23 07/22/23 07/23/23
06:59 06:59 06:59
Intake Total 660 / 660 290 / 290
Output Total 1750 / 1750 1800 / 1800
Balance -1090 / -1090 -1510 / -1510
Review of Systems
-
History Source: Coordinated Provider
Constitutional: Denies Fever
Respiratory: Reports No Symptoms
Cardiac: Reports No Symptoms
Abdomen/GI: Reports No Symptoms
Genitourinary: Reports No Symptoms; Denies Dysuria
Physical Exam
-
General: Well Developed, Well Nourished, No Apparent Distress and Appears Chronically Ill
HEENT: Normocephalic, Atraumatic and Moist Mucous Membranes
Respiratory: Clear to Auscultation; Negative Wheezes, Rales or Rhonchi
Cardiac: Regular Rhythm and S1/S2
GI: Soft, Nontender and Nondistended
Musculoskeletal: No Clubbing, No Cyanosis and No Edema
Neuro: Awake, Alert and Other (answering basic questions)
--- NOTE | 2023-07-22 13:28 | W.PN.ID1 ---
Date of Service
Date of Service: July 22, 2023
Today's Communication
Continue antibiotics.
Assessment / Plan
Complicated urinary tract infection
ESBL E. coli bacteremia
P A-fib; on Eliquis
CAD
Anemia
HTN
Parkinson's disease
Recommendations:
Continue with ertapenem.
Following repeat blood cultures to assess clearance. Currently blood cultures negative x [address] PICC.
--> As long as current blood cultures remain negative, and no pathology seen on renal ultrasound, patient should receive antibiotics through 07/28/2023
Await renal ultrasound to assess for obstructive uropathy.
Monitor white count and temperature curve.
����������������������������������������������������������
Chief Complaint
-: UTI and Bacteremia
Vital Signs / Physical Exam
Vital Signs
Vital Signs
Temp Pulse Resp BP Pulse Ox
97.5 F 61 16 182/61 97
07/22/23 08:00 07/22/23 08:37 07/22/23 08:00 07/22/23 08:37 07/22/23 08:00
Physical Exam
Constitutional: Chronically Ill and Non-toxic
Cardiovascular: S1/S2; Negative S3/S4
Pulmonary: Non Labored
Gastrointestinal: Soft
Genito-Urinary: Padilla and Clear Urine; Negative Turbid Urine or Hematuria
Neurological: Awake and Alert
Psychological: Calm
Objective Data
Lab Data
Lab Results
07/21/23 06:56
07/21/23 06:56
Estimated Creat Clear 59 ml/min 07/21/23 06:56
Lactic Acid 0.8 mmol/L (0.7-2.0) 07/18/23 17:21
Total Bilirubin 1.6 mg/dl (0.2-1.3) H 07/19/23 05:07
AST 14 U/L (14-36) 07/19/23 05:07
ALT < 10 U/L (0-35) 07/19/23 05:07
Alkaline Phosphatase 67 U/L (38-126) 07/19/23 05:07
Most recent labs reviewed.
Micro Results:
07/20/23 18:00 MRSA Screen - Final
Nose No Methicillin Resistant Staphylococcus aureus isolated.
07/19/23 18:10 Blood Culture - Preliminary
Blood/Venous No Growth in 48 hours- Final report to follow
07/18/23 17:21 Blood Culture - Preliminary
Blood/Venous No Growth in 72 hours- Final report to follow
07/19/23 17:12 Blood Culture - Preliminary
Blood/Venous No Growth in 48 hours- Final report to follow
07/18/23 17:18 Blood Culture - Preliminary
Blood/Venous Escherichia coli - ESBL
Gram Stain - Preliminary
07/18/23 17:18 Urine Culture - Final
Urine Escherichia coli - ESBL
Imaging:
Renal ultrasound : remains pending
--- NOTE | 2023-07-22 14:08 | CM ---
Addendum entered by Carol Griffith 07/22/23 15:34:
junior brand manager spoke with patient's son and plan is for skilled placement, patient to have PICC line placed for IV ABX and patient would probably benefit from PT/OT. Skilled options reviewed with patient';s son and he has selected [facility], referral
sent to [facility] for skilled placement.
Plan; Skilled placement at [facility].
Original Note:
Chart reviewed and waiting on PT/OT evaluations to assist with discharge planning for patient patient is also for possible PICC line placement.
Plan; Waiting on PT/OT for recommendations for patient, patient was recently skilled at [facility], patient resides at [facility]/personal care.
[2023-07-22 15:00] VITALS: BP 160/67
[2023-07-22 16:09] VITALS: BP 156/63
[2023-07-22] MEDS: INVANZ 60 MG IV (22:46)
[2023-07-22] MEDS: TOPROL XL 50 MG PO (22:47)
[2023-07-22] MEDS: FLUSH (NSS) 1 FLUSH IV (22:52)
[2023-07-22 23:59] VITALS: BP 165/67
[2023-07-23 07:00] VITALS: BP 186/69
[2023-07-23] MEDS: ELIQUIS 5 MG PO ×2 (09:01→21:31)
[2023-07-23] MEDS: PLAVIX 75 MG PO (09:01)
[2023-07-23] MEDS: COLACE 100 MG PO ×2 (09:01→21:20)
[2023-07-23] MEDS: BenGay-Like 1 APPLIC TOPICAL (09:01)
[2023-07-23] MEDS: PROTONIX 40 MG PO (09:02)
[2023-07-23] MEDS: VITAMIN C 1000 MG PO ×2 (09:02→21:20)
[2023-07-23] MEDS: SODIUM CHLORIDE 0.5 GRAM PO ×2 (09:02→21:19)
[2023-07-23] MEDS: PACERONE 100 MG PO (09:03)
[2023-07-23] MEDS: MIRALAX 17 GRAMS PO (09:03)
[2023-07-23] MEDS: LIDOCAINE 4% PATCH TOPICAL ×2 (09:03→09:15)
[2023-07-23] MEDS: SINEMET 25-100 1 TABLET PO ×3 (09:03→21:20)
[2023-07-23] MEDS: IMDUR (EXTENDED RELEASE) 30 MG PO (09:04)
[2023-07-23] MEDS: ZOLOFT 50 MG PO (09:04)
--- NOTE | 2023-07-23 11:31 | W.PN.ID1 ---
Date of Service
Date of Service: July 23, 2023
Today's Communication
Continue abx.
Assessment / Plan
Complicated urinary tract infection
- Pt with chronic sykes
ESBL E. coli bacteremia
P A-fib; on Eliquis
CAD
Anemia
HTN
Parkinson's disease
Recommendations:
Continue with ertapenem.
Repeat blood cultures negative.
PICC line placed.
--> Continue ertapenam through 07/28/2023
Monitor white count and temperature curve.
����������������������������������������������������������
Chief Complaint
-: UTI and Bacteremia
Subjective / Review of Systems
Patient seen and examined. More awake and alert today. Denies specific complaints at present.
Review of Systems: No Fever and No Chills
Vital Signs / Physical Exam
Vital Signs
Vital Signs
Temp Pulse Resp BP Pulse Ox
98.2 F 64 16 186/69 97
07/23/23 07:00 07/23/23 09:03 07/23/23 07:00 07/23/23 09:03 07/23/23 07:00
Physical Exam
Physical Exam:
Constitutional: Chronically Ill and Non-toxic
Cardiovascular: S1/S2; Negative S3/S4
Pulmonary: Non Labored
Gastrointestinal: Soft, non-tender.
Genito-Urinary: Sykes with clear Urine; Negative Turbid Urine or Hematuria
Neurological: Awake and Alert
Psychological: Calm
Objective Data
Lab Data
Lab Results
07/21/23 06:56
07/21/23 06:56
Estimated Creat Clear 59 ml/min 07/21/23 06:56
Lactic Acid 0.8 mmol/L (0.7-2.0) 07/18/23 17:21
Total Bilirubin 1.6 mg/dl (0.2-1.3) H 07/19/23 05:07
AST 14 U/L (14-36) 07/19/23 05:07
ALT < 10 U/L (0-35) 07/19/23 05:07
Alkaline Phosphatase 67 U/L (38-126) 07/19/23 05:07
Most recent labs reviewed.
Micro Results:
07/19/23 18:10 Blood Culture - Preliminary
Blood/Venous No Growth in 72 hours- Final report to follow
07/18/23 17:21 Blood Culture - Preliminary
Blood/Venous No Growth in 4 days- Final report to follow
07/19/23 17:12 Blood Culture - Preliminary
Blood/Venous No Growth in 72 hours- Final report to follow
07/20/23 18:00 MRSA Screen - Final
Nose No Methicillin Resistant Staphylococcus aureus isolated.
07/18/23 17:18 Blood Culture - Preliminary
Blood/Venous Escherichia coli - ESBL
Gram Stain - Preliminary
07/18/23 17:18 Urine Culture - Final
Urine Escherichia coli - ESBL
Imaging:
07/22/2023 Renal ultrasound : No shadowing renal calculus or hydronephrosis, bilaterally. Sykes catheter in the bladder which is empty. Renal cysts. Stable solid upper pole left renal mass.
Care Review
Plan reviewed with: Physician (Hospitalist)
--- NOTE | 2023-07-23 14:49 | W.PN.HOSP.TC ---
Today's Communication/Plan
-
will discuss with CM timing of dc with plan to continue Ertepenem through 07/27
Assessment / Plan
Assessment / Plan
# Recurrent catheter associated UTI/Bacteremia
# Recent ESBL E. coli catheter associated UTI with bacteremia/ESBL Klebsiella
hospitalization 06/09-06/16/23
-Urinalysis shows positive nitrates, +2 leukocyte esterase, greater than 100 WBC, moderate bacteria
-Urine and Blood Cx demonstrate E.Coli, ESBL
-dc'ed IV fluids
-Given Zosyn in ER, switch to ertapenem
discussed with Dr. Diggs. Rec Ertapenem through 07/27
WBC 10.5-->6.6
Blood cx/Ur cx E.Coli/ESBL: Amoxicillin/Potas. Clavulanate <=8/4 S
Ampicillin >16 R
Ampicillin/Sulbactam <=8/4 S
Cefazolin >16 R
Cefepime >16 R
Ceftazidime >16 R
Ceftriaxone >2 R
Ertapenem <=0.5 S
Ciprofloxacin >2 R
Gentamicin <=4 S
Levofloxacin >4 R
Meropenem <=1 S
Piperacillin/Tazobactam <=16 S
Tobramycin <=4 S
Trimethoprim/Sulfamethoxazole <=2/38 S
Much more responsive. input of speech therapy appreciated, advanced diet
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
-Exchanged Padilla catheter
Renal US: No shadowing renal calculus or hydronephrosis, bilaterally. Padilla catheter in the bladder which is empty.
Renal cysts. Stable solid upper pole left renal mass.
(previous CT scan 05/21/22: �Enhancing solid left renal mass concerning for malignancy until proven otherwise. This could be confirmed by MR examination or PET imaging if indicated clinically).
Paroxysmal atrial fibrillation with pacemaker
-Continue amiodarone
-Continue Eliquis
-Continue metoprolol
07/18 RN Skin/wound assessment: Sacrum Stage 1 Pressure Injury, POA.
Treatment: Barrier ointment per protocol.
Coronary artery disease
Recent NSTEMI
-Continue Plavix
-Continue statin
-Continue isosorbide mononitrate
Mild Protein Calorie Malnutrition
extensive wt loss prior to admission, but alb was 4.0 on admission with BMI 24.1
Chronic anemia
-Hemoglobin better than previous
Essential hypertension
Most recent BP 186/69
Parkinson's disease
Chronic gait dysfunction
Anxiety/depression
-Continue sertraline
Chronic hyponatremia
-Stable
-Continue sodium tablets
Chronic vertigo
-Continue meclizine
DNR/DNI
DVT prophylaxis�Eliquis
Met with son 07/20 with full update
Anticipated Discharge: > 48 hours
Subjective/Interval History
-
Date of Service: July 23, 2023
Much more alert
Objective Data
-
Vital Signs:
Vital Signs
Temp Pulse Resp BP Pulse Ox
98.2 F 64 16 186/69 97
07/23/23 07:00 07/23/23 09:03 07/23/23 07:00 07/23/23 09:03 07/23/23 07:00
I&O
07/22/23 07/23/23 07/24/23
06:59 06:59 07:59
Intake Total 290 / 290
Output Total 1800 / 1800 1025 / 1025
Balance -1510 / -1510 -1025 / -1025
Review of Systems
-
History Source: Coordinated Provider
Constitutional: Denies Fever
Respiratory: Reports No Symptoms
Cardiac: Reports No Symptoms
Abdomen/GI: Reports No Symptoms
Genitourinary: Reports No Symptoms; Denies Dysuria
Physical Exam
-
General: Well Developed, Well Nourished, No Apparent Distress and Appears Chronically Ill
HEENT: Normocephalic, Atraumatic and Moist Mucous Membranes
Respiratory: Clear to Auscultation; Negative Wheezes, Rales or Rhonchi
Cardiac: Regular Rhythm and S1/S2
GI: Soft, Nontender and Nondistended
Musculoskeletal: No Clubbing, No Cyanosis and No Edema
Neuro: Awake, Alert and Other (answering basic questions)
[2023-07-23 15:00] VITALS: BP 125/50
[2023-07-23] MEDS: TOPROL XL 50 MG PO (21:20)
[2023-07-23] MEDS: INVANZ 60 MG IV (21:30)
[2023-07-23] MEDS: FLUSH (NSS) 1 FLUSH IV (21:31)
[2023-07-23 23:59] VITALS: BP 161/58
[2023-07-24 05:56] VITALS: BP 158/61
[2023-07-24 07:31] VITALS: BP 167/65
[2023-07-24] MEDS: BenGay-Like 1 APPLIC TOPICAL (08:44)
[2023-07-24] MEDS: COLACE 100 MG PO ×2 (08:44→19:58)
[2023-07-24] MEDS: SODIUM CHLORIDE 0.5 GRAM PO ×2 (08:44→19:55)
[2023-07-24] MEDS: ELIQUIS 5 MG PO ×2 (08:44→19:56)
[2023-07-24] MEDS: SINEMET 25-100 1 TABLET PO ×3 (08:44→22:59)
[2023-07-24] MEDS: VITAMIN C 1000 MG PO ×2 (08:45→19:56)
[2023-07-24] MEDS: LIDOCAINE 4% PATCH TOPICAL (08:45)
[2023-07-24] MEDS: PROTONIX 40 MG PO (08:45)
[2023-07-24] MEDS: MIRALAX 17 GRAMS PO (08:45)
[2023-07-24] MEDS: IMDUR (EXTENDED RELEASE) 30 MG PO (08:45)
[2023-07-24] MEDS: ZOLOFT 50 MG PO (08:46)
[2023-07-24] MEDS: PACERONE 100 MG PO (08:46)
[2023-07-24] MEDS: PLAVIX 75 MG PO (09:05)
[2023-07-24 12:58] VITALS: BP 124/56; PULSE 62; O2SAT 95
--- NOTE | 2023-07-24 13:09 | W.PN.HOSP.TC ---
Today's Communication/Plan
-
Will discuss with CM timing of dc
Assessment / Plan
Assessment / Plan
# Recurrent catheter associated UTI/Bacteremia
# Recent ESBL E. coli catheter associated UTI with bacteremia/ESBL Klebsiella
hospitalization 06/09-06/16/23
-Urinalysis shows positive nitrates, +2 leukocyte esterase, greater than 100 WBC, moderate bacteria
-Urine and Blood Cx demonstrate E.Coli, ESBL
-dc'ed IV fluids
-Given Zosyn in ER, switch to ertapenem
discussed with Dr. Diggs. Rec Ertapenem through 07/27. Was at [facility] prior to admission
WBC 10.5-->6.6
Blood cx/Ur cx E.Coli/ESBL: Amoxicillin/Potas. Clavulanate <=8/4 S
Ampicillin >16 R
Ampicillin/Sulbactam <=8/4 S
Cefazolin >16 R
Cefepime >16 R
Ceftazidime >16 R
Ceftriaxone >2 R
Ertapenem <=0.5 S
Ciprofloxacin >2 R
Gentamicin <=4 S
Levofloxacin >4 R
Meropenem <=1 S
Piperacillin/Tazobactam <=16 S
Tobramycin <=4 S
Trimethoprim/Sulfamethoxazole <=2/38 S
Much more responsive. input of speech therapy appreciated, advanced diet
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
-Exchanged Padilla catheter
Renal US: No shadowing renal calculus or hydronephrosis, bilaterally. Padilla catheter in the bladder which is empty.
Renal cysts. Stable solid upper pole left renal mass.
(previous CT scan 05/21/22: �Enhancing solid left renal mass concerning for malignancy until proven otherwise. This could be confirmed by MR examination or PET imaging if indicated clinically). Has seen urologist at , plan to follow conservatively.
Paroxysmal atrial fibrillation with pacemaker
-Continue amiodarone
-Continue Eliquis
-Continue metoprolol
07/18 RN Skin/wound assessment: Sacrum Stage 1 Pressure Injury, POA.
Treatment: Barrier ointment per protocol.
Coronary artery disease
Recent NSTEMI
-Continue Plavix
-Continue statin
-Continue isosorbide mononitrate
Mild Protein Calorie Malnutrition
extensive wt loss prior to admission, but alb was 4.0 on admission with BMI 24.1
Chronic anemia
-Hemoglobin better than previous
Essential hypertension
Most recent BP 186/69
Parkinson's disease
Chronic gait dysfunction
Anxiety/depression
-Continue sertraline
Chronic hyponatremia
-Stable
-Continue sodium tablets
Chronic vertigo
-Continue meclizine
DNR/DNI
DVT prophylaxis�Eliquis
Met with son 07/23 with full update
Anticipated Discharge: 24 - 48 hours
Subjective/Interval History
-
Date of Service: July 24, 2023
Awake, alert, answering basic questions
Objective Data
-
Vital Signs:
Vital Signs
Temp Pulse Resp BP Pulse Ox
97.5 F 66 16 167/65 97
07/24/23 07:31 07/24/23 08:46 07/24/23 07:31 07/24/23 08:46 07/24/23 07:31
I&O
07/23/23 07/24/23 07/25/23
05:59 06:59 06:59
Intake Total
Output Total
Balance
Review of Systems
-
History Source: Coordinated Provider
Constitutional: Denies Fever
Respiratory: Reports No Symptoms
Cardiac: Reports No Symptoms
Abdomen/GI: Reports No Symptoms
Genitourinary: Reports No Symptoms; Denies Dysuria
Physical Exam
-
General: Well Developed, Well Nourished, No Apparent Distress and Appears Chronically Ill
HEENT: Normocephalic, Atraumatic and Moist Mucous Membranes
Respiratory: Clear to Auscultation; Negative Wheezes, Rales or Rhonchi
Cardiac: Regular Rhythm and S1/S2
GI: Soft, Nontender and Nondistended
Musculoskeletal: No Clubbing, No Cyanosis and No Edema
Neuro: Awake, Alert and Other (answering basic questions)
[2023-07-24 14:38] VITALS: BP 124/56; PULSE 62; O2SAT 96
[2023-07-24 15:22] VITALS: BP 113/46
--- NOTE | 2023-07-24 15:52 | W.PN.ID1 ---
Date of Service
Date of Service: July 24, 2023
Today's Communication
Continue antibiotics.
Assessment / Plan
Complicated urinary tract infection
- Pt with chronic sykes
ESBL E. coli bacteremia
-Repeat blood cultures clear.
P A-fib; on Eliquis
CAD
Anemia
HTN
Parkinson's disease
Recommendations:
Continue with ertapenem.
Repeat blood cultures negative.
PICC line placed.
--> Continue ertapenam through 07/28/2023
Monitor white count and temperature curve.
����������������������������������������������������������
Chief Complaint
-: UTI and Bacteremia
Subjective / Review of Systems
Seen and examined. No significant changes overnight.
Vital Signs / Physical Exam
Vital Signs
Vital Signs
Temp Pulse Resp BP Pulse Ox
97.5 F 66 16 167/65 97
07/24/23 07:31 07/24/23 08:46 07/24/23 07:31 07/24/23 08:46 07/24/23 07:31
Physical Exam
Constitutional: No Acute Distress, Comfortable, Chronically Ill and Non-toxic
Cardiovascular: S1/S2; Negative S3/S4
Pulmonary: Non Labored
Gastrointestinal: Soft and Non Distended
Neurological: Awake
Psychological: Calm
Objective Data
Lab Data
Lab Results
07/21/23 06:56
07/21/23 06:56
Estimated Creat Clear 59 ml/min 07/21/23 06:56
Lactic Acid 0.8 mmol/L (0.7-2.0) 07/18/23 17:21
Total Bilirubin 1.6 mg/dl (0.2-1.3) H 07/19/23 05:07
AST 14 U/L (14-36) 07/19/23 05:07
ALT < 10 U/L (0-35) 07/19/23 05:07
Alkaline Phosphatase 67 U/L (38-126) 07/19/23 05:07
Most recent labs reviewed.
Micro Results:
07/19/23 18:10 Blood Culture - Preliminary
Blood/Venous No Growth in 4 days- Final report to follow
07/18/23 17:21 Blood Culture - Final
Blood/Venous No Growth - Final Report
07/19/23 17:12 Blood Culture - Preliminary
Blood/Venous No Growth in 4 days- Final report to follow
07/20/23 18:00 MRSA Screen - Final
Nose No Methicillin Resistant Staphylococcus aureus isolated.
07/18/23 17:18 Blood Culture - Preliminary
Blood/Venous Escherichia coli - ESBL
Gram Stain - Preliminary
07/18/23 17:18 Urine Culture - Final
Urine Escherichia coli - ESBL
Imaging:
07/22/2023 Renal ultrasound : No shadowing renal calculus or hydronephrosis, bilaterally. Sykes catheter in the bladder which is empty. Renal cysts. Stable solid upper pole left renal mass.
Care Review
Plan reviewed with: Physician (Hospitalist)
[2023-07-24] MEDS: INVANZ 60 MG IV (22:59)
[2023-07-24] MEDS: TOPROL XL 50 MG PO (23:00)
[2023-07-24 23:09] VITALS: BP 137/59
[2023-07-25 07:13] VITALS: BP 102/64
[2023-07-25] MEDS: ZOLOFT 50 MG PO (08:35)
[2023-07-25] MEDS: PROTONIX 40 MG PO (08:35)
[2023-07-25] MEDS: VITAMIN C 1000 MG PO (08:35)
[2023-07-25] MEDS: IMDUR (EXTENDED RELEASE) 30 MG PO (08:35)
[2023-07-25] MEDS: ELIQUIS 5 MG PO (08:35)
[2023-07-25] MEDS: SODIUM CHLORIDE 0.5 GRAM PO (08:35)
[2023-07-25] MEDS: MIRALAX 17 GRAMS PO (08:35)
[2023-07-25] MEDS: COLACE 100 MG PO (08:35)
[2023-07-25] MEDS: PACERONE 100 MG PO (08:36)
[2023-07-25] MEDS: SINEMET 25-100 1 TABLET PO (08:36)
[2023-07-25] MEDS: PLAVIX 75 MG PO (08:38)
[2023-07-25] MEDS: LIDOCAINE 4% PATCH TOPICAL (08:39)
[2023-07-25] MEDS: BenGay-Like 1 APPLIC TOPICAL (08:46)
--- NOTE | 2023-07-25 12:20 | CM ---
Chart reviewed and plan is for skilled placement at [facility], referral sent to [facility].
Plan; Skilled placement at [facility].
--- NOTE | 2023-07-25 13:57 | W.PN.HOSP.TC ---
Today's Communication/Plan
-
continue IV abx
Assessment / Plan
Assessment / Plan
# Recurrent catheter associated UTI/Bacteremia
# Recent ESBL E. coli catheter associated UTI with bacteremia/ESBL Klebsiella
hospitalization 06/09-06/16/23
-Urinalysis shows positive nitrates, +2 leukocyte esterase, greater than 100 WBC, moderate bacteria
-Urine and Blood Cx demonstrate E.Coli, ESBL
-dc'ed IV fluids
-Given Zosyn in ER, switched to ertapenem
discussed with Dr. Diggs. Rec Ertapenem through 07/27. Was at [facility] prior to admission
WBC 10.5-->6.6
Blood cx/Ur cx E.Coli/ESBL: Amoxicillin/Potas. Clavulanate <=8/4 S
Ampicillin >16 R
Ampicillin/Sulbactam <=8/4 S
Cefazolin >16 R
Cefepime >16 R
Ceftazidime >16 R
Ceftriaxone >2 R
Ertapenem <=0.5 S
Ciprofloxacin >2 R
Gentamicin <=4 S
Levofloxacin >4 R
Meropenem <=1 S
Piperacillin/Tazobactam <=16 S
Tobramycin <=4 S
Trimethoprim/Sulfamethoxazole <=2/38 S
Much more responsive. input of speech therapy appreciated, advanced diet
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
-Exchanged Padilla catheter
Renal US: No shadowing renal calculus or hydronephrosis, bilaterally. Padilla catheter in the bladder which is empty.
Renal cysts. Stable solid upper pole left renal mass.
(previous CT scan 05/21/22: �Enhancing solid left renal mass concerning for malignancy until proven otherwise. This could be confirmed by MR examination or PET imaging if indicated clinically). Has seen urologist at , plan to follow conservatively.
Paroxysmal atrial fibrillation with pacemaker
-Continue amiodarone
-Continue Eliquis
-Continue metoprolol
07/18 RN Skin/wound assessment: Sacrum Stage 1 Pressure Injury, POA.
Treatment: Barrier ointment per protocol.
Coronary artery disease
Recent NSTEMI
-Continue Plavix
-Continue statin
-Continue isosorbide mononitrate
Mild Protein Calorie Malnutrition
extensive wt loss prior to admission, but alb was 4.0 on admission with BMI 24.1
Chronic anemia
-Hemoglobin better than previous
Essential hypertension
Most recent BP 186/69
Parkinson's disease
Chronic gait dysfunction
Anxiety/depression
-Continue sertraline
Chronic hyponatremia
-Stable
-Continue sodium tablets
Chronic vertigo
-Continue meclizine
DNR/DNI
DVT prophylaxis�Eliquis
Met with son 07/23 with full update
Spoke to , will complete IV abx on 07/27, thus keeping at to dc after Ertapenem completed and then dc would be optimal
Anticipated Discharge: > 48 hours
Subjective/Interval History
-
Date of Service: July 25, 2023
Appears comfortable
Objective Data
-
Vital Signs:
Vital Signs
Temp Pulse Resp BP Pulse Ox
98 F 62 16 102/64 99
07/25/23 07:13 07/25/23 08:36 07/25/23 07:13 07/25/23 08:36 07/25/23 08:35
I&O
07/24/23 07/25/23 07/26/23
06:59 06:59 06:59
Intake Total 250 / 250
Output Total 500 / 500
Balance -250 / -250
Review of Systems
-
History Source: Coordinated Provider
Constitutional: Denies Fever
Respiratory: Reports No Symptoms
Cardiac: Reports No Symptoms
Abdomen/GI: Reports No Symptoms
Genitourinary: Reports No Symptoms; Denies Dysuria
Physical Exam
-
General: Well Developed, Well Nourished, No Apparent Distress and Appears Chronically Ill
HEENT: Normocephalic, Atraumatic and Moist Mucous Membranes
Respiratory: Clear to Auscultation; Negative Wheezes, Rales or Rhonchi
Cardiac: Regular Rhythm and S1/S2
GI: Soft, Nontender and Nondistended
Musculoskeletal: No Clubbing, No Cyanosis and No Edema
Neuro: Awake, Alert and Other (answering basic questions)
--- NOTE | 2023-07-25 14:42 | PTCARENOTE ---
07/24- Patient is persistently drowsy, lethargic; has not eaten or drank anything all day except morning meds. Padilla is now showing a red, lizbeth consistently with scant amt stringy material. Notified Physician.
[2023-07-25 15:29] VITALS: BP 176/73
--- NOTE | 2023-07-25 15:47 | W.PN.ID1 ---
Date of Service
Date of Service: July 25, 2023
Today's Communication
Transition ertapenem to Zosyn to complete course of therapy. See below�
Assessment / Plan
Complicated urinary tract infection
- Pt with chronic sykes
ESBL E. coli bacteremia
-Repeat blood cultures clear.
P A-fib; on Eliquis
CAD
Anemia
HTN
Parkinson's disease
Recommendations:
Increased lethargy noted. May be secondary to antibiotics.
Patient to complete course of antibiotics here; will transition to Zosyn to avoid any NEURO UROLOGIST effects of ertapenem.
Repeat blood cultures negative.
PICC line placed.
--> Continue antibiotics through 07/28/2023
Monitor white count and temperature curve.
����������������������������������������������������������
Chief Complaint
-: UTI and Bacteremia
Subjective / Review of Systems
Patient seen and examined. Son present at bedside. He reports that mentation seems to have grown worse over the past 24-36 hrs.
Review of Systems: No Fever
Vital Signs / Physical Exam
Vital Signs
Vital Signs
Temp Pulse Resp BP Pulse Ox
98 F 62 16 102/64 99
07/25/23 07:13 07/25/23 08:36 07/25/23 07:13 07/25/23 08:36 07/25/23 08:35
Physical Exam
Constitutional: No Acute Distress, Comfortable and Chronically Ill
Eyes: Sclera Anicteric
Pulmonary: Non Labored
Neurological: Other (Lethargic to arouse.)
Objective Data
Lab Data
Lab Results
07/21/23 06:56
07/21/23 06:56
Estimated Creat Clear 59 ml/min 07/21/23 06:56
Lactic Acid 0.8 mmol/L (0.7-2.0) 07/18/23 17:21
Total Bilirubin 1.6 mg/dl (0.2-1.3) H 07/19/23 05:07
AST 14 U/L (14-36) 07/19/23 05:07
ALT < 10 U/L (0-35) 07/19/23 05:07
Alkaline Phosphatase 67 U/L (38-126) 07/19/23 05:07
Most recent labs reviewed.
Micro Results:
07/18/23 17:18 Blood Culture - Final
Blood/Venous Escherichia coli - ESBL
Gram Stain - Final
07/19/23 18:10 Blood Culture - Final
Blood/Venous No Growth - Final Report
07/19/23 17:12 Blood Culture - Final
Blood/Venous No Growth - Final Report
07/18/23 17:21 Blood Culture - Final
Blood/Venous No Growth - Final Report
07/20/23 18:00 MRSA Screen - Final
Nose No Methicillin Resistant Staphylococcus aureus isolated.
07/18/23 17:18 Urine Culture - Final
Urine Escherichia coli - ESBL
Imaging:
07/22/2023 Renal ultrasound : No shadowing renal calculus or hydronephrosis, bilaterally. Sykes catheter in the bladder which is empty. Renal cysts. Stable solid upper pole left renal mass.
[2023-07-25] MEDS: ZOSYN 50 IV ×2 (15:58→23:01)
[2023-07-25] MEDS: SINEMET 25-100 PO ×3 (15:58→23:00)
[2023-07-25 21:12] VITALS: BP 183/79
[2023-07-25] MEDS: VITAMIN C PO ×2 (22:57→22:59)
[2023-07-25] MEDS: ELIQUIS PO ×2 (22:57→22:59)
[2023-07-25] MEDS: TOPROL XL PO ×2 (22:59→23:01)
[2023-07-25] MEDS: COLACE PO ×2 (22:59→23:01)
[2023-07-25] MEDS: SODIUM CHLORIDE PO ×2 (22:59)
[2023-07-25] MEDS: ZOSYN IV (23:10)
--- NOTE | 2023-07-26 02:50 | PTCARENOTE ---
Pt is drowsy and lethargic. Pt is verbally arousable but falls asleep soon after. Pt able to state their name, , place, and year. Pt refused medications. Pt refused to eat and drink. Notified HERIBERTO Corea. No new orders at this time. Plan
of care ongoing.
[2023-07-26] MEDS: ZOSYN 50 IV ×4 (03:19→22:24)
[2023-07-26 07:31] VITALS: BP 189/77
[2023-07-26 09:42] LABS: % Basophils 0.5 % (0-2); % Eosinophils 1.9 % (0-6); % Immature Granulocytes 0.2 % (0-0.5); % Lymphocytes 11.1 % (20.5-51.1); % Monocytes 8.3 % (1.7-9.3); Absolute Eosinophils 0.2 10^3/uL (0-0.7); Absolute Lymphocytes 0.9 10^3/uL (1.2-3.4); Absolute Monocytes 0.7 10^3/uL (0.1-0.6); Absolute Neutrophils 6.4 10^3/uL (1.4-6.5); Hematocrit 37.3 % (37.0-47.0); Hemoglobin 12.6 g/dL (12.0-16.0); Mean Corp Hgb Conc. 33.8 g/dL (33.0-37.0); Mean Corpuscular Hgb 29.8 pg (27.0-31.0); Mean Corpuscular Volume 88.2 fL (81.0-99.0); Mean Platelet Volume 10.8 fL (7.4-10.4); Nucleated Red Blood Cells % 0 %; Platelet Count 319 10^3/uL (130-400); Red Blood Cell Count 4.23 10^6/uL (4.20-5.40); Red Cell Dist. Width 15.5 % (11.5-14.5); White Blood Cell Count 8.3 10^3/uL (4.8-10.8)
[2023-07-26] MEDS: MIRALAX 17 GRAMS PO (09:49)
[2023-07-26] MEDS: SODIUM CHLORIDE 0.5 GRAM PO ×2 (09:52→22:23)
[2023-07-26] MEDS: LIDOCAINE 4% PATCH 1 PATCH TOPICAL (09:52)
[2023-07-26] MEDS: IMDUR (EXTENDED RELEASE) 30 MG PO (09:53)
[2023-07-26] MEDS: PLAVIX 75 MG PO (09:54)
[2023-07-26] MEDS: PROTONIX 40 MG PO (09:55)
[2023-07-26] MEDS: VITAMIN C 1000 MG PO ×2 (09:55→22:24)
[2023-07-26] MEDS: ELIQUIS 5 MG PO ×2 (09:56→22:24)
[2023-07-26] MEDS: COLACE 100 MG PO ×2 (09:56→22:23)
[2023-07-26] MEDS: SINEMET 25-100 1 TABLET PO ×3 (09:57→22:23)
[2023-07-26] MEDS: BenGay-Like 1 APPLIC TOPICAL (09:57)
[2023-07-26] MEDS: ZOLOFT 50 MG PO (09:57)
[2023-07-26] MEDS: PACERONE 100 MG PO (09:57)
[2023-07-26 10:08] LABS: ALT (SGPT) < 10 U/L (0-35); AST (SGOT) 16 U/L (14-36); Albumin 3.2 g/dl (3.5-5.0); Alkaline Phosphatase 69 U/L (38-126); Blood Urea Nitrogen 20 mg/dl (7-17); Carbon Dioxide 26 mmol/L (22-30); Chloride 101 mmol/L (98-107); Estimated Creatinine Clearance 51 ml/min; Glucose 78 mg/dl (70-99); Potassium 3.5 mmol/L (3.5-5.1); Sodium 136 mmol/L (135-145); Total Protein 5.9 g/dl (6.3-8.2); eGFR > 60.00
--- NOTE | 2023-07-26 11:14 | CM ---
restaurant operations manager reviewed patient's chart and plan is for skilled placement, telephonic nurse case manager reached out to admissions at [facility] and they can accept when medically stable.
Plan; Skilled placement at [facility] when stable.
[2023-07-26 15:30] VITALS: BP 135/53
--- NOTE | 2023-07-26 16:40 | W.PN.ID1 ---
Date of Service
Date of Service: July 26, 2023
Today's Communication
Continue antibiotics.
Assessment / Plan
Complicated urinary tract infection
- Pt with chronic sykes
ESBL E. coli bacteremia
-Repeat blood cultures clear.
P A-fib; on Eliquis
CAD
Anemia
HTN
Parkinson's disease
Recommendations:
Continue with Zosyn.
Repeat blood cultures negative.
PICC line placed.
--> Continue antibiotics through 07/28/2023
Monitor white count and temperature curve. Monitor mental status.
����������������������������������������������������������
Chief Complaint
-: UTI and Bacteremia
Subjective / Review of Systems
Review of Systems: No Fever and No Chills
Vital Signs / Physical Exam
Vital Signs
Vital Signs
Temp Pulse Resp BP Pulse Ox
96.8 F L 71 14 135/53 97
07/26/23 15:30 07/26/23 15:30 07/26/23 15:30 07/26/23 15:30 07/26/23 15:30
Physical Exam
Physical Exam:
Constitutional: No Acute Distress, Comfortable and Chronically Ill
Eyes: Sclera Anicteric
Pulmonary: Non Labored
Abdomen: Nondistended.
: Sykes in place; clear urine
Neurological: Increased responsiveness today. Answering simple questions.
Objective Data
Lab Data
Lab Results
07/26/23 09:16
07/26/23 09:16
Estimated Creat Clear 51 ml/min 07/26/23 09:16
Lactic Acid 0.8 mmol/L (0.7-2.0) 07/18/23 17:21
Total Bilirubin 2.0 mg/dl (0.2-1.3) H 07/26/23 09:16
AST 16 U/L (14-36) 07/26/23 09:16
ALT < 10 U/L (0-35) 07/26/23 09:16
Alkaline Phosphatase 69 U/L (38-126) 07/26/23 09:16
Most recent labs reviewed.
Micro Results:
07/18/23 17:18 Blood Culture - Final
Blood/Venous Escherichia coli - ESBL
Gram Stain - Final
07/19/23 18:10 Blood Culture - Final
Blood/Venous No Growth - Final Report
07/19/23 17:12 Blood Culture - Final
Blood/Venous No Growth - Final Report
07/18/23 17:21 Blood Culture - Final
Blood/Venous No Growth - Final Report
07/20/23 18:00 MRSA Screen - Final
Nose No Methicillin Resistant Staphylococcus aureus isolated.
07/18/23 17:18 Urine Culture - Final
Urine Escherichia coli - ESBL
Imaging:
07/22/2023 Renal ultrasound : No shadowing renal calculus or hydronephrosis, bilaterally. Sykes catheter in the bladder which is empty. Renal cysts. Stable solid upper pole left renal mass.
--- NOTE | 2023-07-26 17:28 | W.PN.HOSP.TC ---
Today's Communication/Plan
-
continue abx
Assessment / Plan
Assessment / Plan
# Recurrent catheter associated UTI/Bacteremia
# Recent ESBL E. coli catheter associated UTI with bacteremia/ESBL Klebsiella
hospitalization 06/09-06/16/23
-Urinalysis shows positive nitrates, +2 leukocyte esterase, greater than 100 WBC, moderate bacteria
-Urine and Blood Cx demonstrate E.Coli, ESBL
-dc'ed IV fluids
-Given Zosyn in ER, switched to ertapenem
discussed with Dr. Diggs. Rec Ertapenem through 07/27. Was at [facility] prior to admission
WBC 10.5-->6.6
Blood cx/Ur cx E.Coli/ESBL: Amoxicillin/Potas. Clavulanate <=8/4 S
Ampicillin >16 R
Ampicillin/Sulbactam <=8/4 S
Cefazolin >16 R
Cefepime >16 R
Ceftazidime >16 R
Ceftriaxone >2 R
Ertapenem <=0.5 S
Ciprofloxacin >2 R
Gentamicin <=4 S
Levofloxacin >4 R
Meropenem <=1 S
Piperacillin/Tazobactam <=16 S
Tobramycin <=4 S
Trimethoprim/Sulfamethoxazole <=2/38 S
Much more responsive. input of speech therapy appreciated, advanced diet
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
-Exchanged Padilla catheter
Renal US: No shadowing renal calculus or hydronephrosis, bilaterally. Padilla catheter in the bladder which is empty.
Renal cysts. Stable solid upper pole left renal mass.
(previous CT scan 05/21/22: �Enhancing solid left renal mass concerning for malignancy until proven otherwise. This could be confirmed by MR examination or PET imaging if indicated clinically). Has seen urologist at , plan to follow conservatively.
Paroxysmal atrial fibrillation with pacemaker
-Continue amiodarone
-Continue Eliquis
-Continue metoprolol
07/18 RN Skin/wound assessment: Sacrum Stage 1 Pressure Injury, POA.
Treatment: Barrier ointment per protocol.
Coronary artery disease
Recent NSTEMI
-Continue Plavix
-Continue statin
-Continue isosorbide mononitrate
Mild Protein Calorie Malnutrition
extensive wt loss prior to admission, but alb was 4.0 on admission with BMI 24.1
Chronic anemia
-Hemoglobin better than previous
Essential hypertension
Most recent BP 186/69
Parkinson's disease
Chronic gait dysfunction
Anxiety/depression
-Continue sertraline
Chronic hyponatremia
-Stable
-Continue sodium tablets
Chronic vertigo
-Continue meclizine
DNR/DNI
DVT prophylaxis�Eliquis
Met with son 07/25 with full update
Spoke to , will complete IV abx on 07/27, thus keeping at to dc after abx completed and then dc would be optimal. Abx change from Ertapenem to Zosyn
Anticipated Discharge: 24 - 48 hours
Subjective/Interval History
-
Date of Service: July 26, 2023
Much more awake today, still with marginal oral intake
Objective Data
-
Labs:
Laboratory Results
07/26/23
09:16
WBC 8.3
Hgb 12.6
Hct 37.3
Plt Count 319
Sodium 136
Potassium 3.5
Chloride 101
Carbon Dioxide 26
BUN 20 H
Creatinine 0.7
Glucose 78
Calcium 9.0
Total Bilirubin 2.0 H
AST 16
ALT < 10
Alkaline Phosphatase 69
Vital Signs:
Vital Signs
Temp Pulse Resp BP Pulse Ox
96.8 F L 71 14 135/53 97
07/26/23 15:30 07/26/23 15:30 07/26/23 15:30 07/26/23 15:30 07/26/23 15:30
I&O
07/25/23 07/26/23 07/27/23
06:59 06:59 06:59
Intake Total 250 / 250 229 / 229
Output Total 500 / 500 825 / 825
Balance -250 / -250 -596 / -596
Review of Systems
-
History Source: Coordinated Provider
Constitutional: Denies Fever
Respiratory: Reports No Symptoms
Cardiac: Reports No Symptoms
Abdomen/GI: Reports No Symptoms
Genitourinary: Reports No Symptoms; Denies Dysuria
Physical Exam
-
General: Well Developed, Well Nourished, No Apparent Distress and Appears Chronically Ill
HEENT: Normocephalic, Atraumatic and Moist Mucous Membranes
Respiratory: Clear to Auscultation; Negative Wheezes, Rales or Rhonchi
Cardiac: Regular Rhythm and S1/S2
GI: Soft, Nontender and Nondistended
Musculoskeletal: No Clubbing, No Cyanosis and No Edema
Neuro: Awake, Alert and Other (answering basic questions)
[2023-07-26 22:15] VITALS: BP 127/50
[2023-07-26] MEDS: TOPROL XL PO (22:17)
--- NOTE | 2023-07-26 23:44 | VATNOTE ---
Paged by PCN to evaluate patients midline. PCN was having difficulty flushing line and stated that it might look a little swollen and her arm was cool. Upon eval this RN was able to flush ML with 10ml flush x 3 without difficulty. Right upper arm
measured at 30cm which is the same as when it was placed and patient forearm and fingers are warm to touch with good cap refill. Dressing change completed at this time due to some blood under the dressing and on the biopatch. Spoke with PCN after
and will call if any other concerns or if anything changes.
[2023-07-27] MEDS: ZOSYN 50 IV ×4 (03:59→23:15)
[2023-07-27 07:40] VITALS: BP 165/65
[2023-07-27] MEDS: BenGay-Like 1 APPLIC TOPICAL (10:14)
[2023-07-27] MEDS: SODIUM CHLORIDE 0.5 GRAM PO ×2 (10:15→23:15)
[2023-07-27] MEDS: IMDUR (EXTENDED RELEASE) 30 MG PO (10:15)
[2023-07-27] MEDS: ZOLOFT 50 MG PO (10:20)
[2023-07-27] MEDS: VITAMIN C 1000 MG PO ×2 (10:20→23:16)
[2023-07-27] MEDS: LIDOCAINE 4% PATCH 1 PATCH TOPICAL (10:21)
[2023-07-27] MEDS: ELIQUIS 5 MG PO ×2 (10:21→23:16)
[2023-07-27] MEDS: PACERONE 100 MG PO (10:21)
[2023-07-27] MEDS: MIRALAX 17 GRAMS PO (10:21)
[2023-07-27] MEDS: PROTONIX 40 MG PO (10:21)
[2023-07-27] MEDS: COLACE 100 MG PO ×2 (10:21→23:16)
[2023-07-27] MEDS: SINEMET 25-100 1 TABLET PO ×3 (10:22→23:15)
[2023-07-27] MEDS: PLAVIX 75 MG PO (10:22)
--- NOTE | 2023-07-27 12:14 | CM ---
Addendum entered by Carol Griffith 07/27/23 16:55:
Auth initiated with [employer], [phone], pending reference #, [id number], .
Original Note:
strategic partner development manager reviewed patient's chart and spoke with admissions at [facility] and they will have a bed for patient tomorrow. strategic partner development manager will reach out to patient's insurance to initiate Auth for skilled placement.
[facility] or [phone]
Dr Milo York
[facility]
Report [phone]
[2023-07-27 15:25] VITALS: BP 129/47
--- NOTE | 2023-07-27 15:37 | W.PN.HOSP.TC ---
Today's Communication/Plan
-
complete Zosyn then dc to [facility]
Assessment / Plan
Assessment / Plan
# Recurrent catheter associated UTI/Bacteremia
# Recent ESBL E. coli catheter associated UTI with bacteremia/ESBL Klebsiella
hospitalization 06/09-06/16/23
-Urinalysis shows positive nitrates, +2 leukocyte esterase, greater than 100 WBC, moderate bacteria
-Urine and Blood Cx demonstrate E.Coli, ESBL
-dc'ed IV fluids
-Given Zosyn in ER, switched to ertapenem now back on Zosyn
discussed with Dr. Diggs. Was at [facility] prior to admission
WBC 10.5-->6.6
Blood cx/Ur cx E.Coli/ESBL: Amoxicillin/Potas. Clavulanate <=8/4 S
Ampicillin >16 R
Ampicillin/Sulbactam <=8/4 S
Cefazolin >16 R
Cefepime >16 R
Ceftazidime >16 R
Ceftriaxone >2 R
Ertapenem <=0.5 S
Ciprofloxacin >2 R
Gentamicin <=4 S
Levofloxacin >4 R
Meropenem <=1 S
Piperacillin/Tazobactam <=16 S
Tobramycin <=4 S
Trimethoprim/Sulfamethoxazole <=2/38 S
Much more responsive. input of speech therapy appreciated, advanced diet
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
-Exchanged Padilla catheter
Renal US: No shadowing renal calculus or hydronephrosis, bilaterally. Padilla catheter in the bladder which is empty.
Renal cysts. Stable solid upper pole left renal mass.
(previous CT scan 05/21/22: �Enhancing solid left renal mass concerning for malignancy until proven otherwise. This could be confirmed by MR examination or PET imaging if indicated clinically). Has seen urologist at , plan to follow conservatively.
Paroxysmal atrial fibrillation with pacemaker
-Continue amiodarone
-Continue Eliquis
-Continue metoprolol
07/18 RN Skin/wound assessment: Sacrum Stage 1 Pressure Injury, POA.
Treatment: Barrier ointment per protocol.
Coronary artery disease
Recent NSTEMI
-Continue Plavix
-Continue statin
-Continue isosorbide mononitrate
Mild Protein Calorie Malnutrition
extensive wt loss prior to admission, but alb was 4.0 on admission with BMI 24.1
Chronic anemia
-Hemoglobin better than previous
Essential hypertension
Most recent BP 186/69
Parkinson's disease
Chronic gait dysfunction
Anxiety/depression
-Continue sertraline
Chronic hyponatremia
-Stable
-Continue sodium tablets
Chronic vertigo
-Continue meclizine
DNR/DNI
DVT prophylaxis�Eliquis
Met with son 07/25 with full update
Spoke to , will complete IV abx on 07/27, thus keeping at to dc after abx completed and then dc would be optimal. Abx change from Ertapenem to Zosyn. Plan is to dc to [facility] tomorrow
Anticipated Discharge: 24 - 48 hours
Subjective/Interval History
-
Date of Service: July 27, 2023
Remains weak
Objective Data
-
Vital Signs:
Vital Signs
Temp Pulse Resp BP Pulse Ox
98.0 F 68 17 165/65 98
07/27/23 07:40 07/27/23 07:40 07/27/23 07:40 07/27/23 07:40 07/27/23 07:40
I&O
07/26/23 07/27/23 07/28/23
06:59 06:59 06:59
Intake Total 229 / 229 100 / 100
Output Total 825 / 825 150 / 150
Balance -596 / -596 -50 / -50
Review of Systems
-
History Source: Coordinated Provider
Constitutional: Denies Fever
Respiratory: Reports No Symptoms
Cardiac: Reports No Symptoms
Abdomen/GI: Reports No Symptoms
Genitourinary: Reports No Symptoms; Denies Dysuria
Physical Exam
-
General: Well Developed, Well Nourished, No Apparent Distress and Appears Chronically Ill
HEENT: Normocephalic, Atraumatic and Moist Mucous Membranes
Respiratory: Clear to Auscultation; Negative Wheezes, Rales or Rhonchi
Cardiac: Regular Rhythm and S1/S2
GI: Soft, Nontender and Nondistended
Musculoskeletal: No Clubbing, No Cyanosis and No Edema
Neuro: Awake, Alert and Other (answering basic questions)
--- NOTE | 2023-07-27 15:52 | W.PN.ID1 ---
Date of Service
Date of Service: July 27, 2023
Today's Communication
Continue antibiotics.
Assessment / Plan
Complicated urinary tract infection (CAUTI); POA
- Pt with chronic sykes
ESBL E. coli bacteremia
-Repeat blood cultures clear.
P A-fib; on Eliquis
CAD
Anemia
HTN
Parkinson's disease
Recommendations:
Repeat blood cultures negative.
Continue with Zosyn through 07/28/2023 then D/C abx and observe off abx.
Monitor white count and temperature curve. Monitor mental status.
����������������������������������������������������������
Chief Complaint
-: UTI and Bacteremia
Subjective / Review of Systems
Review of Systems: No Fever and No Chills
Vital Signs / Physical Exam
Vital Signs
Vital Signs
Temp Pulse Resp BP Pulse Ox
98.0 F 68 17 165/65 98
07/27/23 07:40 07/27/23 07:40 07/27/23 07:40 07/27/23 07:40 07/27/23 07:40
Physical Exam
Constitutional: No Acute Distress, Comfortable and Chronically Ill
Cardiovascular: S1/S2; Negative S3/S4
Pulmonary: Non Labored
Gastrointestinal: Non Distended and Normal Bowel Sounds
Genito-Urinary: Sykes and Clear Urine; Negative Turbid Urine
Neurological: Awake; Negative Meningeal Signs
Psychological: Calm
Objective Data
Lab Data
Lab Results
07/26/23 09:16
07/26/23 09:16
Estimated Creat Clear 51 ml/min 07/26/23 09:16
Lactic Acid 0.8 mmol/L (0.7-2.0) 07/18/23 17:21
Total Bilirubin 2.0 mg/dl (0.2-1.3) H 07/26/23 09:16
AST 16 U/L (14-36) 07/26/23 09:16
ALT < 10 U/L (0-35) 07/26/23 09:16
Alkaline Phosphatase 69 U/L (38-126) 07/26/23 09:16
Most recent labs reviewed.
Micro Results:
07/18/23 17:18 Blood Culture - Final
Blood/Venous Escherichia coli - ESBL
Gram Stain - Final
07/19/23 18:10 Blood Culture - Final
Blood/Venous No Growth - Final Report
07/19/23 17:12 Blood Culture - Final
Blood/Venous No Growth - Final Report
07/18/23 17:21 Blood Culture - Final
Blood/Venous No Growth - Final Report
07/20/23 18:00 MRSA Screen - Final
Nose No Methicillin Resistant Staphylococcus aureus isolated.
07/18/23 17:18 Urine Culture - Final
Urine Escherichia coli - ESBL
Imaging:
07/22/2023 Renal ultrasound : No shadowing renal calculus or hydronephrosis, bilaterally. Sykes catheter in the bladder which is empty. Renal cysts. Stable solid upper pole left renal mass.
[2023-07-27] MEDS: TOPROL XL 50 MG PO (23:16)
[2023-07-27 23:35] VITALS: BP 128/52
[2023-07-28] MEDS: ZOSYN 50 IV ×2 (04:02→09:14)
[2023-07-28 08:00] VITALS: BP 169/60
[2023-07-28] MEDS: LIDOCAINE 4% PATCH TOPICAL ×2 (08:46→09:10)
[2023-07-28] MEDS: COLACE 100 MG PO ×2 (08:47→22:15)
[2023-07-28] MEDS: SODIUM CHLORIDE 0.5 GRAM PO ×2 (08:47→22:14)
[2023-07-28] MEDS: PROTONIX 40 MG PO (08:47)
[2023-07-28] MEDS: IMDUR (EXTENDED RELEASE) 30 MG PO (08:47)
[2023-07-28] MEDS: VITAMIN C 1000 MG PO ×2 (08:47→22:14)
[2023-07-28] MEDS: SINEMET 25-100 1 TABLET PO ×3 (08:47→22:14)
[2023-07-28] MEDS: ZOLOFT 50 MG PO (08:47)
[2023-07-28] MEDS: PACERONE 100 MG PO (08:47)
[2023-07-28] MEDS: MIRALAX 17 GRAMS PO (08:48)
[2023-07-28] MEDS: BenGay-Like 1 APPLIC TOPICAL (08:48)
[2023-07-28] MEDS: ELIQUIS 5 MG PO ×2 (08:48→22:14)
[2023-07-28] MEDS: REFRESH EYE DROPS (PF) 1 DROPS OPHTH (09:04)
[2023-07-28] MEDS: PLAVIX 75 MG PO (09:14)
--- NOTE | 2023-07-28 09:58 | W.PN.HOSP.TC ---
Today's Communication/Plan
-
Discharge to short-term rehab tomorrow
Assessment / Plan
Assessment / Plan
# Recurrent sykes catheter associated UTI/Bacteremia
# ESBL positive E. coli UTI/bacteremia
# Recent ESBL E. coli catheter associated UTI with bacteremia/ESBL Klebsiella hospitalization 06/09-06/16/23
Repeat blood cultures negative
Appreciate ID input, status post treatment with IV ertapenem, now she has completed a full course of IV antibiotics with IV Zosyn today
Medically stable for discharge to short-term rehab tomorrow when insurance authorization has been obtained
Chronic Sykes catheter secondary to urinary retention from Parkinson's
-Exchanged Sykes catheter
Renal US: No shadowing renal calculus or hydronephrosis, bilaterally. Sykes catheter in the bladder which is empty.
Renal cysts. Stable solid upper pole left renal mass.
(previous CT scan 05/21/22: �Enhancing solid left renal mass concerning for malignancy until proven otherwise. This could be confirmed by MR examination or PET imaging if indicated clinically). Has seen urologist at , plan to follow conservatively.
Paroxysmal atrial fibrillation with pacemaker
-Continue amiodarone
-Continue Eliquis
-Continue metoprolol
Sacrum Stage 1 Pressure Injury, POA.
-Barrier ointment per protocol.
Coronary artery disease
Recent NSTEMI
-Continue Plavix
-Continue statin
-Continue isosorbide mononitrate
Mild Protein Calorie Malnutrition
-extensive wt loss prior to admission, but alb was 4.0 on admission with BMI 24.1
-Start protein supplement
Chronic anemia
-Hemoglobin better than previous
Labile hypertension
-Blood pressure fluctuates, continue current medications for now
Parkinson's disease
-Continue Sinemet
Chronic gait dysfunction
Anxiety/depression
-Continue sertraline
Chronic hyponatremia
-Stable
-Continue sodium tablets
Chronic vertigo
-Continue meclizine
DVT prophylaxis�Eliquis
DNR
Dr. Zelaya met with son 07/25 with full update
Physical Exam
General: Appears chronically debilitated, no acute distress
HEENT: Normocephalic, Atraumatic, EOMI, MMM
Weak voice
Respiratory: Clear to Auscultation bilaterally
Cardiac: Normal S1/S2, Regular Rate and Rhythm
GI: Soft, Nontender, Nondistended, Normal Bowel Sounds
: chronic sykes
Extremities: No Clubbing, Cyanosis, or Edema
Neuro: Oriented to person, place, time
Psych: Calm, Cooperative
Anticipated Discharge: Within 24 hours
Subjective/Interval History
-
Date of Service: July 28, 2023
Patient appears weak, but denies shortness of breath, or pain. No nausea, no vomiting.
Objective Data
-
Vital Signs:
Vital Signs
Temp Pulse Resp BP Pulse Ox
98.4 F 63 20 128/52 95
07/27/23 23:35 07/27/23 23:35 07/27/23 23:35 07/27/23 23:35 07/27/23 23:35
I&O
07/27/23 07/28/23 07/29/23
06:59 06:59 06:59
Intake Total 100 / 100 490 / 490
Output Total 150 / 150 300 / 300 550 / 550
Balance -50 / -50 190 / 190 -550 / -550
--- NOTE | 2023-07-28 12:59 | CM ---
Patient for transfer to skilled rehab when medially stable.
Continues on IV anbx. ]
[facility] Auth initiated yesterday, [id number], pending reference #, [id number], . still (P).
Spoke with liaison from [facility], she will be off Tuesday and Tuesday, please contact the nursing supervisor poultry hatchery at [phone] for bed availability once auth received.
[facility] (if bed available).
Report [phone]
[2023-07-28 14:22] VITALS: BP 151/62; PULSE 62; O2SAT 97
--- NOTE | 2023-07-28 14:42 | W.PN.ID1 ---
Date of Service
Date of Service: July 28, 2023
Today's Communication
Discontinue further antibiotics and observe.
Assessment / Plan
Complicated urinary tract infection (CAUTI); POA
- Pt with chronic sykes
ESBL E. coli bacteremia
-Repeat blood cultures clear.
P A-fib; on Eliquis
CAD
Anemia
HTN
Parkinson's disease
Recommendations:
Patient has completed course of antibiotics. D/C further zosyn.
Monitor white count and temperature curve. Monitor mental status.
If Sykes is to be maintained [facility], may consider daily flushing with 50 cc of saline to decrease overall bioburden.
����������������������������������������������������������
Chief Complaint
-: UTI and Bacteremia
Vital Signs / Physical Exam
Vital Signs
Vital Signs
Temp Pulse Resp BP Pulse Ox
97.8 F 65 16 169/60 96
07/28/23 08:00 07/28/23 08:00 07/28/23 08:00 07/28/23 08:00 07/28/23 08:00
Physical Exam
Constitutional: No Acute Distress, Comfortable, Chronically Ill and Non-toxic
Eyes: Sclera Anicteric
Cardiovascular: S1/S2; Negative S3/S4
Pulmonary: Non Labored
Gastrointestinal: Soft and Non Tender
Genito-Urinary: Sykes and Clear Urine
Psychological: Calm
Objective Data
Lab Data
Lab Results
07/26/23 09:16
07/26/23 09:16
Estimated Creat Clear 51 ml/min 07/26/23 09:16
Lactic Acid 0.8 mmol/L (0.7-2.0) 07/18/23 17:21
Total Bilirubin 2.0 mg/dl (0.2-1.3) H 07/26/23 09:16
AST 16 U/L (14-36) 07/26/23 09:16
ALT < 10 U/L (0-35) 07/26/23 09:16
Alkaline Phosphatase 69 U/L (38-126) 07/26/23 09:16
Most recent labs reviewed.
Micro Results:
07/18/23 17:18 Blood Culture - Final
Blood/Venous Escherichia coli - ESBL
Gram Stain - Final
07/19/23 18:10 Blood Culture - Final
Blood/Venous No Growth - Final Report
07/19/23 17:12 Blood Culture - Final
Blood/Venous No Growth - Final Report
07/18/23 17:21 Blood Culture - Final
Blood/Venous No Growth - Final Report
07/20/23 18:00 MRSA Screen - Final
Nose No Methicillin Resistant Staphylococcus aureus isolated.
07/18/23 17:18 Urine Culture - Final
Urine Escherichia coli - ESBL
Imaging:
07/22/2023 Renal ultrasound : No shadowing renal calculus or hydronephrosis, bilaterally. Sykes catheter in the bladder which is empty. Renal cysts. Stable solid upper pole left renal mass.
[2023-07-28 16:08] VITALS: BP 143/58
[2023-07-28 22:14] VITALS: BP 160/60
[2023-07-28] MEDS: TOPROL XL 50 MG PO (22:15)
[2023-07-29] MEDS: MIRALAX PO (07:50)
[2023-07-29] MEDS: COLACE PO (07:50)
[2023-07-29] MEDS: SODIUM CHLORIDE 0.5 GRAM PO (07:51)
[2023-07-29] MEDS: LIDOCAINE 4% PATCH TOPICAL (07:52)
[2023-07-29] MEDS: PROTONIX 40 MG PO (07:52)
[2023-07-29] MEDS: VITAMIN C 1000 MG PO (07:52)
[2023-07-29] MEDS: SINEMET 25-100 1 TABLET PO ×2 (07:52→15:02)
[2023-07-29] MEDS: PACERONE 100 MG PO (07:52)
[2023-07-29] MEDS: ZOLOFT 50 MG PO (07:52)
[2023-07-29] MEDS: IMDUR (EXTENDED RELEASE) 30 MG PO (07:52)
[2023-07-29] MEDS: ELIQUIS 5 MG PO (07:52)
[2023-07-29] MEDS: BenGay-Like 1 APPLIC TOPICAL (07:53)
[2023-07-29 08:05] VITALS: BP 151/77
--- NOTE | 2023-07-29 08:48 | W.PN.HOSP.TC ---
Today's Communication/Plan
-
Discharge to short-term rehab today
Assessment / Plan
Assessment / Plan
# Recurrent sykes catheter associated UTI/Bacteremia
# ESBL positive E. coli UTI/bacteremia
# Recent ESBL E. coli catheter associated UTI with bacteremia/ESBL Klebsiella hospitalization 06/09-06/16/23
Repeat blood cultures negative
Appreciate ID input, status post IV ertapenem, followed by a full course of IV Zosyn completed 07/27
Medically stable for discharge to short-term rehab today
Chronic Sykes catheter secondary to urinary retention from Parkinson's
-Exchanged Sykes catheter
Renal US: No shadowing renal calculus or hydronephrosis, bilaterally. Sykes catheter in the bladder which is empty.
Renal cysts. Stable solid upper pole left renal mass.
(previous CT scan 05/21/22: �Enhancing solid left renal mass concerning for malignancy until proven otherwise. This could be confirmed by MR examination or PET imaging if indicated clinically). Has seen urologist at , plan to follow conservatively.
Paroxysmal atrial fibrillation with pacemaker
-Continue amiodarone
-Continue Eliquis
-Continue metoprolol
Sacrum Stage 1 Pressure Injury, POA.
-Barrier ointment per protocol.
Coronary artery disease
Recent NSTEMI
-Continue Plavix
-Continue statin
-Continue isosorbide mononitrate
Mild Protein Calorie Malnutrition
-extensive wt loss prior to admission, but alb was 4.0 on admission with BMI 24.1
-Started protein supplement
Chronic anemia
-Hemoglobin better than previous
Labile hypertension
-Blood pressure fluctuates, continue current medications for now
Parkinson's disease
-Continue Sinemet
Chronic gait dysfunction
Anxiety/depression
-Continue sertraline
Chronic hyponatremia
-Stable
-Continue sodium tablets
Chronic vertigo
-Continue meclizine
DVT prophylaxis�Eliquis
DNR
Dr. Zelaya met with son 07/25 with full update
Physical Exam
General: Appears chronically debilitated, no acute distress
HEENT: Normocephalic, Atraumatic, EOMI, MMM
Weak voice
Respiratory: Clear to Auscultation bilaterally
Cardiac: Normal S1/S2, Regular Rate and Rhythm
GI: Soft, Nontender, Nondistended, Normal Bowel Sounds
: chronic sykes
Extremities: No Clubbing, Cyanosis, or Edema
Neuro: Oriented to person, place, time
Psych: Calm, Cooperative
Anticipated Discharge: Today
Subjective/Interval History
-
Date of Service: July 29, 2023
Patient denies chest pain, denies shortness of breath. She continues to feel weak. No fever, no chills.
Objective Data
-
Vital Signs:
Vital Signs
Temp Pulse Resp BP Pulse Ox
98.2 F 76 16 151/77 96
07/29/23 08:05 07/29/23 08:05 07/29/23 08:05 07/29/23 08:05 07/29/23 08:05
I&O
07/28/23 07/29/23 07/30/23
06:59 06:59 06:59
Intake Total 490 / 490 480 / 480
Output Total 300 / 300 1150 / 1150
Balance 190 / 190 -670 / -670
--- NOTE | 2023-07-29 09:55 | CM ---
Addendum entered by CARO Dean 07/29/23 12:47:
Imm in chart and completed.
Addendum entered by CARO Dean 07/29/23 12:13:
Placed a call to JUAREZ Perez who is covering for Marlys in admissions at [facility]. She confirmed acceptance for patient today # For report [phone] and fax# [phone].
Will relay to [facility] embossing unit operator and complete med necessity and transfer sheet.
Original Note:
Received call from Kell at [facility] who provided Auth# [id number] for 13 days NRD , faxed to [phone] (updates are due on the ).
Plan: Case management will continue to follow and assist with discharge planning. [facility] upon medical clearance.
[2023-07-29] MEDS: PLAVIX 75 MG PO (10:06)
[2023-07-29 15:39] VITALS: BP 155/56
--- NOTE | 2023-07-29 15:57 | W.DS.TRANS ---
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
-
Discharge Instructions:
Sleep Apnea Risk Intermediate
Discharge Diagnosis/Procedures Recurrent Padilla catheter associated urinary
tract infection, multidrug-resistant bacteremia,
multidrug-resistant urinary tract infection,
chronic urinary retention from Parkinson's
disease with chronic Padilla, Parkinson's disease,
weakness, paroxysmal atrial fibrillation with
pacemaker, stage I pressure injury, coronary
artery disease, recent myocardial infarction,
mild protein calorie malnutrition, chronic
anemia, labile hypertension
Diet Grind all food
Activity As tolerated
Instructions:
Stand-Alone Forms:
Changes to Home Medications: No
Discharge Medications:
DC Medications w/original date entered in [facility]
apixaban 5 mg tablet (Eliquis) 5 mg PO BID Blood clot prevention/tx 09/21/19
metoprolol succinate 50 mg tablet,extended release 24 hr 50 mg PO HS Blood pressure 09/21/19
ascorbic acid (vitamin C) 1,000 mg tablet (Vitamin C) 1,000 mg PO BID Supplement 05/05/20
meclizine 25 mg tablet 25 mg PO [id number] PRN dizziness/vertigo 09/27/21
calcium carbonate 500 mg calcium (1,250 mg) chewable tablet 500 mg PO [id number] PRN heartburn 03/23/22
lidocaine 4 % topical patch 1 patch topical DAILYPRN PRN apply to lower back for pain 03/23/22
metronidazole 1 % topical gel 1 applic topical DAILYPRN PRN apply to B/L cheeks/forehead 03/23/22
pantoprazole 40 mg tablet,delayed release 40 mg PO DAILY #30 tabs 02/08/23
acetaminophen 325 mg tablet 650 mg PO Q6HPRN PRN mild pain/temp>100 02/09/23
nitroglycerin 0.4 mg sublingual tablet 0.4 mg sublingual [id number] PRN chest pain 02/16/23
polyethylene glycol 3350 17 gram oral powder packet (Miralax) 17 g PO DAILY Constipation #0 ea 02/19/23
amiodarone 100 mg tablet 100 mg PO DAILY Arrhythmia 06/09/23
cholecalciferol (vitamin D3) 25 mcg (1,000 unit) tablet 50 mcg PO DAILY Supplement 06/09/23
melatonin 3 mg tablet 6 mg PO HSPRN PRN insomnia 06/09/23
nystatin 100,000 unit/gram topical powder 1 applic topical [id number] PRN rash 06/09/23
ondansetron HCl 4 mg tablet 4 mg PO Q12H PRN nausea 06/09/23
sertraline 50 mg tablet 50 mg PO DAILY Depression 06/09/23
isosorbide mononitrate 30 mg tablet,extended release 24 hr 30 mg PO DAILY #0 tabs 06/16/23
sodium chloride 1,000 mg soluble tablet 500 mg PO BID #0 tabs 06/16/23
atorvastatin 40 mg tablet 40 mg PO HS High Cholesterol 07/18/23
clopidogrel 75 mg tablet 75 mg PO DAILY@1000 Blood Clot Prevention/Tx 07/18/23
menthol 5 % topical patch (Icy Hot (menthol)) 1 patch topical DAILY lower back pain 07/18/23
Sinemet 25 cap PO TID Neurological Condition 07/20/23
docusate sodium 100 mg capsule 100 mg PO BID #60 caps 07/29/23
polyvinyl alcohol-povidone (PF) 1.4 %-0.6 % eye drops in a dropperette (Refresh Classic (PF)) 1 drp ophthalmic (eye) QID #0 ea 07/29/23
Home Medication Changes
Pending Results: No
Total time spent discharging patient (in min): 35
== END 2023-07-29 18:18 | DRG 698 ==
LOC: 4 WEST ACU 20:29
PROVIDERS: Internal Medicine; ADMITTING PHYSICIAN Hospitalist; ATTENDING PHYSICIAN Family Medicine; EMERGENCY PHYSICIAN Emergency Medicine; FAMILY PHYSICIAN Internal Medicine; OTHER PHYSICIAN Internal Medicine Infectious Disease
DX: T83.511A Infection and inflammatory reaction due to indwelling urethral catheter, initial encounter (principal); G92.8 Other toxic encephalopathy; E44.1 Mild protein-calorie malnutrition; E87.1 Hypo-osmolality and hyponatremia; Z16.12 Extended spectrum beta lactamase (ESBL) resistance; R78.81 Bacteremia; Z16.24 Resistance to multiple antibiotics; N39.0 Urinary tract infection, site not specified; F41.9 Anxiety disorder, unspecified; H35.30 Unspecified macular degeneration; I10 Essential (primary) hypertension; Y84.6 Urinary catheterization as the cause of abnormal reaction of the patient, or of later complication, without mention of misadventure at the time of the procedure; I25.10 Atherosclerotic heart disease of native coronary artery without angina pectoris; R26.9 Unspecified abnormalities of gait and mobility; B96.1 Klebsiella pneumoniae [K. pneumoniae] as the cause of diseases classified elsewhere; F32.A Depression, unspecified; R42 Dizziness and giddiness; L89.151 Pressure ulcer of sacral region, stage 1; D64.9 Anemia, unspecified; R33.8 Other retention of urine; B96.20 Unspecified Escherichia coli [E. coli] as the cause of diseases classified elsewhere; I48.0 Paroxysmal atrial fibrillation; G20.A1 Parkinson's disease without dyskinesia, without mention of fluctuations; I25.2 Old myocardial infarction; Z95.5 Presence of coronary angioplasty implant and graft; Z95.0 Presence of cardiac pacemaker; Z66 Do not resuscitate; Z79.01 Long term (current) use of anticoagulants; Z79.02 Long term (current) use of antithrombotics/antiplatelets; Z68.24 Body mass index [BMI] 24.0-24.9, adult; Z87.440 Personal history of urinary (tract) infections
CPT/HCPCS: 70450; 76770; 80048; 80053; 81003; 81015; 82962; 83605; 85025; 87040; 87070; 87077; 87086; 87149; 87186; 87205; 92526; 92610; 97163; 97166; 97530; 97535; 99285; J1335

== ENCOUNTER → 2023-08-02 12:06 | Outpatient (REF) | payer OTHER, SELFPAY ==
[2023-08-02 12:33] LABS: % Basophils 0.6 % (0-2); % Eosinophils 2.3 % (0-6); % Immature Granulocytes 0.3 % (0-0.5); % Lymphocytes 15.9 % (20.5-51.1); % Monocytes 7.9 % (1.7-9.3); Absolute Basophils 0.1 10^3/uL (0-0.2); Absolute Eosinophils 0.2 10^3/uL (0-0.7); Absolute Lymphocytes 1.2 10^3/uL (1.2-3.4); Absolute Monocytes 0.6 10^3/uL (0.1-0.6); Absolute Neutrophils 5.7 10^3/uL (1.4-6.5); Hematocrit 32.4 % (37.0-47.0); Hemoglobin 10.5 g/dL (12.0-16.0); Mean Corp Hgb Conc. 32.4 g/dL (33.0-37.0); Mean Corpuscular Hgb 29.7 pg (27.0-31.0); Mean Corpuscular Volume 91.5 fL (81.0-99.0); Mean Platelet Volume 11.1 fL (7.4-10.4); Nucleated Red Blood Cells % 0 %; Platelet Count 307 10^3/uL (130-400); Red Blood Cell Count 3.54 10^6/uL (4.20-5.40); Red Cell Dist. Width 15.8 % (11.5-14.5); White Blood Cell Count 7.8 10^3/uL (4.8-10.8)
[2023-08-02 12:41] LABS: Blood Urea Nitrogen 24 mg/dl (7-17); Calcium 8.6 mg/dl (8.4-10.2); Carbon Dioxide 27 mmol/L (22-30); Chloride 100 mmol/L (98-107); Glucose 115 mg/dl (70-99); Potassium 3.7 mmol/L (3.5-5.1); Sodium 135 mmol/L (135-145); eGFR > 60.00
== END ==
LOC: OLABP 12:06
PROVIDERS: ATTENDING PHYSICIAN Family Medicine
DX: I48.0 Paroxysmal atrial fibrillation (principal); Z95.0 Presence of cardiac pacemaker; I25.10 Atherosclerotic heart disease of native coronary artery without angina pectoris; D64.9 Anemia, unspecified; G20.A1 Parkinson's disease without dyskinesia, without mention of fluctuations; R26.2 Difficulty in walking, not elsewhere classified; F41.9 Anxiety disorder, unspecified; E87.1 Hypo-osmolality and hyponatremia; R42 Dizziness and giddiness; R33.9 Retention of urine, unspecified; T83.511D Infection and inflammatory reaction due to indwelling urethral catheter, subsequent encounter; R78.81 Bacteremia; B96.29 Other Escherichia coli [E. coli] as the cause of diseases classified elsewhere
CPT/HCPCS: 36415; 80048; 85025

== ENCOUNTER → 2023-08-05 10:32 | Outpatient (REF) | payer OTHER, SELFPAY ==
[2023-08-05 11:08] LABS: Hematocrit 32.9 % (37.0-47.0); Hemoglobin 10.6 g/dL (12.0-16.0); Mean Corp Hgb Conc. 32.2 g/dL (33.0-37.0); Mean Corpuscular Hgb 30.2 pg (27.0-31.0); Mean Corpuscular Volume 93.7 fL (81.0-99.0); Mean Platelet Volume 11.1 fL (7.4-10.4); Platelet Count 298 10^3/uL (130-400); Red Blood Cell Count 3.51 10^6/uL (4.20-5.40); White Blood Cell Count 8.4 10^3/uL (4.8-10.8)
[2023-08-05 11:32] LABS: Blood Urea Nitrogen 19 mg/dl (7-17); Calcium 8.5 mg/dl (8.4-10.2); Carbon Dioxide 26 mmol/L (22-30); Chloride 103 mmol/L (98-107); Glucose 94 mg/dl (70-99); Potassium 3.9 mmol/L (3.5-5.1); Sodium 135 mmol/L (135-145); eGFR > 60.00
== END ==
LOC: OLABP 10:32
PROVIDERS: ATTENDING PHYSICIAN Family Medicine
DX: I48.0 Paroxysmal atrial fibrillation (principal); Z95.0 Presence of cardiac pacemaker; I25.10 Atherosclerotic heart disease of native coronary artery without angina pectoris; D64.9 Anemia, unspecified; G20.A1 Parkinson's disease without dyskinesia, without mention of fluctuations; F32.9 Major depressive disorder, single episode, unspecified; R42 Dizziness and giddiness; R33.9 Retention of urine, unspecified
CPT/HCPCS: 36415; 80048; 85027

== ENCOUNTER → 2023-08-16 09:42 | Outpatient (REF) | payer OTHER, SELFPAY ==
[2023-08-16 11:16] LABS: % Basophils 0.3 % (0-2); % Eosinophils 0.5 % (0-6); % Immature Granulocytes 0.8 % (0-0.5); % Lymphocytes 6.1 % (20.5-51.1); % Monocytes 11.3 % (1.7-9.3); Absolute Eosinophils 0.1 10^3/uL (0-0.7); Absolute Immature Granulocytes 0.1 10^3/uL (0-0.05); Absolute Lymphocytes 0.7 10^3/uL (1.2-3.4); Absolute Monocytes 1.3 10^3/uL (0.1-0.6); Hematocrit 26.1 % (37.0-47.0); Hemoglobin 8.7 g/dL (12.0-16.0); Mean Corp Hgb Conc. 33.3 g/dL (33.0-37.0); Mean Corpuscular Hgb 29.6 pg (27.0-31.0); Mean Corpuscular Volume 88.8 fL (81.0-99.0); Mean Platelet Volume 10.5 fL (7.4-10.4); Nucleated Red Blood Cells % 0 %; Platelet Count 312 10^3/uL (130-400); Red Blood Cell Count 2.94 10^6/uL (4.20-5.40); Red Cell Dist. Width 15.6 % (11.5-14.5); White Blood Cell Count 11.1 10^3/uL (4.8-10.8)
[2023-08-16 12:57] LABS: Blood Urea Nitrogen 14 mg/dl (7-17); Calcium 8.4 mg/dl (8.4-10.2); Carbon Dioxide 25 mmol/L (22-30); Chloride 97 mmol/L (98-107); Glucose 113 mg/dl (70-99); Potassium 3.6 mmol/L (3.5-5.1); Sodium 132 mmol/L (135-145); eGFR > 60.00
== END ==
LOC: OLABP 09:42
PROVIDERS: ATTENDING PHYSICIAN Family Medicine
DX: I48.0 Paroxysmal atrial fibrillation (principal); Z95.0 Presence of cardiac pacemaker; I25.10 Atherosclerotic heart disease of native coronary artery without angina pectoris; D64.9 Anemia, unspecified; G20.A1 Parkinson's disease without dyskinesia, without mention of fluctuations
CPT/HCPCS: 36415; 80048; 85025

== ENCOUNTER → 2023-08-18 06:00 | Outpatient (REF) | payer OTHER, SELFPAY ==
[2023-08-19 12:30] LABS: Urine Albumin Trace (Neg - Trace); Urine Bilirubin Negative (Negative); Urine Character Clear (Clear); Urine Color Yellow; Urine Glucose Negative (Negative); Urine Ketone Negative (Negative); Urine Leukocyte 2+ (Negative); Urine Nitrite Positive (Negative); Urine Occult Blood 4+ (Negative); Urine Urobilinogen Negative (Neg - 1+)
[2023-08-19 14:18] LABS: Urine Mucus Few
[2023-08-19 14:19] LABS: Urine Amorphous Seen; Urine Urothelial Cell >30 /LPF (FEW)
[2023-08-19 14:21] LABS: Urine Bacteria Few (Negative); Urine Calcium Oxalate Crystals Seen; Urine Red Blood Cell 16-20 /HPF (0-2); Urine White Cell >100 /HPF (0-5)
== END ==
LOC: OLABP 06:00
PROVIDERS: ATTENDING PHYSICIAN Family Medicine
DX: I48.0 Paroxysmal atrial fibrillation (principal); Z95.0 Presence of cardiac pacemaker; I25.10 Atherosclerotic heart disease of native coronary artery without angina pectoris; D64.9 Anemia, unspecified; G20.A1 Parkinson's disease without dyskinesia, without mention of fluctuations; R26.2 Difficulty in walking, not elsewhere classified; F41.9 Anxiety disorder, unspecified; F32.9 Major depressive disorder, single episode, unspecified; E87.1 Hypo-osmolality and hyponatremia; R42 Dizziness and giddiness; R33.9 Retention of urine, unspecified; T83.511D Infection and inflammatory reaction due to indwelling urethral catheter, subsequent encounter; R78.81 Bacteremia; B96.29 Other Escherichia coli [E. coli] as the cause of diseases classified elsewhere
CPT/HCPCS: 81003; 81015; 87077; 87086; 87186

== ENCOUNTER → 2023-08-18 12:21 | Outpatient (REF) | payer OTHER, SELFPAY ==
[2023-08-18 12:44] LABS: % Basophils 0.4 % (0-2); % Eosinophils 0.8 % (0-6); % Immature Granulocytes 0.4 % (0-0.5); % Lymphocytes 7.2 % (20.5-51.1); % Monocytes 9.7 % (1.7-9.3); % Neutrophils 81.5 % (42.2-75.2); Absolute Eosinophils 0.1 10^3/uL (0-0.7); Absolute Lymphocytes 0.8 10^3/uL (1.2-3.4); Absolute Neutrophils 8.7 10^3/uL (1.4-6.5); Hematocrit 27.4 % (37.0-47.0); Mean Corp Hgb Conc. 32.8 g/dL (33.0-37.0); Mean Corpuscular Hgb 29.6 pg (27.0-31.0); Mean Corpuscular Volume 90.1 fL (81.0-99.0); Nucleated Red Blood Cells % 0 %; Platelet Count 349 10^3/uL (130-400); Red Blood Cell Count 3.04 10^6/uL (4.20-5.40); Red Cell Dist. Width 15.8 % (11.5-14.5); White Blood Cell Count 10.7 10^3/uL (4.8-10.8)
[2023-08-18 12:46] LABS: Procalcitonin 0.19 ng/ml (0.0-0.25)
[2023-08-18 12:56] LABS: ALT (SGPT) < 10 U/L (0-35); AST (SGOT) 15 U/L (14-36); Albumin 2.6 g/dl (3.5-5.0); Alkaline Phosphatase 84 U/L (38-126); Blood Urea Nitrogen 12 mg/dl (7-17); Calcium 8.4 mg/dl (8.4-10.2); Carbon Dioxide 24 mmol/L (22-30); Chloride 102 mmol/L (98-107); Glucose 116 mg/dl (70-99); Potassium 3.7 mmol/L (3.5-5.1); Sodium 130 mmol/L (135-145); Total Bilirubin 0.8 mg/dl (0.2-1.3); Total Protein 5.1 g/dl (6.3-8.2); eGFR > 60.00
== END ==
LOC: OLABP 12:21
PROVIDERS: ATTENDING PHYSICIAN Family Medicine
DX: I48.0 Paroxysmal atrial fibrillation (principal); Z95.0 Presence of cardiac pacemaker; R26.2 Difficulty in walking, not elsewhere classified; F32.9 Major depressive disorder, single episode, unspecified; E87.1 Hypo-osmolality and hyponatremia; R42 Dizziness and giddiness; R33.9 Retention of urine, unspecified
CPT/HCPCS: 36415; 80053; 84145; 85025

== ENCOUNTER 2023-08-26 20:09 | Observation (INO) | payer OTHER, SELFPAY ==
[2023-08-26] VITALS (8 sets, daily range): BP systolic 152–191; BP diastolic 57–77; BMI 22.4
--- NOTE | 2023-08-26 15:41 | ED.GENMED ---
History of Present Illness
General
Chief Complaint: Change in Mental Status
Source: patient
Exam Limitations: none
Time Seen by Provider: 08/26/23 15:18
Nursing documentation reviewed up to this point in time: agreed with
Travel History
Have you had any contact with someone who has COVID-19?: Unable to Answer
Do you have any symptoms of coronavirus? Fever > 100 degrees, chills, cough, shortness of breath, sore throat, loss of taste or smell, muscle aches, or headache?: Unable to Answer
History of Present Illness
History of Present Illness:
Patient is a 88-year-old female with history of A-fib CAD PA pacemaker, Parkinson's who presents to the ER with weakness. Patient was sent from [facility] today for increasing weakness. Patient was recently mated here July 17 discharged July 28 for
recurrent Sykes catheter associated UTI. She had multisystem drug resistant bacteremia. Patient was discharged to [facility] after this previous admission. Patient does have a left upper extremity midline and is getting ertapenem once daily.
Patient is on Eliquis and Plavix. Denies any headache denies any recent fall.
Past History
Past History
ED Past Medical History: Arrthythmia (A. fib), CAD, HTN, PA, Psychiatric (Anxiety) and Other (Parkinson's disease, Vertigo, Chronic indwelling sykes, Macular degeneration, bladder prolapse)
ED Past Surgical History: Cardiac (Stent, Pacemaker), Gynecological (Hysterectomy) and Other (Hernia repair X 2)
Patient has exhibited threatening behavior?: No
PSI?: No
Social History
Tobacco: Non-smoker
Alcohol: None
Drug: None
Personal:
Living: assisted living
Review of Systems
Review of Systems
Allergies reviewed?: Yes
All Other Systems: ROS reviewed and negative except as documented in HPI and ROS
Constitutional: Reports fatigue and other (increasing weakness)
Respiratory: Reports no symptoms
Cardiac: Reports no symptoms
ABD/GI: Reports no symptoms
Musculoskeletal: Reports no symptoms
Skin: Reports no symptoms
Neurological: Reports no symptoms
Hematologic/Lymphatic: Reports no symptoms
Psychiatric: Reports no symptoms
Phy Exam
General Physical Exam
General Presentation: no apparent distress
General age: appears stated age
General Skin: warm and dry
General Habitus: elderly
General Mental: alert
General Hydration: dry mucous membranes
Cardiovascular Exam
Cardiovascular Exam: regular rate/rhythm, no murmur and normal peripheral pulses
Pulmonary Exam
Pulmonary Exam: lungs clear and no respiratory distress
Neurological Exam
Neurological Exam: alert and oriented x3
Musculoskeletal Exam
Musculoskeletal Exam: full ROM
Skin Exam
Skin Exam: normal color and warm/dry
Psychiatric Exam
Psychiatric Exam: normal mood/affect
Course
Orders/Labs/Results
Orders:
Orders
08/26/23 15:25
Electrocardiogram (*1) Urgent
Reason for Study: Other
Other Reason for Exam: Possible Sepsis
08/26/23 15:26
EKG- Treatment ONCE
08/26/23 15:30
Blood Culture Q30M
PRANEETH Source: Blood/Venous
Specimen Description:
Comment: FROM 2 SEPARATE SITES
08/26/23 16:00
Blood Culture Q30M
PRANEETH Source: Blood/Venous
Specimen Description:
Comment: FROM 2 SEPARATE SITES
08/26/23 16:31
Complete Blood Count/With Diff Urgent
Comprehensive Metabolic Panel Urgent
Lactic Acid Urgent
08/26/23 16:40
Urinalysis Reflex To Culture Urgent
Date Specimen was Collected: 08/26/23
Time Specimen was Collected: 15:26
Urine Microscopic Reflex Cult Urgent
Urine Culture Urgent
PRANEETH Source: U
Specimen Description:
Date Specimen was Collected: 08/26/23
Time Specimen was Collected: 15:26
08/26/23 17:05
CT Head W/o Iv Contrast Urgent
Comment:
Reason For Exam: change in ms
08/26/23 18:23
0.9% Sodium Chloride 500 ml [Nss] 500 ml IV BOLUS
08/26/23 18:24
Chest [CR Chest - 2 Views ] Urgent
Comment:
Reason For Exam: weakness
Abnormal Lab Results
08/26/23 08/26/23
16:31 16:40
RBC 3.79 L 10^6/uL
(4.20-5.40)
Hgb 11.0 L g/dL
(12.0-16.0)
Hct 32.7 L %
(37.0-47.0)
RDW 15.8 H %
(11.5-14.5)
Abs Immat Gran (auto) 0.1 H 10^3/uL
(0-0.05)
Absolute Neuts (auto) 6.8 H 10^3/uL
(1.4-6.5)
Absolute Monos (auto) 0.7 H 10^3/uL
(0.1-0.6)
Immature Gran % 0.7 H %
(0-0.5)
Neutrophils % 77.0 H %
(42.2-75.2)
Lymphocytes % 13.0 L %
(20.5-51.1)
Sodium 132 L mmol/L
(135-145)
Chloride 96 L mmol/L
(98-107)
BUN 22 H mg/dl
(7-17)
Total Protein 6.2 L g/dl
(6.3-8.2)
Urine Ketones Trace A
(Negative)
Ur Occult Blood Reflex 3+ A
(Negative)
Leukocyte Esterase Rfl 2+ A
(Negative)
Urine RBC 11-15 A /HPF
(0-2)
Urine Bacteria (Reflex) Few A
(Negative)
08/26/23 16:31
08/26/23 16:31
Vital Signs
Initial and Last Documented VS:
Initial Vital Signs
BP
152/77
08/26/23 14:53
Last Documented Vital Signs
Temp Pulse BP Pulse Ox
97.2 F 62 183/68 100
08/26/23 14:59 08/26/23 14:59 08/26/23 18:00 08/26/23 18:00
MDM/Problems Addressed
Differential Diagnosis Includes:
Not limited to deconditioning, infection/worsening UTI, dehydration
MDM/Problems Addressed:
Patient is an 88-year-old female from [facility] rehab currently treated for UTI presents with worsening weakness. Patient does have history of Parkinson's. Apparently patient was not eating or drinking today and very weak. Patient arrives awake
alert she does appear very sleepy drowsy but is answering questions. She is no focal deficits.
She is afebrile with a normal white count of 8.9, stable hemoglobin baseline sodium of 132, BUN minimally elevated at 22 normal creatinine 0.8 normal lactic acid of 1.2 with normal sugar at 97. Urine shows 11-15 RBCs as documented patient is from
[facility] in rehab currently being treated for UTI with cefdinir. With worsening weakness will admit. Patient was given fluids.
*Radiology
Radiology exam reviewed: radiology read reviewed
*Pulse Oximetry
Patient hypoxic: no
*EKG
Interpretation: abnormal
Heart Rate: 64
Rate: normal
Rhythm: sinus
Ischemia: non-specific ST changes
*Critical Care Note
Total Time (30-74mins, 75-104mins- exclusive of procedures): Not Applicable
ED Attending Note
-
Portions of this chart may have been created with voice recognition software.� Occasional wrong word or��sound alike� substitutions may have occurred due to the inherent limitations of voice recognition software.
Discharge Plan
Departure
Patient Disposition: Admit
Date of Disposition: 08/26/23
Time of Disposition: 19:30
Admit to: Med/Surg
Admit to doctor: jose
Presentation/result/management discussed w/ accepting MD/DO: Hospitalist
Patient with high blood pressure during this ER visit?: Yes
Condition: Fair
Covid-19: Not Applicable
Discharge Problem:
Weakness, Dehydration
Prescriptions:
No Action
Eliquis 5 MG tablet
5 mg PO BID
metoprolol succinate 50 MG tablet extended release 24 hr
50 mg PO HS
Patient Comments:
08/26/2023: hold if SBP<100 or HR<60.
ascorbic acid (vitamin C) [Vitamin C] 1,000 MG tablet
1,000 mg PO BID
meclizine 25 MG tablet
25 mg PO [id number] PRN (Reason: dizziness/vertigo)
calcium carbonate 500 mg calcium (1,250 mg) Tablet,Chewable
500 mg PO [id number] PRN (Reason: heartburn )
metronidazole 1 % Gel
1 applic TOPICAL DAILYPRN PRN (Reason: apply to B/L cheeks/forehead)
lidocaine 4 % Adhesive Patch,Medicated
1 patch TOPICAL DAILYPRN PRN (Reason: lower back pain)
acetaminophen 325 mg Tablet
650 mg PO Q6HPRN MDD 3000 mg PRN (Reason: mild pain/temp>100)
nitroglycerin 0.4 mg Tablet, Sublingual
0.4 mg SUBLINGUAL [id number] PRN (Reason: chest pain)
polyethylene glycol 3350 [Miralax] 17 gram Powder In Packet
17 g PO DAILY Qty: 0 0RF
Patient Comments:
08/26/2023: hold for loose stools.
ondansetron HCl 4 mg Tablet
4 mg PO Q12H PRN (Reason: nausea)
melatonin 3 mg Tablet
6 mg PO HSPRN PRN (Reason: insomnia)
nystatin 100,000 unit/gram Powder
1 applic TOPICAL [id number] PRN (Reason: rash)
sertraline 50 mg Tablet
50 mg PO DAILY
amiodarone 100 mg Tablet
100 mg PO DAILY
cholecalciferol (vitamin D3) 25 mcg (1,000 unit) Tablet
50 mcg PO DAILY
isosorbide mononitrate 30 mg Tablet Extended Release 24 Hr
30 mg PO DAILY Qty: 0 0RF
sodium chloride 1,000 mg Tablet,Soluble
500 mg PO BID Qty: 0 0RF
Icy Hot (menthol) 5 % Adhesive Patch,Medicated
1 patch TOPICAL DAILY
Rx Instructions:
apply to lower back
atorvastatin 40 mg tablet
40 mg PO HS
clopidogrel 75 mg tablet
75 mg PO DAILY@1000
carbidopa-levodopa [Sinemet] 25-100 mg Tablet
1 tab PO TID Qty: 0
Patient Comments:
25mg/100mg 2 tabs PO TID
docusate sodium 100 mg Capsule
100 mg PO BID Qty: 60 0RF
magnesium hydroxide [Milk of Magnesia] 400 mg/5 mL Suspension
30 ml PO DAILY PRN (Reason: if no bm on day 4)
bisacodyl [Dulcolax (bisacodyl)] 10 mg Suppository
10 mg PA DAILYPRN PRN (Reason: constipation)
Fleet Enema 19-7 gram/118 mL Enema
118 ml PA DAILYPRN PRN (Reason: constipation)
ertapenem 1 gram Recon Soln
1 g IV DAILY
Patient Comments:
08/26/2023: over 30 mins, 200cc/hr
sodium chloride 0.9 % (flush) [Normal Saline Flush] Syringe
10 ml IV BID
pantoprazole [address] For Susp In Packet
40 mg PO DAILY
Refresh Classic (PF) 1.4-0.6 % dropperette
1 drp BOTH EYES QID
Referrals:
Juan Diego York MD [Family Provider] -
Interventions
Interventions:
*Risk Screen - Suicide Last Done: 08/26/23 14:59
*General Assessment Last Done: 08/26/23 14:59
*Neglect/Abuse Screening Last Done: 08/26/23 14:59
ED- Neurological Assessment Last Done: 08/26/23 15:30
ED- Cardiac Assessment Last Done: 08/26/23 15:30
ED Swallowing Screen Last Done: 08/26/23 15:30
Discharge Date and Time
Print Language: ITALIAN
[2023-08-26 16:36] LABS: % Basophils 0.6 % (0-2); % Eosinophils 1.1 % (0-6); % Immature Granulocytes 0.7 % (0-0.5); % Monocytes 7.6 % (1.7-9.3); Absolute Basophils 0.1 10^3/uL (0-0.2); Absolute Eosinophils 0.1 10^3/uL (0-0.7); Absolute Immature Granulocytes 0.1 10^3/uL (0-0.05); Absolute Lymphocytes 1.2 10^3/uL (1.2-3.4); Absolute Monocytes 0.7 10^3/uL (0.1-0.6); Absolute Neutrophils 6.8 10^3/uL (1.4-6.5); Hematocrit 32.7 % (37.0-47.0); Mean Corp Hgb Conc. 33.6 g/dL (33.0-37.0); Mean Corpuscular Volume 86.3 fL (81.0-99.0); Mean Platelet Volume 8.9 fL (7.4-10.4); Nucleated Red Blood Cells % 0 %; Platelet Count 382 10^3/uL (130-400); Red Blood Cell Count 3.79 10^6/uL (4.20-5.40); Red Cell Dist. Width 15.8 % (11.5-14.5); White Blood Cell Count 8.9 10^3/uL (4.8-10.8)
[2023-08-26 16:49] LABS: Lactic Acid 1.2 mmol/L (0.7-2.0)
[2023-08-26 16:53] LABS: Urine Albumin Trace (Neg - Trace); Urine Bilirubin Negative (Negative); Urine Character Clear (Clear); Urine Color Yellow; Urine Glucose Negative (Negative); Urine Ketone Trace (Negative); Urine Leukocyte 2+ (Negative); Urine Nitrite Negative (Negative); Urine Occult Blood 3+ (Negative); Urine Specific Gravity 1.015 (<1.030); Urine Urobilinogen Negative (Neg - 1+)
[2023-08-26 17:02] LABS: ALT (SGPT) < 10 U/L (0-35); AST (SGOT) 18 U/L (14-36); Albumin 3.6 g/dl (3.5-5.0); Alkaline Phosphatase 83 U/L (38-126); Blood Urea Nitrogen 22 mg/dl (7-17); Calcium 9.2 mg/dl (8.4-10.2); Carbon Dioxide 26 mmol/L (22-30); Estimated Creatinine Clearance 38 ml/min; Glucose 97 mg/dl (70-99); Total Bilirubin 0.8 mg/dl (0.2-1.3); Total Protein 6.2 g/dl (6.3-8.2); eGFR > 60.00
[2023-08-26 17:12] LABS: Urine Mucus Few; Urine Squamous Cell 0-2 /LPF (Few)
[2023-08-26 17:13] LABS: Urine Amorphous Seen; Urine Bacteria Few (Negative)
[2023-08-26 17:18] LABS: Chloride 96 mmol/L (98-107); Potassium 4.2 mmol/L (3.5-5.1); Sodium 132 mmol/L (135-145)
[2023-08-26] MEDS: NSS 500 IV (19:13)
--- NOTE | 2023-08-26 19:29 | HPS.HSE ---
Family Physician
-
Family Physician: Juan Diego York MD
Chief Complaint
-
generalized weakness
History of Present Illness
88-year-old female with history of A-fib CAD CO pacemaker, Parkinson's who presents to the ER with weakness. Patient was sent from [facility] today for increasing weakness. Patient was recently mated here July 17 discharged July 28 for recurrent
Padilla catheter associated UTI. She had multisystem drug resistant bacteremia. Patient was discharged to [facility] after this previous admission. Patient does have a left upper extremity midline and is getting ertapenem once daily. Upon my
assessment, patient does not know where she is. She seemed confused. Stated some cough. Denied runny nose, congestion. Patient denied headache, dizziness, syncopal episode. Patient denied chest pain or short of breath. Patient denied abdominal
pain, nausea, vomiting, diarrhea. Patient has a chronic Padilla catheter.
Admitting for further management
Medical History
Past Medical History
Past Medical History: Reports Other
Additional Past Medical History:
Hypertension
Sick sinus syndrome
Parkinson disease
Paroxysmal A-fib.
Insomnia
Macular degeneration
coronary artery disease
Past Surgical History: Reports Other
Additional Past Surgical History:
Cardiac pacemaker
Hysterectomy
Hernia repair
Bladder lift
Cataract removal
Social History
Tobacco: Non-smoker
Alcohol: None
Drug: None
Living: Assisted Living
Family History
Family History: Not pertinent
Allergies / Home Medications
Allergies reflects when Allergies were last updated in [employer].
Home Medications with original date entered in [employer]
Allergy/Medication List:
Allergies
Allergy/AdvReac Type Severity Reaction Status Date / Time
No Known Allergies Allergy Verified 08/26/23 15:22
Home Medications
apixaban 5 mg tablet (Eliquis) 5 mg PO BID Blood clot prevention/tx 09/21/19
metoprolol succinate 50 mg tablet,extended release 24 hr 50 mg PO HS Blood pressure 09/21/19
ascorbic acid (vitamin C) 1,000 mg tablet (Vitamin C) 1,000 mg PO BID Supplement 05/05/20
meclizine 25 mg tablet 25 mg PO [id number] PRN dizziness/vertigo 09/27/21
calcium carbonate 500 mg PO [id number] PRN heartburn 03/23/22
lidocaine 4 % topical patch 1 patch topical DAILYPRN PRN lower back pain 03/23/22
metronidazole 1 % topical gel 1 applic topical DAILYPRN PRN apply to B/L cheeks/forehead 03/23/22
acetaminophen 325 mg tablet 650 mg PO Q6HPRN PRN mild pain/temp>100 02/09/23
nitroglycerin 0.4 mg sublingual tablet 0.4 mg sublingual [id number] PRN chest pain 02/16/23
polyethylene glycol 3350 17 gram oral powder packet (Miralax) 17 g PO DAILY Constipation #0 ea 02/19/23
amiodarone 100 mg tablet 100 mg PO DAILY Arrhythmia 06/09/23
cholecalciferol (vitamin D3) 25 mcg (1,000 unit) tablet 50 mcg PO DAILY Supplement 06/09/23
melatonin 3 mg tablet 6 mg PO HSPRN PRN insomnia 06/09/23
nystatin 100,000 unit/gram topical powder 1 applic topical [id number] PRN rash 06/09/23
ondansetron HCl 4 mg tablet 4 mg PO Q12H PRN nausea 06/09/23
sertraline 50 mg tablet 50 mg PO DAILY Depression 06/09/23
isosorbide mononitrate 30 mg tablet,extended release 24 hr 30 mg PO DAILY #0 tabs 06/16/23
sodium chloride 1,000 mg soluble tablet 500 mg (1/2 x 1,000 mg) PO BID #0 tabs 06/16/23
atorvastatin 40 mg tablet 40 mg PO HS High Cholesterol 07/18/23
clopidogrel 75 mg tablet 75 mg PO DAILY@1000 Blood Clot Prevention/Tx 07/18/23
menthol 5 % topical patch (Icy Hot (menthol)) 1 patch topical DAILY lower back pain 07/18/23
carbidopa 25 mg-levodopa 100 mg tablet (Sinemet) 1 tab PO TID Neurological Condition ##0 07/20/23
docusate sodium 100 mg capsule 100 mg PO BID #60 caps 07/29/23
bisacodyl 10 mg rectal suppository (Dulcolax (bisacodyl)) 10 mg MD DAILYPRN PRN constipation 08/26/23
ertapenem 1 gram solution for injection 1 g IV DAILY 08/26/23
magnesium hydroxide 400 mg/5 mL oral suspension (Milk of Magnesia) 30 ml PO DAILY PRN if no bm on day 4 08/26/23
pantoprazole 40 mg granules delayed-release for susp in packet 40 mg PO DAILY 08/26/23
polyvinyl alcohol-povidone (PF) 1.4 %-0.6 % eye drops in a dropperette (Refresh Classic (PF)) 1 drp BOTH EYES QID 08/26/23
sodium chloride 0.9 % (flush) (Normal Saline Flush 0.9 % injection syringe) 10 ml IV BID 08/26/23
sodium phosphates 19 gram-7 gram/118 mL enema (Fleet Enema) 118 ml MD DAILYPRN PRN constipation 08/26/23
Review of Systems
-
Constitutional: Reports No Symptoms
EENT: Reports No Symptoms
Respiratory: Reports No Symptoms
Cardiac: Reports No Symptoms
Abdomen/GI: Reports No Symptoms
: Reports No Symptoms
Musculoskeletal: Reports No Symptoms
Skin: Reports No Symptoms
Neurological: Reports No Symptoms
Endocrine: Reports No Symptoms
Hematologic/Lymphatic: Reports No Symptoms
Psych: Reports No Symptoms
Physical Exam
Vital Signs
Vital Signs
Temp Pulse BP Pulse Ox
97.2 F 62 183/68 100
08/26/23 14:59 08/26/23 14:59 08/26/23 18:00 08/26/23 18:00
Physical Exam
General: Well Developed, Well Nourished and No Apparent Distress
HEENT: NormoCephalic, Moist mucous membranes and Atraumatic
Respiratory: Clear
Cardiac: S1/S2 and Regular Rhythm; No Murmur or Rub
GI: Soft, Non Tender, Non Distended and Normal Bowel Sounds; No Organomegaly
Rectal: Deferred by Provider
Musculoskeletal: No Clubbing, No Cyanosis and No Edema
Skin: No Rash
Neuro: AO x 3 and Nonfocal/grossly intact
Psych: Calm
Laboratory Results
-
08/26/23 16:31
08/26/23 16:31
Laboratory Results
Lactic Acid 1.2 mmol/L (0.7-2.0) 08/26/23 16:31
Total Bilirubin 0.8 mg/dl (0.2-1.3) 08/26/23 16:31
AST 18 U/L (14-36) 08/26/23 16:31
ALT < 10 U/L (0-35) 08/26/23 16:31
Alkaline Phosphatase 83 U/L (38-126) 08/26/23 16:31
Data Reviewed
-
Diagnostic Radiology: Report Reviewed by me
Lab Data: Labs Reviewed by me
Impression/Plan
-
# Generalized weakness/metabolic encephalopathy unclear cause
-Chest x-ray with impression of Probable prominent pericardial fat versus a tiny left pleural effusion. Stable Mild cardiomegaly. Stable
-Head CT with no acute intracranial pathology, moderate atrophy, mild Acute sinusitis progressed
-Physical therapy and Occupational Therapy consulted
# History of urinary tract infection
-# ESBL positive E. coli UTI/bacteremia
# Recent ESBL E. coli catheter associated UTI with bacteremia/ESBL Klebsiella hospitalization 06/09-06/16/23
-IV ertapenem continued
-Tylenol as needed for fever
# Anemia of chronic disease
-Hemoglobin stable at 11.0
-No active bleeding
-Continue to monitor
# Chronic hyponatremia
-Sodium 132
-Continue to monitor
-Continue Zosyn supplement
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
#Paroxysmal atrial fibrillation with pacemaker
-EKG with normal sinus rhythm, left anterior fascicular block
-Continue amiodarone
-Continue Eliquis
-Continue metoprolol
#Sacrum Stage 1 Pressure Injury, POA.
-Barrier ointment per protocol.
#Coronary artery disease
#Recent NSTEMI
-Continue Plavix
-Continue statin
-Continue isosorbide mononitrate
# Essential hypertension
-Metoprolol, Imdur continued
#Parkinson's disease
-Continue Sinemet
#Chronic gait dysfunction
#Anxiety/depression
-Continue sertraline
#Chronic vertigo
-Continue meclizine
#DVT prophylaxis�Eliquis
DNR
[2023-08-26 20:01] LABS: COVID-19 Antigen Negative (Negative)
--- NOTE | 2023-08-26 20:13 | W.PN.UPDATE ---
Addendum entered and electronically signed by Jorge Valdez MD 08/26/23 20:45:
Switch level of care to Obs TLM in place of IP TLM
Original Note:
Update Note
Progress Note Update
This note serves as an addendum to the H&P by cathode ray tube assembler MIHIR Deja GIBBS on 08/26/23
HPI
88F [facility] Res sent by EMS HX Prx A-fib CAD [place] pacemaker, Parkinson's seen at ER for evalaution of weakness.
Recently mated here July 17 discharged July 28 for recurrent CAUTI with ESBL EcOli complicated with bateremia. Currently on Ertepenam via left upper extremity midline and is getting ertapenem once daily.
Patient is confised but awake
ROS as per AP
Some cough.
Reviewed VS: BP 180/70 HR 60 PO 100
PE
Gen: Not toxic
HEENT: anicteric
Neck: supple
Lungs: CTA
Cor: RRR S1 S2
Abdomen: benign
PBX TECHNICIAN: AO x 3 and Nonfocal/grossly intact
MS: no edema
Psych:calm
Data
WCC 8.9
Hgb 11
Na 132
Cl 96
BUN 22
nl Cr eGFR >60
Unremarkablablr UA
Pending Covid
CXR:
Probable prominent pericardial fat versus a tiny left pleural effusion. Stable
Mild cardiomegaly. Stable
HCT
No acute intracranial pathology.
Moderate atrophy. Stable
Mild nonacute sinusitis . Progressed
Last hospitalist admission: 07/18/23 - 07/29/23
CAUTI
Complicated UTI with ESBL E. coli UTI/bacteremia
ASSESSMENT & PLAN
Generalized weakness/metabolic encephalopathy unclear cause
Asscoiated Deconditioning
- BCxs sent
- Unremarkable CXR for source of infection or TME
- Unremarkable Head CT with no acute intracranial pathology
- PT/OT
Recent recurrent CAUTI with POS ESBL E. coli UTI/bacteremia
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
- IV ertapenem continued
- Tylenol as needed for fever
- f/u BCx
Anemia of chronic disease
-Hemoglobin stable at 11.0
-No active bleeding
Chronic hyponatremia
-Sodium 132
Paroxysmal AF with PPM
-EKG with normal sinus rhythm, left anterior fascicular block
- on amiodarone and chr Eliquis
- on metoprolol
Sacrum Stage 1 DU + POA.
-Barrier ointment per protocol.
CAD: No current CP
Recent NSTEMI
- on Plavix and statin
- on IMN
Essential hypertension
-Metoprolol, Imdur continued
Parkinson's disease
-Continue Sinemet
Chronic gait dysfunction
- fall precuation
Anxiety/depression
- on sertraline
DVT Px: on Chr Eliquis
Code: DNR
IP TLM
--- NOTE | 2023-08-26 22:50 | PTCARENOTE ---
Pt arrived to room 423-01. Pt transferred from stretcher to bed. Pt AAOx2, VSS. Pt in no signs of acute distress, respirations regular. Pt oriented to room, call ramirez placed within reach.
[2023-08-26] MEDS: COLACE 100 MG PO (23:26)
[2023-08-26] MEDS: LIPITOR 40 MG PO (23:26)
[2023-08-26] MEDS: REFRESH EYE DROPS (PF) 1 DROPS BOTH EYES (23:26)
[2023-08-26] MEDS: ELIQUIS 5 MG PO (23:26)
[2023-08-26] MEDS: SODIUM CHLORIDE 0.5 GRAM PO (23:27)
[2023-08-26] MEDS: TOPROL XL 50 MG PO (23:27)
[2023-08-26] MEDS: VITAMIN C 1000 MG PO (23:27)
[2023-08-26] MEDS: SINEMET 25-100 1 TABLET PO (23:29)
[2023-08-27] VITALS (8 sets, daily range): BP systolic 118–180; BP diastolic 47–84; PULSE 65
[2023-08-27 02:27] LABS: Hematocrit 29.9 % (37.0-47.0); Hemoglobin 10.2 g/dL (12.0-16.0); Mean Corp Hgb Conc. 34.1 g/dL (33.0-37.0); Mean Corpuscular Hgb 29.1 pg (27.0-31.0); Mean Corpuscular Volume 85.2 fL (81.0-99.0); Platelet Count 353 10^3/uL (130-400); Red Blood Cell Count 3.51 10^6/uL (4.20-5.40); Red Cell Dist. Width 15.4 % (11.5-14.5); White Blood Cell Count 9.1 10^3/uL (4.8-10.8)
[2023-08-27 02:51] LABS: Blood Urea Nitrogen 19 mg/dl (7-17); Calcium 9.1 mg/dl (8.4-10.2); Carbon Dioxide 26 mmol/L (22-30); Chloride 102 mmol/L (98-107); Estimated Creatinine Clearance 52 ml/min; Glucose 95 mg/dl (70-99); Potassium 3.6 mmol/L (3.5-5.1); Sodium 133 mmol/L (135-145); eGFR > 60.00
[2023-08-27] MEDS: INVANZ 60 MG IV (07:58)
[2023-08-27] MEDS: FLUSH (NSS) 1 FLUSH IV ×2 (07:59→08:33)
[2023-08-27] MEDS: LIDOCAINE 4% PATCH 1 PATCH TOPICAL (08:15)
[2023-08-27] MEDS: IMDUR (EXTENDED RELEASE) 30 MG PO (08:16)
[2023-08-27] MEDS: VITAMIN C 1000 MG PO ×2 (08:16→21:58)
[2023-08-27] MEDS: SODIUM CHLORIDE 0.5 GRAM PO ×2 (08:16→21:58)
[2023-08-27] MEDS: MIRALAX 17 GRAMS PO (08:16)
[2023-08-27] MEDS: REFRESH EYE DROPS (PF) 1 DROPS BOTH EYES ×4 (08:16→22:01)
[2023-08-27] MEDS: PREVACID 30 MG PO (08:19)
[2023-08-27] MEDS: ELIQUIS 5 MG PO ×2 (08:19→21:58)
[2023-08-27] MEDS: COLACE 100 MG PO ×2 (08:19→21:58)
[2023-08-27] MEDS: PACERONE 100 MG PO (08:19)
[2023-08-27] MEDS: SINEMET 25-100 1 TABLET PO ×3 (08:19→22:01)
[2023-08-27] MEDS: ZOLOFT 50 MG PO (08:19)
--- NOTE | 2023-08-27 08:33 | W.PN.HOSP.TC ---
Today's Communication/Plan
-
see bold
Assessment / Plan
Assessment / Plan
Gen: NAD, AAOx3.
Eyes: EOMI, PERRLA, no scleral icterus.
Neck: supple.
CV: RRR, +S1/S2, no m/r/g.
Resp: CTAB, no rales, wheezes, or rhonchi.
Abd: +BS, soft, NT, ND
Skin: No rashes.
Neuro: CN 2-12 intact, non-focal, masked facies.
Psych: flat affect.
CXR: Probable prominent pericardial fat versus a tiny left pleural effusion. Stable. Mild cardiomegaly. Stable.
CT brain: No acute intracranial pathology. Moderate atrophy. Stable. Mild nonacute sinusitis. Progressed.
Generalized weakness and acute metabolic encephalopathy:
-etiology unclear, appears to have resolved (pt now AAOx3)
-PT/OT
Other problems:
h/o UTI with ESBL E. 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 Pt with chronic sykes due to chronic urinary retention due to Parkinson's disease
Anemia of chronic disease: Hb stable
Chronic hyponatremia: cont salt tabs
PAF s/p PPM: cont amio/Eliquis/BB
Sacrum Stage 1 Pressure Injury, POA
CAD: recent NSTEMI, cont Plavix/statin/Imdur
Essential hypertension: cont BB/Imdur
Parkinson's disease: Continue Sinemet
Chronic gait dysfunction
Anxiety/depression: cont sertraline
Chronic vertigo: cont meclizine
DNR/Eliquis
Medically cleared for discharge, case management aware.
Anticipated Discharge: Within 24 hours
Subjective/Interval History
-
Date of Service: August 27, 2023
Denies CP/SOB.
Objective Data
-
Labs:
Laboratory Results
08/27/23
02:06
WBC 9.1
Hgb 10.2 L
Hct 29.9 L
Plt Count 353
Sodium 133 L
Potassium 3.6
Chloride 102
Carbon Dioxide 26
BUN 19 H
Creatinine 0.7
Glucose 95
Calcium 9.1
Vital Signs:
Vital Signs
Temp Pulse Resp BP Pulse Ox
98 F 66 18 180/70 97
08/27/23 07:05 08/27/23 08:19 08/27/23 07:05 08/27/23 08:19 08/27/23 07:05
I&O
08/26/23 08/27/23 08/28/23
06:59 06:59 06:59
Output Total 400 / 400
Balance -400 / -400
[2023-08-27] MEDS: PLAVIX 75 MG PO (10:02)
--- NOTE | 2023-08-27 12:47 | CM ---
manager electrical reviewed patient's chart and met with patient and spoke with patient's son by phone, patient with Parkinson's disease. patient was living at [facility] in assisted living and needed skilled placement, patient and family
prefer [facility]. Referral was sent to [facility] for skilled placement, case sealer spoke with patient's son and he would like patient to return to [facility] skilled and transition to intermediate care at [facility], case sealer will make a referral to
[facility] and wait on determination from admissions at [facility]. Patient will need PT/OT and Auth from insurance.
Plan; Skilled placement at [facility], needs PT/OT and Auth from insurance.
--- NOTE | 2023-08-27 14:40 | W.PN.UPDATE ---
Update Note
Progress Note Update
.
[2023-08-27] MEDS: LIPITOR 40 MG PO (21:58)
[2023-08-27] MEDS: TOPROL XL 50 MG PO (21:59)
[2023-08-28 03:00] VITALS: BP 150/59
[2023-08-28 07:10] VITALS: BP 172/67
[2023-08-28] MEDS: INVANZ 60 MG IV (08:45)
[2023-08-28] MEDS: FLUSH (NSS) 1 FLUSH IV ×2 (08:45→09:51)
[2023-08-28] MEDS: ELIQUIS 5 MG PO ×2 (08:48→19:37)
[2023-08-28] MEDS: PREVACID 30 MG PO (08:48)
[2023-08-28] MEDS: LIDOCAINE 4% PATCH 1 PATCH TOPICAL (08:48)
[2023-08-28] MEDS: MIRALAX 17 GRAMS PO (08:48)
[2023-08-28] MEDS: IMDUR (EXTENDED RELEASE) 30 MG PO (08:49)
[2023-08-28] MEDS: PACERONE 100 MG PO (08:49)
[2023-08-28] MEDS: VITAMIN C 1000 MG PO ×2 (08:49→19:36)
[2023-08-28] MEDS: REFRESH EYE DROPS (PF) 1 DROPS BOTH EYES ×3 (08:49→21:04)
[2023-08-28] MEDS: ZOLOFT 50 MG PO (08:49)
[2023-08-28] MEDS: SODIUM CHLORIDE 0.5 GRAM PO ×2 (08:49→19:37)
[2023-08-28] MEDS: SINEMET 25-100 1 TABLET PO ×3 (08:49→21:01)
[2023-08-28] MEDS: COLACE 100 MG PO ×2 (08:49→19:37)
[2023-08-28 09:01] LABS: Hematocrit 30.5 % (37.0-47.0); Hemoglobin 10.3 g/dL (12.0-16.0); Mean Corp Hgb Conc. 33.8 g/dL (33.0-37.0); Mean Corpuscular Hgb 28.6 pg (27.0-31.0); Mean Corpuscular Volume 84.7 fL (81.0-99.0); Mean Platelet Volume 9.5 fL (7.4-10.4); Platelet Count 322 10^3/uL (130-400); Red Cell Dist. Width 15.7 % (11.5-14.5); White Blood Cell Count 8.1 10^3/uL (4.8-10.8)
[2023-08-28 09:26] LABS: Blood Urea Nitrogen 17 mg/dl (7-17); Calcium 9.1 mg/dl (8.4-10.2); Carbon Dioxide 27 mmol/L (22-30); Chloride 98 mmol/L (98-107); Estimated Creatinine Clearance 52 ml/min; Glucose 82 mg/dl (70-99); Potassium 3.8 mmol/L (3.5-5.1); Sodium 134 mmol/L (135-145); eGFR > 60.00
[2023-08-28] MEDS: PLAVIX 75 MG PO (09:52)
[2023-08-28 11:00] VITALS: BP 113/58
--- NOTE | 2023-08-28 14:08 | PTCARENOTE ---
Addendum entered by Olena Armstrong RN 08/28/23 16:40:
Pt's son Iglesia here. Updated him on the new diet orders and swallowing evaluation. Dinner was ordered and pt's son fed her. She ate approximately 30%.
Original Note:
Dr Hudson at bedside. Made her aware that pt seems to be having difficulty eating today. Takes a lot of cueing to get her to swallow. She took her medications with applesauce this morning. She is also having a difficult time using the straw to
drink from. Dr Hudson states she will change her diet to pureed and will put in a speech/swallow evaluation.
--- NOTE | 2023-08-28 14:31 | W.PN.HOSP.TC ---
Today's Communication/Plan
-
Case management working on discharge arrangements
Speech eval
Assessment / Plan
Assessment / Plan
CVS: S1-S2 normal
Chest: CTA B/L
Abdomen: Soft, NT / Bowel sounds present
Extremities: No edema, normal pulses
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 Answers one word answers to questions.
CXR: Probable prominent pericardial fat versus a tiny left pleural effusion. Stable. Mild cardiomegaly. Stable.
CT brain: No acute intracranial pathology. Moderate atrophy. Stable. Mild nonacute sinusitis. Progressed.
Generalized weakness and acute metabolic encephalopathy:
-etiology unclear, appears to have resolved (pt now AAOx3)
-PT/OT
Poor PO intake- Speech eval. Will change diet to Pureed.
Other problems:
h/o UTI with ESBL E. 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 Pt with chronic Padilal due to chronic urinary retention due to Parkinson's disease
Anemia of chronic disease: Hb stable
Chronic hyponatremia: cont salt tabs
PAF s/p PPM: cont amio/Eliquis/BB
Sacrum Stage 1 Pressure Injury, POA
CAD: recent NSTEMI, cont Plavix/statin/Imdur
Essential hypertension: cont BB/Imdur
Parkinson's disease: Continue Sinemet
Chronic gait dysfunction
Anxiety/depression: cont sertraline
Chronic vertigo: cont meclizine
DNR/Eliquis
D/W RN at bed side
Anticipated Discharge: Within 24 hours
Subjective/Interval History
-
Date of Service: August 28, 2023
Objective Data
-
Labs:
Laboratory Results
08/28/23
08:24
WBC 8.1
Hgb 10.3 L
Hct 30.5 L
Plt Count 322
Sodium 134 L
Potassium 3.8
Chloride 98
Carbon Dioxide 27
BUN 17
Creatinine 0.7
Glucose 82
Calcium 9.1
Vital Signs:
Vital Signs
Temp Pulse Resp BP Pulse Ox
98.2 F 61 14 113/58 96
08/28/23 11:00 08/28/23 11:00 08/28/23 11:00 08/28/23 11:00 08/28/23 11:00
I&O
08/27/23 08/28/23 08/29/23
06:59 06:59 06:59
Intake Total 600 / 600
Output Total 400 / 400 800 / 800
Balance -400 / -400 -200 / -200
[2023-08-28 16:19] VITALS: BP 155/59
[2023-08-28] MEDS: REFRESH EYE DROPS (PF) BOTH EYES (17:42)
[2023-08-28 19:00] VITALS: BP 112/50
[2023-08-28] MEDS: TOPROL XL 50 MG PO (21:02)
[2023-08-28] MEDS: LIPITOR 40 MG PO (21:04)
[2023-08-28 23:00] VITALS: BP 156/53
[2023-08-29 03:00] VITALS: BP 130/57
[2023-08-29 05:26] VITALS: BMI 21.6
[2023-08-29 07:30] VITALS: BP 154/61
[2023-08-29 07:56] LABS: Hemoglobin 9.7 g/dL (12.0-16.0); Mean Corp Hgb Conc. 33.4 g/dL (33.0-37.0); Mean Corpuscular Hgb 29.2 pg (27.0-31.0); Mean Corpuscular Volume 87.3 fL (81.0-99.0); Mean Platelet Volume 9.2 fL (7.4-10.4); Platelet Count 292 10^3/uL (130-400); Red Blood Cell Count 3.32 10^6/uL (4.20-5.40); White Blood Cell Count 6.2 10^3/uL (4.8-10.8)
[2023-08-29] MEDS: PACERONE 100 MG PO (08:02)
[2023-08-29] MEDS: PREVACID 30 MG PO (08:02)
[2023-08-29] MEDS: VITAMIN C 1000 MG PO ×2 (08:02→20:15)
[2023-08-29] MEDS: ELIQUIS 5 MG PO ×2 (08:03→20:15)
[2023-08-29] MEDS: ZOLOFT 50 MG PO (08:03)
[2023-08-29] MEDS: SINEMET 25-100 1 TABLET PO ×3 (08:12→21:22)
[2023-08-29] MEDS: SODIUM CHLORIDE 0.5 GRAM PO ×2 (08:12→20:16)
[2023-08-29] MEDS: IMDUR (EXTENDED RELEASE) 30 MG PO (08:13)
[2023-08-29] MEDS: COLACE 100 MG PO ×2 (08:13→20:16)
[2023-08-29] MEDS: LIDOCAINE 4% PATCH TOPICAL ×2 (08:14→16:36)
[2023-08-29] MEDS: MIRALAX 17 GRAMS PO (08:14)
[2023-08-29] MEDS: REFRESH EYE DROPS (PF) 1 DROPS BOTH EYES ×3 (08:14→21:22)
[2023-08-29] MEDS: FLUSH (NSS) 1 FLUSH IV ×2 (08:14→08:51)
[2023-08-29 08:28] LABS: Blood Urea Nitrogen 21 mg/dl (7-17); Calcium 8.6 mg/dl (8.4-10.2); Carbon Dioxide 26 mmol/L (22-30); Chloride 103 mmol/L (98-107); Estimated Creatinine Clearance 46 ml/min; Glucose 74 mg/dl (70-99); Potassium 3.7 mmol/L (3.5-5.1); Sodium 134 mmol/L (135-145); eGFR > 60.00
[2023-08-29] MEDS: INVANZ 60 MG IV (08:51)
--- NOTE | 2023-08-29 09:03 | W.PN.HOSP.TC ---
Addendum entered and electronically signed by Den Choi MD 08/29/23 12:24:
Severe protein calorie malnutrition.
Original Note:
Today's Communication/Plan
-
d/c
Assessment / Plan
Assessment / Plan
Gen: NAD, Awake and alert
Eyes: EOMI, PERRLA, no scleral icterus.
Neck: supple.
CV: RRR, +S1/S2, no m/r/g.
Resp: CTAB, no rales, wheezes, or rhonchi.
Abd: +BS, soft, NT, ND
Skin: No rashes.
Neuro: CN 2-12 intact, non-focal.
Psych: Normal mood and affect.
CXR: Probable prominent pericardial fat versus a tiny left pleural effusion. Stable. Mild cardiomegaly. Stable.
CT brain: No acute intracranial pathology. Moderate atrophy. Stable. Mild nonacute sinusitis. Progressed.
Generalized weakness and acute metabolic encephalopathy:
-etiology unclear, appears to have resolved (pt now AAOx3)
-PT/OT
Poor PO intake:
-appreciate speech eval, IDDSI 4/thins
Other problems:
h/o UTI with ESBL E. 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 Pt with chronic Padilla due to chronic urinary retention due to Parkinson's disease.
Anemia of chronic disease: Hb stable
Chronic hyponatremia: cont salt tabs
PAF s/p PPM: cont amio/Eliquis/BB
Sacrum Stage 1 Pressure Injury, POA
CAD: recent NSTEMI, cont Plavix/statin/Imdur
Essential hypertension: cont BB/Imdur
Parkinson's disease: Continue Sinemet
Chronic gait dysfunction
Anxiety/depression: cont sertraline
Chronic vertigo: cont meclizine
DNR/Eliquis
Remains medically stable for d/c, case management aware.
Anticipated Discharge: Today
Subjective/Interval History
-
Date of Service: August 29, 2023
No new complaints.
Objective Data
-
Labs:
Laboratory Results
08/29/23
07:42
WBC 6.2
Hgb 9.7 L
Hct 29.0 L
Plt Count 292
Sodium 134 L
Potassium 3.7
Chloride 103
Carbon Dioxide 26
BUN 21 H
Creatinine 0.8
Glucose 74
Calcium 8.6
Vital Signs:
Vital Signs
Temp Pulse Resp BP Pulse Ox
97.8 F 61 17 159/61 93
08/29/23 07:30 08/29/23 08:02 08/29/23 07:30 08/29/23 08:02 08/29/23 07:30
I&O
08/28/23 08/29/23 08/30/23
06:59 06:59 06:59
Intake Total 600 / 600
Output Total 800 / 800 520 / 520
Balance -200 / -200 -520 / -520
--- NOTE | 2023-08-29 09:21 | PTOTSP ---
SPEECH THERAPY SWALLOW EVALUATION:
Patient exhibits clinical signs of oropharyngeal dysphagia, likely chronic related to Parkinson's disease and acutely exacerbated by generalized weakness and acute metabolic encephalopathy. Patient remains at high risk for aspiration and related
complications given lethargy and cognitive status. CXR currently clear of acute process; WBC WNL. Recommend CAUTIOUS oral diet of IDDSI Level 4 Puree diet and thin liquids with strict aspiration precautions in place. Medications crushed in puree.
Aspiration precautions: 1:1 assist; upright positioning; only feed when patient awake/alert; alternate textures; small single sips; small bites; slow rate of intake; D/C oral diet if patient exhibits any signs or symptoms of aspiration or a decline
in mental or respiratory status - LOW threshold to make NPO. Speech therapy to follow, assess diet tolerance and modify as appropriate, monitor CXR and labs, determine indication for VFSS if warranted, provide continued education regarding
aspiration risks/precautions, and provide continued diagnostic swallow therapy as appropriate.
RECOMMEND:
1) CAUTIOUS oral diet of IDDSI Level 4 Puree diet and thin liquids
2) Medications crushed in puree
3) Aspiration precautions: 1:1 assist; upright positioning; only feed when patient awake/alert; alternate textures; small single sips; small bites; slow rate of intake; D/C oral diet if patient exhibits any signs or symptoms of aspiration or a
decline in mental or respiratory status - LOW threshold to make NPO
4) Speech therapy to follow, assess diet tolerance and modify as appropriate, monitor CXR and labs, determine indication for VFSS if warranted, provide continued education regarding aspiration risks/precautions, and provide continued diagnostic
swallow therapy as appropriate
[2023-08-29 11:15] VITALS: BP 140/47
[2023-08-29] MEDS: PLAVIX 75 MG PO (11:16)
--- NOTE | 2023-08-29 11:56 | PN.CDI ---
CDI
- -
CDI:
Physician Documentation Request
Admit Date: 08/26/23 20:09
Dear Doctor Steph,
Please review the following and provide your response in the progress notes.
Clinical Indicators:
- 11lb weight loss - 7.5%- from prior admission - 07/18/23
- 08/26 PT note 'Minimal active ankle motion'
- 'Able to move RLE laterally with anti-gravity lift from PT, minimal movement of LLE'
- Unsuccessful attempt from supine>sit - 'patient actively resisting with trunk extension and unable to recruit UE's to facilitate'
- 08/26 OT note 'limited strength bilateral'
- 'upper body with severe extensor tone and rigidity, unable to assist to full sitting due to tone'
- Energy intake <50% this admission
Based on the information, which of the following most accurately represents the patient's nutritional status?
Malnutrition (specify if mild, moderate or severe)
No nutritional deficiency
Other (please specify)
[place] Criteria (ACP Hospitalist 2017)
2 or more criteria must be present for either
non severe or severe malnutrition
Note that the criteria differs related to the
presence of an acute or chronic illness
Acute Illness Chronic Illness
Energy Intake Non Severe: <75% for >7 days Non Severe: <75% for >1 month
Severe: <50% for >5 days Severe: <75% for >1 month
Weight Loss Non Severe: 1-2% over 1 week Non Severe: 5% over 1 month
5% over 1 month 7.5% over 3 months
7.5% over 3 months 10% over 6 months
1 year N/A 20% over 1 year
Severe: >2% over 1 week Severe: >5% over 1 month
>5% over 1 month >7.5% over 3 months
>7.5% over 3 months >10% over 6 months
1 year N/A >20% over 1 year
Body Fat Non Severe: Mild Decrease Non Severe: Mild Loss
Severe: Moderate Decrease Severe: Severe Loss
Muscle Mass Non Severe: Mild Decrease Non Severe: Mild Loss
Severe: Moderate Decrease Severe: Severe Loss
Fluid Accumulation Non Severe: Mild Accumulation Non Severe: Mild Accumulation
Severe: Moderate to severe Severe: Moderate to severe
accumulation accumulation
Reduced Refrigerator Repairman Strength Non Severe: N/A Non Severe: N/A
Severe: Measurably reduced Severe: Measurably reduced
Additional criteria that can be used to Determine if Mild or Moderate Malnutrition (Merck Manual 2018)
Mild Moderate Severe
Albumin gm/dl <3.0 gm/dl <2.5 gm/dl <2.0 gm/dl
Pre Albumin mg/dl <15 gm/dl <10 mg/dl <5.0 mg/dl
BMI <18.5 <17 <16
Use of terms such as suspected, likely, concern for, or probable (associated with a specific diagnosis that is being evaluated, monitored, or treated as if it exists) are acceptable and can be coded in the inpatient setting, when documented at the
time of discharge.
Thank you,
Yahaira Acuña RN
CDI Specialist
Please use your independent medical judgment in providing your response.
--- NOTE | 2023-08-29 12:16 | CM ---
Addendum entered by Lore Rocha 08/29/23 16:19:
Son updated bedside.
IMM completed.
Addendum entered by Lore Rocha 08/29/23 14:21:
[employer] Insurance Authorization initiated
Pending Reference number [id number].
Original Note:
Pt medically cleared for transfer back to [facility].
Patient accepted by [facility], needs insurance auth.
Await updated PT/OT.
[facility] NPI# [id number]
Dr Coon NPI# [id number]
Report# [phone]
--- NOTE | 2023-08-29 13:47 | W.PN.UPDATE ---
Update Note
Progress Note Update
for billing
[2023-08-29 15:30] VITALS: BP 145/55
[2023-08-29] MEDS: REFRESH EYE DROPS (PF) BOTH EYES (16:36)
[2023-08-29] MEDS: LIPITOR 40 MG PO (21:22)
[2023-08-29] MEDS: TOPROL XL 50 MG PO (21:23)
[2023-08-29 23:00] VITALS: BP 158/61
[2023-08-30 07:30] VITALS: BP 152/54
[2023-08-30 09:14] LABS: Hematocrit 30.4 % (37.0-47.0); Hemoglobin 10.1 g/dL (12.0-16.0); Mean Corp Hgb Conc. 33.2 g/dL (33.0-37.0); Mean Corpuscular Hgb 29.1 pg (27.0-31.0); Mean Corpuscular Volume 87.6 fL (81.0-99.0); Mean Platelet Volume 10.1 fL (7.4-10.4); Platelet Count 293 10^3/uL (130-400); Red Blood Cell Count 3.47 10^6/uL (4.20-5.40)
[2023-08-30 09:40] LABS: Blood Urea Nitrogen 20 mg/dl (7-17); Calcium 8.9 mg/dl (8.4-10.2); Carbon Dioxide 28 mmol/L (22-30); Chloride 102 mmol/L (98-107); Estimated Creatinine Clearance 52 ml/min; Glucose 93 mg/dl (70-99); Sodium 135 mmol/L (135-145); eGFR > 60.00
[2023-08-30 09:46] LABS: Potassium 3.8 mmol/L (3.5-5.1)
[2023-08-30] MEDS: MIRALAX 17 GRAMS PO (10:23)
[2023-08-30] MEDS: LIDOCAINE 4% PATCH 1 PATCH TOPICAL (10:23)
[2023-08-30] MEDS: PREVACID 30 MG PO (10:24)
[2023-08-30] MEDS: REFRESH EYE DROPS (PF) 1 DROPS BOTH EYES ×4 (10:24→21:35)
[2023-08-30] MEDS: IMDUR (EXTENDED RELEASE) 30 MG PO (10:24)
[2023-08-30] MEDS: ZOLOFT 50 MG PO (10:24)
[2023-08-30] MEDS: VITAMIN C 1000 MG PO ×2 (10:25→19:49)
[2023-08-30] MEDS: SODIUM CHLORIDE 0.5 GRAM PO ×2 (10:25→19:49)
[2023-08-30] MEDS: SINEMET 25-100 1 TABLET PO ×3 (10:25→21:35)
[2023-08-30] MEDS: PACERONE 100 MG PO (10:25)
[2023-08-30] MEDS: COLACE 100 MG PO ×2 (10:25→19:49)
[2023-08-30] MEDS: PLAVIX 75 MG PO (10:25)
[2023-08-30] MEDS: ELIQUIS 5 MG PO ×2 (10:26→19:49)
[2023-08-30] MEDS: FLUSH (NSS) 1 FLUSH IV ×2 (10:27→11:00)
[2023-08-30] MEDS: INVANZ 60 MG IV (10:27)
--- NOTE | 2023-08-30 12:29 | W.PN.HOSP.TC ---
Today's Communication/Plan
-
d/c
Assessment / Plan
Assessment / Plan
Gen: NAD, Awake and alert
Eyes: EOMI, PERRLA, no scleral icterus.
Neck: supple.
CV: Remains RRR, +S1/S2, no m/r/g.
Resp: Remains CTAB, no rales, wheezes, or rhonchi.
Abd: remains +BS, soft, NT, ND
Skin: No rashes.
Neuro: CN 2-12 intact, non-focal.
Psych: Normal mood and affect.
CXR: Probable prominent pericardial fat versus a tiny left pleural effusion. Stable. Mild cardiomegaly. Stable.
CT brain: No acute intracranial pathology. Moderate atrophy. Stable. Mild nonacute sinusitis. Progressed.
Generalized weakness and acute metabolic encephalopathy:
-etiology unclear, appears to have resolved (pt now AAOx3)
-PT/OT
Poor PO intake:
-appreciate speech eval, IDDSI 4/thins
Other problems:
h/o UTI with ESBL E. 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 Pt with chronic Padilla due to chronic urinary retention due to Parkinson's disease.
Anemia of chronic disease: Hb stable
Chronic hyponatremia: cont salt tabs
PAF s/p PPM: cont amio/Eliquis/BB
Sacrum Stage 1 Pressure Injury, POA
CAD: recent NSTEMI, cont Plavix/statin/Imdur
Essential hypertension: cont BB/Imdur
Parkinson's disease: Continue Sinemet
Chronic gait dysfunction
Anxiety/depression: cont sertraline
Chronic vertigo: cont meclizine
DNR/Eliquis
Remains medically stable for d/c, case management aware.
Anticipated Discharge: Today
Subjective/Interval History
-
Date of Service: August 30, 2023
No new complaints.
Objective Data
-
Labs:
Laboratory Results
08/30/23
08:36
WBC 6.0
Hgb 10.1 L
Hct 30.4 L
Plt Count 293
Sodium 135
Potassium 3.8
Chloride 102
Carbon Dioxide 28
BUN 20 H
Creatinine 0.7
Glucose 93
Calcium 8.9
Vital Signs:
Vital Signs
Temp Pulse Resp BP Pulse Ox
97.9 F 61 17 152/54 95
08/30/23 07:30 08/30/23 10:25 08/30/23 07:30 08/30/23 10:25 08/30/23 07:30
I&O
08/29/23 08/30/23 08/31/23
06:59 06:59 06:59
Output Total 520 / 520 350 / 350
Balance -520 / -520 -350 / -350
--- NOTE | 2023-08-30 13:20 | CM ---
[facility] [employer] [facility], spoke with rep.
Pending Reference number [id number].
Per bilingual inside sales representative case is still pending.
Plan: [facility] once authorization received.
[facility]
Report# [phone]
[2023-08-30 15:00] VITALS: BP 133/64
[2023-08-30] MEDS: TOPROL XL 50 MG PO (21:33)
[2023-08-30] MEDS: LIPITOR 40 MG PO (21:35)
[2023-08-30 22:30] VITALS: BP 151/63
[2023-08-31 00:07] VITALS: BP 151/63
--- NOTE | 2023-08-31 05:14 | DOWNTIME ---
There was a Truly Accomplished Client Hydraulic Technician Downtime on 08/31/2023 from 0100 to 08/31/2023 at 0439. Downtime documentation of patient's care, including medication administrations, has been reconciled in the electronic record per guidelines. Refer to the
patient's paper chart under the miscellaneous tab to see printed paper medication records and downtime forms.
[2023-08-31 07:30] VITALS: BP 171/62
--- NOTE | 2023-08-31 08:30 | W.PN.HOSP.TC ---
Addendum entered and electronically signed by Den Choi MD 08/31/23 11:20:
Total time spent on d/c = 31 min. This included today's physical exam, progress note, review of laboratory and diagnostic data, preparation of discharge documents and prescriptions, and discussions about the pt's hospital course and discharge plan
with the patient and other medical technologist involved in the patient's care.
Original Note:
Today's Communication/Plan
-
see bold
Assessment / Plan
Assessment / Plan
Gen: NAD, Awake and alert
Eyes: EOMI, PERRLA, no scleral icterus.
Neck: supple.
CV: continues to remain RRR, +S1/S2, no m/r/g.
Resp: continues to remain CTAB, no rales, wheezes, or rhonchi.
Abd: continues to remain +BS, soft, NT, ND
Skin: No rashes.
Neuro: CN 2-12 intact, non-focal.
Psych: flat affect.
CXR: Probable prominent pericardial fat versus a tiny left pleural effusion. Stable. Mild cardiomegaly. Stable.
CT brain: No acute intracranial pathology. Moderate atrophy. Stable. Mild nonacute sinusitis. Progressed.
Generalized weakness and acute metabolic encephalopathy:
-etiology unclear, appears to have resolved (pt now AAOx3)
-PT/OT
Poor PO intake:
-appreciate speech eval, IDDSI 4/thins
Other problems:
h/o UTI with ESBL E. 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 Pt with chronic Padilla due to chronic urinary retention due to Parkinson's disease.
Anemia of chronic disease: Hb stable
Chronic hyponatremia: cont salt tabs
PAF s/p PPM: cont amio/Eliquis/BB
Sacrum Stage 1 Pressure Injury, POA
CAD: recent NSTEMI, cont Plavix/statin/Imdur
Essential hypertension: cont BB/Imdur
Parkinson's disease: Continue Sinemet
Chronic gait dysfunction
Anxiety/depression: cont sertraline
Chronic vertigo: cont meclizine
Severe protein calorie malnutrition.
DNR/Eliquis
Continues to remain medically stable for d/c, case management aware.
Anticipated Discharge: Today
Subjective/Interval History
-
Date of Service: August 31, 2023
No new complaints.
Objective Data
-
Labs:
Laboratory Results
08/31/23
06:00
WBC Pending
Hgb Pending
Hct Pending
Plt Count Pending
Sodium Pending
Potassium Pending
Chloride Pending
Carbon Dioxide Pending
BUN Pending
Creatinine Pending
Glucose Pending
Calcium Pending
Vital Signs:
Vital Signs
Temp Pulse Resp BP Pulse Ox
97.9 F 62 17 171/62 96
08/31/23 07:30 08/31/23 07:30 08/31/23 07:30 08/31/23 07:30 08/31/23 07:30
I&O
08/30/23 08/31/23 09/01/23
06:59 06:59 06:59
Intake Total 300 / 300
Output Total 350 / 350 700 / 700
Balance -350 / -350 -400 / -400
[2023-08-31 09:33] LABS: Hematocrit 31.8 % (37.0-47.0); Hemoglobin 10.6 g/dL (12.0-16.0); Mean Corp Hgb Conc. 33.3 g/dL (33.0-37.0); Mean Corpuscular Volume 86.9 fL (81.0-99.0); Mean Platelet Volume 9.9 fL (7.4-10.4); Platelet Count 302 10^3/uL (130-400); Red Blood Cell Count 3.66 10^6/uL (4.20-5.40); Red Cell Dist. Width 15.7 % (11.5-14.5); White Blood Cell Count 6.6 10^3/uL (4.8-10.8)
[2023-08-31 09:48] LABS: Blood Urea Nitrogen 16 mg/dl (7-17); Calcium 8.9 mg/dl (8.4-10.2); Carbon Dioxide 27 mmol/L (22-30); Chloride 105 mmol/L (98-107); Estimated Creatinine Clearance 61 ml/min; Glucose 96 mg/dl (70-99); Sodium 135 mmol/L (135-145); eGFR > 60.00
[2023-08-31] MEDS: IMDUR (EXTENDED RELEASE) 30 MG PO (10:16)
[2023-08-31] MEDS: SODIUM CHLORIDE 0.5 GRAM PO (10:16)
[2023-08-31] MEDS: REFRESH EYE DROPS (PF) BOTH EYES ×2 (10:18→13:59)
[2023-08-31] MEDS: LIDOCAINE 4% PATCH 1 PATCH TOPICAL (10:19)
[2023-08-31] MEDS: VITAMIN C 1000 MG PO (10:20)
[2023-08-31] MEDS: SINEMET 25-100 1 TABLET PO ×2 (10:20→16:12)
[2023-08-31] MEDS: PREVACID 30 MG PO (10:20)
[2023-08-31] MEDS: PLAVIX 75 MG PO (10:21)
[2023-08-31] MEDS: ZOLOFT 50 MG PO (10:22)
[2023-08-31] MEDS: COLACE PO (10:22)
[2023-08-31] MEDS: MIRALAX PO (10:22)
[2023-08-31] MEDS: ELIQUIS 5 MG PO (10:22)
[2023-08-31] MEDS: PACERONE 100 MG PO (10:23)
[2023-08-31] MEDS: INVANZ 60 MG IV (10:25)
[2023-08-31 10:26] VITALS: BP 156/78
[2023-08-31] MEDS: FLUSH (NSS) 1 FLUSH IV ×2 (10:27→11:26)
--- NOTE | 2023-08-31 10:47 | CM ---
Addendum entered by Lore Rocha 08/31/23 16:10:
IMM completed.
Addendum entered by Lore Rocha 08/31/23 12:09:
Plan: [facility] skilled rehab
Ambulance transport 4:30 PM
Report# [phone]

Per Nannette/Nurse at [facility], patient was started on IV anbx via midline at [facility] 08/23/23.
Original Note:
Insurance authorization received from Miguel Gonzalez#[id number].
[employer] approved skilled rehab at [facility].
Reference # [id number]
Start date 08/31/23, LCD/NRD 09/12/23
Updates to
--- NOTE | 2023-08-31 11:08 | W.DCSUMMARY ---
Discharge Summary
Discharge Data
Date of Admission: 08/26/23
Date of Discharge: 08/31/23
-
Pending Results: No
Hospital Course
Primary diagnoses:
Generalized weakness
Acute metabolic encephalopathy
Secondary diagnoses:
h/o catheter associated urinary tract infection with ESBL E. coli bacteremia (chronic Padilla due to chronic urinary retention due to Parkinson's disease)
Anemia of chronic disease
Chronic hyponatremia
Paroxysmal atrial fibrillation s/p permanent pacemaker placement
Sacrum Stage 1 Pressure Injury
Coronary artery disease with recent non-ST elevation myocardial infarction
Essential hypertension
Parkinson's disease
Chronic gait dysfunction
Anxiety
Depression
Chronic vertigo
Severe protein calorie malnutrition
Consultants:
None
Imaging:
CXR: Probable prominent pericardial fat versus a tiny left pleural effusion. Stable. Mild cardiomegaly. Stable.
CT brain: No acute intracranial pathology. Moderate atrophy. Stable. Mild nonacute sinusitis. Progressed.
Hospital course: 88-year-old female who presented with chief complaint generalized weakness as outlined in HPI on admission. She was also diagnosed with acute metabolic encephalopathy. While hospitalized the patient appears to have returned to her
baseline mental status. It is possible that her acute metabolic encephalopathy was simply due to her Parkinson's disease. Chest x-ray and CT scan of the brain above, and unremarkable. Patient had no fever or leukocytosis. Urine culture and blood
cultures were negative. Patient was seen by physical therapy and Occupational Therapy. [facility] Of note the patient did have poor oral intake. She was seen in consultation by speech therapy. IDDSI
4/thins was recommended.
If the patient continues to decline hospice would be appropriate.
Discharge Plan
-
Patient Disposition: Shelter/SNF
Discharge Diagnosis/Procedures: Generalized weakness and acute metabolic encephalopathy possibly due to Parkinson's disease
Condition: Good
Diet: Other diet
Additional Diets: IDDSI 4 - pureed, thin liquids
Activity: With assistance
Driving Restrictions: No driving
Referrals:
Juan Diego York MD [Family Provider] - in less than 1 week
Prescriptions:
Continued
Eliquis 5 MG tablet
5 mg PO BID
metoprolol succinate 50 MG tablet extended release 24 hr
50 mg PO HS
Patient Comments:
08/26/2023: hold if SBP<100 or HR<60.
ascorbic acid (vitamin C) [Vitamin C] 1,000 MG tablet
1,000 mg PO BID
meclizine 25 MG tablet
25 mg PO [id number] PRN (Reason: dizziness/vertigo)
calcium carbonate 500 mg calcium (1,250 mg) Tablet,Chewable
500 mg PO [id number] PRN (Reason: heartburn )
metronidazole 1 % Gel
1 applic TOPICAL DAILYPRN PRN (Reason: apply to B/L cheeks/forehead)
lidocaine 4 % Adhesive Patch,Medicated
1 patch TOPICAL DAILYPRN PRN (Reason: lower back pain)
acetaminophen 325 mg Tablet
650 mg PO Q6HPRN MDD 3000 mg PRN (Reason: mild pain/temp>100)
nitroglycerin 0.4 mg Tablet, Sublingual
0.4 mg SUBLINGUAL [id number] PRN (Reason: chest pain)
polyethylene glycol 3350 [Miralax] 17 gram Powder In Packet
17 g PO DAILY Qty: 0 0RF
Patient Comments:
08/26/2023: hold for loose stools.
ondansetron HCl 4 mg Tablet
4 mg PO Q12H PRN (Reason: nausea)
melatonin 3 mg Tablet
6 mg PO HSPRN PRN (Reason: insomnia)
nystatin 100,000 unit/gram Powder
1 applic TOPICAL [id number] PRN (Reason: rash)
sertraline 50 mg Tablet
50 mg PO DAILY
amiodarone 100 mg Tablet
100 mg PO DAILY
cholecalciferol (vitamin D3) 25 mcg (1,000 unit) Tablet
50 mcg PO DAILY
isosorbide mononitrate 30 mg Tablet Extended Release 24 Hr
30 mg PO DAILY Qty: 0 0RF
sodium chloride 1,000 mg Tablet,Soluble
500 mg PO BID Qty: 0 0RF
Icy Hot (menthol) 5 % Adhesive Patch,Medicated
1 patch TOPICAL DAILY
Rx Instructions:
apply to lower back
atorvastatin 40 mg tablet
40 mg PO HS
clopidogrel 75 mg tablet
75 mg PO DAILY@1000
carbidopa-levodopa [Sinemet] 25-100 mg Tablet
1 tab PO TID Qty: 0
Patient Comments:
25mg/100mg 2 tabs PO TID
docusate sodium 100 mg Capsule
100 mg PO BID Qty: 60 0RF
magnesium hydroxide [Milk of Magnesia] 400 mg/5 mL Suspension
30 ml PO DAILY PRN (Reason: if no bm on day 4)
bisacodyl [Dulcolax (bisacodyl)] 10 mg Suppository
10 mg MD DAILYPRN PRN (Reason: constipation)
Fleet Enema 19-7 gram/118 mL Enema
118 ml MD DAILYPRN PRN (Reason: constipation)
ertapenem 1 gram Recon Soln
1 g IV DAILY
Patient Comments:
08/26/2023: over 30 mins, 200cc/hr
sodium chloride 0.9 % (flush) [Normal Saline Flush] Syringe
10 ml IV BID
pantoprazole [address] For Susp In Packet
40 mg PO DAILY
Refresh Classic (PF) 1.4-0.6 % dropperette
1 drp BOTH EYES QID
Discharge Orders:
Discharge Patient (As Directed); Ordered 08/31/23
Ordered By: Den Choi
Discharge Date and Time
Print Language: GREEK
[2023-08-31] MEDS: REFRESH EYE DROPS (PF) 1 DROPS BOTH EYES (13:59)
[2023-08-31 15:30] VITALS: BP 153/69
== END 2023-08-31 17:03 ==
LOC: 4 WEST ACU 20:09
PROVIDERS: Nurse Practitioner; Registered Nurse; ADMITTING PHYSICIAN Internal Medicine; ATTENDING PHYSICIAN Internal Medicine; EMERGENCY PHYSICIAN Emergency Medicine; FAMILY PHYSICIAN Family Medicine
DX: R53.1 Weakness (principal); G93.41 Metabolic encephalopathy; G20.A1 Parkinson's disease without dyskinesia, without mention of fluctuations; I48.0 Paroxysmal atrial fibrillation; I25.10 Atherosclerotic heart disease of native coronary artery without angina pectoris; E43 Unspecified severe protein-calorie malnutrition; I25.2 Old myocardial infarction; I11.9 Hypertensive heart disease without heart failure; F41.9 Anxiety disorder, unspecified; E86.0 Dehydration; F32.A Depression, unspecified; D63.8 Anemia in other chronic diseases classified elsewhere; I44.4 Left anterior fascicular block; J90 Pleural effusion, not elsewhere classified; E87.1 Hypo-osmolality and hyponatremia; R33.8 Other retention of urine; L89.151 Pressure ulcer of sacral region, stage 1; R26.9 Unspecified abnormalities of gait and mobility; R42 Dizziness and giddiness; Z95.5 Presence of coronary angioplasty implant and graft; Z90.710 Acquired absence of both cervix and uterus; Z95.0 Presence of cardiac pacemaker; Z79.01 Long term (current) use of anticoagulants; Z87.440 Personal history of urinary (tract) infections; Z66 Do not resuscitate; Z16.12 Extended spectrum beta lactamase (ESBL) resistance; Z79.02 Long term (current) use of antithrombotics/antiplatelets; Z11.52 Encounter for screening for COVID-19
CPT/HCPCS: 70450; 71046; 80048; 80053; 81003; 81015; 83605; 85025; 85027; 87040; 87070; 87086; 87811; 92526; 92610; 93005; 97163; 97167; 97530; 97535; 99285; G0378; J1335

== ENCOUNTER 2023-10-11 06:02 | Inpatient (IN) | payer OTHER, SELFPAY ==
[2023-10-11] VITALS (50 sets, daily range): BP systolic 69–213; BP diastolic 30–110; PULSE 2; BMI 23.1
--- NOTE | 2023-10-11 04:14 | ED.GENMED ---
History of Present Illness
General
Chief Complaint: Breathing Problem
Source: patient and ambulance crew
Time Seen by Provider: 10/11/23 04:10
History of Present Illness
History of Present Illness:
88-year-old female presents from [facility] presents with respiratory distress. She states that she was not feeling well and staff came and administered her pulse ox of 51% on room air. EMS was called and upon arrival they put her on 10 L which
brought her up to 79%. They switched her to BiPAP which did not help much.
Past History
Past History
ED Past Medical History: Arrthythmia (A. fib), CAD, HTN, AK, Psychiatric (Anxiety) and Other (Parkinson's disease, Vertigo, Chronic indwelling sykes, Macular degeneration, bladder prolapse)
ED Past Surgical History: Cardiac (Stent, Pacemaker), Gynecological (Hysterectomy) and Other (Hernia repair X 2)
Patient has exhibited threatening behavior?: No
PSI?: No
Social History
Tobacco: Non-smoker
Alcohol: None
Drug: None
Personal:
Living: assisted living
Phy Exam
General Physical Exam
General Presentation: moderate distress
General age: appears stated age
General Skin: warm and dry
General Habitus: elderly, failure to thrive and frail
General Mental: confused
General Hydration: appears well hydrated
Cardiovascular Exam
Cardiovascular Exam: regular rate/rhythm
Pulmonary Exam
Pulmonary Exam: decreased breath sounds and generalized wheezing
Oxygen Status: BiPAP
Cough: no cough
Musculoskeletal Exam
Musculoskeletal Exam: full ROM
Skin Exam
Skin Exam: normal color and warm/dry
Psychiatric Exam
Psychiatric Exam: labile
Scores
Heart Failure Risk
Heart Failure Risk Score: Yes
History of Stroke or TIA: No
History of intubation for respiratory distress: No
Heart rate on ED arrival >/= 110: No
SaO2 <90% on arrival on room air: Yes
HR >/=110 during 3min walk test (or too ill to perform test): Yes
ECG has acute ischemic changes: No
Urea >/=12mmol/L (BUN 33.6mg/dL): Yes
Serum CO2>/=35mmol/L: No
Troponin I or T elevated to AK Level (0.4mg/dL): No
NT-proBNP >/=5,000ng/L (5,000pg/ml): No
HF Risk Score: 4
Admission Status: HIGH RISK 26.1% Consider SNF treatment or admission to hospital
Course
Orders/Labs/Results
Orders:
Orders
10/11/23 04:10
CR Chest Portable - 1 View Urgent
Comment:
Reason For Exam: dyspnea
Reason Study Needs to be Portable: Patient Unstable
10/11/23 04:12
Electrocardiogram (*1) Urgent
Reason for Study: Other
Other Reason for Exam: Respiratory Distress
EKG- Treatment ONCE
10/11/23 04:25
Complete Blood Count/With Diff Urgent
Comprehensive Metabolic Panel Urgent
Lactic Acid Q4H
Comment: WITH 1ST SET OF BLOOD CULTURES,CANCEL 2ND LACTIC ACID IF FIRST <2
Pro-BNP [NT-proBNP] Urgent
Troponin I Urgent
Blood Culture Q30M
PRANEETH Source: Blood/Venous
Specimen Description:
Comment: FROM SEPARATE SITES
Blood Culture Q30M
PRANEETH Source: Blood/Venous
Specimen Description:
Comment: FROM SEPARATE SITES
10/11/23 04:27
COVID-19 Antigen Urgent
Source: Nasal Swab
Influenza A+B Rapid Molecular Urgent
PRANEETH Source: Nasal Swab
Specimen Description:
10/11/23 04:29
Urinalysis Reflex To Culture Urgent
Date Specimen was Collected: 10/11/23
Time Specimen was Collected: 04:
Urine Microscopic Reflex Cult Urgent
Urine Culture Urgent
PRANEETH Source: U
Specimen Description:
Date Specimen was Collected: 10/11/23
Time Specimen was Collected: :
10/11/23 04:58
Piperacillin/Tazo 4.5 Gram [Zosyn] 4.5 gram in 100 ml IV NOW
10/11/23 05:04
Furosemide [Lasix] 40 mg IV NOW STA
Nitroglycerin Sublingual [Nitrostat (Sublingual)] 0.4 mg SL NOW STA
10/11/23 05:05
Nitroglycerin Ointment [Nitro-Bid] 1 inch TOPICAL NOW STA
10/11/23 05:37
Admit/Transfer Patient As Directed
Co-Sign Provider:
Level of Care: Inpatient admission
Assign to:: IMU- Intermediate Care
Physician / Group: [email or web address]
Diagnosis: sepsis, acute pul edema, suspect aspiration PNA, acute hypoxic RF
Reason for Hospitalization: sepsis, acute pul edema, suspect aspiration PNA, acute hypoxic RF
Expected length of stay greater than two midnights?: Yes
ELOS- Estimated Length of Stay in days: 5
I certify the patient meets the requirements for IP care: Yes
10/11/23 05:40
Meclizine [Antivert] 25 mg PO [id number] PRN
10/11/23 05:41
Code Status As Directed
Resuscitation Status: Do not resuscitate
Reached after discussion with pt or family/Healthcare POA: Yes
10/11/23 05:42
DNR Bracelet Application ONCE
10/11/23 06:00
Flush (0.9% Sodium Chloride) [Flush (Nss)] See Dose Instructions IV PER PROTOCOL
10/11/23 08:15
Lactic Acid Q4H
Comment: WITH 1ST SET OF BLOOD CULTURES,CANCEL 2ND LACTIC ACID IF FIRST <2
10/11/23 22:00
Metoprolol Xl [Toprol Xl] 50 mg PO HS
Abnormal Lab Results
10/11/23 10/11/23
04:25 04:29
WBC 17.4 H 10^3/uL
(4.8-10.8)
RBC 4.09 L 10^6/uL
(4.20-5.40)
MCHC 32.2 L g/dL
(33.0-37.0)
RDW 17.4 H %
(11.5-14.5)
Abs Immat Gran (auto) 0.1 H 10^3/uL
(0-0.05)
Absolute Neuts (auto) 15.1 H 10^3/uL
(1.4-6.5)
Absolute Lymphs (auto) 1.0 L 10^3/uL
(1.2-3.4)
Absolute Monos (auto) 1.1 H 10^3/uL
(0.1-0.6)
Neutrophils % 86.4 H %
(42.2-75.2)
Lymphocytes % 5.9 L %
(20.5-51.1)
BUN 35 H mg/dl
(7-17)
Glucose 206 H mg/dl
(70-99)
Troponin I 0.106 H* ng/ml
Total Protein 6.2 L g/dl
(6.3-8.2)
Ur Occult Blood Reflex 2+ A
(Negative)
Urine Nitrite (Reflex) Positive A
(Negative)
Leukocyte Esterase Rfl 2+ A
(Negative)
Urine Bacteria (Reflex) Many A
(Negative)
10/11/23 04:25
10/11/23 04:25
Vital Signs
Initial and Last Documented VS:
Initial Vital Signs
BP Pulse Ox
176/69 86
10/11/23 04:11 10/11/23 04:11
Last Documented Vital Signs
Temp Pulse Resp BP Pulse Ox
98.0 F 70 20 170/69 95
10/11/23 04:14 10/11/23 06:00 10/11/23 06:00 10/11/23 06:00 10/11/23 06:00
*Critical Care Note
Total Time (30-74mins, 75-104mins- exclusive of procedures): Not Applicable
Update Note
Update Note:
Spoke with son Iglesia who in turn spoke with his Sister Mary. Mary called back and wants to maintain the DNR status but wants her not to struggle. She lives in [place] and is coming down to see her. Brother is on his way and from [place]
10/11/2023 0503 AM: Spoke with son who is now present at the bedside. He would like to keep mom as a DNR. He is agreeable to IV antibiotics or other medications in attempt to make her more comfortable.
ED Attending Note
-
Portions of this chart may have been created with voice recognition software.� Occasional wrong word or��sound alike� substitutions may have occurred due to the inherent limitations of voice recognition software.
Discharge Plan
Departure
Patient Disposition: Admit
Date of Disposition: 10/11/23
Time of Disposition: 05:07
Admit to: Telemetry
Presentation/result/management discussed w/ accepting MD/DO: Hospitalist
Condition: Fair
Discharge Problem:
Acute respiratory distress, DNR (do not resuscitate)
Interventions
Interventions:
*Risk Screen - Suicide Last Done: 10/11/23 04:14
*General Assessment Last Done: 10/11/23 04:14
*Neglect/Abuse Screening Last Done: 10/11/23 04:14
ED- Fall Risk Assessment Last Done: 10/11/23 04:34
*ED COVID-19 Vaccine History Last Done: 10/11/23 04:34
ED- Cardiac Assessment Last Done: 10/11/23 04:34
ED- Pulmonary Assessment Last Done: 10/11/23 04:34
[2023-10-11 04:35] LABS: % Basophils 0.5 % (0-2); % Eosinophils 0.8 % (0-6); % Immature Granulocytes 0.3 % (0-0.5); % Lymphocytes 5.9 % (20.5-51.1); % Monocytes 6.1 % (1.7-9.3); % Neutrophils 86.4 % (42.2-75.2); Absolute Basophils 0.1 10^3/uL (0-0.2); Absolute Eosinophils 0.1 10^3/uL (0-0.7); Absolute Immature Granulocytes 0.1 10^3/uL (0-0.05); Absolute Monocytes 1.1 10^3/uL (0.1-0.6); Absolute Neutrophils 15.1 10^3/uL (1.4-6.5); Hematocrit 37.3 % (37.0-47.0); Mean Corp Hgb Conc. 32.2 g/dL (33.0-37.0); Mean Corpuscular Hgb 29.3 pg (27.0-31.0); Mean Corpuscular Volume 91.2 fL (81.0-99.0); Mean Platelet Volume 9.8 fL (7.4-10.4); Nucleated Red Blood Cells % 0 %; Platelet Count 313 10^3/uL (130-400); Red Blood Cell Count 4.09 10^6/uL (4.20-5.40); Red Cell Dist. Width 17.4 % (11.5-14.5); White Blood Cell Count 17.4 10^3/uL (4.8-10.8)
[2023-10-11 04:41] LABS: Urine Albumin Trace (Neg - Trace); Urine Bilirubin Negative (Negative); Urine Character Clear (Clear); Urine Color Yellow; Urine Glucose Negative (Negative); Urine Ketone Negative (Negative); Urine Leukocyte 2+ (Negative); Urine Nitrite Positive (Negative); Urine Occult Blood 2+ (Negative); Urine Urobilinogen Negative (Neg - 1+)
[2023-10-11 04:48] LABS: Lactic Acid 1.8 mmol/L (0.7-2.0)
[2023-10-11 04:49] LABS: ALT (SGPT) < 10 U/L (0-35); AST (SGOT) 21 U/L (14-36); Albumin 3.6 g/dl (3.5-5.0); Alkaline Phosphatase 121 U/L (38-126); Blood Urea Nitrogen 35 mg/dl (7-17); Calcium 9.1 mg/dl (8.4-10.2); Carbon Dioxide 22 mmol/L (22-30); Chloride 107 mmol/L (98-107); Glucose 206 mg/dl (70-99); Potassium 4.3 mmol/L (3.5-5.1); Sodium 139 mmol/L (135-145); Total Bilirubin 0.7 mg/dl (0.2-1.3); Total Protein 6.2 g/dl (6.3-8.2); eGFR 54.19
[2023-10-11 04:51] LABS: COVID-19 Antigen Negative (Negative)
[2023-10-11 05:03] LABS: NT-proBNP 1060 pg/ml; Troponin I 0.106 ng/ml
[2023-10-11] MEDS: ZOSYN 100 IV (05:10)
[2023-10-11] MEDS: LASIX 40 MG IV ×2 (05:12→13:17)
--- NOTE | 2023-10-11 05:32 | HPS.HSE ---
Family Physician
-
Family Physician: Juan Diego York MD
Chief Complaint
-
acute rsp distress, hypoxia
History of Present Illness
I could not get any information from the patient due to acuity
Information gathered by chart review and speaking with the ER staff.
HPI
88[place] bib [facility] seen at ER for evalaution of acute resp distress and hypoxic RF
EMS reports she called complaint felt very unwell. Noted POx 51% on RA at fascility.
Then 80% on 15L NRM.
Then switched to BiPAP Enroute.
Medical History
Past Medical History
Past Medical History: Reports Other
Additional Past Medical History:
HX catheter associated urinary tract infection with ESBL E. coli bacteremia
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
Anemia of chronic disease
Chronic hyponatremia
Paroxysmal atrial fibrillation s/p permanent pacemaker placement
Sacrum Stage 1 Pressure Injury
Coronary artery disease with recent non-ST elevation myocardial infarction
Essential hypertension
Parkinson's disease
Chronic gait dysfunction
Anxiety
Depression
Chronic vertigo
Severe protein calorie malnutrition
Past Surgical History: Reports Other
Additional Past Surgical History:
Cardiac pacemaker
Hysterectomy
Hernia repair
Bladder lift
Cataract removal
Social History
Tobacco: Non-smoker
Drug: None
Living: Alf
Family History
Family History: Not pertinent
Allergies / Home Medications
Allergies reflects when Allergies were last updated in [facility].
Home Medications with original date entered in [facility]
Allergy/Medication List:
Allergies
Allergy/AdvReac Type Severity Reaction Status Date / Time
No Known Allergies Allergy Verified 10/11/23 04:13
Home Medications
apixaban 5 mg tablet (Eliquis) 5 mg PO BID Blood clot prevention/tx 09/21/19
metoprolol succinate 50 mg tablet,extended release 24 hr 50 mg PO HS Blood pressure 09/21/19
ascorbic acid (vitamin C) 1,000 mg tablet (Vitamin C) 1,000 mg PO BID Supplement 05/05/20
meclizine 25 mg tablet 25 mg PO [id number] PRN dizziness/vertigo 09/27/21
calcium carbonate 500 mg PO [id number] PRN heartburn 03/23/22
lidocaine 4 % topical patch 1 patch topical DAILYPRN PRN lower back pain 03/23/22
metronidazole 1 % topical gel 1 applic topical DAILYPRN PRN apply to B/L cheeks/forehead 03/23/22
acetaminophen 325 mg tablet 650 mg PO Q6HPRN PRN mild pain/temp>100 02/09/23
nitroglycerin 0.4 mg sublingual tablet 0.4 mg sublingual [id number] PRN chest pain 02/16/23
polyethylene glycol 3350 17 gram oral powder packet (Miralax) 17 g PO DAILY Constipation #0 ea 02/19/23
amiodarone 100 mg tablet 100 mg PO DAILY Arrhythmia 06/09/23
cholecalciferol (vitamin D3) 25 mcg (1,000 unit) tablet 50 mcg PO DAILY Supplement 06/09/23
melatonin 3 mg tablet 6 mg PO HSPRN PRN insomnia 06/09/23
nystatin 100,000 unit/gram topical powder 1 applic topical [id number] PRN rash 06/09/23
ondansetron HCl 4 mg tablet 4 mg PO Q12H PRN nausea 06/09/23
sertraline 50 mg tablet 50 mg PO DAILY Depression 06/09/23
isosorbide mononitrate 30 mg tablet,extended release 24 hr 30 mg PO DAILY #0 tabs 06/16/23
sodium chloride 1,000 mg soluble tablet 500 mg (1/2 x 1,000 mg) PO BID #0 tabs 06/16/23
atorvastatin 40 mg tablet 40 mg PO HS High Cholesterol 07/18/23
clopidogrel 75 mg tablet 75 mg PO DAILY@1000 Blood Clot Prevention/Tx 07/18/23
menthol 5 % topical patch (Icy Hot (menthol)) 1 patch topical DAILY lower back pain 07/18/23
carbidopa 25 mg-levodopa 100 mg tablet (Sinemet) 1 tab PO TID Neurological Condition ##0 07/20/23
docusate sodium 100 mg capsule 100 mg PO BID #60 caps 07/29/23
bisacodyl 10 mg rectal suppository (Dulcolax (bisacodyl)) 10 mg NE DAILYPRN PRN constipation 08/26/23
ertapenem 1 gram solution for injection 1 g IV DAILY Infection 08/26/23
magnesium hydroxide 400 mg/5 mL oral suspension (Milk of Magnesia) 30 ml PO DAILY PRN if no bm on day 4 08/26/23
pantoprazole 40 mg granules delayed-release for susp in packet 40 mg PO DAILY GERD 08/26/23
polyvinyl alcohol-povidone (PF) 1.4 %-0.6 % eye drops in a dropperette (Refresh Classic (PF)) 1 drp BOTH EYES QID Eye Condition 08/26/23
sodium chloride 0.9 % (flush) (Normal Saline Flush 0.9 % injection syringe) 10 ml IV BID IV FLUSH 08/26/23
sodium phosphates 19 gram-7 gram/118 mL enema (Fleet Enema) 118 ml NE DAILYPRN PRN constipation 08/26/23
Review of Systems
-
Unable to obtain full review of systems at this time due to: Acuity
Constitutional: Reports No Symptoms
EENT: Reports No Symptoms
Respiratory: Reports See HPI
Cardiac: Reports No Symptoms
Abdomen/GI: Reports No Symptoms
: Reports No Symptoms
Musculoskeletal: Reports No Symptoms
Skin: Reports No Symptoms
Neurological: Reports No Symptoms
Endocrine: Reports No Symptoms
Hematologic/Lymphatic: Reports No Symptoms
Psych: Reports No Symptoms
Physical Exam
Vital Signs
Vital Signs
Temp Pulse Resp BP Pulse Ox
98.0 F 69 22 155/67 90
10/11/23 04:14 10/11/23 05:15 10/11/23 04:14 10/11/23 05:15 10/11/23 05:15
Physical Exam
General: Well Developed, Appears in Distress and Other (wearing BiPAP )
HEENT: NormoCephalic and Anicteric
Respiratory: Rhonchi (coarse )
Cardiac: S1/S2, Regular Rhythm and Tachycardia
Breast: Deferred by me
GI: Soft, Non Tender and Non Distended
Rectal: Deferred by Provider
Genito-urinary: Deferred by me
Skin: Ulcers (stage I sacral ulcer )
Neuro: Awake (easily arousable ) and Alert (slight lethargy but easily arousable )
Psych: Anxious and Other
Laboratory Results
-
10/11/23 04:25
10/11/23 04:25
Laboratory Results
Lactic Acid 1.8 mmol/L (0.7-2.0) 10/11/23 04:25
Total Bilirubin 0.7 mg/dl (0.2-1.3) 10/11/23 04:25
AST 21 U/L (14-36) 10/11/23 04:25
ALT < 10 U/L (0-35) 10/11/23 04:25
Alkaline Phosphatase 121 U/L (38-126) 10/11/23 04:25
Troponin I 0.106 ng/ml H* 10/11/23 04:25
Data Reviewed
-
Diagnostic Radiology: Discussed with Physician
Medical Tests (Nuc Med, Echo, EKG etc): Report Reviewed by me
Lab Data: Labs Reviewed by me
Old Records: Reviewed
Impression/Plan
-
Reviewed VS: RR22 POx 83 on BiPAP Afebrile HR 73 BP 175/70
Data
WCC 17.4
BUN 35
nl Cr
eGFR 54
BG 206
Pending LA
TPNI 0.106
UA: POS Nitrites
UCx sent
NEG covid NEG Flu A & B
CXR report pending but my view CHF plus or minus PNA at Rt base
EKG
NSR
Lt AFB
Last hospitalist admission: 08/26/23 - 08/31/23
Generalized weakness
Acute metabolic encephalopathy
06/10/23 ECHO
Normal left ventricular size, wall thickness and systolic function.
Thickened aortic valve with normal leaflet excursion.
This is a follow-up study for comparison with 02/09/2023.
Mitral regurgitation appears less significant in the present study. Otherwise, there is no significant change.
ASSESSMENT & PLAN
Sepsis
suspect Acute pulmonary edema plus PNA +/_ aspiration
Associated Acute hypoxic RF requiring BiPAP support
- cont. BiPAP
- IV lasix 40 daily
- cont NTP
- cont Zosyn
- DDSI 4 - pureed, thin liquids
- Engine Cleaner consult
Elevated TPNI suspect NMITE
CAD
Recent NSTEMI
- on Plavix
- on statin
- held IMN while on NTP
Paroxysmal atrial fibrillation with pacemaker
-EKG with normal sinus rhythm, left anterior fascicular block
- on TELEVISION [employer]SC[employer]OR amiodarone
- on TELE[employer]ION [employer]SC[employer]OR Eliquis
- on TELE[employer]ION [employer]SC[employer]OR metoprolol
HX CAUTI : ESBL positive E. coli UTI/bacteremia
Recent ESBL E. coli catheter associated UTI with bacteremia/ESBL Klebsiella hospitalization 06/09-06/16/23
chronic Padilla catheter secondary to urinary retention from Parkinson's
- f/u UCx
- Tylenol as needed for fever
Anemia of chronic disease
-Hemoglobin stable
-No active bleeding
-Continue to monitor
Sacrum Stage 1 Pressure Injury, POA.
-Barrier ointment per protocol.
Essential hypertension
-Metoprolol
Parkinson's disease
Chronic gait dysfunction
- on Sinemet
Anxiety/depression
- on sertraline
Chronic vertigo
- on meclizine
DVT prophylaxis�Eliquis
DNR
IMU
[2023-10-11 06:11] LABS: Urine Bacteria Many (Negative); Urine Red Blood Cell 0-2 /HPF (0-2); Urine Squamous Cell 0-2 /LPF (Few)
[2023-10-11 07:26] LABS: INR 1.38; PT 16.8 Sec (11.4-14.6)
[2023-10-11 07:27] LABS: APTT 30.9 Sec (23.4-35.0)
--- NOTE | 2023-10-11 07:55 | W.PN.HOSP.TC ---
Today's Communication/Plan
-
N.p.o.
Diuresis
Antibiotics
Supportive care with BiPAP
Trend troponins
Assessment / Plan
Assessment / Plan
Gen-awake but not alert, not interactive, respiratory distress with tachypnea
HEENT-NC, AT, anicteric, clear oral mm
Neck-supple
CV-reg, no M, +S1/S2
Lungs-bilateral rhonchi
Abd-soft, NT, ND
Ext-no edema
Musculoskeletal-no cyanosis, clubbing
Skin-warm and dry
Neuro-grossly non-focal
Psych-calm, cooperative
Acute hypoxic respiratory failure -differential diagnosis includes acute pulmonary edema, acute aspiration pneumonitis, community-acquired pneumonia, etc. Still on BiPAP, transition to nasal cannula today if able. I reviewed chest x-ray myself,
shows diffuse bilateral interstitial infiltrates. Official read pending.
Updated patient's son at the bedside regarding her guarded prognosis. He agrees with transition to comfort measures if she does not improve.
Although she has leukocytosis, I do not feel she is currently septic.
On empiric IV Zosyn for presumed aspiration pneumonia.
Acute heart failure with preserved EF exacerbation -continue IV Lasix. BNP 1060.
Troponin elevation -ACS versus acute nonischemic troponin elevation due to acute illness. Trend troponins.
Essential hypertension with hypertensive emergency -in the setting of acute pulmonary edema, acute heart failure exacerbation.
Parkinson's disease
Ambulatory dysfunction -limited mobility due to Parkinson's. Uses a rolling walker.
Paroxysmal atrial fibrillation
Permanent pacemaker
CAD
Severe protein calorie malnutrition
DNR
Anticipated Discharge: > 48 hours
Subjective/Interval History
-
Date of Service: October 11, 2023
Patient seen and examined. Remains somnolent, staring off into space. Not interactive.
Objective Data
-
Labs:
Laboratory Results
10/11/23 10/11/23
04:25 07:01
WBC 17.4 H
Hgb 12.0
Hct 37.3
Plt Count 313
PT 16.8 H
INR 1.38
APTT 30.9
Sodium 139
Potassium 4.3
Chloride 107
Carbon Dioxide 22
BUN 35 H
Creatinine 1.0
Glucose 206 H
Calcium 9.1
Total Bilirubin 0.7
AST 21
ALT < 10
Alkaline Phosphatase 121
Vital Signs:
Vital Signs
Temp Pulse Resp BP Pulse Ox
98.2 F 80 28 213/77 83
10/11/23 07:14 10/11/23 07:14 10/11/23 07:14 10/11/23 07:14 10/11/23 07:14
Review of Systems
-
Unable to obtain full review of systems at this time due to: Acuity
[2023-10-11] MEDS: MORPHINE SULFATE 2 MG IV (08:32)
[2023-10-11] MEDS: NITRO-BID 1 INCH TOPICAL (08:39)
--- NOTE | 2023-10-11 08:48 | CON.PUL ---
Consultation
Consultation Request
Date/Time Consultation Requested: 10/11/2023730
Date/Time Consultation Performed: 10/11/2023 - 834
Requesting Provider: Dr. Valdez
Performing Provider: Dr. Rios
Reason for Consultation: Hypoxia, sepsis, pneumonia
Medical History
-
Chief Complaint: Respiratory distress
History of Present Illness:
88-year-old female with a past medical history of CAD with JAYLAN to RCA (01/2023), and history of NSTEMI, paroxysmal A-fib on Eliquis and amiodarone, Parkinson's disease, hypertension, history of E. coli bacteremia (ESBL), history of CAUTI,
anxiety/depression, anemia of chronic disease, hypertension and chronic inserts function who presented via EMS from [facility] due to general malaise with hypoxia and saturations down to 51% on room air at her facility, with saturations only
improved to the low 80s on 15 L nonrebreather. Patient is a poor historian. In triage, she was afebrile to 98 �F, pulse rate 73, she was tachypneic to 22 breaths/min, BP 176/69 and she was placed onto BiPAP with saturations only improved to 85%.
Saturations slowly improved to the low 90s. Labs showed leukocytosis to 17.4, glucose 206, lactate 1.8, elevated troponin of 0.106, proBNP of 1060 (previously in May 2023 it was 8220), and urinalysis was positive for nitrites with plus
leukocyte esterase and many bacteria. She was COVID antigen negative, as well as flu A/B-. Blood cultures were sent as well as urine culture. CXR showed patchy consolidations mainly in the right lung with a right pleural effusion, and a similar
appearing left lung compared to 08/26/2023 + 06/09/2023 suspicious for chronic scarring versus atelectasis. She was given Lasix in the ER, Zosyn and nitroglycerin ointment 1 inch. Due to her need for continuous BiPAP she was admitted to the IMU for
further care and pulmonary consulted for additional management/recommendations.
When I saw the patient she was in bed, on BiPAP on 02/03 and bled with 15 L/min. We were able to wean her off BiPAP and onto high flow NC starting at 100% FiO2. She was able to answer all my questions appropriately. She had minimal complaints,
including denying chest pain, abdominal pain, fevers or chills, although she did appear tachypneic. Family at bedside with son and daughter and I answered all their questions. They are realistic with her mother knowing that if she does not improve
that we will make her comfortable. For now they would like us to continue full medical treatment. She is DNR/DNI.
Of note patient recently hospitalized from 08/25or due to generalized weakness with acute metabolic encephalopathy, with sudden return to her baseline mental status during her hospital stay at that time. CXR and CT of the head were
unremarkable and there were no fever or leukocytosis. Urine and blood cultures were also negative at that time. She was discharged to a [facility] facility on her home medications.
PMHx: Parkinson's disease, history of CAUTI with ESBL E. coli bacteremia, chronic Padilla due to urinary retention in the setting of Parkinson's disease, anemia of chronic disease, chronic hyponatremia, paroxysmal A-fib s/p PPM, sacral pressure
injury, CAD, history of NSTEMI, hypertension, chronic ambulatory dysfunction, anxiety/depression, vertigo, severe protein calorie malnutrition
PSHx: PPM, hysterectomy, hernia repair, bladder lift, cataract surgery
Past Medical History
Past Medical History: Other (Above as per HPI)
Past Surgical History: Other (Above as per HPI)
Social History
Tobacco: Non-smoker
Alcohol: None
Drug: None
Living: [facility]
Family History
Family History: Reviewed & Not Pertinent
Allergies / Home Medications
Allergies
Allergy/AdvReac Type Severity Reaction Status Date / Time
No Known Allergies Allergy Verified 10/11/23 04:13
Home Medications
�Medication �Instructions �Recorded �Confirmed �Last Taken �Type
apixaban 5 mg tablet (Eliquis) 5 mg PO BID Blood clot 09/21/19 10/11/23 07/18/23 08:00 History
prevention/tx
metoprolol succinate 50 mg 50 mg PO DAILY Blood pressure 09/21/19 10/11/23 07/18/23 08:00 History
tablet,extended release 24 hr
ascorbic acid (vitamin C) 1,000 mg 1,000 mg PO BID Supplement 05/05/20 10/11/23 07/18/23 10:00 History
tablet (Vitamin C)
meclizine 25 mg tablet 25 mg PO [id number] PRN 09/27/21 10/11/23 Unknown History
dizziness/vertigo
calcium carbonate 500 mg PO [id number] PRN heartburn 03/23/22 10/11/23 Unknown History
lidocaine 4 % topical patch 1 patch topical DAILYPRN PRN lower 03/23/22 10/11/23 Unknown History
back pain
metronidazole 1 % topical gel 1 applic topical DAILYPRN PRN 03/23/22 10/11/23 Unknown History
apply to B/L cheeks/forehead
acetaminophen 325 mg tablet 650 mg PO Q6HPRN PRN mild 02/09/23 10/11/23 Unknown History
pain/temp>100
nitroglycerin 0.4 mg sublingual 0.4 mg sublingual [id number] PRN 02/16/23 10/11/23 Unknown History
tablet chest pain
polyethylene glycol 3350 17 gram 17 g PO DAILY Constipation #0 ea 02/19/23 10/11/23 07/18/23 09:00 Rx
oral powder packet (Miralax)
amiodarone 100 mg tablet 100 mg PO DAILY Arrhythmia 06/09/23 10/11/23 07/18/23 08:00 History
cholecalciferol (vitamin D3) 25 50 mcg PO DAILY Supplement 06/09/23 10/11/23 07/18/23 10:00 History
mcg (1,000 unit) tablet
melatonin 3 mg tablet 3 mg PO HSPRN PRN insomnia 06/09/23 10/11/23 Unknown History
nystatin 100,000 unit/gram topical 1 applic topical [id number] PRN rash 06/09/23 10/11/23 Unknown History
powder
ondansetron HCl 4 mg tablet 4 mg PO Q12H PRN nausea 06/09/23 10/11/23 Unknown History
sertraline 50 mg tablet 50 mg PO DAILY Depression 06/09/23 10/11/23 07/18/23 10:00 History
isosorbide mononitrate 30 mg 30 mg PO DAILY #0 tabs 06/16/23 10/11/23 07/18/23 08:00 Rx
tablet,extended release 24 hr
sodium chloride 1,000 mg soluble 500 mg (1/2 x 1,000 mg) PO BID #0 06/16/23 10/11/23 07/18/23 08:00 Rx
tablet tabs
atorvastatin 40 mg tablet 40 mg PO HS High Cholesterol 07/18/23 10/11/23 07/17/23 20:00 History
clopidogrel 75 mg tablet 75 mg PO DAILY Blood Clot 07/18/23 10/11/23 07/18/23 10:00 History
Prevention/Tx
menthol 5 % topical patch (Icy Hot 1 patch topical BID lower back pain 07/18/23 10/11/23 07/18/23 08:00 History
(menthol))
carbidopa 25 mg-levodopa 100 mg 1 tab PO TID Neurological 07/20/23 10/11/23 Unknown History
tablet (Sinemet) Condition ##0
docusate sodium 100 mg capsule 100 mg PO BID #60 caps 07/29/23 10/11/23 Unknown Rx
bisacodyl 10 mg rectal suppository 10 mg RI DAILYPRN PRN constipation 08/26/23 10/11/23 Unknown History
(Dulcolax (bisacodyl))
magnesium hydroxide 400 mg/5 mL 30 ml PO DAILY PRN if no bm on day 08/26/23 10/11/23 Unknown History
oral suspension (Milk of Magnesia) 4
pantoprazole 40 mg granules 40 mg PO DAILY GERD 08/26/23 10/11/23 Unknown History
delayed-release for susp in packet
polyvinyl alcohol-povidone (PF) 1 drp BOTH EYES QID Eye Condition 08/26/23 10/11/23 Unknown History
1.4 %-0.6 % eye drops in a
dropperette (Refresh Classic (PF))
sodium phosphates 19 gram-7 118 ml RI DAILYPRN PRN constipation 08/26/23 10/11/23 Unknown History
gram/118 mL enema (Fleet Enema)
Magic Cup PO BID 10/11/23 Unknown History
Uqora 1 packet PO DAILY uti prophylaxis 10/11/23 10/11/23 Unknown History
mirtazapine 15 mg tablet (Remeron) 15 mg PO HS 10/11/23 10/11/23 Unknown History
Review of Systems
-
Unable to Obtain full review of systems at this time due to: Acuity
Vitals / Labs / Diagnostic Testing
Vital Signs
Temp Pulse Resp BP Pulse Ox
98.7 F 74 16 81/34 96
10/11/23 16:00 10/11/23 16:00 10/11/23 16:00 10/11/23 16:00 10/11/23 18:13
Lab Data
10/11/23 11:45
10/11/23 04:25
Laboratory Results
10/11/23 10/11/23
07:01 11:45
PT 16.8 H
INR 1.38
APTT 30.9 Cancelled
Microbiology
10/11/23 04:27 Nasal Swab Influenza Types A & B (SALENA) - Final
Negative for Influenza A & B, NAAT
Negative results must be combined with clinical observations
and patient history.
Nucleic Acid Amplification test (NAAT)performed on the
[employer] platform.
Diagnostic Testing:
Physical Exam
-
HEENT: Normocephalic and Anicteric
Cardiovascular: Peripheral Edema (Negative) and Other (Normal rate)
Respiratory: Wheeze (Negative), Rales (Bilaterally), Rhonchi (Negative) and Accessory Resp Muscle Use (Mild)
GI: Soft, Non Distended and Non Tender
Neurology: Tremors (Negative)
Skin: Warm and Dry
General: Respiratory Distress (Positive), Chills (Negative) and Other (Lethargic appearing in acute distress but answers my questions appropriately)
Assessment
-
Assessment: 88-year-old female with a past medical history of CAD with JAYLAN to RCA (01/2023), and history of NSTEMI, paroxysmal A-fib on Eliquis and amiodarone, Parkinson's disease, hypertension, history of E. coli bacteremia (ESBL), history of
CAUTI, anxiety/depression, anemia of chronic disease, hypertension and chronic inserts function who presented via EMS from [facility] due to general malaise with hypoxia and saturations down to 51% on room air at her facility, with saturations only
improved to the low 80s on 15 L nonrebreather. Patient afebrile to 98 �F, pulse rate 73, she was tachypneic to 22 breaths/min, BP 176/69 and she was placed onto BiPAP with saturations only improved to 85%. Saturations slowly improved to the low
90s. Labs showed leukocytosis to 17.4, glucose 206, lactate 1.8, elevated troponin of 0.106, proBNP of 1060 (previously in May 2023 it was 8220), and urinalysis was positive for nitrites with plus leukocyte esterase and many bacteria. She was
COVID antigen negative, as well as flu A/B-. Blood cultures were sent as well as urine culture. CXR showed patchy consolidations mainly in the right lung with a right pleural effusion, and a similar appearing left lung compared to 08/26/2023 +
06/09/2023 suspicious for chronic scarring versus atelectasis. She was given Lasix in the ER, Zosyn and nitroglycerin ointment 1 inch. Due to her need for continuous BiPAP she was admitted to the IMU for further care and pulmonary consulted for
additional management/recommendations.
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 coli bacteremia, chronic Padilla due to urinary retention in the setting of Parkinson's disease, anemia of chronic disease, chronic hyponatremia, paroxysmal A-fib s/p PPM,
sacral pressure injury, CAD, history of NSTEMI, hypertension, chronic ambulatory dysfunction, anxiety/depression, vertigo, severe protein calorie malnutrition
Impression:
#Acute respiratory failure with hypoxia due to suspected combination of pneumonia + acute decompensated heart failure (more a component of the former)
#Acute encephalopathy likely due to toxic�metabolic cephalopathy in the setting of sepsis and hypoxia with acute organ dysfunction
#Parkinson's disease
#Positive urinalysis suspicious for UTI
#Hyperglycemia
#Elevated troponin with infero-anterolateral T wave inversions -differential includes type II DC with demand ischemia versus ACS
#Atrial fibrillation on Eliquis and amiodarone
Plan:
- Continue ABx w/ Zosyn - plan for 7 days assuming pt remains afebrile for 48 hrs prior to stopping Abx
- Trial off BiPAP, check blood gas to assure she is not hypercapneic, and wean down HFNC to goal of midflow and then we can insert dobhoff tube and give her her PO meds
- Keep NPO until DHT has been placed
- Cardiology consulted due to elevated troponin - heparin gtt started
- Trend troponin until begins to downtrend
- Maintain SpO2 >90-94% with supplemental O2 as needed
- prn nebulized bronchodilators
- Maintain net neutral to slightly net negative as tolerated, but aim for more net neutral given her sepsis
- Start vasopressors if needed, using levophed as first line
- Aspiration precuations
- Incentive spirometer encouraged once her mentation improves
- Replete electrolytes with K>4, Mg>2
- Maintain euglycemia with goal BG >140 and <180
- DVT ppx
- Guarded prognosis
Family understands that the patient's prognosis is poor. They would still like full medical treatment at this time and if she continues to worsen then they would withdraw care and make her comfortable. I answered all their questions and they
verbalized understanding.
Pulmonary service will continue to follow along.
Data:
CXR 10-11-2023: Patchy airspace consolidation throughout the right lung most likely representing pneumonia. Small right pleural effusion.
Total time spent today was 75 minutes for this encounter. Time includes reviewing laboratory test/imaging results, reviewing pertinent medical records, obtaining and reviewing medical history, performing an appropriate exam, ordering medications,
tests and procedures. Time also includes documentation of this encounter, coordinating patient care and communicating with other healthcare professionals. Total time does not include separately billed tests performed on this date of service.
[2023-10-11] MEDS: REFRESH EYE DROPS (PF) BOTH EYES (09:34)
[2023-10-11] MEDS: PACERONE PO (09:34)
[2023-10-11] MEDS: SINEMET 25-100 PO ×2 (09:34→16:16)
[2023-10-11] MEDS: PLAVIX PO (09:35)
[2023-10-11] MEDS: ZOSYN 50 IV ×3 (12:42→23:30)
[2023-10-11] MEDS: REFRESH EYE DROPS (PF) 1 DROPS BOTH EYES ×3 (12:42→22:00)
--- NOTE | 2023-10-11 13:00 | CON.CAR ---
Addendum entered and electronically signed by Naveen Kebede MD 10/11/23 15:00:
I saw and examined the patient.
The TEXTILE COLORIST DYER's note was reviewed and I agree with the note.
Comment: 88 year old (known to Dr. Talley) with hypertension, Parkinson's disease, paroxysmal atrial fibrillation (on apixaban and amiodarone), CAD (JAYLAN to RCA 02/03/2023, NSTEMI 05/2023, residual disease being medically managed),
tachybradycardia s/p PPM, and dyslipidemia who presented to the emergency department the chief complaint of shortness of breath. History is unreliable. Her son and daughter at the bedside. Her son reports she was found in her room hypoxic with a
saturation of 51% and appearing very sanchez. She was taken to the hospital, initially placed on BiPAP which is changed to high flow nasal cannula with good response. Initially she had was quite hypertensive but with treatments of Nitropaste, Lasix,
morphine and transition off of BiPAP this has become low to low normal. She is easily arousable but does not provide an adequate history due to cooperation. She is calm. On exam, she has diffuse mild active and expiratory wheezing, regular rate
and rhythm normal S1-S2 no murmur rubs or gallops were appreciated, extremities were soft warm well-perfused. EKG showed sinus rhythm with LVH associated ST-T wave abnormalities no change from prior. Last catheterization and echocardiograms
reviewed. There is a possibility some of her hypoxic respiratory failure is due to aspiration, however I would also consider some element of flash pulmonary edema given her hypertension. We will continue to gently diurese her. If blood pressure
increases would add back in some nitrate. We are asked to comment on her elevated troponin. This is not due to acute plaque rupture rather acute hypoxic respiratory failure. Will treat the underlying cause. She has a history of PAF but is in
normal sinus rhythm on amiodarone and typical apixaban but due to mental status, is NPO. Agree with heparin drip. Will follow..
Original Note:
Consultation
Consultation Request
Date/Time Consultation Requested: 10/11/2023 11:30
Date/Time Consultation Performed: 10/11/2023 12:45
Requesting Provider: Dr. Rios
Performing Provider: HERIBERTO Olvera for Dr. Kebede
Reason for Consultation: Abnormal troponin
Medical History
-
Chief Complaint: Shortness of breath
History of Present Illness:
Dayan Abdullahi is an 88 year old (known to Dr. Talley) with hypertension, Parkinson's disease, paroxysmal atrial fibrillation (on apixaban and amiodarone), CAD (JAYLAN to RCA 02/03/2023, NSTEMI 05/2023, residual disease being medically managed),
tachybradycardia s/p PPM, and dyslipidemia who presented to the emergency department the chief complaint of shortness of breath. She was found to be hypoxic with SpO2 51% on arrival. She was placed on BiPAP. She was found to be significantly
hypertensive with a systolic blood pressure in the 190s. She was given Nitropaste, furosemide, morphine, and transition to high flow nasal cannula. This HPI is limited due to patient's acuity.
Past Medical History
Past Medical History: Arrhythmias (Paroxysmal atrial fibrillation), CAD, CHF, HTN, Hypercholesterolemia and Other (Parkinson's disease)
Past Surgical History: Gynecological and Urological
Social History
Tobacco: Non-Smoker
Alcohol: None
Drug: None
Living: Assisted Living
Employment: Retired
Family History
Family History: Unable to Obtain
Allergies / Home Medications
Allergy/AdvReac Type Severity Reaction Status Date / Time
No Known Allergies Allergy Verified 10/11/23 04:13
�Medication �Instructions �Recorded �Confirmed �Type
apixaban 5 mg tablet (Eliquis) 5 mg PO BID Blood clot 09/21/19 10/11/23 History
prevention/tx
metoprolol succinate 50 mg 50 mg PO DAILY Blood pressure 09/21/19 10/11/23 History
tablet,extended release 24 hr
ascorbic acid (vitamin C) 1,000 mg 1,000 mg PO BID Supplement 05/05/20 10/11/23 History
tablet (Vitamin C)
meclizine 25 mg tablet 25 mg PO [id number] PRN 09/27/21 10/11/23 History
dizziness/vertigo
calcium carbonate 500 mg PO [id number] PRN heartburn 03/23/22 10/11/23 History
lidocaine 4 % topical patch 1 patch topical DAILYPRN PRN lower 03/23/22 10/11/23 History
back pain
metronidazole 1 % topical gel 1 applic topical DAILYPRN PRN 03/23/22 10/11/23 History
apply to B/L cheeks/forehead
acetaminophen 325 mg tablet 650 mg PO Q6HPRN PRN mild 02/09/23 10/11/23 History
pain/temp>100
nitroglycerin 0.4 mg sublingual 0.4 mg sublingual [id number] PRN 02/16/23 10/11/23 History
tablet chest pain
polyethylene glycol 3350 17 gram 17 g PO DAILY Constipation #0 ea 02/19/23 10/11/23 Rx
oral powder packet (Miralax)
amiodarone 100 mg tablet 100 mg PO DAILY Arrhythmia 06/09/23 10/11/23 History
cholecalciferol (vitamin D3) 25 50 mcg PO DAILY Supplement 06/09/23 10/11/23 History
mcg (1,000 unit) tablet
melatonin 3 mg tablet 3 mg PO HSPRN PRN insomnia 06/09/23 10/11/23 History
nystatin 100,000 unit/gram topical 1 applic topical [id number] PRN rash 06/09/23 10/11/23 History
powder
ondansetron HCl 4 mg tablet 4 mg PO Q12H PRN nausea 06/09/23 10/11/23 History
sertraline 50 mg tablet 50 mg PO DAILY Depression 06/09/23 10/11/23 History
isosorbide mononitrate 30 mg 30 mg PO DAILY #0 tabs 06/16/23 10/11/23 Rx
tablet,extended release 24 hr
sodium chloride 1,000 mg soluble 500 mg (1/2 x 1,000 mg) PO BID #0 06/16/23 10/11/23 Rx
tablet tabs
atorvastatin 40 mg tablet 40 mg PO HS High Cholesterol 07/18/23 10/11/23 History
clopidogrel 75 mg tablet 75 mg PO DAILY Blood Clot 07/18/23 10/11/23 History
Prevention/Tx
menthol 5 % topical patch (Icy Hot 1 patch topical BID lower back pain 07/18/23 10/11/23 History
(menthol))
carbidopa 25 mg-levodopa 100 mg 1 tab PO TID Neurological 07/20/23 10/11/23 History
tablet (Sinemet) Condition ##0
docusate sodium 100 mg capsule 100 mg PO BID #60 caps 07/29/23 10/11/23 Rx
bisacodyl 10 mg rectal suppository 10 mg SC DAILYPRN PRN constipation 08/26/23 10/11/23 History
(Dulcolax (bisacodyl))
magnesium hydroxide 400 mg/5 mL 30 ml PO DAILY PRN if no bm on day 08/26/23 10/11/23 History
oral suspension (Milk of Magnesia) 4
pantoprazole 40 mg granules 40 mg PO DAILY GERD 08/26/23 10/11/23 History
delayed-release for susp in packet
polyvinyl alcohol-povidone (PF) 1 drp BOTH EYES QID Eye Condition 08/26/23 10/11/23 History
1.4 %-0.6 % eye drops in a
dropperette (Refresh Classic (PF))
sodium phosphates 19 gram-7 118 ml SC DAILYPRN PRN constipation 08/26/23 10/11/23 History
gram/118 mL enema (Fleet Enema)
Magic Cup PO BID 10/11/23 History
Uqora 1 packet PO DAILY uti prophylaxis 10/11/23 10/11/23 History
mirtazapine 15 mg tablet (Remeron) 15 mg PO HS 10/11/23 10/11/23 History
Review of Systems
-
Unable to obtain full review of systems at this time due to: Acuity
Physical Exam
Vital Signs
Temp Pulse Resp BP Pulse Ox
98.3 F 78 16 103/53 99
10/11/23 12:33 10/11/23 10:47 10/11/23 10:47 10/11/23 10:47 10/11/23 12:00
Lab Results
10/11/23 11:45
10/11/23 04:25
Troponin I 2.160 ng/ml H* D 10/11/23 10:44
Rao-G-Rupyeuuvmev Pept 1060 pg/ml 10/11/23 04:25
Physical Exam
General: Well Developed, Well Nourished, No Apparent Distress and Comfortable
HEENT: Normocephalic, Anicteric and Moist Mucous Membranes
Respiratory: Clear and Non Labored Respirations
Cardiac: S1/S2 and Regular Rhythm; Negative Peripheral Edema
Breast: Deferred by me
GI: Soft, Non Tender, Non Distended and Normal Bowel Sounds
Rectal: Deferred by Provider
Genito-urinary: No Costovertebral Tender
Musculoskeletal: No Clubbing, No Cyanosis and No Edema
Skin: Warm and Dry
Neuro: Awake and Alert
Hematologic/Lymphatic: No Lymphadenopathy
Psych: Calm
Impression / Plan
-
Acute hypoxic respiratory failure, multifactorial
-With flash pulmonary edema and suspected aspiration
-Initially on BiPAP, transition to high flow nasal cannula in the setting of suspected aspiration, on 55L/100% FiO2
HFpEF, acute on chronic
-Continue diuresis with furosemide
-Would avoid SGLT2i given recent UTI
Abnormal troponin, type unknown, likely type II secondary to acute hypoxic respiratory failure
-Trend to peak
-Denies chest pain
Hypertension, presented with hypertensive emergency
-Presented with blood pressure 195/75 with abnormal troponin, now normotensive
CAD
-NSTEMI 05/2023, diagonal culprit felt to be distal and supplied only by small amount of myocardium, being medically managed
-JAYLAN to RCA 01/2023
-Rectal dose of aspirin ordered for now
Paroxysmal atrial fibrillation
-Maintaining sinus rhythm
-NPO, amiodarone on hold
-Oral Anticoagulation: Apixaban 5mg BID, currently NPO, heparin gtt being started
-[id number]: score at least 6 (Heart failure, HTN, age 75 or more, Vascular disease,female gender)
Tachybradycardia syndrome s/p PPM
Parkinson's disease
Data Reviewed
-
EKG: Report Reviewed by me (Sinus rhythm, LAFB, LVH, lateral T wave abnormality, rate 78)
Medical Tests (Nuc Med, Echo etc): Report Reviewed by me (TTE 06/10/2023: EF 55-60. Trace )
Labs: Labs Reviewed by me
Old Records: Reviewed
[2023-10-11] MEDS: ASPIRIN 300 MG RECTAL (13:09)
[2023-10-11] MEDS: HEPARIN 25000 UNITS/250 ML IV (13:10)
[2023-10-11] MEDS: HEPARIN 3900 UNITS IV (13:10)
--- NOTE | 2023-10-11 13:46 | PTCARENOTE ---
Addendum entered by Mary Hendrickson RN 10/11/23 13:58:
pt has also been transitioned to high flow, sats maintained in mid 90s
Original Note:
Pt given rectal aspirin as ordered, heparin bolus and gtt initiated as ordered given rise in troponin and eliquis on hold.
--- NOTE | 2023-10-11 15:07 | PTCARENOTE ---
pt having echo at bedside.
[2023-10-11] MEDS: NSS (PRESERVATIVE FREE) 10 ML IV (15:37)
[2023-10-11] MEDS: PROTONIX IV 40 MG IV (15:37)
--- NOTE | 2023-10-11 15:50 | CM ---
CM following re: discharge planning.
Reviewed pt's chart, met with pt. pt's daughter Mary and son Iglesia at bedside.
Pt is an 88 year old female, admitted with primary dx of Acute hypoxic respiratory failure. Pt currently on 55L HFNC with FIO2 100%.
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 Per son, pt is on bed hold.
D/C plan: uncertain at this time and will depend on pt's progress.
CM will follow with discharge plan updates as hospitalization progresses
[2023-10-11] MEDS: FLEXBUMIN 100 IV (16:15)
[2023-10-11 16:26] LABS: Venous Blood Gas B.E. -4.4 mmol/L (-4 to +4); Venous Blood Gas HCO3 20.1 mmol/L (22-27); Venous Blood Gas O2 Sat % 99.4 %; Venous Blood Gas pCO2 34 mmHg (35-48); Venous Blood Gas pH 7.38 (7.32-7.43); Venous Blood Gas pO2 208 mmHg (30-50)
--- NOTE | 2023-10-11 16:27 | PTCARENOTE ---
Pt hypotensive after lasix this afternoon with minimal response. Dr Rios in and spoke with family, albumin initiated as ordered. labs drawn and sent. Pt remains lethargic but arousable, chase with generalized weakness, following simple
commands. Weaning high flow as able in attempts to try mid flow and attempt dht to give medications.
[2023-10-11] MEDS: LEVOPHED 250 IV (18:16)
--- NOTE | 2023-10-11 18:29 | PTCARENOTE ---
pt remains hypotensive despite albumin, levo initiated per dr salazar to keep map 65. oxygen has been weaned to 15 l midflow at present with sats 100%. pt remains lethargic but arousable. family (son and daughter) updated t/o shift at bedside.
--- NOTE | 2023-10-11 18:58 | PTCARENOTE ---
pt agreeable to dht, placed in r nare with minimal difficulty, pt had weak swallow twice during insertion, no cough or resp distress post insertion. abd xray pending placement in abdomen. tube taped at 65cm
[2023-10-11 19:48] LABS: APTT 123.9 Sec (23.4-35.0)
--- NOTE | 2023-10-11 20:00 | PTCARENOTE ---
Received patient at 1900. Pt. currently in bed. Drowsy but arousable. Answers questions appropriately. Extremities are weak. Currently denies pain/discomfort. Afebrile. Heart rhythm sinus. Levophed gtt infusing to maintain MAP >65. Currently on 10L
midflow cannula. Lungs sound diminished, scattered crackles. Pt. has dobhoff tube in R nare. Verified by Xray. Chronic sykes catheter in place, draining without issue. Skin as documented. Discussed plan of care with patient. Vital signs stable at
this time.
[2023-10-11] MEDS: SINEMET 25-100 1 TABLET PO (21:59)
--- NOTE | 2023-10-11 23:45 | PTCARENOTE ---
Pt. assessment unchanged. Heparin gtt adjusted during PTT assessment per order. Levophed infusion remains on currently. Troponin level trending down. Vital signs stable at this time.
[2023-10-12] VITALS (30 sets, daily range): BP systolic 84–186; BP diastolic 36–70; BMI 23.0
[2023-10-12] MEDS: MORPHINE SULFATE 2 MG IV (02:09)
[2023-10-12 03:08] LABS: Hematocrit 28.1 % (37.0-47.0); Hemoglobin 9.6 g/dL (12.0-16.0); Mean Corp Hgb Conc. 34.2 g/dL (33.0-37.0); Mean Corpuscular Hgb 29.5 pg (27.0-31.0); Mean Corpuscular Volume 86.5 fL (81.0-99.0); Mean Platelet Volume 10.3 fL (7.4-10.4); Platelet Count 233 10^3/uL (130-400); Red Blood Cell Count 3.25 10^6/uL (4.20-5.40); Red Cell Dist. Width 17.9 % (11.5-14.5)
[2023-10-12 03:20] LABS: APTT 77.6 Sec (23.4-35.0)
--- NOTE | 2023-10-12 03:30 | PTCARENOTE ---
Pt. hypertensive at 2am. Levophed infusion shut off. MAP currently above goal. AM labs drawn. Vital signs stable at this time.
[2023-10-12 03:37] LABS: ALT (SGPT) < 10 U/L (0-35); AST (SGOT) 34 U/L (14-36); Albumin 3.6 g/dl (3.5-5.0); Alkaline Phosphatase 42 U/L (38-126); Blood Urea Nitrogen 50 mg/dl (7-17); Calcium 9.2 mg/dl (8.4-10.2); Carbon Dioxide 22 mmol/L (22-30); Chloride 107 mmol/L (98-107); Estimated Creatinine Clearance 24 ml/min; Glucose 110 mg/dl (70-99); Magnesium 1.7 mg/dl (1.6-2.3); Phosphorus 4.6 mg/dl (2.5-4.5); Potassium 4.1 mmol/L (3.5-5.1); Sodium 140 mmol/L (135-145); Total Bilirubin 2.2 mg/dl (0.2-1.3); eGFR 33.31
[2023-10-12 03:42] LABS: NT-proBNP 5510 pg/ml
[2023-10-12] MEDS: ZOSYN 50 IV ×3 (05:03→17:18)
--- NOTE | 2023-10-12 06:00 | PTCARENOTE ---
Noticed throughout shift that patient was leaking urine around Sykes catheter. Pad underneath patient saturated. This was also an issue previous shift per report received. No urine output in sykes bag since midnight. Patient bladder scanned for
494ml despite no urine draining in bag. Spoke with HERIBERTO Matthews. Sykes catheter changed out for a new one. 350ml initial output in bag (plus unspecified amount on pad). Catheter now appears to be draining without issue.
--- NOTE | 2023-10-12 07:00 | PTCARENOTE ---
received patient from nightshift RN. pt resting in bed, lethargic. responds minimally to verbal arousal. attempts to open eyes. able to wiggle toes and lightly squeeze hands on command. generalized weakness throughout. SR on telemetry with
occasional a pacing. pulses palpable. trace edema. pt on 10 L midflow nasal cannula, sat 98%. lung sounds diminished. active bowel sounds, abdomen round. sykes draining cloudy yellow urine with sediment. see worklist for full nursing assessment
and interventions.
--- NOTE | 2023-10-12 07:47 | W.PN.HOSP.TC ---
Addendum entered and electronically signed by Edwin Sawyer DO 10/12/23 13:19:
Cardiology feels acute heart failure unlikely. Therefore this is chronic heart failure preserved EF.
Acute nonischemic myocardial injury. ACS ruled out. Stop IV heparin. Discussed with cardiology.
Original Note:
Today's Communication/Plan
-
Wean oxygen as able
Hold Lasix
Monitor urine output
Continue antibiotics
Speech consult
Start tube feeds
Assessment / Plan
Assessment / Plan
Gen-awake but not alert, not interactive, respiratory distress with tachypnea
HEENT-NC, AT, anicteric, clear oral mm
Neck-supple
CV-reg, no M, +S1/S2
Lungs-bilateral rhonchi
Abd-soft, NT, ND
Ext-no edema
Musculoskeletal-no cyanosis, clubbing
Skin-warm and dry
Neuro-grossly non-focal
Psych-calm, cooperative
Shock -doubt due to sepsis. Doubt cardiogenic. Possibly related to antihypertensive therapy. Off vasopressors. Nitroglycerin topical discontinued.
Acute TME -POA. Not improving much overall. Continue supportive care. Etiology likely due to hypoxic respiratory failure, critical illness.
Remains n.p.o. due to encephalopathy. Dobbhoff tube inserted. Start tube feeds. Speech therapy consult prior to feeding by mouth.
Acute hypoxic respiratory failure -respiratory failure likely combination of pulmonary edema and pneumonia.
Oxygenation improving, was on high flow nasal cannula yesterday, currently on 10 L nasal cannula. Wean down as able.
Acute heart failure with preserved EF exacerbation - BNP 1060 on admission, repeat 5510. Hold further Lasix today due to ARNOLDO.
Aspiration pneumonia -continue IV Zosyn for now. Afebrile. Leukocytosis persists. Chest x-ray on admission with right sided infiltrate. Repeat chest x-ray today shows more consolidation.
ARNOLDO -related to hemodynamic shifts, significant hypotension, ATN. Creatinine 1.5 today. Nonoliguric. Padilla catheter in place.
Acute nonischemic myocardial injury - ACS versus acute nonischemic troponin elevation due to acute illness, acute respiratory failure. Troponin trending down. IV heparin per cardiology.
Essential hypertension with hypertensive emergency -in the setting of acute pulmonary edema, acute heart failure exacerbation. Hypertensive emergency resolved. Transient shock as above.
Chronic normocytic anemia - baseline hemoglobin around 10. Currently 9.6. Monitor for now.
Parkinson's disease -stable.
Ambulatory dysfunction -limited mobility due to Parkinson's. Uses a rolling walker.
Paroxysmal atrial fibrillation -on Eliquis and amiodarone. Currently on IV heparin.
Hyperlipidemia -on atorvastatin.
Permanent pacemaker
CAD
Severe protein calorie malnutrition
DNR
Anticipated Discharge: > 48 hours
Subjective/Interval History
-
Date of Service: October 12, 2023
Patient seen and examined. Remains confused, somnolent, mildly arousable.
Objective Data
-
Labs:
Laboratory Results
10/11/23 10/12/23 10/12/23
19:29 03:00 09:00
WBC 17.0 H
Hgb 9.6 L
Hct 28.1 L
Plt Count 233 D
APTT 123.9 H 77.6 H Pending
Sodium 140
Potassium 4.1
Chloride 107
Carbon Dioxide 22
BUN 50 H
Creatinine 1.5 H
Glucose 110 H
Calcium 9.2
Total Bilirubin 2.2 H D
AST 34
ALT < 10
Alkaline Phosphatase 42
Vital Signs:
Vital Signs
Temp Pulse Resp BP Pulse Ox
97.4 F 90 14 145/57 96
10/12/23 07:35 10/12/23 06:06 10/12/23 06:06 10/12/23 06:06 10/12/23 06:00
I&O
10/11/23 10/12/23 10/13/23
06:59 06:59 06:59
Intake Total 503.5 / 503.5
Output Total 1375 / 1375
Balance -871.5 / -871.5
Review of Systems
-
Unable to obtain full review of systems at this time due to: Acuity
[2023-10-12] MEDS: NSS (PRESERVATIVE FREE) 10 ML IV (08:11)
[2023-10-12] MEDS: PROTONIX IV 40 MG IV (08:11)
[2023-10-12] MEDS: REFRESH EYE DROPS (PF) 1 DROPS BOTH EYES ×4 (08:11→22:34)
[2023-10-12] MEDS: PACERONE 100 MG PO (08:11)
[2023-10-12] MEDS: SINEMET 25-100 1 TABLET PO ×3 (08:12→22:34)
--- NOTE | 2023-10-12 09:12 | W.PN.PUL3 ---
Today's Communication / Plan
-
Abx
Aspiration precautions
She appears to have bibasilar atelectasis
Maintain SpO2 >90-94%
Guarded prognosis � low threshold to transition to comfort care if she worsens
Assessment
-
Assessment: 88-year-old female with a past medical history of CAD with JAYLAN to RCA (01/2023), and history of NSTEMI, paroxysmal A-fib on Eliquis and amiodarone, Parkinson's disease, hypertension, history of E. coli bacteremia (ESBL), history of
CAUTI, anxiety/depression, anemia of chronic disease, hypertension and chronic inserts function who presented via EMS from [email or web address] due to general malaise with hypoxia and saturations down to 51% on room air at her facility, with saturations only
improved to the low 80s on 15 L nonrebreather. Patient afebrile to 98 �F, pulse rate 73, she was tachypneic to 22 breaths/min, BP 176/69 and she was placed onto BiPAP with saturations only improved to 85%. Saturations slowly improved to the low
90s. Labs showed leukocytosis to 17.4, glucose 206, lactate 1.8, elevated troponin of 0.106, proBNP of 1060 (previously in May 2023 it was 8220), and urinalysis was positive for nitrites with plus leukocyte esterase and many bacteria. She was
COVID antigen negative, as well as flu A/B-. Blood cultures were sent as well as urine culture. CXR showed patchy consolidations mainly in the right lung with a right pleural effusion, and a similar appearing left lung compared to 08/26/2023 +
06/09/2023 suspicious for chronic scarring versus atelectasis. She was given Lasix in the ER, Zosyn and nitroglycerin ointment 1 inch. Due to her need for continuous BiPAP she was admitted to the IMU for further care and pulmonary consulted for
additional management/recommendations.
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 coli bacteremia, chronic Padilla due to urinary retention in the setting of Parkinson's disease, anemia of chronic disease, chronic hyponatremia, paroxysmal A-fib s/p PPM,
sacral pressure injury, CAD, history of NSTEMI, hypertension, chronic ambulatory dysfunction, anxiety/depression, vertigo, severe protein calorie malnutrition
Impression:
#Acute respiratory failure with hypoxia due to suspected combination of pneumonia + acute decompensated heart failure (more a component of the former)
#Acute encephalopathy likely due to toxic�metabolic cephalopathy in the setting of sepsis and hypoxia with acute organ dysfunction
#Parkinson's disease
#Positive urinalysis suspicious for UTI
#Hyperglycemia
#Elevated troponin with infero-anterolateral T wave inversions -differential includes type II VT with demand ischemia versus ACS - troponin peaked at 2.36 on 10/11/2023
#Atrial fibrillation on Eliquis and amiodarone
Plan:
- Continue ABx w/ Zosyn - plan for 7 days assuming pt remains afebrile for 48 hrs prior to stopping Abx
- She initially was on BiPAP on admission and this was weaned to high flow, and she is now weaned down to mid flow nasal cannula with saturations over 96%.
- Keep NPO; use DHT for PO access and nutrition
- Cardiology consulted due to elevated troponin - heparin gtt started -cardiology recommendations appreciated
- No need to continue trending troponin as it peaked at 2.36 on 10/11/2023
- Maintain SpO2 >90-94% with supplemental O2 as needed
- prn nebulized bronchodilators
- Maintain net neutral to slightly net negative as tolerated, but aim for more net neutral given her sepsis
- Start vasopressors if needed, using levophed as first line
- Aspiration precautions
- Incentive spirometer encouraged once her mentation improves
- Replete electrolytes with K>4, Mg>2
- Maintain euglycemia with goal BG >140 and <180
- DVT ppx
- Guarded prognosis
Family understands that the patient's prognosis is poor. They would still like full medical treatment at this time but if she continues to worsen then they would withdraw care and make her comfortable. I answered all their questions and they
verbalized understanding.
Pulmonary service will continue to follow along.
Data:
CXR 10-12-2023:
Stable findings suggesting left lower lobe pneumonia. Atelectasis not excluded.
Progressed small loculated right pleural effusion.
Improved aeration of the lungs.
Mild cardiomegaly. Stable.
CXR 10-11-2023: Patchy airspace consolidation throughout the right lung most likely representing pneumonia. Small right pleural effusion.
Total time spent today was 50 minutes for this encounter. Time includes reviewing laboratory test/imaging results, reviewing pertinent medical records, obtaining and reviewing medical history, performing an appropriate exam, ordering medications,
tests and procedures. Time also includes documentation of this encounter, coordinating patient care and communicating with other healthcare professionals. Total time does not include separately billed tests performed on this date of service.
Subjective Data
-
Date of Service:
Date of Service: October 12, 2023
Chief Complaint: Pulmonary Follow Up
Subjective:
Patient seen and evaluated today at bedside. She does respond to her son otherwise she does not interact greatly. Currently on 5 L/min nasal cannula saturating 97%. She told her son that she is not in any pain.
Review of Systems
General: Other (Unable to obtain as patient is minimally responsive)
Objective Data
Data Reviewed
Vital Signs / I&O / Oxygen:
Vital Signs
Temp Pulse Resp BP Pulse Ox
97.4 F 70 12 110/45 96
10/12/23 07:35 10/12/23 08:11 10/12/23 07:10 10/12/23 08:11 10/12/23 06:00
Intake and Output
10/11/23 10/12/23 10/13/23
06:59 06:59 06:59
Intake Total 503.5 / 510.5
Output Total 1375 / 1375 175 / 175
Balance -871.5 / -864.5 -154 / -154
SaO2 96
Nasal Cannula flow liters per 55
minute
Physical Exam
General: Respiratory Distress (mild)
HEENT: Normocephalic and Anicteric
Cardiovascular: Peripheral Edema (Negative) and Other (Normal rate)
Respiratory: Wheeze (Negative), Crackles (bilaterally), Rhonchi (Negative) and Accessory Resp Muscle Use (Mild)
GI: Soft, Non Distended, Non Tender and NG Tube
Neurology: Tremors (Negative) and Lethargic (Answers some questions)
Skin: Warm and Dry
Labs/Micro/Reports
Lab Data
10/12/23 03:00
10/12/23 03:00
Laboratory Results
10/11/23 10/11/23 10/12/23
11:45 19:29 03:00
APTT Cancelled 123.9 H 77.6 H
Microbiology
10/11/23 04:25 Blood/Venous Blood Culture - Preliminary
No Growth in 24 hours- Final report to follow
10/11/23 04:25 Blood/Venous Blood Culture - Preliminary
No Growth in 24 hours- Final report to follow
10/11/23 04:27 Nasal Swab Influenza Types A & B (SALENA) - Final
Negative for Influenza A & B, NAAT
Negative results must be combined with clinical observations
and patient history.
Nucleic Acid Amplification test (NAAT)performed on the
[employer] platform.
[2023-10-12] MEDS: PLAVIX 75 MG PO (09:14)
--- NOTE | 2023-10-12 09:40 | PTOTSP ---
Speech Language Pathology
Pt seen for clinical bedside swallow evaluation. Pt seen on recent admissions, but has not had VSE prior at . Diet has been slowly downgraded each admission. P.O. trials of pipetted water provided. Absent swallow with 1st trial until verbally
cued to close oral cavity and swallow. Actively initiated swallow on 2nd independently. Unable to utilize straw. Questionable change in vocal quality noted. Further P.O. trials deferred given lethargy and inconsistent swallow initiation.
Recommend:
(1) Strict NPO
(2) Oral care 4x/day with suctioning as needed
(3) Non-oral meds
(4) Not appropriate for Aspiration Risk Hydration Protocol (ARHP) at this time
(5) Will likely need VSE prior to diet initiation when more alert and able to participate
(6) COMMERCIAL SALES REPRESENTATIVE to continue to follow
[2023-10-12 09:54] LABS: APTT 67.8 Sec (23.4-35.0)
--- NOTE | 2023-10-12 10:11 | W.PN.CD ---
Today's Communication / Plan
-
Treat PNA/Pneumonitis.
Maintain current volume.
Titrate norepinephrine to a MAP of 65 mmHg (Surviving Sepsis Guidelines).
GDMT when hemodynamics will tolerate.
No role for catheterization at this time.
The patient will likely declare herself in the next 24-48 hours, at which time we can decide about EoL care.
If she does recover from this acute episode, outpatient hospice may be appropriate as her Parkinson's swallowing issues will not improve and I fully expect her to aspirate again.
Impression / Plan
-
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 She was recently
admitted with metabolic encephalopathy and confusion, found to have poor PO intake and was labeled 'high risk for aspiration' by speech therapy.
#Acute hypoxic respiratory failure, multifactorial
-SaO2 51% on room air at [place] - improved to 80% on 15LNRB then BiPAP.
-High risk for aspiration per speech evaluation.
-Hypotensive with diuresis argues that this is primarily aspiration pneumonia/pneumonitis, requiring intravascular volume - consistent with echo showing a normal IVC, hemoconcentration that is resolving with intravenous fluid and persistent
leukocytosis with CXR consistent with PNA.
-Piperacillin/tazobactam started.
#HFpEF
-Chronic. She is NOT in decompensated failure.
-GDMT on hold due to acuity.
#ARNOLDO
-Acute.
-Consistent with intravascular depletion from sepsis.
-GDMT on hold to allow perfusion, avoid further renal insult.
#Abnormal troponin
-Non-KY troponin elevation secondary to acute hypoxic respiratory failure.
-Troponin peaked at 2.360.
-Denies chest pain.
-Aspirin 300 mg GA given.
-Echo shows normal function.
-Given lack of chest pain and overall substrated, no role for invasive coronary evaluation.
#Hypertension
-Presented with hypertensive emergency.
-Presented with blood pressure 195/75 with abnormal troponin.
-BP has been highly labile, requiring norepinephrine.
#CAD
-NSTEMI 05/2023, diagonal culprit felt to be distal and supplied only by small amount of myocardium, being medically managed.
-Prior JAYLAN to RCA 01/2023.
-Continue aspirin 81 mg daily (GA at this time).
-Films reviewed. Given her underlying substrated, I would avoid invasive procedures if at all possible.
#Paroxysmal atrial fibrillation
-Currently in sinus rhythm.
-NPO, amiodarone on hold.
-Oral Anticoagulation: Apixaban 5mg BID, currently NPO, heparin gtt being started.
-[id number]: score at least 6 (Heart failure, HTN, age 75 or more, Vascular disease,female gender).
#Tachybradycardia syndrome s/p PPM
#Parkinson's disease
Subjective/Interval History:
Transitioned to HFNC.
She was given furosemide yesterday with minimal response but developed hypotension.
Albumin given with minimal response. Norepinephrine started.
Oxygen weaned to 10L midflow.
Dobhoff placed.
Patient was hypertensive early this morning. Norepinephrine discontinued. One episode of hypotension (86/36 @ 07:00).
Weight down 0.4 kg from yesterday (64.5 kg <-- 64.9 kg) but up from 08/29/2023 (60.736 kg) and down from July (65.6 kg).
CXR all suggest PNA (though admittedly, they vary in location).
WBC remains elevated at 17k.
Hbg has fallen from 12.0 to 9.6 (baseline around 10).
BUN/Cr up to 50/1.5 (normal baseline).
Troponin peaked at 2.360.
DATA:
CXR, 10/11/2023:
IMPRESSION: Patchy airspace consolidation throughout the right lung most likely representing pneumonia. Small right pleural effusion.
TTE, 10/11/2023:
CONCLUSIONS
TDS.
Normal LV size and function with no regional wall motion abnormalities.
LVEF is 55 to 60% by visual estimation.
Mild concentric LVH.
Normal right ventricular size and function.
Mild aortic regurgitation.
Mild tricuspid regurgitation.
Estimated pulmonary artery pressure of 23 mmHg, assuming a right atrial
pressure of 3 mmHg.
No prior study for comparison.
CXR, 10/12/2023:
IMPRESSION:
Stable findings suggesting left lower lobe pneumonia. Atelectasis not excluded.
Progressed small loculated right pleural effusion.
Improved aeration of the lungs.
Mild cardiomegaly. Stable.
Lines and tubes as described above.
Cardiac Catheterization, 06/09/2023:
CONCLUSIONS
1. Right dominant circulation with a patent stent in the mid RCA, a stable 40-50% lesion in the distal RCA immediately proximal to the RPDA, diffuse, moderate disease within the body of the LAD including a long, 60% lesion spanning the origin of
the second and third diagonal, a TRIPLE VALVE TESTER of the mid circumflex, a 60 lesion of the proximal OM 2% and a culprit, 90% lesion in the distal margin of the second diagonal. Compared to prior angiography from 02/03/2023, the distal D2 lesion appears worse
but the subtended myocardium is small. After intraprocedural consultation, the decision was made to pursue medical management only.
2. Severe systemic hypertension (200/110 mmHg at the beginning of the case).
3. Mildly elevated filling pressures (LVEDP = 16 mmHg at 71.7 kg).
Physical Exam
Vital Signs/Labs
Vital Signs
Temp Pulse Resp BP Pulse Ox
36.3 C 74 22 118/55 100
10/12/23 07:35 10/12/23 09:00 10/12/23 09:00 10/12/23 09:00 10/12/23 09:00
10/10/23 10/11/23 10/12/23
11:59 11:59 11:59
Actual Weight 64.9 kg 64.5 kg
10/12/23 03:00
10/12/23 03:00
PT 16.8 Sec (11.4-14.6) H 10/11/23 07:01
INR 1.38 10/11/23 07:01
APTT 67.8 Sec (23.4-35.0) H 10/12/23 09:19
Magnesium 1.7 mg/dl (1.6-2.3) 10/12/23 03:00
10/11/23 10/12/23
04:25 03:00
Fzd-K-Uodpwlcutwf Pept 1060 5510
LAB Results
10/11/23 10/11/23 10/11/23
04:25 10:44 16:14
Troponin I 0.106 H* 2.160 H* D 2.360 H*
10/11/23 10/12/23
22:26 04:30
Troponin I 1.510 H* D Cancelled
Physical Exam
Constitutional: No acute distress and Comfortable
EENT: Anicteric and Other (Dry mucous membranes.)
Cardiovascular: Rhythm & rate is regular, Pedal edema is absent, JVD pressure is normal, S1S2 is normal and Murmur/rub/gallop absent
Respiratory: Respiratory effort normal, Crackles Present and Rhonchi Present
GI: Soft, Distention absent, Flat, Non tender and Normal bowel sounds
Neuro/Psych: Other (Asleep but responsive to stimuli.)
Data Reviewed
-
Date of Service: October 12, 2023
Medical Decision Making: Reviewed Test Results, Test Interpretation and Review of Case with other Provider
EKG: Tracing Personally Visualized and interpreted and Report Reviewed by me
Echo: Tracing Personally Visualized and interpreted and Report Reviewed by me
X-Ray/CT/US/MRI/NUC/PET: Image Personally Visualized and interpreted and Report Reviewed by me
Medical Tests (PFT, Pathology etc): Image Personally Visualized and interpreted and Report Reviewed by me
Labs: Labs Reviewed by me
--- NOTE | 2023-10-12 12:00 | PTCARENOTE ---
assessment unchanged. pt sleeping, only arouses with stimulation. son at bedside, updated on plan of care.
--- NOTE | 2023-10-12 12:17 | PN.CDI ---
CDI
- -
CDI:
Physician Documentation Request
Admit Date: 10/11/23 06:02
Dear Doctor Digna,
Please review the following and provide your response in the progress notes.
Clinical Indicators:
- 10/10 Cardiology 'Abnormal troponin, type unknown, likely type II secondary to acute hypoxic respiratory failure'
- 10/11 Cardiology 'Non-AR troponin elevation secondary to acute hypoxic respiratory failure'
- 10/11 PN 'Acute nonischemic myocardial injury - ACS versus acute nonischemic troponin elevation due to acute illness, acute respiratory failure'
- 10/10 Standards Analyst 'Elevated troponin with infero-anterolateral T wave inversions -differential includes type II AR with demand ischemia versus ACS'
Laboratory Tests
10/11/23 10/11/23 10/11/23
10:44 16:14 22:26
Troponin I 2.160 H* D 2.360 H* 1.510 H* D
Please clarify the following regarding the documented myocardial infarction
NSTEMI
Type II AR
Non-ischemic myocardial injury
Other
Use of terms such as suspected, likely, concern for, or probable (associated with a specific diagnosis that is being evaluated, monitored, or treated as if it exists) are acceptable and can be coded in the inpatient setting, when documented at the
time of discharge.
Thank you,
Yahaira Acuña RN
CDI Specialist
Please use your independent medical judgment in providing your response.
--- NOTE | 2023-10-12 13:05 | PN.CDI ---
CDI
- -
CDI:
Physician Documentation Request
Admit Date: 10/11/23 06:02
Dear Doctor Digna,
Please review the following and provide your response in the progress notes.
Clinical Indicators:
- 10/10 Cardiology 'Abnormal troponin, type unknown, likely type II secondary to acute hypoxic respiratory failure'
- 10/11 Cardiology 'Non-ID troponin elevation secondary to acute hypoxic respiratory failure'
- 10/11 PN 'Acute nonischemic myocardial injury - ACS versus acute nonischemic troponin elevation due to acute illness, acute respiratory failure'
- 10/10 Paper Sales Representative 'Elevated troponin with infero-anterolateral T wave inversions -differential includes type II ID with demand ischemia versus ACS'
Laboratory Tests
10/11/23 10/11/23 10/11/23
10:44 16:14 22:26
Troponin I 2.160 H* D 2.360 H* 1.510 H* D
Please clarify the following regarding the documented elevated troponins:
NSTEMI
Type II ID
Non-ischemic myocardial injury
Other
Use of terms such as suspected, likely, concern for, or probable (associated with a specific diagnosis that is being evaluated, monitored, or treated as if it exists) are acceptable and can be coded in the inpatient setting, when documented at the
time of discharge.
Thank you,
Yahaira Acuña RN
CDI Specialist
Please use your independent medical judgment in providing your response.
--- NOTE | 2023-10-12 13:07 | PN.CDI ---
CDI
- -
CDI:
Physician Documentation Request
Admit Date: 10/11/23 06:02
Dear Doctor Digna,
Please review the following and provide your response in the progress notes.
Clinical Indicators:
- 10/11 PN 'Acute heart failure with preserved EF exacerbation'
- 'BNP 1060 on admission, repeat 5510. Hold further Lasix today due to ARNOLDO'
- 10/11 Cardiology 'HFpEF...Chronic. She is NOT in decompensated failure'
- 40mg IV Lasix given x 2
In an attempt to clarify potentially conflicting documentation, please clarify which of the following accurately represents the acuity of the HFpEF
Acute on chronic HFpEF
Chronic HFpEF
Other
Use of terms such as suspected, likely, concern for, or probable (associated with a specific diagnosis that is being evaluated, monitored, or treated as if it exists) are acceptable and can be coded in the inpatient setting, when documented at the
time of discharge.
Thank you,
Yahaira Acuña RN
CDI Specialist
Please use your independent medical judgment in providing your response.
--- NOTE | 2023-10-12 14:35 | CM ---
CM following re: discharge planning.
Reviewed pt's chart, met with pt. per chart review, pt is not improving overall, remains n.p.o. due to encephalopathy. Dobbhoff tube in place, continue supportive care.
Pt is a half-way care resident at [facility], requires 24/7 care and assistance, on bed hold.
D/C plan: uncertain at this time and will depend on pt's progress.
CM will follow with discharge plan updates as hospitalization progresses
[2023-10-12] MEDS: ELIQUIS 2.5 MG TUBE ×2 (14:47→22:34)
--- NOTE | 2023-10-12 20:30 | PTCARENOTE ---
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 mouth care done. SR HR 80s. LA IV x 2 WNL. Sat 97% on 2LNC. R dht in place- clamped. sykes draining adequate
amt cloudy yellow urine. bed alarm on, call ramirez with pt.
--- NOTE | 2023-10-12 21:40 | PTCARENOTE ---
pt continues to ask for water and swabs, discussed multiple times with patient and family at bedside about speech assessment and plan. mouth care done.
[2023-10-13] VITALS (20 sets, daily range): BP systolic 105–160; BP diastolic 41–98; PULSE 79; O2SAT 96; BMI 22.2
[2023-10-13] MEDS: LOPRESSOR 2.5 MG IV (00:12)
[2023-10-13] MEDS: ZOSYN 50 IV ×5 (00:12→23:03)
--- NOTE | 2023-10-13 00:19 | PTCARENOTE ---
Reassessed, pt intermittently ST/occ Afib HR up to 140s, previously SR HR 80s, BDoughertyNP aware pts night dose of Toprol XL was not able to be crushed for DHT, 2.5mg IV lopressor x 1. no further changes.
[2023-10-13 03:50] LABS: Hematocrit 26.3 % (37.0-47.0); Hemoglobin 9.1 g/dL (12.0-16.0); Mean Corp Hgb Conc. 34.6 g/dL (33.0-37.0); Mean Corpuscular Hgb 29.7 pg (27.0-31.0); Mean Corpuscular Volume 85.9 fL (81.0-99.0); Mean Platelet Volume 10.2 fL (7.4-10.4); Platelet Count 243 10^3/uL (130-400); Red Blood Cell Count 3.06 10^6/uL (4.20-5.40); Red Cell Dist. Width 17.8 % (11.5-14.5); White Blood Cell Count 14.4 10^3/uL (4.8-10.8)
[2023-10-13 04:14] LABS: ALT (SGPT) < 10 U/L (0-35); AST (SGOT) 21 U/L (14-36); Albumin 3.2 g/dl (3.5-5.0); Alkaline Phosphatase 50 U/L (38-126); Blood Urea Nitrogen 42 mg/dl (7-17); Calcium 9.3 mg/dl (8.4-10.2); Carbon Dioxide 24 mmol/L (22-30); Chloride 107 mmol/L (98-107); Estimated Creatinine Clearance 30 ml/min; Glucose 88 mg/dl (70-99); Potassium 3.5 mmol/L (3.5-5.1); Sodium 142 mmol/L (135-145); Total Bilirubin 1.7 mg/dl (0.2-1.3); Total Protein 5.7 g/dl (6.3-8.2); eGFR 43.54
--- NOTE | 2023-10-13 08:00 | PTCARENOTE ---
Assumed care of patient at 0645. Assessment completed and documented in shift assessment.
Patient is AAOx2-3, occasionally forgetful to time. Withdrawn, slow to speak at times. MAE. Padilla and Francisco Carey DHT in place. Awaiting PATENT LITIGATION ASSOCIATE and PT evaluation.
--- NOTE | 2023-10-13 08:06 | W.PN.HOSP.TC ---
Today's Communication/Plan
-
Await speech therapy
PT/OT
Assessment / Plan
Assessment / Plan
Gen-awake but not alert, not interactive, respiratory distress with tachypnea
HEENT-NC, AT, anicteric, clear oral mm
Neck-supple
CV-reg, no M, +S1/S2
Lungs-bilateral rhonchi
Abd-soft, NT, ND
Ext-no edema
Musculoskeletal-no cyanosis, clubbing
Skin-warm and dry
Neuro-grossly non-focal
Psych-calm, cooperative
Shock -resolved. Off vasopressors.
Acute TME -POA. Encephalopathy slowly improving, more engaging in conversation today but not completely lucid.
Acute hypoxic respiratory failure -respiratory failure likely combination of pulmonary edema and pneumonia.
Oxygenation improving, was on high flow nasal cannula yesterday, currently on 2 L nasal cannula. Wean down as able.
Chronic heart failure with preserved EF -acute heart failure felt to be unlikely. Hold further diuretics.
Aspiration pneumonia -continue IV Zosyn for now. Afebrile. Leukocytosis slowly improving. 10/11 chest x-ray with stable left lower lobe infiltrate. Progressed to small loculated right pleural effusion.
Dysphagia -likely related to Parkinson's disease. Currently NPO. Dobbhoff tube in place, getting tube feeds. Speech therapy to follow-up today.
ARNOLDO -related to hemodynamic shifts, significant hypotension, ATN. Creatinine improving, 1.2. Nonoliguric. Padilla catheter in place.
Acute nonischemic myocardial injury -due to acute illness, pneumonia. Troponin trending down.
Essential hypertension with hypertensive emergency -in the setting of acute pulmonary edema, acute heart failure exacerbation. Hypertensive emergency resolved. Transient shock as above.
Chronic normocytic anemia - baseline hemoglobin around 10. Currently 9.1. Monitor for now.
Parkinson's disease -stable.
Ambulatory dysfunction -limited mobility due to Parkinson's. Uses a rolling walker.
Paroxysmal atrial fibrillation -on Eliquis and amiodarone.
Hyperlipidemia -on atorvastatin.
Permanent pacemaker
CAD
Severe protein calorie malnutrition
DNR
If her swallowing does not improve, recommend hospice. Will await speech therapy input. Would avoid feeding tube placement.
Anticipated Discharge: 24 - 48 hours
Subjective/Interval History
-
Date of Service: October 13, 2023
Patient seen and examined. More awake, alert today. Complaining of thirst.
Objective Data
-
Labs:
Laboratory Results
10/13/23
03:38
WBC 14.4 H
Hgb 9.1 L
Hct 26.3 L
Plt Count 243
Sodium 142
Potassium 3.5
Chloride 107
Carbon Dioxide 24
BUN 42 H
Creatinine 1.2 H
Glucose 88
Calcium 9.3
Total Bilirubin 1.7 H
AST 21
ALT < 10
Alkaline Phosphatase 50
Vital Signs:
Vital Signs
Temp Pulse Resp BP Pulse Ox
100.3 F 77 15 136/41 97
10/13/23 03:37 10/13/23 06:00 10/13/23 06:00 10/13/23 05:00 10/13/23 06:00
I&O
10/12/23 10/13/23 10/14/23
06:59 06:59 06:59
Intake Total 503.5 / 510.5 261 / 261
Output Total 1375 / 1375 1340 / 1340
Balance -871.5 / -864.5 -1079 / -1079
Review of Systems
-
Unable to obtain full review of systems at this time due to: Acuity
History Source: Patient
All other systems: Reviewed and negative
--- NOTE | 2023-10-13 08:18 | W.PN.CD ---
Today's Communication / Plan
-
PAF overnight. Missed ToprolXL
change to tartrate and put down NGT
monitor on tele
Not clear that she is a good anticoag candidate.
monitor anemia and decreasing hb trend
Impression / Plan
-
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 She was recently
admitted with metabolic encephalopathy and confusion, found to have poor PO intake and was labeled 'high risk for aspiration' by speech therapy.
#Acute hypoxic respiratory failure, multifactorial
-SaO2 51% on room air at [facility] - improved to 80% on 15LNRB then BiPAP.
-High risk for aspiration per speech evaluation.
-Hypotensive with diuresis argues that this is primarily aspiration pneumonia/pneumonitis, requiring intravascular volume - consistent with echo showing a normal IVC, hemoconcentration that is resolving with intravenous fluid and persistent
leukocytosis with CXR consistent with PNA.
-Piperacillin/tazobactam started.
# hypotension - resolved. Off pressors
#PAF -New
- 4 hour episode overhight 10/11- 10/13/23. BB had been held
- CHADSVASC 5 ( age>75, HF, HTN, CAD)
- resume BB . Change to tartrate so we can put it down NGT
- with anemia and other medical issues , unclear if she is a good anticoagulation canddate. Hold for now.
#HFpEF
-Chronic. stable
-GDMT on hold due to acuity.
#ARNOLDO
-Acute.. improving from 1.5-1.2
-Consistent with sepsis.
#anemia - trending down. monitor. tx by stormy team
-
#Abnormal troponin
-Non-NJ troponin elevation secondary to acute hypoxic respiratory failure.
-Troponin peaked at 2.360.
-Denies chest pain.
-Aspirin 300 mg OR given.
-Echo 10/11/23 normal function.
-Continue medical therapy. No plan for invasive coronary evaluation.
#Hypertension
-Presented with hypertensive emergency.
-Presented with blood pressure 195/75 with abnormal troponin.
-BP has been highly labile, requiring norepinephrine.
#CAD
-NSTEMI 05/2023, diagonal culprit felt to be distal and supplied only by small amount of myocardium, being medically managed.
-Prior JAYLAN to RCA 01/2023.
-Continue aspirin 81 mg daily (OR at this time).
-Films reviewed by intervguillermooatone this admit.
#Paroxysmal atrial fibrillation
-Currently in sinus rhythm.
-NPO, amiodarone on hold.
-Oral Anticoagulation: Apixaban 5mg BID, currently NPO, heparin gtt being started.
-[id number]: score at least 6 (Heart failure, HTN, age 75 or more, Vascular disease,female gender).
# PPM - h/o tachy/josafat
#Parkinson's disease
Subjective/Interval History:
Transitioned to HFNC.
She was given furosemide yesterday with minimal response but developed hypotension.
Albumin given with minimal response. Norepinephrine started.
Oxygen weaned to 10L midflow.
Dobhoff placed.
Patient was hypertensive early this morning. Norepinephrine discontinued. One episode of hypotension (86/36 @ 07:00).
Weight down 0.4 kg from yesterday (64.5 kg <-- 64.9 kg) but up from 08/29/2023 (60.736 kg) and down from July (65.6 kg).
CXR all suggest PNA (though admittedly, they vary in location).
WBC remains elevated at 17k.
Hbg has fallen from 12.0 to 9.6 (baseline around 10).
BUN/Cr up to 50/1.5 (normal baseline).
Troponin peaked at 2.360.
DATA:
CXR, 10/11/2023:
IMPRESSION: Patchy airspace consolidation throughout the right lung most likely representing pneumonia. Small right pleural effusion.
TTE, 10/11/2023:
CONCLUSIONS
TDS.
Normal LV size and function with no regional wall motion abnormalities.
LVEF is 55 to 60% by visual estimation.
Mild concentric LVH.
Normal right ventricular size and function.
Mild aortic regurgitation.
Mild tricuspid regurgitation.
Estimated pulmonary artery pressure of 23 mmHg, assuming a right atrial
pressure of 3 mmHg.
No prior study for comparison.
CXR, 10/12/2023:
IMPRESSION:
Stable findings suggesting left lower lobe pneumonia. Atelectasis not excluded.
Progressed small loculated right pleural effusion.
Improved aeration of the lungs.
Mild cardiomegaly. Stable.
Lines and tubes as described above.
Cardiac Catheterization, 06/09/2023:
CONCLUSIONS
1. Right dominant circulation with a patent stent in the mid RCA, a stable 40-50% lesion in the distal RCA immediately proximal to the RPDA, diffuse, moderate disease within the body of the LAD including a long, 60% lesion spanning the origin of
the second and third diagonal, a SYRUP MIXER of the mid circumflex, a 60 lesion of the proximal OM 2% and a culprit, 90% lesion in the distal margin of the second diagonal. Compared to prior angiography from 02/03/2023, the distal D2 lesion appears worse
but the subtended myocardium is small. After intraprocedural consultation, the decision was made to pursue medical management only.
2. Severe systemic hypertension (200/110 mmHg at the beginning of the case).
3. Mildly elevated filling pressures (LVEDP = 16 mmHg at 71.7 kg).
Physical Exam
Vital Signs/Labs
Vital Signs
Temp Pulse Resp BP Pulse Ox
100.3 F 77 15 136/41 97
10/13/23 03:37 10/13/23 06:00 10/13/23 06:00 10/13/23 05:00 10/13/23 06:00
10/12/23 10/13/23 10/14/23
06:59 06:59 06:59
Actual Weight 64.5 kg 62.3 kg
10/13/23 03:38
10/13/23 03:38
PT 16.8 Sec (11.4-14.6) H 10/11/23 07:01
INR 1.38 10/11/23 07:01
APTT Cancelled 10/12/23 16:00
Magnesium 1.7 mg/dl (1.6-2.3) 10/12/23 03:00
10/11/23 10/12/23
04:25 03:00
Llh-P-Nrqhwslwfrk Pept 1060 5510
LAB Results
10/11/23 10/11/23 10/11/23
04:25 10:44 16:14
Troponin I 0.106 H* 2.160 H* D 2.360 H*
10/11/23 10/12/23
22:26 04:30
Troponin I 1.510 H* D Cancelled
Physical Exam
Constitutional: No acute distress and Other (responding to questions slowly)
EENT: Anicteric
Cardiovascular: Rhythm & rate is regular
Respiratory: Other (decreased at bases)
GI: Soft and Non tender
Neuro/Psych: Alert
Data Reviewed
-
Date of Service: October 13, 2023
Medical Decision Making: Reviewed Test Results
X-Ray/CT/US/MRI/NUC/PET: Report Reviewed by me
Labs: Labs Reviewed by me
--- NOTE | 2023-10-13 08:22 | W.PN.PUL3 ---
Today's Communication / Plan
-
Abx
Aspiration precautions
She appears to have bibasilar atelectasis - IS encouraged
Maintain SpO2 >90-94%
Guarded prognosis � low threshold to transition to comfort care if she worsens
I will consult hospice to give information to the family in the event that she does deteriorate. I also explained to the family that the risk of her having another septic event with aspiration is very high, and they should consider home hospice
once she improves considering she is on a low level of oxygen and getting her back to [facility] for hospice there is realistic at this point today.
Patient is stable for transfer out of the IMU to telemetry. Pulmonary service will now sign off. Please reconsult if there are any additional questions/concerns, or if patient's respiratory status deteriorates.
Assessment
-
Assessment: 88-year-old female with a past medical history of CAD with JAYLAN to RCA (01/2023), and history of NSTEMI, paroxysmal A-fib on Eliquis and amiodarone, Parkinson's disease, hypertension, history of E. coli bacteremia (ESBL), history of
CAUTI, anxiety/depression, anemia of chronic disease, hypertension and chronic inserts function who presented via EMS from [facility] due to general malaise with hypoxia and saturations down to 51% on room air at her facility, with saturations only
improved to the low 80s on 15 L nonrebreather. Patient afebrile to 98 �F, pulse rate 73, she was tachypneic to 22 breaths/min, BP 176/69 and she was placed onto BiPAP with saturations only improved to 85%. Saturations slowly improved to the low
90s. Labs showed leukocytosis to 17.4, glucose 206, lactate 1.8, elevated troponin of 0.106, proBNP of 1060 (previously in May 2023 it was 8220), and urinalysis was positive for nitrites with plus leukocyte esterase and many bacteria. She was
COVID antigen negative, as well as flu A/B-. Blood cultures were sent as well as urine culture. CXR showed patchy consolidations mainly in the right lung with a right pleural effusion, and a similar appearing left lung compared to 08/26/2023 +
06/09/2023 suspicious for chronic scarring versus atelectasis. She was given Lasix in the ER, Zosyn and nitroglycerin ointment 1 inch. Due to her need for continuous BiPAP she was admitted to the IMU for further care and pulmonary consulted for
additional management/recommendations.
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 coli bacteremia, chronic Padilla due to urinary retention in the setting of Parkinson's disease, anemia of chronic disease, chronic hyponatremia, paroxysmal A-fib s/p PPM,
sacral pressure injury, CAD, history of NSTEMI, hypertension, chronic ambulatory dysfunction, anxiety/depression, vertigo, severe protein calorie malnutrition
Impression:
#Acute respiratory failure with hypoxia due to suspected combination of pneumonia + acute decompensated heart failure (more a component of the former)
#Acute encephalopathy likely due to toxic�metabolic cephalopathy in the setting of sepsis and hypoxia with acute organ dysfunction
#Parkinson's disease
#Acute kidney injury -improving
#Positive urinalysis suspicious for UTI
#Hyperglycemia
#Elevated troponin with infero-anterolateral T wave inversions -differential includes type II PR with demand ischemia versus ACS - troponin peaked at 2.36 on 10/11/2023
#Atrial fibrillation on Eliquis and amiodarone
Plan:
- Continue ABx w/ Zosyn - plan for 7 days assuming pt remains afebrile for 48 hrs prior to stopping Abx
- She initially was on BiPAP on admission and this was weaned to high flow, and she was weaned down to mid flow nasal cannula and now on 2L/min NC with saturations over 93-94%.
- Keep NPO; use DHT for PO access and nutrition; BLEACH BOILER PACKER evaluation pending � patient passed BLEACH BOILER PACKER eval and was recommended for IDDSI 5 and thin liquids; okay to remove Dobbhoff tube at this time
- Cardiology consulted due to elevated troponin - heparin gtt started --> transitioned back to Eliquis as no concern for acute PR -cardiology recommendations appreciated
- No need to continue trending troponin as it peaked at 2.36 on 10/11/2023
- Maintain SpO2 >90-94% with supplemental O2 as needed
- prn nebulized bronchodilators
- Maintain net neutral to slightly net negative as tolerated, but aim for more net neutral given her sepsis
- Aspiration precautions
- Keep MAP>65
- Incentive spirometer encouraged now that her mentation has improved
- Replete electrolytes with K>4, Mg>2
- Maintain euglycemia with goal BG >140 and <180
- DVT ppx
- Guarded prognosis
GO discussion:
Family understands that the patient's prognosis is poor. They would still like full medical treatment at this time but if she continues to worsen then they would withdraw care and make her comfortable. I answered all their questions and they
verbalized understanding. I will consult hospice to give information to the family in the event that she does deteriorate. I also explained to the family that the risk of her having another septic event with aspiration is very high, and they
should consider home hospice once she improves considering she is on a low level of oxygen and getting her back to [facility] for hospice there is realistic at this point today.
Patient is stable for transfer out of the IMU to telemetry. Pulmonary service will now sign off. Thank you for allowing us to be involved in the care of this patient. Please reconsult if there are any additional questions/concerns, or if
patient's respiratory status deteriorates.
Data:
CXR 10-12-2023:
Stable findings suggesting left lower lobe pneumonia. Atelectasis not excluded.
Progressed small loculated right pleural effusion.
Improved aeration of the lungs.
Mild cardiomegaly. Stable.
CXR 10-11-2023: Patchy airspace consolidation throughout the right lung most likely representing pneumonia. Small right pleural effusion.
Total time spent today was 50 minutes for this encounter. Time includes reviewing laboratory test/imaging results, reviewing pertinent medical records, obtaining and reviewing medical history, performing an appropriate exam, ordering medications,
tests and procedures. Time also includes documentation of this encounter, coordinating patient care and communicating with other healthcare professionals. Total time does not include separately billed tests performed on this date of service.
Subjective Data
-
Date of Service:
Date of Service: October 13, 2023
Chief Complaint: Pulmonary Follow Up
Subjective:
Patient seen and evaluated today at bedside. She was sitting in the chair, much more awake and alert today and answering my questions appropriately, however she would quickly fall back asleep. Daughter and son at bedside and I answered all their
questions. Patient denies any chest pain, headache, abdominal pain, fevers or chills.
Review of Systems
General: Other (Negative unless mentioned above)
Objective Data
Data Reviewed
Vital Signs / I&O / Oxygen:
Vital Signs
Temp Pulse Resp BP Pulse Ox
97.8 F 77 18 160/53 93
10/13/23 19:28 10/13/23 19:28 10/13/23 19:28 10/13/23 19:28 10/13/23 19:28
Intake and Output
10/12/23 10/13/23 10/14/23
06:59 06:59 06:59
Intake Total 503.5 / 510.5 261 / 261 250 / 250
Output Total 1375 / 1375 1340 / 1340 625 / 625
Balance -871.5 / -864.5 -1079 / -1079 -375 / -375
SaO2 93
Nasal Cannula flow liters per 2
minute
Physical Exam
General: Respiratory Distress (none) and Comfortable
HEENT: Normocephalic and Anicteric
Cardiovascular: Peripheral Edema (Negative) and Other (Normal rate)
Respiratory: Wheeze (Negative), Crackles (bilaterally), Rhonchi (Negative) and Accessory Resp Muscle Use (None at rest)
GI: Soft, Non Distended, Non Tender and NG Tube
Neurology: Tremors (Negative) and Lethargic (Answers my questions appropriately and easily responds to voice)
Skin: Warm and Dry
Labs/Micro/Reports
Lab Data
10/13/23 03:38
10/13/23 03:38
Microbiology
10/11/23 04:29 Urine Urine Culture - Final
10/12/23 03:00 Nose MRSA Screen - Final
No Methicillin Resistant Staphylococcus aureus isolated.
10/11/23 04:25 Blood/Venous Blood Culture - Preliminary
No Growth in 48 hours- Final report to follow
10/11/23 04:25 Blood/Venous Blood Culture - Preliminary
No Growth in 48 hours- Final report to follow
10/11/23 04:27 Nasal Swab Influenza Types A & B (SALENA) - Final
Negative for Influenza A & B, NAAT
Negative results must be combined with clinical observations
and patient history.
Nucleic Acid Amplification test (NAAT)performed on the
[employer] platform.
[2023-10-13] MEDS: PROTONIX IV 40 MG IV (08:24)
[2023-10-13] MEDS: NSS (PRESERVATIVE FREE) 10 ML IV (08:24)
[2023-10-13] MEDS: REFRESH EYE DROPS (PF) 1 DROPS BOTH EYES ×4 (08:24→21:07)
[2023-10-13] MEDS: ELIQUIS 2.5 MG TUBE ×2 (08:24→20:08)
[2023-10-13] MEDS: PACERONE 100 MG PO (08:24)
[2023-10-13] MEDS: SINEMET 25-100 1 TABLET PO ×2 (08:24→21:07)
--- NOTE | 2023-10-13 08:36 | W.PN.CD ---
Today's Communication / Plan
-
afib overngiht 4 hours
Toprol dose missed. Need to change to tartrate to put down NGT
Monitor anemia and downward trend of Hb. No acute bleed but if continued drop may need to hold apixaban
Impression / Plan
-
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 She was recently
admitted with metabolic encephalopathy and confusion, found to have poor PO intake and was labeled 'high risk for aspiration' by speech therapy.
#Acute hypoxic respiratory failure, multifactorial
-SaO2 51% on room air at [place] - improved to 80% on 15LNRB then BiPAP.
-High risk for aspiration per speech evaluation.
-Hypotensive with diuresis argues that this is primarily aspiration pneumonia/pneumonitis, requiring intravascular volume - consistent with echo showing a normal IVC, hemoconcentration that is resolving with intravenous fluid and persistent
leukocytosis with CXR consistent with PNA.
-Piperacillin/tazobactam started.
# hypotension - resolved. Off pressors
#PAF -
- 4 hour episode overhight 10/11- 10/13/23. BB had been held
- CHADSVASC 6 ( age>75, HF, HTN, CAD, female)
- resume BB . Change to tartrate so we can put it down NGT
- cotninue amio
- pateitn on apixiban. Monitor anemia. No acute bleeding but if continued decline may need to hold
- with anemia and other medical issues , unclear if she is a good anticoagulation canddate. Hold for now.
#HFpEF
-Chronic. stable
-GDMT on hold due to acuity.
#ARNOLDO
-Acute.. improving from 1.5-1.2
-Consistent with sepsis.
#anemia - trending down. monitor. tx by rimary team
-
#Abnormal troponin
-Non-NM troponin elevation secondary to acute hypoxic respiratory failure.
-Troponin peaked at 2.360.
-Denies chest pain.
-Aspirin 300 mg AR given.
-Echo 10/11/23 normal function.
-Continue medical therapy. No plan for invasive coronary evaluation.
#Hypertension
-Presented with hypertensive emergency.
-Presented with blood pressure 195/75 with abnormal troponin.
-BP has been highly labile, requiring norepinephrine.
#CAD
-NSTEMI 05/2023, diagonal culprit felt to be distal and supplied only by small amount of myocardium, being medically managed.
-Prior JAYLAN to RCA 01/2023.
-Continue aspirin 81 mg daily (AR at this time).
-Films reviewed by intervlexx this admit.
# PPM - h/o tachy/josafat
#Parkinson's disease
Subjective/Interval History:
Transitioned to HFNC.
She was given furosemide yesterday with minimal response but developed hypotension.
Albumin given with minimal response. Norepinephrine started.
Oxygen weaned to 10L midflow.
Dobhoff placed.
Patient was hypertensive early this morning. Norepinephrine discontinued. One episode of hypotension (86/36 @ 07:00).
Weight down 0.4 kg from yesterday (64.5 kg <-- 64.9 kg) but up from 08/29/2023 (60.736 kg) and down from July (65.6 kg).
CXR all suggest PNA (though admittedly, they vary in location).
WBC remains elevated at 17k.
Hbg has fallen from 12.0 to 9.6 (baseline around 10).
BUN/Cr up to 50/1.5 (normal baseline).
Troponin peaked at 2.360.
DATA:
CXR, 10/11/2023:
IMPRESSION: Patchy airspace consolidation throughout the right lung most likely representing pneumonia. Small right pleural effusion.
TTE, 10/11/2023:
CONCLUSIONS
TDS.
Normal LV size and function with no regional wall motion abnormalities.
LVEF is 55 to 60% by visual estimation.
Mild concentric LVH.
Normal right ventricular size and function.
Mild aortic regurgitation.
Mild tricuspid regurgitation.
Estimated pulmonary artery pressure of 23 mmHg, assuming a right atrial
pressure of 3 mmHg.
No prior study for comparison.
CXR, 10/12/2023:
IMPRESSION:
Stable findings suggesting left lower lobe pneumonia. Atelectasis not excluded.
Progressed small loculated right pleural effusion.
Improved aeration of the lungs.
Mild cardiomegaly. Stable.
Lines and tubes as described above.
Cardiac Catheterization, 06/09/2023:
CONCLUSIONS
1. Right dominant circulation with a patent stent in the mid RCA, a stable 40-50% lesion in the distal RCA immediately proximal to the RPDA, diffuse, moderate disease within the body of the LAD including a long, 60% lesion spanning the origin of
the second and third diagonal, a [employer] of the mid circumflex, a 60 lesion of the proximal OM 2% and a culprit, 90% lesion in the distal margin of the second diagonal. Compared to prior angiography from 02/03/2023, the distal D2 lesion appears worse
but the subtended myocardium is small. After intraprocedural consultation, the decision was made to pursue medical management only.
2. Severe systemic hypertension (200/110 mmHg at the beginning of the case).
3. Mildly elevated filling pressures (LVEDP = 16 mmHg at 71.7 kg).
Physical Exam
Vital Signs/Labs
Vital Signs
Temp Pulse Resp BP Pulse Ox
100.3 F 77 15 136/41 97
10/13/23 03:37 10/13/23 06:00 10/13/23 06:00 10/13/23 05:00 10/13/23 06:00
10/12/23 10/13/23 10/14/23
06:59 06:59 06:59
Actual Weight 64.5 kg 62.3 kg
10/13/23 03:38
10/13/23 03:38
PT 16.8 Sec (11.4-14.6) H 10/11/23 07:01
INR 1.38 10/11/23 07:01
APTT Cancelled 10/12/23 16:00
Magnesium 1.7 mg/dl (1.6-2.3) 10/12/23 03:00
10/11/23 10/12/23
04:25 03:00
Edx-Z-Gcmcmkcacto Pept 1060 5510
LAB Results
10/11/23 10/11/23 10/11/23
04:25 10:44 16:14
Troponin I 0.106 H* 2.160 H* D 2.360 H*
10/11/23 10/12/23
22:26 04:30
Troponin I 1.510 H* D Cancelled
Physical Exam
Constitutional: No acute distress and Other (responding to questions slowly)
EENT: Anicteric
Cardiovascular: Rhythm & rate is regular
Respiratory: Other (decreased at bases)
GI: Soft and Non tender
Neuro/Psych: Alert
Physical Exam
Vital Signs/Labs
Vital Signs
Temp Pulse Resp BP Pulse Ox
100.3 F 75 19 144/88 98
10/13/23 03:37 10/13/23 08:24 10/13/23 08:00 10/13/23 08:24 10/13/23 08:00
10/12/23 10/13/23 10/14/23
06:59 06:59 06:59
Actual Weight 64.5 kg 62.3 kg
10/13/23 03:38
10/13/23 03:38
PT 16.8 Sec (11.4-14.6) H 10/11/23 07:01
INR 1.38 10/11/23 07:01
APTT Cancelled 10/12/23 16:00
Magnesium 1.7 mg/dl (1.6-2.3) 10/12/23 03:00
10/11/23 10/12/23
04:25 03:00
Nth-J-Lojpqysxrso Pept 1060 5510
LAB Results
10/11/23 10/11/23 10/11/23
04:25 10:44 16:14
Troponin I 0.106 H* 2.160 H* D 2.360 H*
10/11/23 10/12/23
22:26 04:30
Troponin I 1.510 H* D Cancelled
Data Reviewed
-
Date of Service: October 13, 2023
[2023-10-13] MEDS: PLAVIX 75 MG PO (10:52)
[2023-10-13] MEDS: LOPRESSOR 12.5 MG TUBE ×2 (10:52→20:08)
--- NOTE | 2023-10-13 13:36 | PTOTSP ---
Speech Therapy
No gross signs of aspiration but history of PD is a risk factor as well as current admission for likely pna.
Recommend
1. Initiate IDDSI 5 and Thin Liquids
2. Meds whole in applesauce
3. Aspiration precautions.
4. VSE to objectively assess pharyngeal swallow given admission for pna and past history of modified diet.
--- NOTE | 2023-10-13 14:36 | CM ---
CM following re: discharge planning.
Reviewed pt's chart, met with pt. Pt requires 10 L midflow NC of O2, continue supportive care.
CM consult to refer the pt to hospice care for information. Pt referred to hospice. Per family they will prefer hospice care if pt will not get better.
Per MD pt will be downgraded from ICU level of care. hospice will evaluate.
D/C plan: possible hospice care with hospice: home hospice vs inpatient hospice.
CM will follow with discharge plan updates as hospitalization progresses
--- NOTE | 2023-10-13 14:55 | PTCARENOTE ---
Received pt from ICU with RN at bedside, feeding tube and Padilla in place, 2Lo2, pt resting comfortably with daughter at bedside.
--- NOTE | 2023-10-13 15:12 | PN.CDI ---
CDI
- -
CDI:
Physician Documentation Request
Admit Date: 10/11/23 06:02
Dear Doctor Digna,
Please review the following and provide your response in the progress notes.
Clinical Indicators:
- 10/11 PN 'Shock -doubt due to sepsis. Doubt cardiogenic. Possibly related to antihypertensive therapy'
- 10/10 RN note 'pt remains hypotensive despite albumin, levo initiated'
- 10/10 systolic BP 60-90's
- 10/12 PN 'Shock -resolved. Off vasopressors'
Please clarify which of the following is the most likely etiology of the above symptoms and treatment rendered:
Cardiogenic shock
Hypovolemic shock - indicate if due to surgery, trauma or other etiology
Shock, unknown type
Other
Use of terms such as suspected, likely, concern for, or probable (associated with a specific diagnosis that is being evaluated, monitored, or treated as if it exists) are acceptable and can be coded in the inpatient setting, when documented at the
time of discharge.
Thank you,
Yahaira Acuña RN
CDI Specialist
Please use your independent medical judgment in providing your response.
[2023-10-13] MEDS: SINEMET 25-100 PO (18:08)
--- NOTE | 2023-10-13 18:16 | HOSPNOTE ---
Referral received. Called and spoke to patients son Satish. He states that patient is doing better. Oxygen has been weaned down and patient was cleared by speech for a diet today. She will be getting video swallow tomorrow as well. At this time Satish
feels hospice is not needed. Reviewed if in the future hospice is warranted, SEPIDEH Jordan at [facility] can reach out to hospice and we can provide assistance then. Satish liked that plan. Attending and CM updated.
[2023-10-14 03:13] VITALS: BP 168/62
[2023-10-14 04:49] VITALS: BMI 23.5
[2023-10-14] MEDS: ZOSYN 50 IV ×3 (05:06→17:58)
[2023-10-14 06:29] LABS: % Basophils 0.5 % (0-2); % Eosinophils 1.1 % (0-6); % Immature Granulocytes 0.8 % (0-0.5); % Lymphocytes 5.7 % (20.5-51.1); % Monocytes 6.3 % (1.7-9.3); % Neutrophils 85.6 % (42.2-75.2); Absolute Basophils 0.1 10^3/uL (0-0.2); Absolute Eosinophils 0.1 10^3/uL (0-0.7); Absolute Immature Granulocytes 0.1 10^3/uL (0-0.05); Absolute Lymphocytes 0.7 10^3/uL (1.2-3.4); Absolute Monocytes 0.8 10^3/uL (0.1-0.6); Absolute Neutrophils 11.2 10^3/uL (1.4-6.5); Hematocrit 27.6 % (37.0-47.0); Hemoglobin 9.2 g/dL (12.0-16.0); Mean Corp Hgb Conc. 33.3 g/dL (33.0-37.0); Mean Corpuscular Hgb 29.1 pg (27.0-31.0); Mean Corpuscular Volume 87.3 fL (81.0-99.0); Mean Platelet Volume 10.2 fL (7.4-10.4); Nucleated Red Blood Cells % 0 %; Platelet Count 250 10^3/uL (130-400); Red Blood Cell Count 3.16 10^6/uL (4.20-5.40); Red Cell Dist. Width 17.4 % (11.5-14.5)
[2023-10-14 06:52] LABS: ALT (SGPT) < 10 U/L (0-35); AST (SGOT) 16 U/L (14-36); Albumin 3.1 g/dl (3.5-5.0); Alkaline Phosphatase 53 U/L (38-126); Blood Urea Nitrogen 36 mg/dl (7-17); Calcium 9.3 mg/dl (8.4-10.2); Carbon Dioxide 22 mmol/L (22-30); Chloride 108 mmol/L (98-107); Estimated Creatinine Clearance 40 ml/min; Glucose 120 mg/dl (70-99); Potassium 3.1 mmol/L (3.5-5.1); Sodium 142 mmol/L (135-145); Total Bilirubin 1.9 mg/dl (0.2-1.3); Total Protein 5.7 g/dl (6.3-8.2); eGFR > 60.00
[2023-10-14 07:25] VITALS: BP 154/51
[2023-10-14 07:41] LABS: Glucose - Point of Care 129 mg/dl (70-99)
--- NOTE | 2023-10-14 07:46 | W.PN.HOSP.TC ---
Addendum entered and electronically signed by Edwin Sawyer DO 10/14/23 11:55:
Hypovolemic shock -resolved.
Addendum entered and electronically signed by Edwin Sawyer DO 10/14/23 11:17:
She did surprisingly okay with video swallowing study. Diet advanced per speech therapy recommendation to IDDSI 6, thin liquids. Meds whole in applesauce.
Can remove Dobbhoff tube. Discussed with nurse.
Continue PT/OT.
Updated son Iglesia on the phone. Will monitor over the weekend and hopefully transfer to rehab on Tuesday if stable.
Informed son that she still remains at risk for aspiration in the future and she certainly could reaspirate and get readmitted to the hospital especially as her Parkinson's disease and her age advances. Son understands. All questions answered.
Original Note:
Today's Communication/Plan
-
IV KCl
Video swallowing study
Assessment / Plan
Assessment / Plan
Gen-awake but not alert, not interactive, respiratory distress with tachypnea
HEENT-NC, AT, anicteric, clear oral mm, Dobbhoff tube
Neck-supple
CV-reg, no M, +S1/S2
Lungs-bilateral rhonchi
Abd-soft, NT, ND
Ext-no edema
Musculoskeletal-no cyanosis, clubbing
Skin-warm and dry
Neuro-grossly non-focal
Psych-calm, cooperative
Shock -resolved. Off vasopressors. Etiology of shock was related to diuresis and antihypertensives.
Acute TME -POA. Encephalopathy slowly improving.
Acute hypoxic respiratory failure -respiratory failure likely combination of pulmonary edema and pneumonia.
Oxygenation improving, was on high flow nasal cannula yesterday, currently on 2 L nasal cannula. Wean down as able.
Chronic heart failure with preserved EF -acute heart failure felt to be unlikely. Hold further diuretics.
Aspiration pneumonia -continue IV Zosyn for now. Afebrile. Leukocytosis slowly improving. 5/29 chest x-ray with stable left lower lobe infiltrate. Progressed to small loculated right pleural effusion.
Dysphagia -likely related to Parkinson's disease. Currently NPO. Dobbhoff tube in place, speech therapy recommended minced and moist foods, thin liquids. For video swallowing study today.
ARNOLDO -related to hemodynamic shifts, significant hypotension, ATN. ARNOLDO resolved. Padilla catheter in place.
Hypokalemia -will replete. Check magnesium.
Acute nonischemic myocardial injury -due to acute illness, pneumonia. Troponin trending down.
Essential hypertension with hypertensive emergency -in the setting of acute pulmonary edema, acute heart failure exacerbation. Hypertensive emergency resolved. Transient shock as above.
Chronic normocytic anemia - baseline hemoglobin around 10. Currently 9.2 and stable. Monitor for now.
Parkinson's disease -stable.
Ambulatory dysfunction -limited mobility due to Parkinson's. Uses a rolling walker.
Paroxysmal atrial fibrillation -on Eliquis and amiodarone.
Hyperlipidemia -on atorvastatin.
Permanent pacemaker
CAD
Severe protein calorie malnutrition
DNR
If her swallowing does not improve, recommend hospice. Will await speech therapy input. Would avoid feeding tube placement.
Anticipated Discharge: 24 - 48 hours
Subjective/Interval History
-
Date of Service: October 14, 2023
Patient seen and examined. No complaints. Sleeping when I walked in but arousable. Oriented to hospital.
Objective Data
-
Labs:
Laboratory Results
10/14/23
06:01
WBC 13.0 H
Hgb 9.2 L
Hct 27.6 L
Plt Count 250
Sodium 142
Potassium 3.1 L
Chloride 108 H
Carbon Dioxide 22
BUN 36 H
Creatinine 0.9
Glucose 120 H
Calcium 9.3
Total Bilirubin 1.9 H
AST 16
ALT < 10
Alkaline Phosphatase 53
Vital Signs:
Vital Signs
Temp Pulse Resp BP Pulse Ox
97.6 F 70 18 168/62 94
10/14/23 03:13 10/14/23 03:13 10/14/23 03:13 10/14/23 03:13 10/14/23 03:13
I&O
10/13/23 10/14/23 10/15/23
06:59 06:59 06:59
Intake Total 261 / 261 610 / 610
Output Total 1340 / 1340 1340 / 1340
Balance -1079 / -1079 -730 / -730
Review of Systems
-
History Source: Patient
All other systems: Reviewed and negative
--- NOTE | 2023-10-14 08:01 | W.PN.CD ---
Today's Communication / Plan
-
ASA/eliquis
no more lasix
increase metoprolol; continue amiodarone
please call us back with additional questions
Impression / Plan
-
Impression/Plan: 88 y/o female with Parox Afib on eliquis, RCA stent 01/2023, HTN, Parkinson's disease leading to urinary incontinence with chronic sykes catheter, tachy-josafat syndrome with PPM and chronic HFpEF admitted with acute hypoxic
respiratory failure. She was recently admitted with metabolic encephalopathy and confusion, found to have poor PO intake and was labeled 'high risk for aspiration' by speech therapy.
#Acute hypoxic respiratory failure, multifactorial
-High risk for aspiration per speech evaluation.
-Hypotensive with diuresis argues that this is primarily aspiration pneumonia/pneumonitis, requiring intravascular volume - consistent with echo showing a normal IVC, hemoconcentration that is resolving with intravenous fluid and persistent
leukocytosis with CXR consistent with PNA.
-on Abx
-no additional lasix at this time
#Parox A fib
- 4 hour episode overhight 10/11- 10/13/23. BB had been held, now resumed
- CHADSVASC 6 ( age>75, HF, HTN, CAD, female)
- increase metoprolol tartrate to 25mg bid
- increase eliquis back to 5mg bid (ARNOLDO resolved)
#concern for HF
-does not appear to be part of presentation currently; she became hypotensive with diuresis
#ARNOLDO
-resolved
#anemia - stable -
- monitor
#Abnormal troponin
-Non-ND troponin elevation secondary to acute hypoxic respiratory failure.
-Troponin peaked at 2.360.
-Denies chest pain.
-Aspirin 300 mg NV given.
-Echo 10/11/23 normal function.
-Continue medical therapy. No plan for invasive coronary evaluation.
#Hypertension
-Presented with hypertensive emergency, now improved
#CAD
-NSTEMI 05/2023, diagonal culprit felt to be distal and supplied only by small amount of myocardium, being medically managed.
-Prior JAYLAN to RCA 01/2023
-Films reviewed by interventional cards this admit; will transition to ASA for remainder of 12 months (through 01/2024), then stop; she is also on eliquis for A fib
# PPM - h/o tachy/josafat, stable
#Parkinson's disease
Physical Exam
Vital Signs/Labs
Vital Signs
Temp Pulse Resp BP Pulse Ox
97.6 F 70 18 168/62 94
10/14/23 03:13 10/14/23 03:13 10/14/23 03:13 10/14/23 03:13 10/14/23 03:13
10/13/23 10/14/23 10/15/23
06:59 06:59 06:59
Actual Weight 62.3 kg 65.907 kg
10/14/23 06:01
10/14/23 06:01
PT 16.8 Sec (11.4-14.6) H 10/11/23 07:01
INR 1.38 10/11/23 07:01
APTT Cancelled 10/12/23 16:00
Magnesium 1.7 mg/dl (1.6-2.3) 10/12/23 03:00
10/11/23 10/12/23
04:25 03:00
Vgo-M-Glqgepkejpr Pept 1060 5510
LAB Results
10/11/23 10/11/23 10/11/23
10:44 16:14 22:26
Troponin I 2.160 H* D 2.360 H* 1.510 H* D
10/12/23
04:30
Troponin I Cancelled
Physical Exam
Constitutional: Other (lethargic)
EENT: Moist mucous membranes
Cardiovascular: Rhythm & rate is regular, Pedal edema is absent, JVD pressure is normal and Systolic murmur absent
Respiratory: Respiratory effort normal and Lungs clear to auscul.
GI: Soft and Distention absent
Data Reviewed
-
Date of Service: October 14, 2023
EKG: Other (Tele: NSR 60s-70s)
Labs: Labs Reviewed by me
[2023-10-14 08:16] LABS: Phosphorus 3.6 mg/dl (2.5-4.5)
[2023-10-14] MEDS: KCL 270 MEQ IV (08:30)
[2023-10-14] MEDS: LOPRESSOR 25 MG TUBE (08:31)
[2023-10-14] MEDS: SINEMET 25-100 1 TABLET PO ×3 (08:32→21:13)
[2023-10-14] MEDS: PACERONE 100 MG PO (08:32)
[2023-10-14] MEDS: REFRESH EYE DROPS (PF) 1 DROPS BOTH EYES ×4 (08:32→21:14)
[2023-10-14] MEDS: LOW STRENGTH ASPIRIN 81 MG TUBE (08:32)
[2023-10-14] MEDS: ELIQUIS 5 MG TUBE (08:32)
[2023-10-14] MEDS: PROTONIX IV 40 MG IV (08:33)
[2023-10-14] MEDS: NSS (PRESERVATIVE FREE) 10 ML IV (08:33)
[2023-10-14 11:00] VITALS: BP 104/52
--- NOTE | 2023-10-14 13:43 | PTOTSP ---
Video Swallow Examination
Minimal oral/pharyngeal dysphagia with trace to mild oral/pharyngeal stasis that cleared with dry swallows. No laryngeal penetration or aspiration observed across trials/consistencies. Observation of esophageal emptying in upright position revealed
retained contrast/redirection below level of PES with improved clearance following liquid wash.
Recommend
1. IDDSI 6 Diet and Thin Liquids
2. Meds whole in applesauce
3. Alternate sip of liquid after 2-3 bites of solid.
4. Aspiration and reflux precautions.
5. Remain upright for at least 30 minutes after meals.
No further skilled ST indicated
[2023-10-14 15:25] VITALS: BP 107/51
[2023-10-14 17:04] LABS: Glucose - Point of Care 126 mg/dl (70-99)
[2023-10-14] MEDS: LIPITOR 40 MG PO (17:57)
[2023-10-14 19:49] VITALS: BP 144/59
[2023-10-14] MEDS: LOPRESSOR 25 MG PO (21:00)
[2023-10-14] MEDS: ELIQUIS 5 MG PO (21:00)
[2023-10-14 23:06] VITALS: BP 145/57
[2023-10-15] MEDS: ZOSYN 50 IV ×3 (00:08→12:13)
[2023-10-15 03:06] VITALS: BP 149/53
[2023-10-15 05:47] VITALS: BMI 23.2
[2023-10-15 06:44] LABS: % Basophils 0.9 % (0-2); % Eosinophils 3.4 % (0-6); % Immature Granulocytes 0.6 % (0-0.5); % Lymphocytes 10.1 % (20.5-51.1); % Monocytes 9.8 % (1.7-9.3); % Neutrophils 75.2 % (42.2-75.2); Absolute Basophils 0.1 10^3/uL (0-0.2); Absolute Eosinophils 0.3 10^3/uL (0-0.7); Absolute Immature Granulocytes 0.1 10^3/uL (0-0.05); Absolute Lymphocytes 0.8 10^3/uL (1.2-3.4); Absolute Monocytes 0.8 10^3/uL (0.1-0.6); Absolute Neutrophils 5.9 10^3/uL (1.4-6.5); Hematocrit 27.3 % (37.0-47.0); Hemoglobin 9.1 g/dL (12.0-16.0); Mean Corp Hgb Conc. 33.3 g/dL (33.0-37.0); Mean Corpuscular Hgb 28.8 pg (27.0-31.0); Mean Corpuscular Volume 86.4 fL (81.0-99.0); Mean Platelet Volume 10.6 fL (7.4-10.4); Nucleated Red Blood Cells % 0 %; Platelet Count 263 10^3/uL (130-400); Red Blood Cell Count 3.16 10^6/uL (4.20-5.40); Red Cell Dist. Width 17.3 % (11.5-14.5); White Blood Cell Count 7.9 10^3/uL (4.8-10.8)
[2023-10-15 07:10] LABS: ALT (SGPT) < 10 U/L (0-35); AST (SGOT) 14 U/L (14-36); Albumin 2.8 g/dl (3.5-5.0); Alkaline Phosphatase 54 U/L (38-126); Blood Urea Nitrogen 25 mg/dl (7-17); Calcium 8.9 mg/dl (8.4-10.2); Carbon Dioxide 25 mmol/L (22-30); Chloride 108 mmol/L (98-107); Estimated Creatinine Clearance 52 ml/min; Glucose 133 mg/dl (70-99); Phosphorus 3.4 mg/dl (2.5-4.5); Potassium 3.6 mmol/L (3.5-5.1); Sodium 140 mmol/L (135-145); Total Bilirubin 1.6 mg/dl (0.2-1.3); Total Protein 5.4 g/dl (6.3-8.2); eGFR > 60.00
[2023-10-15 07:50] VITALS: BP 178/69
[2023-10-15] MEDS: SINEMET 25-100 1 TABLET PO ×3 (08:59→21:37)
[2023-10-15] MEDS: ELIQUIS 5 MG PO ×2 (08:59→21:24)
[2023-10-15] MEDS: LOW STRENGTH ASPIRIN 81 MG PO (08:59)
[2023-10-15] MEDS: NSS (PRESERVATIVE FREE) 10 ML IV (09:00)
[2023-10-15] MEDS: LOPRESSOR 25 MG PO ×2 (09:00→21:24)
[2023-10-15] MEDS: PROTONIX IV 40 MG IV (09:00)
[2023-10-15] MEDS: PACERONE 100 MG PO (09:00)
[2023-10-15] MEDS: REFRESH EYE DROPS (PF) 1 DROPS BOTH EYES ×4 (09:01→21:37)
[2023-10-15 09:04] VITALS: BP 168/66
[2023-10-15 11:44] VITALS: BP 119/50
--- NOTE | 2023-10-15 13:23 | W.PN.HOSP.TC ---
Today's Communication/Plan
-
Stop IV antibiotics
Change Protonix to oral
Augmentin
Discharge planning
Assessment / Plan
Assessment / Plan
Gen-awake but not alert, not interactive, respiratory distress with tachypnea
HEENT-NC, AT, anicteric, clear oral mm, Dobbhoff tube
Neck-supple
CV-reg, no M, +S1/S2
Lungs-bilateral rhonchi
Abd-soft, NT, ND
Ext-no edema
Musculoskeletal-no cyanosis, clubbing
Skin-warm and dry
Neuro-grossly non-focal
Psych-calm, cooperative
Shock -resolved. Off vasopressors. Etiology of shock was related to diuresis and antihypertensives.
Acute TME -POA. Encephalopathy slowly improving.
Acute hypoxic respiratory failure -respiratory failure likely combination of pulmonary edema and aspiration pneumonia.
Oxygenation improving, was on high flow nasal cannula yesterday, currently on 2 L nasal cannula. Wean down as able, discussed with nursing.
Chronic heart failure with preserved EF - acute heart failure felt to be unlikely. Hold further diuretics.
Aspiration pneumonia -day 5 of IV Zosyn, will discontinue and change to Augmentin, complete 7 days total. Afebrile. Leukocytosis resolved. 10/11 chest x-ray with stable left lower lobe infiltrate. Progressed to small loculated right pleural
effusion.
Dysphagia -likely related to Parkinson's disease. Completed video swallowing study. Speech therapy recommends soft and bite sized food, thin liquids. Meds whole in applesauce.
I explained to the patient's son that she has a high risk of recurrent aspiration in the future, including repeated hospitalizations. Son understands. Hospice can be considered in the future if she clinically deteriorates.
ARNOLDO -related to hemodynamic shifts, significant hypotension, ATN. ARNOLDO resolved. Padilla catheter in place.
Hypokalemia -resolved. Magnesium normal.
Acute nonischemic myocardial injury -due to acute illness, pneumonia. Troponin trending down.
Essential hypertension with hypertensive emergency -in the setting of acute pulmonary edema, acute heart failure exacerbation. Hypertensive emergency resolved. Transient shock as above.
Chronic normocytic anemia - baseline hemoglobin around 10. Currently 9.1 and stable. Monitor for now.
Parkinson's disease -stable.
Ambulatory dysfunction -limited mobility due to Parkinson's. Uses a rolling walker.
Paroxysmal atrial fibrillation -on Eliquis and amiodarone.
Hyperlipidemia -on atorvastatin.
Permanent pacemaker
CAD
Severe protein calorie malnutrition
DNR
Dispo -awaiting transfer to SNF. She looks much better today and anticipate she is medically stable for discharge whenever bed can be found. Discussed with son at the bedside.
Anticipated Discharge: 24 - 48 hours
Subjective/Interval History
-
Date of Service: October 15, 2023
Patient seen and examined. No complaints.
Objective Data
-
Labs:
Laboratory Results
10/15/23
06:07
WBC 7.9
Hgb 9.1 L
Hct 27.3 L
Plt Count 263
Sodium 140
Potassium 3.6
Chloride 108 H
Carbon Dioxide 25
BUN 25 H
Creatinine 0.7
Glucose 133 H
Calcium 8.9
Total Bilirubin 1.6 H
AST 14
ALT < 10
Alkaline Phosphatase 54
Vital Signs:
Vital Signs
Temp Pulse Resp BP Pulse Ox
98.1 F 62 16 119/50 93
10/15/23 11:44 10/15/23 11:44 10/15/23 11:44 10/15/23 11:44 10/15/23 11:44
I&O
10/14/23 10/15/23 10/16/23
06:59 06:59 06:59
Intake Total 610 / 610 1040 / 1040
Output Total 1340 / 1340 875 / 875
Balance -730 / -730 165 / 165
Review of Systems
-
History Source: Patient
All other systems: Reviewed and negative
--- NOTE | 2023-10-15 15:12 | CM ---
Spoke to son. He would like patient skilled when she goes back to [facility] for some rehab. She was walking with walker in [place] and he feels she needs some PT at facility.
[2023-10-15 15:35] VITALS: BP 143/49
[2023-10-15] MEDS: LIPITOR 40 MG PO (18:19)
--- NOTE | 2023-10-15 18:31 | PTCARENOTE ---
this nurse attempted to wean pt from 2L to RA this shift. pt was not able to be without O2. pt was 87-88% on RA for this nurse. pt currently on 1L sating at 91-92%
[2023-10-15] MEDS: AUGMENTIN 875 MG/125 MG 1 TABLET PO (21:23)
[2023-10-15 23:23] VITALS: BP 164/67
[2023-10-16 05:53] VITALS: BMI 23.7
[2023-10-16 07:08] LABS: % Basophils 0.7 % (0-2); % Immature Granulocytes 0.4 % (0-0.5); % Lymphocytes 16.2 % (20.5-51.1); % Monocytes 11.7 % (1.7-9.3); Absolute Basophils 0.1 10^3/uL (0-0.2); Absolute Eosinophils 0.3 10^3/uL (0-0.7); Absolute Lymphocytes 1.1 10^3/uL (1.2-3.4); Absolute Monocytes 0.8 10^3/uL (0.1-0.6); Absolute Neutrophils 4.7 10^3/uL (1.4-6.5); Hemoglobin 8.8 g/dL (12.0-16.0); Mean Corp Hgb Conc. 32.6 g/dL (33.0-37.0); Mean Corpuscular Hgb 29.1 pg (27.0-31.0); Mean Corpuscular Volume 89.4 fL (81.0-99.0); Mean Platelet Volume 10.6 fL (7.4-10.4); Nucleated Red Blood Cells % 0 %; Platelet Count 261 10^3/uL (130-400); Red Blood Cell Count 3.02 10^6/uL (4.20-5.40); Red Cell Dist. Width 17.3 % (11.5-14.5)
[2023-10-16 07:30] LABS: ALT (SGPT) < 10 U/L (0-35); AST (SGOT) 13 U/L (14-36); Albumin 2.9 g/dl (3.5-5.0); Alkaline Phosphatase 50 U/L (38-126); Blood Urea Nitrogen 20 mg/dl (7-17); Calcium 9.1 mg/dl (8.4-10.2); Carbon Dioxide 23 mmol/L (22-30); Chloride 108 mmol/L (98-107); Estimated Creatinine Clearance 52 ml/min; Glucose 129 mg/dl (70-99); Phosphorus 3.6 mg/dl (2.5-4.5); Potassium 3.6 mmol/L (3.5-5.1); Sodium 138 mmol/L (135-145); Total Bilirubin 1.1 mg/dl (0.2-1.3); Total Protein 5.3 g/dl (6.3-8.2); eGFR > 60.00
[2023-10-16 07:32] VITALS: BP 176/69
[2023-10-16] MEDS: AUGMENTIN 875 MG/125 MG 1 TABLET PO ×2 (09:00→20:19)
[2023-10-16] MEDS: ELIQUIS 5 MG PO ×2 (09:01→20:19)
[2023-10-16] MEDS: PACERONE 100 MG PO (09:01)
[2023-10-16] MEDS: LOPRESSOR 25 MG PO ×2 (09:01→20:18)
[2023-10-16] MEDS: REFRESH EYE DROPS (PF) 1 DROPS BOTH EYES ×4 (09:01→21:38)
[2023-10-16] MEDS: LOW STRENGTH ASPIRIN 81 MG PO (09:01)
[2023-10-16] MEDS: SINEMET 25-100 1 TABLET PO ×3 (09:01→21:38)
[2023-10-16] MEDS: PROTONIX 40 MG PO (09:01)
[2023-10-16 12:00] VITALS: BP 116/47
--- NOTE | 2023-10-16 13:32 | W.PN.HOSP.TC ---
Today's Communication/Plan
-
Melatonin at bedtime
Discharge planning
Assessment / Plan
Assessment / Plan
Gen-sleepy but arousable, sitting in the chair
HEENT-NC, AT, anicteric, clear oral mm, Dobbhoff tube
Neck-supple
CV-reg, no M, +S1/S2
Lungs-bilateral rhonchi
Abd-soft, NT, ND
Ext-no edema
Musculoskeletal-no cyanosis, clubbing
Skin-warm and dry
Neuro-grossly non-focal
Psych-calm, cooperative
Shock -resolved. Off vasopressors. Etiology of shock was related to diuresis and antihypertensives.
Acute TME -POA. Encephalopathy slowly improving. Sleepy today and I suspect she did not sleep well last night. Add melatonin at bedtime. Discussed with patient, family, nurse.
Acute hypoxic respiratory failure -respiratory failure likely combination of pulmonary edema and aspiration pneumonia.
Oxygenation improving, was on high flow nasal cannula yesterday, currently on 2 L nasal cannula. Wean down as able, discussed with nursing.
Chronic heart failure with preserved EF - acute heart failure felt to be unlikely. Hold further diuretics.
Aspiration pneumonia -currently on Augmentin, day 6 of 7 for antibiotics. Afebrile. Leukocytosis resolved. 10/11 chest x-ray with stable left lower lobe infiltrate. Progressed to small loculated right pleural effusion.
Dysphagia -likely related to Parkinson's disease. Completed video swallowing study. Speech therapy recommends soft and bite sized food, thin liquids. Meds whole in applesauce.
I explained to the patient's son that she has a high risk of recurrent aspiration in the future, including repeated hospitalizations. Son understands. Hospice can be considered in the future if she clinically deteriorates.
ARNOLDO -related to hemodynamic shifts, significant hypotension, ATN. ARNOLDO resolved. Padilla catheter in place.
Hypokalemia -resolved. Magnesium normal.
Acute nonischemic myocardial injury -due to acute illness, pneumonia. Troponin trending down.
Essential hypertension with hypertensive emergency -in the setting of acute pulmonary edema, acute heart failure exacerbation. Hypertensive emergency resolved. Transient shock as above.
Chronic normocytic anemia - baseline hemoglobin around 10. Hemoglobin 8.8 today, recheck in the morning. No evidence of bleeding.
Parkinson's disease -stable.
Ambulatory dysfunction -limited mobility due to Parkinson's. Uses a rolling walker.
Paroxysmal atrial fibrillation -on Eliquis and amiodarone.
Hyperlipidemia -on atorvastatin.
Permanent pacemaker
CAD
Severe protein calorie malnutrition
DNR
Dispo -awaiting transfer to SNF, hopefully on Tuesday. Updated family at the bedside.
Anticipated Discharge: Within 24 hours
Subjective/Interval History
-
Date of Service: October 16, 2023
Patient seen and examined. Sleepy today, family at the bedside. No complaints.
Objective Data
-
Labs:
Laboratory Results
10/16/23
06:30
WBC 7.0
Hgb 8.8 L
Hct 27.0 L
Plt Count 261
Sodium 138
Potassium 3.6
Chloride 108 H
Carbon Dioxide 23
BUN 20 H
Creatinine 0.7
Glucose 129 H
Calcium 9.1
Total Bilirubin 1.1
AST 13 L
ALT < 10
Alkaline Phosphatase 50
Vital Signs:
Vital Signs
Temp Pulse Resp BP Pulse Ox
97.8 F 65 14 116/47 96
10/16/23 07:32 10/16/23 12:00 10/16/23 07:32 10/16/23 12:00 10/16/23 11:38
I&O
10/15/23 10/16/23 10/17/23
06:59 06:59 06:59
Intake Total 1040 / 1040 980 / 980
Output Total 875 / 875 725 / 725
Balance 165 / 165 255 / 255
Review of Systems
-
History Source: Patient
All other systems: Reviewed and negative
[2023-10-16 15:35] VITALS: BP 158/66
[2023-10-16] MEDS: LIPITOR 40 MG PO (17:19)
--- NOTE | 2023-10-16 18:26 | PTCARENOTE ---
Patient's BP taken by this RN 166/70 HR 73 LUE, repeat in RUE 163/71. Patient drowsy but states no concerns at this time. MD made aware, no new orders at this time.
[2023-10-16 20:18] VITALS: BP 159/67
[2023-10-16] MEDS: MELATONIN 5 MG PO (21:41)
[2023-10-16 23:13] VITALS: BP 160/61
[2023-10-17 05:37] VITALS: BMI 23.4
[2023-10-17 06:58] LABS: % Basophils 0.6 % (0-2); % Eosinophils 4.1 % (0-6); % Immature Granulocytes 0.7 % (0-0.5); % Lymphocytes 13.8 % (20.5-51.1); % Monocytes 9.3 % (1.7-9.3); % Neutrophils 71.5 % (42.2-75.2); Absolute Basophils 0.1 10^3/uL (0-0.2); Absolute Eosinophils 0.4 10^3/uL (0-0.7); Absolute Immature Granulocytes 0.1 10^3/uL (0-0.05); Absolute Lymphocytes 1.2 10^3/uL (1.2-3.4); Absolute Monocytes 0.8 10^3/uL (0.1-0.6); Absolute Neutrophils 6.3 10^3/uL (1.4-6.5); Hematocrit 29.1 % (37.0-47.0); Hemoglobin 9.6 g/dL (12.0-16.0); Mean Corpuscular Hgb 28.7 pg (27.0-31.0); Mean Corpuscular Volume 86.9 fL (81.0-99.0); Mean Platelet Volume 10.5 fL (7.4-10.4); Nucleated Red Blood Cells % 0 %; Platelet Count 281 10^3/uL (130-400); Red Blood Cell Count 3.35 10^6/uL (4.20-5.40); Red Cell Dist. Width 17.2 % (11.5-14.5); White Blood Cell Count 8.7 10^3/uL (4.8-10.8)
[2023-10-17 07:27] LABS: Phosphorus 3.8 mg/dl (2.5-4.5)
[2023-10-17 08:44] VITALS: BP 174/66
[2023-10-17 09:30] VITALS: BP 166/77; PULSE 80; O2SAT 92
[2023-10-17 09:31] VITALS: BP 166/77; PULSE 80; O2SAT 92
[2023-10-17] MEDS: LOW STRENGTH ASPIRIN 81 MG PO (09:37)
[2023-10-17] MEDS: LOPRESSOR 25 MG PO ×2 (09:37→20:28)
[2023-10-17] MEDS: ELIQUIS 5 MG PO ×2 (09:38→20:28)
[2023-10-17] MEDS: PROTONIX 40 MG PO (09:38)
[2023-10-17] MEDS: PACERONE 100 MG PO (09:38)
[2023-10-17] MEDS: AUGMENTIN 875 MG/125 MG 1 TABLET PO ×2 (09:39→20:27)
[2023-10-17] MEDS: SINEMET 25-100 1 TABLET PO ×3 (09:39→21:14)
[2023-10-17] MEDS: REFRESH EYE DROPS (PF) 1 DROPS BOTH EYES ×4 (09:39→21:14)
--- NOTE | 2023-10-17 12:12 | W.PN.HOSP.TC ---
Today's Communication/Plan
-
awaiting SNF
Assessment / Plan
Assessment / Plan
CVS: S1-S2 normal
Chest: few rales right base
Abdomen: Soft, NT Bowel sounds present
Extremities: No edema
BREAD BAKER: Non focal exam
ECHO-Normal LV size and function with no regional wall motion abnormalities.LVEF is 55 to 60% by visual estimation.Mild concentric LVH.Normal right ventricular size and function. Mild aortic regurgitation. Mild tricuspid regurgitation. Estimated
pulmonary artery pressure of 23 mmHg, assuming a right atrial pressure of 3 mmHg.No prior study for comparison
#Shock -resolved. Off vasopressors. Etiology of shock was related to diuresis and antihypertensives.
#Acute TME -POA. Encephalopathy slowly improving. Sleepy today and I suspect she did not sleep well last night. Add melatonin at bedtime. Discussed with patient, family, nurse.
#Acute hypoxic respiratory failure -respiratory failure likely combination of pulmonary edema and aspiration pneumonia.
Oxygenation improving, was on high flow nasal cannula yesterday, currently on 2 L nasal cannula. Wean down as able, discussed with nursing.
#Chronic heart failure with preserved EF - acute heart failure felt to be unlikely. Hold further diuretics.
#Aspiration pneumonia -currently on Augmentin, day 6 of 7 for antibiotics. Afebrile. Leukocytosis resolved. 10/11 chest x-ray with stable left lower lobe infiltrate. Progressed to small loculated right pleural effusion.
#Dysphagia -likely related to Parkinson's disease. Completed video swallowing study. Speech therapy recommends soft and bite sized food, thin liquids. Meds whole in applesauce.
I explained to the patient's son that she has a high risk of recurrent aspiration in the future, including repeated hospitalizations. Son understands. Hospice can be considered in the future if she clinically deteriorates.
#ARNOLDO -related to hemodynamic shifts, significant hypotension, ATN. ARNOLDO resolved. Padilla catheter in place.
#Hypokalemia -resolved. Magnesium normal.
#Acute nonischemic myocardial injury -due to acute illness, pneumonia. Troponin trending down.
#Essential hypertension with hypertensive emergency -in the setting of acute pulmonary edema, acute heart failure exacerbation. Hypertensive emergency resolved. Transient shock as above.
#Chronic normocytic anemia - baseline hemoglobin around 10. Hemoglobin 9.6
#Parkinson's disease -stable.
#Ambulatory dysfunction -limited mobility due to Parkinson's. Uses a rolling walker.
#Chronic Paidlla changed in IMU this admission
#Paroxysmal atrial fibrillation -on Eliquis and amiodarone.
#Hyperlipidemia -on atorvastatin.
#Permanent pacemaker
#Anemia-Check iron studies. OP GI eval.
#CAD
#Severe protein calorie malnutrition
#DNR
Dispo -awaiting transfer to [facility]
D/W Case management
D/W RN at bed side
Anticipated Discharge: Today
Subjective/Interval History
-
Date of Service: October 17, 2023
Objective Data
-
Labs:
Laboratory Results
10/17/23
05:42
WBC 8.7
Hgb 9.6 L
Hct 29.1 L
Plt Count 281
Vital Signs:
Vital Signs
Temp Pulse Resp BP Pulse Ox
97.6 F 71 12 174/66 96
10/17/23 08:44 10/17/23 09:38 10/17/23 08:44 10/17/23 09:38 10/17/23 08:44
I&O
10/16/23 10/17/23 10/18/23
06:59 06:59 06:59
Intake Total 980 / 980 600 / 600
Output Total 725 / 725 650 / 650
Balance 255 / 255 -50 / -50
[2023-10-17 13:34] LABS: Iron 39 ug/dl (37-170)
[2023-10-17 13:44] LABS: Percent Saturation 21 % (20-50); Total Iron Binding Capacity 181 ug/dl (265-497)
--- NOTE | 2023-10-17 14:43 | CM ---
CM reviewed pt with Dr Hudson- ready for dc
Return SNF bed confirmed with [facility]
Clinicals sent via [facility] to [facility]
[employer] auth initiated on [employer] and clinicals faxed
Auth pending #[id number]
Update to juan j/Iglesia via phone
Discharge Disposition- return [facility] via [employer] auth vs continued LTC private pay
[2023-10-17 14:53] LABS: Vitamin B12 244 pg/ml (239-931)
[2023-10-17 15:52] VITALS: BP 146/58
[2023-10-17] MEDS: LIPITOR 40 MG PO (18:03)
[2023-10-17 20:30] VITALS: BP 155/60
[2023-10-17] MEDS: MELATONIN 5 MG PO (21:14)
[2023-10-17 23:09] VITALS: BP 153/59
[2023-10-18 07:15] VITALS: BP 116/75
[2023-10-18] MEDS: LOPRESSOR 25 MG PO (09:27)
[2023-10-18] MEDS: PACERONE 100 MG PO (09:28)
[2023-10-18] MEDS: LOW STRENGTH ASPIRIN 81 MG PO (09:28)
[2023-10-18] MEDS: SINEMET 25-100 1 TABLET PO (09:28)
[2023-10-18] MEDS: ELIQUIS 5 MG PO (09:28)
[2023-10-18] MEDS: PROTONIX 40 MG PO (09:28)
[2023-10-18] MEDS: VITAMIN B-12 1000 MCG PO (09:28)
[2023-10-18] MEDS: REFRESH EYE DROPS (PF) 1 DROPS BOTH EYES ×2 (09:28→13:23)
--- NOTE | 2023-10-18 12:15 | CM ---
Addendum entered by Tiffany Valerio 10/18/23 15:28:
[employer] approval #[id number]
13 days 10/17-10/29 NRD 10/30
Mili [phone] (p) [phone] (f)
Forwarded to [facility] admissions
Son updated
Original Note:
CM reviewed pt with Dr Hudson and ready for dc
[facility]/admissions in agreement with pt return back to SNF today with [employer] auth pending as pt is LTC private pay resident
Call/son who is in agreement with plan
Aware if auth approved, [facility] to bill retro under [employer] auth
IMM verbally reviewed with son over phone- copy left bedside for his visit later today
Medical necessity and transport form on chart
[facility] Patroller to arrange for BLS transport
[employer] auth remains pending
Ref# Auth pending [id number]
Has been sent to [employer] escalation team by Director for review
Discharge Disposition- return [facility] via ambulance
Phone- [phone] Fax- [phone]
--- NOTE | 2023-10-18 13:08 | PTCARENOTE ---
Report given to Ana Will ([phone]). supervisor glycerin time at 1500 via ambulance.
--- NOTE | 2023-10-18 13:10 | W.PN.HOSP.TC ---
Addendum entered and electronically signed by Dany Hudson MD 10/18/23 13:22:
Will restart [id number]-reuf and also 7.5 mg of Remeron at bedtime.
Original Note:
Today's Communication/Plan
-
Discharge
Assessment / Plan
Assessment / Plan
CVS: S1-S2 normal
Chest: CTA
Abdomen: Soft, NT Bowel sounds present
Extremities: No edema
SENIOR AUDITOR: Non focal exam
ECHO-Normal LV size and function with no regional wall motion abnormalities.LVEF is 55 to 60% by visual estimation.Mild concentric LVH.Normal right ventricular size and function. Mild aortic regurgitation. Mild tricuspid regurgitation. Estimated
pulmonary artery pressure of 23 mmHg, assuming a right atrial pressure of 3 mmHg.No prior study for comparison
#Shock -resolved. Off vasopressors. Etiology of shock was related to diuresis and antihypertensives.
#Acute TME -POA. Encephalopathy improved.
#Acute hypoxic respiratory failure -respiratory failure likely combination of pulmonary edema and aspiration pneumonia.
Oxygenation improving, was on high flow nasal cannula , now off O2.
#Chronic heart failure with preserved EF - acute heart failure felt to be unlikely. Hold further diuretics.
#Aspiration pneumonia -currently on Augmentin, day 6 of 7 for antibiotics. Afebrile. Leukocytosis resolved. 10/11 chest x-ray with stable left lower lobe infiltrate. Progressed to small loculated right pleural effusion.
#Dysphagia -likely related to Parkinson's disease. Completed video swallowing study. Speech therapy recommends soft and bite sized food, thin liquids. Meds whole in applesauce.
#ARNOLDO -related to hemodynamic shifts, significant hypotension, ATN. ARNOLDO resolved. Padilla catheter in place.
#Hypokalemia -resolved. Magnesium normal.
#Acute nonischemic myocardial injury -due to acute illness, pneumonia.
#Essential hypertension with hypertensive emergency -in the setting of acute pulmonary edema, acute heart failure exacerbation. Hypertensive emergency resolved. Transient shock as above.
#Chronic normocytic anemia - baseline hemoglobin around 10. Hemoglobin 9.6. Replace B12
#Parkinson's disease -stable.
#Ambulatory dysfunction -limited mobility due to Parkinson's. Uses a rolling walker.
#Chronic Padilla changed in IMU this admission
#Paroxysmal atrial fibrillation -on Eliquis and Amiodarone.
#Hyperlipidemia -on atorvastatin.
#Permanent pacemaker
#CAD
#Severe protein calorie malnutrition
#DNR
D/W Case management
D/W RN
Spoke to son and updated
Discharge time 34 min
Anticipated Discharge: Today
Subjective/Interval History
-
Date of Service: October 18, 2023
Objective Data
-
Vital Signs:
Vital Signs
Temp Pulse Resp BP Pulse Ox
97.3 F 67 16 116/75 96
10/18/23 07:15 10/18/23 09:28 10/18/23 07:15 10/18/23 09:28 10/18/23 07:15
I&O
10/17/23 10/18/23 10/19/23
06:59 06:59 06:59
Intake Total 600 / 600 720 / 720
Output Total 650 / 650 1075 / 1075
Balance -50 / -50 -355 / -355
--- NOTE | 2023-10-18 13:22 | W.DS.TRANS ---
Addendum entered and electronically signed by Dany Hudson MD 10/18/23 16:40:
Dictation- [id number]
Original Note:
DC Summary - [facility] [employer]
-
Discharge Instructions:
Discharge Diagnosis/Procedures Shock, TME, acute hypoxic respiratory failure
aspiration pneumonia, chronic heart failure,
dysphagia, acute kidney injury hypertension
anemia, Parkinson disease, ambulatory
dysfunction, chronic Padilla, atrial fibrillation,
hyperlipidemia, pacemaker, coronary disease,
severe protein calorie malnutrition
Diet 2 Gram Sodium,Restrict fluids to 64 oz
Additional Diets IDDSI [id number]
Activity As tolerated,With assistance
Driving Restrictions No driving
Blood Work TSH and T4 as OP
Others Tests CXR 4 weeks
Other Services PT,OT
Specialty Instructions Weigh Daily
Instructions:
Stand-Alone Forms:
Changes to Home Medications: Yes
Discharge Medications:
DC Medications w/original date entered in [facility]
apixaban 5 mg tablet (Eliquis) 5 mg PO BID Blood clot prevention/tx 09/21/19
meclizine 25 mg tablet 25 mg PO [id number] PRN dizziness/vertigo 09/27/21
calcium carbonate 500 mg PO [id number] PRN heartburn 03/23/22
lidocaine 4 % topical patch 1 patch topical DAILYPRN PRN lower back pain 03/23/22
metronidazole 1 % topical gel 1 applic topical DAILYPRN PRN apply to B/L cheeks/forehead 03/23/22
acetaminophen 325 mg tablet 650 mg PO Q6HPRN PRN mild pain/temp>100 02/09/23
nitroglycerin 0.4 mg sublingual tablet 0.4 mg sublingual [id number] PRN chest pain 02/16/23
polyethylene glycol 3350 17 gram oral powder packet (Miralax) 17 g PO DAILY Constipation #0 ea 02/19/23
amiodarone 100 mg tablet 100 mg PO DAILY Arrhythmia 06/09/23
cholecalciferol (vitamin D3) 25 mcg (1,000 unit) tablet 50 mcg PO DAILY Supplement 06/09/23
nystatin 100,000 unit/gram topical powder 1 applic topical [id number] PRN rash 06/09/23
ondansetron HCl 4 mg tablet 4 mg PO Q12H PRN nausea 06/09/23
sertraline 50 mg tablet 50 mg PO DAILY Depression 06/09/23
atorvastatin 40 mg tablet 40 mg PO HS High Cholesterol 07/18/23
menthol 5 % topical patch (Icy Hot (menthol)) 1 patch topical BID lower back pain 07/18/23
carbidopa 25 mg-levodopa 100 mg tablet (Sinemet) 1 tab PO TID Neurological Condition ##0 07/20/23
bisacodyl 10 mg rectal suppository (Dulcolax (bisacodyl)) 10 mg ME DAILYPRN PRN constipation 08/26/23
magnesium hydroxide 400 mg/5 mL oral suspension (Milk of Magnesia) 30 ml PO DAILY PRN if no bm on day 4 08/26/23
pantoprazole 40 mg granules delayed-release for susp in packet 40 mg PO DAILY GERD 08/26/23
polyvinyl alcohol-povidone (PF) 1.4 %-0.6 % eye drops in a dropperette (Refresh Classic (PF)) 1 drp BOTH EYES QID Eye Condition 08/26/23
sodium phosphates 19 gram-7 gram/118 mL enema (Fleet Enema) 118 ml ME DAILYPRN PRN constipation 08/26/23
Magic Cup PO BID MOUTH PAIN 10/11/23
Uqora 1 packet PO DAILY uti prophylaxis 10/11/23
docusate sodium 100 mg capsule 100 mg PO BID Constipation 10/12/23
ascorbic acid (vitamin C) 1,000 mg tablet (Vitamin C) 500 mg (1/2 x 1,000 mg) PO BID Supplement #0 tabs 10/18/23
aspirin 81 mg chewable tablet (Children's Aspirin) 81 mg PO DAILY Blood clot prevention/tx #30 tabs 10/18/23
cyanocobalamin (vitamin B-12) 1,000 mcg tablet 1,000 mcg PO DAILY low normal B12 #0 tabs 10/18/23
melatonin 3 mg tablet 5 mg (1.6667 x 3 mg) PO HS insomnia #0 tabs 10/18/23
metoprolol tartrate 25 mg tablet 25 mg PO BID Arrhythmia #0 tabs 10/18/23
mirtazapine 15 mg tablet (Remeron) 7.5 mg (1/2 x 15 mg) PO HS Mental Health/Anxiety #0 tabs 10/18/23
Home Medication Changes
Remeron dose decreased
Metoprolol changed to twice daily
Plavix stopped
Salt tablets stop
Aspirin as needed
Vitamin B12 is new
Dose of vitamin C reduced
Pending Results: No
[2023-10-18 14:00] VITALS: BP 151/57
--- NOTE | 2023-10-26 09:49 | PN.CDI ---
CDI
- -
CDI:
Physician Documentation Request
Admit Date: 10/11/23 06:02
Dear Doctor Becca,
Please review the following and provide your response in the progress notes.
Clinical Indicators:
The diagnosis of sepsis was documented on 10/10 H&P but is not consistently noted in subsequent documentation.
- 10/10 H&P 'Sepsis...suspect Acute pulmonary edema plus PNA +/_ aspiration'
- ON admission: WBC 17.4, RR 20s
- IV abx Zosyn started
- No IVF, on Levophed with chronic HFpEF
- 10/11 PN 'Shock -doubt due to sepsis'
- 10/17 PN and DC Summary indicates aspiration pneumonia
Please clarify the following:
____ - Sepsis was present on admission and is now resolved.
____ - Sepsis was ruled out
____ - Other
Use of terms such as suspected, likely, concern for, or probable (associated with a specific diagnosis that is being evaluated, monitored, or treated as if it exists) are acceptable and can be coded in the inpatient setting, when documented at the
time of discharge.
Thank you,
Yahaira Acuña RN
CDI Specialist
Please use your independent medical judgment in providing your response.
--- NOTE | 2023-10-26 10:07 | PN.CDI ---
Addendum entered and electronically signed by Dany Hudson MD 10/30/23 07:37:
I am not planning any additional documentation.
You may query Other attending who took care of the patient longer
Original Note:
CDI
- -
CDI:
Physician Documentation Request
Admit Date: 10/11/23 06:02
Dear Doctor Becca,
Please review the following and provide your response in the progress notes.
Clinical Indicators:
The diagnosis of sepsis was documented on 10/10 H&P but is not consistently noted in subsequent documentation.
- 10/10 H&P 'Sepsis...suspect Acute pulmonary edema plus PNA +/_ aspiration'
- ON admission: WBC 17.4, RR 20s
- IV abx Zosyn started
- No IVF, on Levophed with chronic HFpEF
- 10/11 PN 'Shock -doubt due to sepsis'
- 10/11 Cardiology 'ARNOLDO...Consistent with intravascular depletion from sepsis'
- / PN and DC Summary indicates aspiration pneumonia
Please clarify the following:
____ - Sepsis was present on admission and is now resolved.
____ - Sepsis was ruled out
____ - Other
Use of terms such as suspected, likely, concern for, or probable (associated with a specific diagnosis that is being evaluated, monitored, or treated as if it exists) are acceptable and can be coded in the inpatient setting, when documented at the
time of discharge.
Thank you,
Yahaira Acuña RN
CDI Specialist
Please use your independent medical judgment in providing your response.
== END 2023-10-18 15:29 | DRG 871 ==
LOC: 2 NORTH 06:02
PROVIDERS: Hospitalist; ADMITTING PHYSICIAN Internal Medicine; ATTENDING PHYSICIAN Hospitalist; CONSULT PHYSICIAN Internal Medicine Cardiovascular Disease; CONSULT PHYSICIAN Internal Medicine Critical Care Medicine; EMERGENCY PHYSICIAN Student in an Organized Health Care Education/Training Program; FAMILY PHYSICIAN Family Medicine
PROC: 5A09357 Assistance with Respiratory Ventilation, Less than 24 Consecutive Hours, Continuous Positive Airway Pressure (ICD-10-PCS; 2023-10-11)
PROC: 5A0935A Assistance with Respiratory Ventilation, Less than 24 Consecutive Hours, High Flow/Velocity Cannula (ICD-10-PCS; 2023-10-11)
PROC: 0DH67UZ Insertion of Feeding Device into Stomach, Via Natural or Artificial Opening (ICD-10-PCS; 2023-10-11)
DX: A41.89 Other specified sepsis (principal); E43 Unspecified severe protein-calorie malnutrition; J96.01 Acute respiratory failure with hypoxia; G92.8 Other toxic encephalopathy; J69.0 Pneumonitis due to inhalation of food and vomit; R57.1 Hypovolemic shock; E87.1 Hypo-osmolality and hyponatremia; I16.1 Hypertensive emergency; N17.9 Acute kidney failure, unspecified; I50.32 Chronic diastolic (congestive) heart failure; I5A Non-ischemic myocardial injury (non-traumatic); J98.11 Atelectasis; N39.0 Urinary tract infection, site not specified; F41.9 Anxiety disorder, unspecified; H35.30 Unspecified macular degeneration; I11.0 Hypertensive heart disease with heart failure; I25.10 Atherosclerotic heart disease of native coronary artery without angina pectoris; D63.8 Anemia in other chronic diseases classified elsewhere; I48.0 Paroxysmal atrial fibrillation; F32.A Depression, unspecified; G20.A1 Parkinson's disease without dyskinesia, without mention of fluctuations; E87.6 Hypokalemia; R26.2 Difficulty in walking, not elsewhere classified; R62.7 Adult failure to thrive; E78.00 Pure hypercholesterolemia, unspecified; R32 Unspecified urinary incontinence; R13.10 Dysphagia, unspecified; L89.151 Pressure ulcer of sacral region, stage 1; R54 Age-related physical debility; Z66 Do not resuscitate; Z95.5 Presence of coronary angioplasty implant and graft; Z95.0 Presence of cardiac pacemaker; Z11.52 Encounter for screening for COVID-19; I25.2 Old myocardial infarction; Z68.23 Body mass index [BMI] 23.0-23.9, adult; Z79.01 Long term (current) use of anticoagulants
CPT/HCPCS: 71045; 74018; 74230; 80053; 81003; 81015; 82607; 82728; 82805; 82962; 83540; 83550; 83605; 83735; 83880; 84100; 84484; 85025; 85027; 85610; 85730; 87040; 87070; 87086; 87502; 87811; 92526; 92610; 92611; 93005; 93306; 94660; 96365; 96375; 97162; 97167; 97530; 97535; 99285; P9047

== ENCOUNTER → 2023-10-21 11:21 | Outpatient (REF) | payer OTHER, SELFPAY ==
[2023-10-21 12:37] LABS: % Basophils 0.7 % (0-2); % Eosinophils 3.9 % (0-6); % Immature Granulocytes 0.5 % (0-0.5); % Lymphocytes 20.4 % (20.5-51.1); % Monocytes 8.7 % (1.7-9.3); % Neutrophils 65.8 % (42.2-75.2); Absolute Basophils 0.1 10^3/uL (0-0.2); Absolute Eosinophils 0.3 10^3/uL (0-0.7); Absolute Lymphocytes 1.7 10^3/uL (1.2-3.4); Absolute Monocytes 0.7 10^3/uL (0.1-0.6); Absolute Neutrophils 5.4 10^3/uL (1.4-6.5); Hematocrit 30.7 % (37.0-47.0); Hemoglobin 9.7 g/dL (12.0-16.0); Mean Corp Hgb Conc. 31.6 g/dL (33.0-37.0); Mean Corpuscular Hgb 28.7 pg (27.0-31.0); Mean Corpuscular Volume 90.8 fL (81.0-99.0); Mean Platelet Volume 10.7 fL (7.4-10.4); Nucleated Red Blood Cells % 0 %; Platelet Count 354 10^3/uL (130-400); Red Blood Cell Count 3.38 10^6/uL (4.20-5.40); Red Cell Dist. Width 17.1 % (11.5-14.5); White Blood Cell Count 8.2 10^3/uL (4.8-10.8)
[2023-10-21 13:45] LABS: ALT (SGPT) < 10 U/L (0-35); AST (SGOT) 18 U/L (14-36); Albumin 2.9 g/dl (3.5-5.0); Alkaline Phosphatase 77 U/L (38-126); Blood Urea Nitrogen 23 mg/dl (7-17); Carbon Dioxide 25 mmol/L (22-30); Chloride 105 mmol/L (98-107); Glucose 109 mg/dl (70-99); Potassium 4.6 mmol/L (3.5-5.1); Sodium 137 mmol/L (135-145); Total Bilirubin 0.6 mg/dl (0.2-1.3); Total Protein 5.3 g/dl (6.3-8.2); eGFR > 60.00
== END ==
LOC: OLABP 11:21
PROVIDERS: ATTENDING PHYSICIAN Family Medicine
DX: N39.0 Urinary tract infection, site not specified (principal); B96.20 Unspecified Escherichia coli [E. coli] as the cause of diseases classified elsewhere; Z79.2 Long term (current) use of antibiotics; I11.9 Hypertensive heart disease without heart failure; I48.0 Paroxysmal atrial fibrillation; I21.4 Non-ST elevation (NSTEMI) myocardial infarction; E87.1 Hypo-osmolality and hyponatremia; I49.5 Sick sinus syndrome; Z95.0 Presence of cardiac pacemaker; R26.2 Difficulty in walking, not elsewhere classified; F32.9 Major depressive disorder, single episode, unspecified; G20.A1 Parkinson's disease without dyskinesia, without mention of fluctuations
CPT/HCPCS: 36415; 80053; 85025

== ENCOUNTER → 2023-10-24 11:53 | Outpatient (REF) | payer OTHER, MEDICARE, SELFPAY ==
[2023-10-24 12:51] LABS: % Eosinophils 3.9 % (0-6); % Immature Granulocytes 0.3 % (0-0.5); % Lymphocytes 22.8 % (20.5-51.1); % Monocytes 9.9 % (1.7-9.3); % Neutrophils 62.1 % (42.2-75.2); Absolute Basophils 0.1 10^3/uL (0-0.2); Absolute Eosinophils 0.3 10^3/uL (0-0.7); Absolute Lymphocytes 1.7 10^3/uL (1.2-3.4); Absolute Monocytes 0.7 10^3/uL (0.1-0.6); Absolute Neutrophils 4.5 10^3/uL (1.4-6.5); Hematocrit 29.2 % (37.0-47.0); Hemoglobin 9.2 g/dL (12.0-16.0); Mean Corp Hgb Conc. 31.5 g/dL (33.0-37.0); Mean Corpuscular Hgb 29.1 pg (27.0-31.0); Mean Corpuscular Volume 92.4 fL (81.0-99.0); Mean Platelet Volume 10.5 fL (7.4-10.4); Nucleated Red Blood Cells % 0 %; Platelet Count 374 10^3/uL (130-400); Red Blood Cell Count 3.16 10^6/uL (4.20-5.40); Red Cell Dist. Width 17.2 % (11.5-14.5); White Blood Cell Count 7.3 10^3/uL (4.8-10.8)
[2023-10-24 13:32] LABS: ALT (SGPT) < 10 U/L (0-35); AST (SGOT) 16 U/L (14-36); Alkaline Phosphatase 77 U/L (38-126); Blood Urea Nitrogen 26 mg/dl (7-17); Calcium 8.9 mg/dl (8.4-10.2); Carbon Dioxide 24 mmol/L (22-30); Chloride 105 mmol/L (98-107); Glucose 100 mg/dl (70-99); Potassium 4.5 mmol/L (3.5-5.1); Sodium 137 mmol/L (135-145); Total Bilirubin 0.6 mg/dl (0.2-1.3); Total Protein 5.4 g/dl (6.3-8.2); eGFR 54.19
== END ==
LOC: OLABP 11:53
PROVIDERS: ATTENDING PHYSICIAN Family Medicine
DX: N39.0 Urinary tract infection, site not specified (principal); B96.20 Unspecified Escherichia coli [E. coli] as the cause of diseases classified elsewhere; Z79.2 Long term (current) use of antibiotics; I11.9 Hypertensive heart disease without heart failure; I48.0 Paroxysmal atrial fibrillation; I21.4 Non-ST elevation (NSTEMI) myocardial infarction; E87.1 Hypo-osmolality and hyponatremia; I49.5 Sick sinus syndrome; Z95.0 Presence of cardiac pacemaker; G20.A1 Parkinson's disease without dyskinesia, without mention of fluctuations; G31.84 Mild cognitive impairment of uncertain or unknown etiology; R26.2 Difficulty in walking, not elsewhere classified; F32.9 Major depressive disorder, single episode, unspecified
CPT/HCPCS: 80053; 85025

== ENCOUNTER → 2023-10-31 11:16 | Outpatient (REF) | payer OTHER, MEDICARE, SELFPAY ==
[2023-10-31 12:02] LABS: % Basophils 0.8 % (0-2); % Eosinophils 3.6 % (0-6); % Immature Granulocytes 0.1 % (0-0.5); % Lymphocytes 20.1 % (20.5-51.1); % Monocytes 11.7 % (1.7-9.3); % Neutrophils 63.7 % (42.2-75.2); Absolute Basophils 0.1 10^3/uL (0-0.2); Absolute Eosinophils 0.3 10^3/uL (0-0.7); Absolute Lymphocytes 1.5 10^3/uL (1.2-3.4); Absolute Monocytes 0.9 10^3/uL (0.1-0.6); Absolute Neutrophils 4.7 10^3/uL (1.4-6.5); Hematocrit 29.7 % (37.0-47.0); Hemoglobin 9.8 g/dL (12.0-16.0); Mean Corpuscular Hgb 29.5 pg (27.0-31.0); Mean Corpuscular Volume 89.5 fL (81.0-99.0); Mean Platelet Volume 10.9 fL (7.4-10.4); Nucleated Red Blood Cells % 0 %; Platelet Count 343 10^3/uL (130-400); Red Blood Cell Count 3.32 10^6/uL (4.20-5.40); White Blood Cell Count 7.4 10^3/uL (4.8-10.8)
[2023-10-31 12:05] LABS: Urine Albumin Negative (Neg - Trace); Urine Bilirubin Negative (Negative); Urine Character Clear (Clear); Urine Color Yellow; Urine Glucose Negative (Negative); Urine Ketone Negative (Negative); Urine Leukocyte 2+ (Negative); Urine Nitrite Positive (Negative); Urine Occult Blood Negative (Negative); Urine Urobilinogen Negative (Neg - 1+)
[2023-10-31 12:15] LABS: ALT (SGPT) < 10 U/L (0-35); AST (SGOT) 19 U/L (14-36); Albumin 3.1 g/dl (3.5-5.0); Alkaline Phosphatase 86 U/L (38-126); Blood Urea Nitrogen 30 mg/dl (7-17); Calcium 9.2 mg/dl (8.4-10.2); Carbon Dioxide 26 mmol/L (22-30); Chloride 104 mmol/L (98-107); Glucose 95 mg/dl (70-99); Potassium 4.9 mmol/L (3.5-5.1); Sodium 137 mmol/L (135-145); Total Bilirubin 0.8 mg/dl (0.2-1.3); Total Protein 5.6 g/dl (6.3-8.2); eGFR 48.33
[2023-10-31 13:14] LABS: Urine Mucus Few
[2023-10-31 13:16] LABS: Urine Bacteria Many (Negative); Urine Red Blood Cell 0-2 /HPF (0-2)
== END ==
LOC: OLABP 11:16
PROVIDERS: ATTENDING PHYSICIAN Family Medicine
DX: R26.2 Difficulty in walking, not elsewhere classified (principal); G20.A1 Parkinson's disease without dyskinesia, without mention of fluctuations; F32.9 Major depressive disorder, single episode, unspecified; B96.20 Unspecified Escherichia coli [E. coli] as the cause of diseases classified elsewhere; Z79.2 Long term (current) use of antibiotics; I11.9 Hypertensive heart disease without heart failure; I48.0 Paroxysmal atrial fibrillation; I21.4 Non-ST elevation (NSTEMI) myocardial infarction; N39.0 Urinary tract infection, site not specified; E87.1 Hypo-osmolality and hyponatremia; I49.5 Sick sinus syndrome; Z95.0 Presence of cardiac pacemaker; G31.84 Mild cognitive impairment of uncertain or unknown etiology
CPT/HCPCS: 36415; 80053; 81003; 81015; 85025; 87077; 87086

== ENCOUNTER → 2023-11-08 10:06 | Outpatient (REF) | payer OTHER, MEDICARE, SELFPAY ==
[2023-11-08 11:01] LABS: % Basophils 0.8 % (0-2); % Eosinophils 7.5 % (0-6); % Immature Granulocytes 0.2 % (0-0.5); % Monocytes 12.8 % (1.7-9.3); % Neutrophils 54.7 % (42.2-75.2); Absolute Basophils 0.1 10^3/uL (0-0.2); Absolute Eosinophils 0.5 10^3/uL (0-0.7); Absolute Lymphocytes 1.5 10^3/uL (1.2-3.4); Absolute Monocytes 0.8 10^3/uL (0.1-0.6); Absolute Neutrophils 3.4 10^3/uL (1.4-6.5); Hematocrit 30.5 % (37.0-47.0); Hemoglobin 9.7 g/dL (12.0-16.0); Mean Corp Hgb Conc. 31.8 g/dL (33.0-37.0); Mean Platelet Volume 10.7 fL (7.4-10.4); Nucleated Red Blood Cells % 0 %; Platelet Count 250 10^3/uL (130-400); Red Blood Cell Count 3.35 10^6/uL (4.20-5.40); Red Cell Dist. Width 16.7 % (11.5-14.5); White Blood Cell Count 6.2 10^3/uL (4.8-10.8)
[2023-11-08 11:06] LABS: Blood Urea Nitrogen 28 mg/dl (7-17); Carbon Dioxide 23 mmol/L (22-30); Chloride 106 mmol/L (98-107); Glucose 92 mg/dl (70-99); Potassium 4.7 mmol/L (3.5-5.1); Sodium 138 mmol/L (135-145); eGFR 43.54
== END ==
LOC: OLABP 10:06
PROVIDERS: ATTENDING PHYSICIAN Family Medicine
DX: N39.0 Urinary tract infection, site not specified (principal); B96.20 Unspecified Escherichia coli [E. coli] as the cause of diseases classified elsewhere; Z79.2 Long term (current) use of antibiotics; I11.9 Hypertensive heart disease without heart failure; I48.0 Paroxysmal atrial fibrillation; I21.4 Non-ST elevation (NSTEMI) myocardial infarction; E87.1 Hypo-osmolality and hyponatremia; I49.5 Sick sinus syndrome; Z95.5 Presence of coronary angioplasty implant and graft; G20.A1 Parkinson's disease without dyskinesia, without mention of fluctuations; G31.84 Mild cognitive impairment of uncertain or unknown etiology; R26.2 Difficulty in walking, not elsewhere classified; F32.9 Major depressive disorder, single episode, unspecified
CPT/HCPCS: 36415; 80048; 85025

== ENCOUNTER → 2023-11-18 08:24 | Outpatient (REF) | payer OTHER, MEDICARE, SELFPAY ==
[2023-11-18 08:53] LABS: % Basophils 0.7 % (0-2); % Eosinophils 5.5 % (0-6); % Immature Granulocytes 0.3 % (0-0.5); % Lymphocytes 22.8 % (20.5-51.1); % Monocytes 11.3 % (1.7-9.3); % Neutrophils 59.4 % (42.2-75.2); Absolute Basophils 0.1 10^3/uL (0-0.2); Absolute Eosinophils 0.4 10^3/uL (0-0.7); Absolute Lymphocytes 1.6 10^3/uL (1.2-3.4); Absolute Monocytes 0.8 10^3/uL (0.1-0.6); Absolute Neutrophils 4.2 10^3/uL (1.4-6.5); Hematocrit 29.2 % (37.0-47.0); Hemoglobin 9.4 g/dL (12.0-16.0); Mean Corp Hgb Conc. 32.2 g/dL (33.0-37.0); Mean Corpuscular Hgb 29.4 pg (27.0-31.0); Mean Corpuscular Volume 91.3 fL (81.0-99.0); Mean Platelet Volume 10.6 fL (7.4-10.4); Nucleated Red Blood Cells % 0 %; Platelet Count 219 10^3/uL (130-400); Red Cell Dist. Width 16.9 % (11.5-14.5); White Blood Cell Count 7.1 10^3/uL (4.8-10.8)
[2023-11-18 09:20] LABS: ALT (SGPT) < 10 U/L (0-35); AST (SGOT) 22 U/L (14-36); Albumin 3.2 g/dl (3.5-5.0); Alkaline Phosphatase 88 U/L (38-126); Blood Urea Nitrogen 30 mg/dl (7-17); Calcium 8.8 mg/dl (8.4-10.2); Carbon Dioxide 25 mmol/L (22-30); Chloride 106 mmol/L (98-107); Glucose 92 mg/dl (70-99); Potassium 4.4 mmol/L (3.5-5.1); Sodium 136 mmol/L (135-145); Total Bilirubin 0.7 mg/dl (0.2-1.3); Total Protein 5.4 g/dl (6.3-8.2); eGFR > 60.00
== END ==
LOC: OLABP 08:24
PROVIDERS: ATTENDING PHYSICIAN Family Medicine
DX: N39.0 Urinary tract infection, site not specified (principal); Z79.2 Long term (current) use of antibiotics; I11.9 Hypertensive heart disease without heart failure; B96.20 Unspecified Escherichia coli [E. coli] as the cause of diseases classified elsewhere; I48.0 Paroxysmal atrial fibrillation; I21.4 Non-ST elevation (NSTEMI) myocardial infarction; E87.1 Hypo-osmolality and hyponatremia; I49.5 Sick sinus syndrome; Z95.0 Presence of cardiac pacemaker; G20.A1 Parkinson's disease without dyskinesia, without mention of fluctuations; R26.2 Difficulty in walking, not elsewhere classified; F32.9 Major depressive disorder, single episode, unspecified; G31.84 Mild cognitive impairment of uncertain or unknown etiology
CPT/HCPCS: 36415; 80053; 85025

== ENCOUNTER → 2023-12-16 11:16 | Outpatient (REF) | payer OTHER, SELFPAY ==
[2023-12-16 11:53] LABS: % Basophils 0.7 % (0-2); % Eosinophils 4.1 % (0-6); % Immature Granulocytes 0.4 % (0-0.5); % Lymphocytes 16.6 % (20.5-51.1); % Neutrophils 67.2 % (42.2-75.2); Absolute Basophils 0.1 10^3/uL (0-0.2); Absolute Eosinophils 0.4 10^3/uL (0-0.7); Absolute Lymphocytes 1.5 10^3/uL (1.2-3.4); Hematocrit 29.2 % (37.0-47.0); Hemoglobin 9.9 g/dL (12.0-16.0); Mean Corp Hgb Conc. 33.9 g/dL (33.0-37.0); Mean Corpuscular Hgb 29.8 pg (27.0-31.0); Mean Platelet Volume 11.2 fL (7.4-10.4); Nucleated Red Blood Cells % 0 %; Platelet Count 257 10^3/uL (130-400); Red Blood Cell Count 3.32 10^6/uL (4.20-5.40); Red Cell Dist. Width 15.3 % (11.5-14.5); White Blood Cell Count 8.9 10^3/uL (4.8-10.8)
[2023-12-16 12:22] LABS: ALT (SGPT) < 10 U/L (0-35); AST (SGOT) 19 U/L (14-36); Albumin 3.1 g/dl (3.5-5.0); Alkaline Phosphatase 77 U/L (38-126); Blood Urea Nitrogen 27 mg/dl (7-17); Carbon Dioxide 23 mmol/L (22-30); Chloride 107 mmol/L (98-107); Glucose 99 mg/dl (70-99); Potassium 4.4 mmol/L (3.5-5.1); Sodium 136 mmol/L (135-145); Total Bilirubin 0.6 mg/dl (0.2-1.3); Total Protein 5.4 g/dl (6.3-8.2); eGFR > 60.00
== END ==
LOC: OLABP 11:16
PROVIDERS: ATTENDING PHYSICIAN Family Medicine
DX: N39.0 Urinary tract infection, site not specified (principal); B96.20 Unspecified Escherichia coli [E. coli] as the cause of diseases classified elsewhere; Z79.2 Long term (current) use of antibiotics; I11.9 Hypertensive heart disease without heart failure; I48.0 Paroxysmal atrial fibrillation; I21.4 Non-ST elevation (NSTEMI) myocardial infarction; E87.1 Hypo-osmolality and hyponatremia; I49.5 Sick sinus syndrome; Z95.0 Presence of cardiac pacemaker; G20.A1 Parkinson's disease without dyskinesia, without mention of fluctuations; G31.84 Mild cognitive impairment of uncertain or unknown etiology; R26.2 Difficulty in walking, not elsewhere classified; F32.9 Major depressive disorder, single episode, unspecified
CPT/HCPCS: 36415; 80053; 85025

== ENCOUNTER 2023-12-19 22:36 | Inpatient (IN) | payer OTHER, SELFPAY ==
[2023-12-19 19:28] LABS: % Basophils 0.3 % (0-2); % Eosinophils 0.5 % (0-6); % Immature Granulocytes 0.5 % (0-0.5); % Lymphocytes 3.1 % (20.5-51.1); % Monocytes 7.4 % (1.7-9.3); % Neutrophils 88.2 % (42.2-75.2); Absolute Basophils 0.1 10^3/uL (0-0.2); Absolute Eosinophils 0.1 10^3/uL (0-0.7); Absolute Immature Granulocytes 0.1 10^3/uL (0-0.05); Absolute Lymphocytes 0.6 10^3/uL (1.2-3.4); Absolute Monocytes 1.4 10^3/uL (0.1-0.6); Absolute Neutrophils 16.5 10^3/uL (1.4-6.5); Hematocrit 29.3 % (37.0-47.0); Hemoglobin 10.1 g/dL (12.0-16.0); Mean Corp Hgb Conc. 34.5 g/dL (33.0-37.0); Mean Corpuscular Hgb 30.4 pg (27.0-31.0); Mean Corpuscular Volume 88.3 fL (81.0-99.0); Mean Platelet Volume 10.3 fL (7.4-10.4); Nucleated Red Blood Cells % 0 %; Platelet Count 220 10^3/uL (130-400); Red Blood Cell Count 3.32 10^6/uL (4.20-5.40); Red Cell Dist. Width 15.5 % (11.5-14.5); White Blood Cell Count 18.7 10^3/uL (4.8-10.8)
--- NOTE | 2023-12-19 19:33 | ED.GENMED ---
History of Present Illness
General
Chief Complaint: Breathing Problem
Source: patient
Exam Limitations: none
Time Seen by Provider: 12/19/23 19:17
History of Present Illness
History of Present Illness:
This is a 88 year old female that comes in with c/o Dizziness. States that today she just got dizzy. States that she also started with a cough. States that she felt SOB. Denies any fever, chills, chest pain, abd pain, nausea, vomiting, diarrhea,
headache. Patient has a chronic indwelling sykes.
Past History
Past History
ED Past Medical History: Arrthythmia (A. fib), CAD, HTN, DE, Psychiatric (Anxiety, Depression) and Other (Parkinson's disease, Vertigo, Chronic indwelling sykes, Macular degeneration, Anemia, )
ED Past Surgical History: Cardiac (Stent, Pacemaker), Gynecological (Hysterectomy), Urological ( bladder prolapse X 2) and Other (Hernia repair X 2)
Patient has exhibited threatening behavior?: No
PSI?: No
Social History
Tobacco: Non-smoker
Alcohol: None
Drug: None
Personal:
Living: assisted living
Review of Systems
Review of Systems
All Other Systems: ROS reviewed and negative except as documented in HPI and ROS
Constitutional: Denies fever or chills
EENT: Reports no symptoms
Respiratory: Reports cough and trouble breathing
Cardiac: Reports no symptoms; Denies chest pain
ABD/GI: Reports no symptoms; Denies abdominal pain, nausea, vomiting or diarrhea
: Reports no symptoms
Musculoskeletal: Reports no symptoms
Skin: Reports no symptoms
Neurological: Reports dizzy; Denies headache
Psychiatric: Reports no symptoms
Phy Exam
General Physical Exam
General Presentation: no apparent distress
General age: appears stated age
General Skin: warm and dry
General Habitus: debilitated and elderly
General Mental: alert
General Hydration: appears well hydrated
ENT Exam
ENT Exam: TM's normal, pharynx normal and neck supple
Eye Exam
Eye Exam: EOMI
Cardiovascular Exam
Cardiovascular Exam: regular rate/rhythm and normal peripheral pulses
Pulmonary Exam
Pulmonary Exam: no respiratory distress, chest non tender, no rhonchi and other (Exp wheezing throughout, Fine crackles at bases. Moist cough noted)
Gastrointestinal Exam
Gastrointestinal Exam: normal bowel sounds, non tender, soft, no organomegaly, no pulsatile mass and non distended
Musculoskeletal Exam
Musculoskeletal Exam: edema (Slight nonpitting ankle edema. )
Skin Exam
Skin Exam: normal color, warm/dry, no rash and no petechia
Psychiatric Exam
Psychiatric Exam: normal mood/affect
Scores
Heart Failure Risk
Heart Failure Risk Score: Not Applicable
Course
Orders/Labs/Results
Orders:
Orders
12/19/23 19:15
Electrocardiogram (*1) Urgent
Reason for Study: Other
Other Reason for Exam: Respiratory Distress
Cardiac Monitoring- Treatment ONCE
EKG- Treatment ONCE
IV Insert/Care/Rem.- Treatment PRN
CR Chest - 2 Views Urgent
Comment:
Reason For Exam: respiratory distress
O2 Therapy [RESP] Urgent
Titrate/Wean O2 to maintain O2 sat greater than (%): 93
Special Instructions: TO MAINTAIN CONTINUOUS O2 SATS >/= 93%
Pulse Ox/cont/shift [RESP] Urgent
Quantity: 1
Special Instructions: continuous pulse ox
12/19/23 19:17
Complete Blood Count/With Diff Urgent
Comprehensive Metabolic Panel Urgent
12/19/23 19:30
Rectal Temp- Treatment ONCE
Ipratropium/Albuterol Sulfate [Duoneb] 3 ml INH R NOW ONE
12/19/23 19:34
CT Head W/o Iv Contrast Urgent
Comment:
Reason For Exam: Dizziness
12/19/23 19:53
COVID-19 Antigen Urgent
Source: Nasal Swab
Lactic Acid Urgent
Troponin I Urgent
Abnormal Lab Results
12/19/23
19:17
WBC 18.7 H 10^3/uL
(4.8-10.8)
RBC 3.32 L 10^6/uL
(4.20-5.40)
Hgb 10.1 L g/dL
(12.0-16.0)
Hct 29.3 L %
(37.0-47.0)
RDW 15.5 H %
(11.5-14.5)
Abs Immat Gran (auto) 0.1 H 10^3/uL
(0-0.05)
Absolute Neuts (auto) 16.5 H 10^3/uL
(1.4-6.5)
Absolute Lymphs (auto) 0.6 L 10^3/uL
(1.2-3.4)
Absolute Monos (auto) 1.4 H 10^3/uL
(0.1-0.6)
Neutrophils % 88.2 H %
(42.2-75.2)
Lymphocytes % 3.1 L %
(20.5-51.1)
Sodium 131 L mmol/L
(135-145)
Carbon Dioxide 20 L mmol/L
(22-30)
BUN 36 H mg/dl
(7-17)
Creatinine 1.2 H mg/dL
(0.6-1.0)
Glucose 206 H mg/dl
(70-99)
Total Protein 5.8 L g/dl
(6.3-8.2)
12/19/23 19:17
12/19/23 19:17
Leukocytosis, H/H low. Sodium slightly low. Carbon dioxide low. Chronic renal insufficiency, Glucose nonfasting. Total protein low. Troponin <0.012, Lactic acid normal at 1.8, COVID negative.
Vital Signs
Initial and Last Documented VS:
Initial Vital Signs
Temp Pulse Resp Pulse Ox
98.9 F 84 15 85
12/19/23 19:02 12/19/23 19:02 12/19/23 19:02 12/19/23 19:02
Last Documented Vital Signs
Temp Pulse Resp BP Pulse Ox
100.3 F 77 15 108/48 98
12/19/23 19:56 12/19/23 21:06 12/19/23 21:06 12/19/23 20:00 12/19/23 20:15
MDM/Problems Addressed
Differential Diagnosis Includes:
COVID, PNA,
MDM/Problems Addressed:
This is a 88 year old female that is brought in by ambulance with c/o SOB and Dizziness. States that this started today. Patient also has a cough. Told that her Pulse ox was low.
Will check labs, Chest x-ray,
Back into see patient. Explained that she will be admitted due to Pneumonia. Will start antibiotics. Hospitalist notified.
Chronic conditions affecting care:
Parkinson's, Vertigo
Acute Exacerbation and/or Progression of Chronic Illness:
Parkinson's, Vertigo
*Radiology
Radiology exam reviewed: radiology read reviewed (Chest- Right basilar opacity again seen somewhat changed in appearance in comparison to prior study at least in part could represent Pneumonia. Mild cardiomegaly. CT head-NO acute intracranial
abnormalites. Findings again seen compatible with diffuse cortical atrophy with minor nonspecific white) and all reviewed NAD by ED Provider (CT head- white matter changes as described above. Minimal posterior left sphenoid sinus opacification most
likely chronic. Cannot exclude small air-fluid levels such as superimposed acute sinusitis. )
*Pulse Oximetry
Patient hypoxic: yes
*EKG
Interpreted by ED Provider?: Yes
Heart Rate: 75
Rate: normal
Rhythm: sinus
[place]: left axis deviation
Interval: normal interval
QRS Pattern: normal QRS
Ischemia: no ischemia
*Professor Of Medicine Interpretation
Rate: normal
Heart Rate: 84
Rhythm: sinus
*Critical Care Note
Total Time (30-74mins, 75-104mins- exclusive of procedures): Not Applicable
ED Attending Note
-
Portions of this chart may have been created with voice recognition software.� Occasional wrong word or��sound alike� substitutions may have occurred due to the inherent limitations of voice recognition software.
Discharge Plan
Departure
Patient Disposition: Admit
Date of Disposition: 12/19/23
Time of Disposition: 21:37
Admit to: Telemetry
Presentation/result/management discussed w/ accepting MD/DO: Hospitalist
Patient with high blood pressure during this ER visit?: No
Condition: Good
Covid-19: Negative COVID-19
Discharge Problem:
Right lower lobe pneumonia
Prescriptions:
No Action
Eliquis 5 MG tablet
5 mg PO BID
meclizine 25 MG tablet
25 mg PO [id number] PRN (Reason: dizziness/vertigo)
calcium carbonate 500 mg calcium (1,250 mg) Tablet,Chewable
500 mg PO [id number] PRN (Reason: heartburn )
metronidazole 1 % Gel
1 applic TOPICAL DAILYPRN PRN (Reason: apply to B/L cheeks/forehead)
lidocaine 4 % Adhesive Patch,Medicated
1 patch TOPICAL DAILYPRN PRN (Reason: lower back pain)
acetaminophen 325 mg Tablet
650 mg PO Q6HPRN MDD 3000 mg PRN (Reason: mild pain/temp>100)
nitroglycerin 0.4 mg Tablet, Sublingual
0.4 mg SUBLINGUAL [id number] PRN (Reason: chest pain)
polyethylene glycol 3350 [Miralax] 17 gram Powder In Packet
17 g PO DAILY Qty: 0 0RF
Patient Comments:
08/26/2023: hold for loose stools.
ondansetron HCl 4 mg Tablet
4 mg PO Q12H PRN (Reason: nausea)
nystatin 100,000 unit/gram Powder
1 applic TOPICAL [id number] PRN (Reason: rash)
sertraline 50 mg Tablet
50 mg PO DAILY
amiodarone 100 mg Tablet
100 mg PO DAILY
cholecalciferol (vitamin D3) 25 mcg (1,000 unit) Tablet
50 mcg PO DAILY
Icy Hot (menthol) 5 % Adhesive Patch,Medicated
1 patch TOPICAL BID
Rx Instructions:
apply to lower back
atorvastatin 40 mg tablet
40 mg PO HS
carbidopa-levodopa [Sinemet] 25-100 mg Tablet
1 tab PO TID Qty: 0
Patient Comments:
25mg/100mg 2 tabs PO TID
magnesium hydroxide [Milk of Magnesia] 400 mg/5 mL Suspension
30 ml PO DAILY PRN (Reason: if no bm on day 4)
bisacodyl [Dulcolax (bisacodyl)] 10 mg Suppository
10 mg IL DAILYPRN PRN (Reason: constipation)
Fleet Enema 19-7 gram/118 mL Enema
118 ml IL DAILYPRN PRN (Reason: constipation)
pantoprazole [address] For Susp In Packet
40 mg PO DAILY
Refresh Classic (PF) 1.4-0.6 % dropperette
1 drp BOTH EYES QID
Magic Cup
PO BID
Uqora packet
1 packet PO DAILY
docusate sodium 100 mg capsule
100 mg PO BID
cyanocobalamin (vitamin B-12) 1,000 mcg Tablet
1,000 mcg PO DAILY Qty: 0 0RF
aspirin [Children's Aspirin] 81 mg Tablet,Chewable
81 mg PO DAILY Qty: 30 0RF
metoprolol tartrate 25 mg Tablet
25 mg PO BID Qty: 0 0RF
ascorbic acid (vitamin C) [Vitamin C] 1,000 MG tablet
500 mg PO BID Qty: 0 0RF
melatonin 3 mg Tablet
5 mg PO HS Qty: 0 0RF
mirtazapine [Remeron] 15 mg Tablet
7.5 mg PO HS Qty: 0 0RF
Referrals:
Juan Diego York MD [Family Provider] -
Interventions
Interventions:
*Risk Screen - Suicide Last Done: 12/19/23 19:02
*General Assessment Last Done: 12/19/23 19:02
*Neglect/Abuse Screening Last Done: 12/19/23 19:02
*ED COVID-19 Vaccine History Last Done: 12/19/23 19:02
ED- Pulmonary Assessment Last Done: 12/19/23 20:02
Discharge Date and Time
Print Language: KAZAKH
[2023-12-19 19:40] LABS: ALT (SGPT) < 10 U/L (0-35); AST (SGOT) 24 U/L (14-36); Albumin 3.5 g/dl (3.5-5.0); Alkaline Phosphatase 89 U/L (38-126); Blood Urea Nitrogen 36 mg/dl (7-17); Calcium 8.8 mg/dl (8.4-10.2); Carbon Dioxide 20 mmol/L (22-30); Chloride 103 mmol/L (98-107); Glucose 206 mg/dl (70-99); Potassium 4.8 mmol/L (3.5-5.1); Sodium 131 mmol/L (135-145); Total Bilirubin 0.9 mg/dl (0.2-1.3); Total Protein 5.8 g/dl (6.3-8.2); eGFR 43.54
[2023-12-19 19:51] VITALS: BP 132/46
[2023-12-19] MEDS: DUONEB 3 ML INH (19:54)
[2023-12-19 20:00] VITALS: BP 108/48
[2023-12-19 20:16] LABS: Lactic Acid 1.8 mmol/L (0.7-2.0)
[2023-12-19 20:20] LABS: COVID-19 Antigen Negative (Negative)
[2023-12-19 20:32] LABS: Troponin I < 0.012 ng/ml
[2023-12-19 22:00] VITALS: BP 153/56
[2023-12-19] MEDS: MAXIPIME 1000 MG IV (22:04)
[2023-12-19] MEDS: VANCOCIN 200 IV (22:05)
[2023-12-19] MEDS: NSS 1000 IV (22:12)
--- NOTE | 2023-12-19 22:17 | W.PN.UPDATE ---
Addendum entered and electronically signed by Jorge Valdez MD 12/20/23 05:06:
Correction;
- IMU in place of IP TLM
Original Note:
Update Note
Progress Note Update
This note serves as an addendum to the H&P by terrazzo layer MIHIR terrazzo layer MIHIR Cris POP
HPI
88F [place] [facility] [place] chr indwelling F cath , HX Aspiration PNA c/b septic shock in October 2023, chr dysphgaia on soft bite sized food with thin liquid: S/p VSE in October 2023 pw lightheadedness preceded with cough and SOB.
Currently on Reg diet with thin liquid at [facility]
At ER VSS:
Hypoxic as low as 85% on RA
T 100.3 and relatively hypotensive
ROS
Denies any fever, chills, chest pain, abd pain, nausea, vomiting, diarrhea, headache.
PHX
Chronic HFpEF
Chr dysphagia - on soft bite sized food with thin liquid: S/p VSE in October 2023
Acute kidney injury.
Hypertension.
Normocytic Anemia.
Parkinson's disease with associated chr ambulatory dysfunction.
Chronic Padilla.
Atrial fibrillation.
PPM implant
Hyperlipidemia.
HX CAD
Severe protein calorie malnutrition.
Reviewed VS: T100.3 HR 77s BP 108/48 RR15 POx 98% on 2 L
PE
Gen: looks toxic, drowsy
HEENT: anicteric
Neck: supple
Lungs: symmetric AE. Exp wheezing throughout, Fine crackles at bases. Moist cough POS
Cor: RRR S1 S2
Abdomen: benign exam
: wearing chr F cath with light yellow somewhat cloudy urine
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
MS: No edema
Psych:: limited exam due to lethargy
Data
WCC 18s
Hgb 10.1 - bl 9s
nl MCV
Na 131
CO2 20
BUN 36
Cr 1.2 - bl 0.9 on 12/16/23
eGFR 43 - bl >60 on 12/16/23
LA 1.8
CXR:
Right basilar opacity again seen somewhat changed in appearance in comparison to prior study at least in part could represent pneumonia.
Mild cardiomegaly.
HCT:
No acute intracranial abnormalities.
Findings again seen compatible with diffuse cortical atrophy with minor nonspecific white matter changes as described above.
Minimal posterior left sphenoid sinus opacification most likely chronic. Cannot exclude small air-fluid levels such as superimposed acute sinusitis.
Last hospitalist admission: 10/11/23 - 10/18/23 PDXs
1. Shock.
2. Toxic-metabolic encephalopathy.
3. Acute hypoxic respiratory failure.
4. Aspiration pneumonia.
ASSESSMENT & PLAN
Pending Rx reconciliation
Sepsis with hypotension
Associated source: Likely Rt LL PNA suspect recurrent aspiration: Currently on Reg diet with thin liquid at [facility]
Associated acute hypoxic RF require NC O2 support
Asso. hypoactive lethargic TME
HX Chr dysphagia. She was on on soft bite sized food with thin liquid: S/p VSE in October 2023
- LA 1.8
- septic bolus LR IVF and cont maintenance LR IVF
- Keep MAP > 65
- Held Metoprolol to give room for BP
- Agree with empiric Vancomycin and IV CFP
- Keep POx > 94 % titrate with NC O2
- f/u UA
- BCx due to sepsis - she received ABx before at ER
- Empiric DYS I diet till eval by ST
Lightheadedness likely due to hypotension
- IVF and f/u BP
- fall precaution
Pre existing Dxs:
Chronic HFpEF: daily Wt
Hypertension: Held BB due to hypotensin
Normocytic Anemia: stable
Parkinson's disease with associated chr ambulatory dysfunction.
Chronic Padilla: check UA
Atrial fibrillation on Amiodarone and eliquis to be continued
PPM implant
Hyperlipidemia.
HX CAD
Severe protein calorie malnutrition
DVT Px: on chr eliquis
Code: DNR
IMU
--- NOTE | 2023-12-19 22:25 | HPS.HSE ---
Family Physician
-
Family Physician: Juan Diego York MD
Chief Complaint
-
Hypoxia
History of Present Illness
Patient is an 88 yo F with PMH A-fib, CHF, Parkinson's disease, and chronic urinary retention with indwelling Padilla catheter c/o dizziness x 1 day. Per [place], pt was found at dinner with pulse O2 in the '80s'. She stated she felt dizzy, was
placed on 5L O2 via NRB, and was transported to ED via EMS. Pt is currently on 2L O2 via NC and resting comfortably. She opens her eyes to her name and answers a few questions. She denies any complaints at the present time.
Medical History
Past Medical History
Past Medical History: Reports Other
Additional Past Medical History:
Coronary Artery Disease
Chronic HFpEF
Paroxysmal Atrial Fibrillation
Sick Sinus Syndrome s/p Permanent Pacemaker
Essential Hypertension
Hyperlipidemia
Chronic Normocytic Anemia
Dysphagia
Parkinson's Disease
Depression
Urinary Retention with Chronic Padilla
Chronic Ambulatory Dysfunction
Severe Protein Calorie Malnutrition
Past Surgical History: Reports Other
Additional Past Surgical History:
Hysterectomy
Hernia Repair
Bladder Lift
Cataract
Social History
Tobacco: Non-smoker
Drug: None
Living: [facility]
Family History
Family History: Not pertinent
Allergies / Home Medications
Allergies reflects when Allergies were last updated in [facility].
Home Medications with original date entered in [facility]
Allergy/Medication List:
Allergies
Allergy/AdvReac Type Severity Reaction Status Date / Time
No Known Allergies Allergy Verified 12/19/23 19:11
Home Medications
apixaban 5 mg tablet (Eliquis) 5 mg PO BID Blood clot prevention/tx 09/21/19
meclizine 25 mg tablet 25 mg PO [id number] PRN dizziness/vertigo 09/27/21
lidocaine 4 % topical patch 1 patch topical DAILYPRN PRN lower back pain 03/23/22
metronidazole 1 % topical gel 1 applic topical DAILYPRN PRN apply to B/L cheeks/forehead 03/23/22
acetaminophen 325 mg tablet 650 mg PO Q4HPRN PRN mild pain/temp>100 02/09/23
nitroglycerin 0.4 mg sublingual tablet 0.4 mg sublingual [id number] PRN chest pain 02/16/23
polyethylene glycol 3350 17 gram oral powder packet (Miralax) 17 g PO DAILY Constipation #0 ea 02/19/23
amiodarone 100 mg tablet 100 mg PO DAILY Arrhythmia 06/09/23
cholecalciferol (vitamin D3) 25 mcg (1,000 unit) tablet 50 mcg PO DAILY Supplement 06/09/23
nystatin 100,000 unit/gram topical powder 1 applic topical [id number] PRN rash 06/09/23
ondansetron HCl 4 mg tablet 4 mg PO [id number] PRN nausea 06/09/23
sertraline 50 mg tablet 50 mg PO DAILY Depression 06/09/23
atorvastatin 40 mg tablet 40 mg PO HS High Cholesterol 07/18/23
menthol 5 % topical patch (Icy Hot (menthol)) 1 patch topical BID lower back pain 07/18/23
carbidopa 25 mg-levodopa 100 mg tablet (Sinemet) 1 tab PO TID Neurological Condition ##0 07/20/23
bisacodyl 10 mg rectal suppository (Dulcolax (bisacodyl)) 10 mg TN DAILYPRN PRN constipation 08/26/23
magnesium hydroxide 400 mg/5 mL oral suspension (Milk of Magnesia) 30 ml PO DAILY PRN if no bm on day 4 08/26/23
pantoprazole 40 mg granules delayed-release for susp in packet 40 mg PO DAILY GERD 08/26/23
polyvinyl alcohol-povidone (PF) 1.4 %-0.6 % eye drops in a dropperette (Refresh Classic (PF)) 1 drp BOTH EYES QID Eye Condition 08/26/23
sodium phosphates 19 gram-7 gram/118 mL enema (Fleet Enema) 118 ml TN DAILYPRN PRN constipation 08/26/23
Uqora 1 packet PO DAILY uti prophylaxis 10/11/23
docusate sodium 100 mg capsule 100 mg PO BID Constipation 10/12/23
aspirin 81 mg chewable tablet (Children's Aspirin) 81 mg PO DAILY Blood clot prevention/tx #30 tabs 10/18/23
cyanocobalamin (vitamin B-12) 1,000 mcg tablet 1,000 mcg PO DAILY low normal B12 #0 tabs 10/18/23
metoprolol tartrate 25 mg tablet 25 mg PO BID Arrhythmia #0 tabs 10/18/23
mirtazapine 15 mg tablet (Remeron) 7.5 mg (1/2 x 15 mg) PO HS Mental Health/Anxiety #0 tabs 10/18/23
Saccharomyces boulardii 250 mg capsule (Florastor) 250 mg PO DAILY 12/19/23
ascorbic acid (vitamin C) 1,000 mg tablet (Vitamin C) 1,000 mg PO BID Supplement 12/19/23
calcium carbonate 200 mg PO BIDPRN PRN heartburn 12/19/23
melatonin 3 mg tablet 3 mg PO HS insomnia 12/19/23
vibegron 75 mg tablet (Gemtesa) 75 mg PO DAILY 12/19/23
Review of Systems
-
Unable to obtain full review of systems at this time due to: Acuity
Physical Exam
Vital Signs
Vital Signs
Temp Pulse Resp BP Pulse Ox
100.3 F 77 15 108/48 94
12/19/23 19:56 12/19/23 21:06 12/19/23 21:06 12/19/23 20:00 12/19/23 22:21
Physical Exam
General: Well Developed, Well Nourished and No Apparent Distress
HEENT: NormoCephalic, Anicteric, Atraumatic and Oxygen (Nasal Cannula)
Respiratory: Clear and Non Labored Respirations
Cardiac: S1/S2 and Regular Rhythm
GI: Soft and Non Tender
Rectal: Deferred by Provider
Genito-urinary: Padilla and Other (Dark slightly cloudy urine)
Musculoskeletal: No Clubbing, No Cyanosis and No Edema
Skin: Warm and Dry
Neuro: Other (Opens eyes and answers a few questions, but unable to participate in full neurologic evaluation)
Laboratory Results
-
12/19/23 19:17
12/19/23 19:17
Laboratory Results
Lactic Acid 1.8 mmol/L (0.7-2.0) 12/19/23 19:53
Total Bilirubin 0.9 mg/dl (0.2-1.3) 12/19/23 19:17
AST 24 U/L (14-36) 12/19/23 19:17
ALT < 10 U/L (0-35) 12/19/23 19:17
Alkaline Phosphatase 89 U/L (38-126) 12/19/23 19:17
Troponin I < 0.012 ng/ml 12/19/23 19:53
Data Reviewed
-
Diagnostic Radiology: Report Reviewed by me
Lab Data: Labs Reviewed by me
Old Records: Reviewed
Impression/Plan
-
Acute Hypoxic Respiratory Insufficiency and Sepsis secondary to Pneumonia and possible Catheter-Associated UTI
-Continue supplemental oxygen
-Check urinalysis/urine culture
-Concern for recurrent aspiration
-Downgrade diet to pureed until seen by Speech
-Continue cefepime and vancomycin
Coronary Artery Disease
-Continue aspirin
Chronic HFpEF
-Monitor Is&Os and Daily Weights
Paroxysmal Atrial Fibrillation
-Continue Eliquis
-Continue Amiodarone
Essential Hypertension
-Hold Metoprolol
Hyperlipidemia
-Continue atorvastatin
Chronic Normocytic Anemia
-Hgb at baseline
Parkinson's Disease
-Continue Sinemet
Depression
-Continue sertraline and mirtazapine
Other Noted History
-Sick Sinus Syndrome s/p Permanent Pacemaker
-Urinary Retention with Chronic Padilla
-Chronic Ambulatory Dysfunction
-Severe Protein Calorie Malnutrition
DVT proph: Lele
Code Status: DNR
[2023-12-19 23:00] VITALS: BP 171/56
[2023-12-19 23:21] LABS: Urine Albumin 1+ (Neg - Trace); Urine Bilirubin Negative (Negative); Urine Character Very Cloudy (Clear); Urine Color Straw; Urine Glucose Negative (Negative); Urine Ketone Negative (Negative); Urine Leukocyte 2+ (Negative); Urine Nitrite Positive (Negative); Urine Occult Blood 4+ (Negative); Urine Specific Gravity 1.015 (<1.030); Urine Urobilinogen Negative (Neg - 1+)
[2023-12-20] VITALS (14 sets, daily range): BP systolic 83–158; BP diastolic 40–62; BMI 22.8; BMI 22.7
[2023-12-20] MEDS: TYLENOL/FEVERALL 650 MG RECTAL (00:15)
[2023-12-20 00:47] LABS: Urine Amorphous Seen; Urine Bacteria Many (Negative); Urine Red Blood Cell >100 /HPF (0-2); Urine Squamous Cell >30 /LPF (Few); Urine Urothelial Cell >30 /LPF (FEW); Urine White Cell >100 /HPF (0-5); Urine Yeast Few (Negative)
[2023-12-20] MEDS: LR 1000 IV ×2 (01:19→16:39)
--- NOTE | 2023-12-20 01:44 | PTCARENOTE ---
Rec'd pt from ED RN, NSR, on 5L O2, SaO2 93%. Pt makes attempts to respond to conversation, but presents with garbled speech, making it difficult to determine orientation. LR hung at 60 mls/hr through L arm IV. Chronic sykes in place on admission,
hygiene care performed by PCT. Call ramirez within reach
[2023-12-20 04:46] LABS: Hematocrit 25.5 % (37.0-47.0); Hemoglobin 8.8 g/dL (12.0-16.0); Mean Corp Hgb Conc. 34.5 g/dL (33.0-37.0); Mean Corpuscular Hgb 29.9 pg (27.0-31.0); Mean Corpuscular Volume 86.7 fL (81.0-99.0); Mean Platelet Volume 10.2 fL (7.4-10.4); Platelet Count 194 10^3/uL (130-400); Red Blood Cell Count 2.94 10^6/uL (4.20-5.40); Red Cell Dist. Width 15.4 % (11.5-14.5); White Blood Cell Count 14.9 10^3/uL (4.8-10.8)
[2023-12-20 05:03] LABS: Blood Urea Nitrogen 35 mg/dl (7-17); Calcium 8.5 mg/dl (8.4-10.2); Carbon Dioxide 20 mmol/L (22-30); Chloride 108 mmol/L (98-107); Estimated Creatinine Clearance 33 ml/min; Glucose 147 mg/dl (70-99); Potassium 4.8 mmol/L (3.5-5.1); Sodium 133 mmol/L (135-145); eGFR 43.54
[2023-12-20] MEDS: MAXIPIME 2000 MG IV ×2 (06:13→17:58)
[2023-12-20] MEDS: STERILE WATER FOR INJECTION 10 ML IV ×2 (06:13→17:58)
--- NOTE | 2023-12-20 07:35 | W.PN.HOSP.TC ---
Addendum entered and electronically signed by Edda Soto MD 12/20/23 15:05:
E. Coli Bacteremia
-awaiting urine culture
-stop Vanc
Original Note:
Today's Communication/Plan
-
vanc/cefepime
F/U cultures; stop Vanc if MRSA swab negative
ST eval
Assessment / Plan
Assessment / Plan
Ms. Dayan Abdullahi is a 88 yo woman with hx Parkinson's disease with associated ambulatory dysfunction, [place] resident, afib, s/p PPM, HLD, CAD, chronic indwelling sykes, hx aspiration pneumonia with admission fro septic shock 11/06 presents with cough
and shortness of breath, found to be hypoxic SpO2 85% RA, T 100.3. WBC 18, Cr 1.2, lactate 1.8.
CXR:
Right basilar opacity again seen somewhat changed in appearance in comparison to prior study at least in part could represent pneumonia.
Mild cardiomegaly.
HCT:
No acute intracranial abnormalities.
Findings again seen compatible with diffuse cortical atrophy with minor nonspecific white matter changes as described above.
Minimal posterior left sphenoid sinus opacification most likely chronic. Cannot exclude small air-fluid levels such as superimposed acute sinusitis.
ASSESSMENT & PLAN
Sepsis with hypotension
Associated source: Likely Rt LL PNA suspect recurrent aspiration: was Reg diet with thin liquid at [facility]
Associated acute hypoxic RF require NC O2 support
Associated hypoactive lethargic TME
HX Chr dysphagia. She was on on soft bite sized food with thin liquid: S/p VSE in October 2023
- LA 1.8
- septic bolus LR IVF and cont maintenance LR IVF through this afternoon
- Keep MAP > 65
- Held Metoprolol to give room for BP
- continue IV Vanc/Cefepime
- O2 as needed
- BCx due to sepsis - she received ABx before at ER
- Empiric DYS I diet till eval by ST
Lightheadedness likely due to hypotension
- IVF and f/u BP
- fall precaution
Pre existing Dxs:
Chronic HFpEF: daily Wt
Hypertension: Held BB due to hypotensin
Normocytic Anemia: stable
Parkinson's disease with associated chronic ambulatory dysfunction.
Chronic Sykes: check UA
Atrial fibrillation on Amiodarone and Eliquis to be continued
PPM implant
Hyperlipidemia.
HX CAD
Severe protein calorie malnutrition
DVT Px: TRADE ANALYST Eliquis
Code: DNR
IMU
Anticipated Discharge: > 48 hours
Subjective/Interval History
-
Date of Service: December 20, 2023
somnolent, arouses briefly to voice
Objective Data
-
Labs:
Laboratory Results
12/19/23 12/20/23
19:17 04:21
WBC 14.9 H
Hgb 8.8 L
Hct 25.5 L
Plt Count 194
Sodium 131 L 133 L
Potassium 4.8 4.8
Chloride 103 108 H
Carbon Dioxide 20 L 20 L
BUN 36 H 35 H
Creatinine 1.2 H 1.2 H
Glucose 206 H 147 H
Calcium 8.8 8.5
Total Bilirubin 0.9
AST 24
ALT < 10
Alkaline Phosphatase 89
Vital Signs:
Vital Signs
Temp Pulse Resp BP Pulse Ox
99.0 F 73 12 111/40 98
12/20/23 04:31 12/20/23 06:07 12/20/23 06:07 12/20/23 06:07 12/20/23 06:07
I&O
12/19/23 12/20/23 12/21/23
06:59 06:59 06:59
Output Total 250 / 250
Balance -250 / -250
Review of Systems
-
History Source: Patient
All other systems: Reviewed and negative
Physical Exam
-
General: Appears Chronically Ill
HEENT: PERRLA
Respiratory: Negative Wheezes
Cardiac: Regular Rhythm and S1/S2
GI: Soft and Nontender
Musculoskeletal: No Edema
Skin: Warm and Dry; Negative Rash
Neuro: Sedated
Psych: Calm
Data Reviewed
-
Diagnostic Radiology: Report Reviewed by me
Labs: Labs Reviewed by me
--- NOTE | 2023-12-20 08:30 | PTCARENOTE ---
Patient received from night stocker. patient resting comfortably in bed. AAOx2-3 and drowsy but arousable with some garbled speech, VSS. No events noted overnight. Some complaints of pain in groin, see MAR. LR @ 60mL/hr, ABX through IV. Speech
therapy to see this AM. Call ramirez in reach.
--- NOTE | 2023-12-20 09:14 | PHA.VAN.IN ---
Assessment
- Assessment
Renal Function: Appears elevated from baseline (SCR slightly elevated at 1.2 vs 0.6-0.8 for 2023)
Maximum Temperature: 101.9 F - ORAL - 12/19 00:43
Concomitant Antimicrobials: cefepime
Plan
- Plan
Initial / Loading Dose: 1000mg - 12/18 22:05
Maintenance Regimen: dosing by level - give 750mg x1 today at 1200
Monitoring: random 12/20 599
Pharmacokinetics Vancomycin I
- -
Patient Age: 88
Patient Sex: Female
Vancomycin Day #: 1
Indication: Pulmonary/Respiratory
Requesting Provider: Jesusita Dent
Pertinent Antimicrobial Allergies:
NKDA
Height / Weight:
Height 5 ft 8 in
Actual Weight 67.7 kg
Pertinent Past Medical History: Parkinson's
- Vital Signs / Lab Results
Temp Pulse Resp BP Pulse Ox
98.9 F 73 12 111/40 98
12/20/23 07:14 12/20/23 06:07 12/20/23 06:07 12/20/23 06:07 12/20/23 06:07
Lab Results - Hematology
12/19/23 12/20/23
19:17 04:21
WBC 18.7 H 14.9 H
Lab Results - Chemistry
12/19/23 12/20/23
19:17 04:21
BUN 36 H 35 H
Creatinine 1.2 H 1.2 H
Estimated Creat Clear 33
Albumin 3.5
12/19/23
19:53
Lactic Acid 1.8
Lab Results - Urine
12/19/23
23:14
Urine Nitrite (Reflex) Positive A
Leukocyte Esterase Rfl 2+ A
Urine WBC (Reflex) >100 A
Ur Squamous Epith Cells >30
Urine Bacteria (Reflex) Many A
[2023-12-20] MEDS: ELIQUIS 5 MG PO ×2 (09:26→22:15)
[2023-12-20] MEDS: PROTONIX 40 MG PO (09:27)
[2023-12-20] MEDS: SINEMET 25-100 1 TABLET PO ×3 (09:27→22:14)
[2023-12-20] MEDS: LOW STRENGTH ASPIRIN 81 MG PO (09:27)
[2023-12-20] MEDS: ZOLOFT 50 MG PO (09:27)
[2023-12-20] MEDS: PACERONE 100 MG PO (09:27)
[2023-12-20] MEDS: FLORASTOR 250 MG PO (09:27)
[2023-12-20] MEDS: TYLENOL 650 MG PO ×2 (09:34→16:38)
[2023-12-20] MEDS: VANCOCIN 150 IV (11:38)
--- NOTE | 2023-12-20 13:37 | PTOTSP ---
Dysphagia Evaluation
Patient presents with signs concerning for at least mild oral/pharyngeal dysphagia. Patient with acute on chronic dysphagia/aspiration risks (i.e., lethargy, sepsis; Parkinson's disease) and currently has RLL PNA with concern for aspiration PNA.
Video swallow study 10/14/2023 with minimal oral/pharyngeal dysphagia without aspiration. Repeat video swallow study not appropriate at this time given current VIC but should be considered given concern for aspiration PNA.
Recommend:
1. IDDSI Level 4 Puree, IDDSI Level 0 Thin Liquids
2. Medications - whole and/or crushed in puree
3. Strategies: PO ONLY when awake/alert, FULL supervision/assistance, upright to 90 degrees, small single sips/bites, slow rate, ensure patient swallows before next sip/bite
4. Oral care 3x daily
5. Dysphagia therapy at the acute care level to determine if/when further assessment warranted via video swallow study.
--- NOTE | 2023-12-20 16:50 | CM ---
Patient from [facility] with Hx Parkinsons Dz with Dx Sepsis with hypotension, acute hypoxic respiratory failure, TME. O2 2L. Receiving IVF, IV Abx. Per nurse assessment; drowsy. ST - dysphagia diet. PT & OT Evals pending.
Spoke with Sammi Frankel [facility]; the patient resides at [facility] on the 3rd floor LTC unit and is on a bed hold. CM can call 3rd floor nurse for patient details.
Spoke with nurse Irina 3rd floor [facility]; the patient is A/O at baseline, assisted with ADLs. She transfers with assist of 1 and ambulates with her RW and assist of 1 to the dining harrison. She is able to feed herself. The patient is not currently
receiving PT/OT however is ambulated in the restorative program. Her son visits.
Plan follow up after seen by PT/OT.
Plan contact patient/family prior to return to SNF.
Plan [facility] when medically ready.
[2023-12-20] MEDS: MELATONIN 3 MG PO (22:14)
[2023-12-20] MEDS: REMERON 7.5 MG PO (22:15)
[2023-12-20] MEDS: LIPITOR 40 MG PO (22:15)
[2023-12-21] VITALS (19 sets, daily range): BP systolic 102–179; BP diastolic 41–70; PULSE 79–80; O2SAT 96; BMI 22.8; BMI 25.3
[2023-12-21] MEDS: TYLENOL 650 MG PO ×3 (04:32→21:56)
[2023-12-21 05:03] LABS: % Basophils 0.4 % (0-2); % Eosinophils 0.7 % (0-6); % Immature Granulocytes 0.4 % (0-0.5); % Lymphocytes 3.4 % (20.5-51.1); % Monocytes 5.7 % (1.7-9.3); % Neutrophils 89.4 % (42.2-75.2); Absolute Basophils 0.1 10^3/uL (0-0.2); Absolute Eosinophils 0.1 10^3/uL (0-0.7); Absolute Immature Granulocytes 0.1 10^3/uL (0-0.05); Absolute Lymphocytes 0.5 10^3/uL (1.2-3.4); Absolute Monocytes 0.8 10^3/uL (0.1-0.6); Absolute Neutrophils 12.2 10^3/uL (1.4-6.5); Hematocrit 28.7 % (37.0-47.0); Hemoglobin 9.8 g/dL (12.0-16.0); Mean Corp Hgb Conc. 34.1 g/dL (33.0-37.0); Mean Corpuscular Hgb 30.1 pg (27.0-31.0); Mean Platelet Volume 10.3 fL (7.4-10.4); Nucleated Red Blood Cells % 0 %; Platelet Count 209 10^3/uL (130-400); Red Blood Cell Count 3.26 10^6/uL (4.20-5.40); Red Cell Dist. Width 15.5 % (11.5-14.5); White Blood Cell Count 13.7 10^3/uL (4.8-10.8)
[2023-12-21 05:24] LABS: Calcium 9.5 mg/dl (8.4-10.2); Carbon Dioxide 22 mmol/L (22-30); Estimated Creatinine Clearance 36 ml/min; Magnesium 1.9 mg/dl (1.6-2.3); Potassium 4.7 mmol/L (3.5-5.1); eGFR 48.33
[2023-12-21] MEDS: MAXIPIME 2000 MG IV (05:32)
[2023-12-21] MEDS: STERILE WATER FOR INJECTION 10 ML IV (05:32)
[2023-12-21] MEDS: PACERONE 100 MG PO (05:32)
[2023-12-21 05:34] LABS: Blood Urea Nitrogen 33 mg/dl (7-17); Chloride 106 mmol/L (98-107); Glucose 104 mg/dl (70-99); Sodium 136 mmol/L (135-145)
--- NOTE | 2023-12-21 05:46 | PTCARENOTE ---
Cared for patient overnight. Beginning of shift pt was very drowsy and lethargic, responsive to verbal/tactile, barely speaking, only one word answers. Towards the morning, closer to 0400 pt was more alert, opening eyes, asking for tylenol, aaox3.
BP trending up throughout shift, high 170's/69. CHARGEMASTER SPECIALIST aware. Amio PO given early, no other meds given at this time. Q2T. NSR. IVF. IVABX. Mouthcare. Bed alarm. Call ramirez in reach.
--- NOTE | 2023-12-21 08:24 | W.PN.HOSP.TC ---
Today's Communication/Plan
-
see plan
Assessment / Plan
Assessment / Plan
Ms. Dayan Abdullahi is a 88 yo woman with hx Parkinson's disease with associated ambulatory dysfunction, [place] resident, afib, s/p PPM, HLD, CAD, chronic indwelling sykes, hx aspiration pneumonia with admission fro septic shock 11/06 presents with cough
and shortness of breath, found to be hypoxic SpO2 85% RA, T 100.3. WBC 18, Cr 1.2, lactate 1.8.
CXR:
Right basilar opacity again seen somewhat changed in appearance in comparison to prior study at least in part could represent pneumonia.
Mild cardiomegaly.
HCT:
No acute intracranial abnormalities.
Findings again seen compatible with diffuse cortical atrophy with minor nonspecific white matter changes as described above.
Minimal posterior left sphenoid sinus opacification most likely chronic. Cannot exclude small air-fluid levels such as superimposed acute sinusitis.
ASSESSMENT & PLAN
Sepsis with hypotension in setting of bacteremia
E. Coli Bacteremia, presumed Urine
Hx E. Coli and Klebsiella ESBL UTI
Parkinson's Disease with urinary retention and chronic sykes catheter
Associated acute hypoxic respiratory insufficiency require NC O2 support
Associated hypoactive lethargic TME
HX Chr dysphagia. She was on on soft bite sized food with thin liquid: S/p VSE in October 2023; concern for possible apsiration event
- LA 1.8
- gentle IVF - stop when sufficient oral intake
- Held Metoprolol to give room for BP
- E. Coli in blood --> transition abx to Meropenem given hx ESBL
- given report of left groin pain - I will order non-con CT A/P
- monitor blood cultures until clearance
- appreciate ST
-will need sykes catheter exchange
-this is patient's 4th admission this year - [facility] discussions with son (left VM to call back)
Lightheadedness likely due to hypotension
- IVF and f/u BP
- fall precaution
Pre existing Dxs:
Chronic HFpEF: daily Wt
Hypertension: Held BB due to hypotensin
Normocytic Anemia: stable
Parkinson's disease with associated chronic ambulatory dysfunction.
Atrial fibrillation on Amiodarone and Eliquis to be continued
PPM implant
Hyperlipidemia.
HX CAD
Severe protein calorie malnutrition
DVT Px: CLOUD ADMINISTRATOR Eliquis
Code: DNR
IMU
Anticipated Discharge: > 48 hours
Subjective/Interval History
-
Date of Service: December 21, 2023
more awake/alert this morning
complains of right groin pain
Objective Data
-
Labs:
Laboratory Results
12/21/23
04:45
WBC 13.7 H
Hgb 9.8 L
Hct 28.7 L
Plt Count 209
Sodium 136
Potassium 4.7
Chloride 106
Carbon Dioxide 22
BUN 33 H
Creatinine 1.1 H
Glucose 104 H
Calcium 9.5
Vital Signs:
Vital Signs
Temp Pulse Resp BP Pulse Ox
99.7 F 76 12 102/48 93
12/21/23 03:44 12/21/23 06:00 12/21/23 06:00 12/21/23 06:00 12/21/23 06:00
I&O
12/20/23 12/21/23 12/22/23
06:59 06:59 06:59
Intake Total 720 / 720
Output Total 250 / 250 1225 / 1225
Balance -250 / -250 -505 / -505
Review of Systems
-
History Source: Patient
All other systems: Reviewed and negative
Physical Exam
-
General: Appears Chronically Ill and Other (more awake this morning )
HEENT: PERRLA
Respiratory: Clear to Auscultation; Negative Wheezes
Cardiac: Regular Rhythm and S1/S2
GI: Soft and Other (tenderness RLQ/ right groin)
Musculoskeletal: No Edema
Skin: Warm and Dry; Negative Rash
Neuro: Awake and Alert; Negative Oriented
Psych: Confused
Data Reviewed
-
Diagnostic Radiology: Report Reviewed by me
Labs: Labs Reviewed by me
[2023-12-21] MEDS: LOW STRENGTH ASPIRIN 81 MG PO (09:25)
[2023-12-21] MEDS: ZOLOFT 50 MG PO (09:25)
[2023-12-21] MEDS: FLORASTOR 250 MG PO (09:25)
[2023-12-21] MEDS: PROTONIX 40 MG PO (09:25)
[2023-12-21] MEDS: SINEMET 25-100 1 TABLET PO ×3 (09:25→21:55)
[2023-12-21] MEDS: ELIQUIS 5 MG PO ×2 (09:25→20:02)
[2023-12-21] MEDS: STERILE WATER FOR INJECTION 20 ML IV ×2 (10:33→21:53)
[2023-12-21] MEDS: LR 1000 IV (10:33)
[2023-12-21] MEDS: MERREM 1000 MG IV ×2 (10:34→21:53)
--- NOTE | 2023-12-21 12:12 | PN.CDI ---
CDI
- -
CDI:
Physician Documentation Request
Admit Date: 12/19/23 22:36
Dear Doctor Charles,
Please review the following and provide your response in the progress notes.
Clinical Indicators:
The diagnosis of pneumonia was documented on 8 PN but is not consistently noted in subsequent documentation.
- 12/19 PN 'Sepsis...Likely Rt LL PNA suspect recurrent aspiration'
- 12/20 PN 'Sepsis with hypotension in setting of bacteremia'
- 12/19 Dysphagia eval 'concerning for at least mild oral/pharyngeal dysphagia'
- 12/18 CXR 'Right basilar opacity...could represent pneumonia'
Please clarify the following:
____ - Pneumonia was present on admission and is now resolved.
____ - Pneumonia was present on admission and is still being monitored, evaluated or treated
____ - Pneumonia was ruled out
____ - Pneumonia is still a likely, suspected, probable diagnosis
____ - Other
Use of terms such as suspected, likely, concern for, or probable (associated with a specific diagnosis that is being evaluated, monitored, or treated as if it exists) are acceptable and can be coded in the inpatient setting, when documented at the
time of discharge.
Thank you,
Yahaira Acuña RN
CDI Specialist
Please use your independent medical judgment in providing your response.
[2023-12-21] MEDS: COLACE 100 MG PO ×2 (12:47→20:13)
--- NOTE | 2023-12-21 12:57 | PN.CDI ---
CDI
- -
CDI:
Physician Documentation Request
Admit Date: 12/19/23 22:36
Dear Doctor Charles,
Please review the following and provide your response in the progress notes.
Clinical Indicators:
The diagnosis of acute hypoxic RF was documented on 8/6 PN but is not consistently noted in subsequent documentation.
- 8/6 PN 'Associated acute hypoxic RF require NC O2 support '
- 8/ PN 'Associated acute hypoxic respiratory insufficiency require NC O2 support'
- per H&P patient found at dinner with pulse ox in the 80s and placed on 5L O2 via NRB.
- Documented VS on arrival 85% on room air, 92% on 5L O2
Please clarify the following:
____ - Acute hypoxic respirator failure was present on admission and is now resolved
____ - Acute hypoxic respirator failure was ruled out
____ - Other
Use of terms such as suspected, likely, concern for, or probable (associated with a specific diagnosis that is being evaluated, monitored, or treated as if it exists) are acceptable and can be coded in the inpatient setting, when documented at the
time of discharge.
Thank you,
Yahaira Acuña RN
CDI Specialist
Please use your independent medical judgment in providing your response.
--- NOTE | 2023-12-21 15:25 | PTCARENOTE ---
Downgraded to Tele; To move to [phone], report given to Ortega LOREDO on . Transferred off floor.
[2023-12-21] MEDS: MIRALAX 17 GRAMS PO (20:01)
[2023-12-21] MEDS: LIPITOR 40 MG PO (21:53)
[2023-12-21] MEDS: MELATONIN 3 MG PO (21:53)
[2023-12-21] MEDS: REMERON 7.5 MG PO (21:55)
[2023-12-22] VITALS (8 sets, daily range): BP systolic 141–191; BP diastolic 52–74; PULSE 79; O2SAT 92; BMI 24.7
[2023-12-22] MEDS: TYLENOL 650 MG PO (08:05)
[2023-12-22 08:36] LABS: % Basophils 0.5 % (0-2); % Eosinophils 3.6 % (0-6); % Immature Granulocytes 0.3 % (0-0.5); % Lymphocytes 11.6 % (20.5-51.1); % Monocytes 13.2 % (1.7-9.3); % Neutrophils 70.8 % (42.2-75.2); Absolute Eosinophils 0.3 10^3/uL (0-0.7); Absolute Lymphocytes 0.9 10^3/uL (1.2-3.4); Absolute Neutrophils 5.3 10^3/uL (1.4-6.5); Hematocrit 27.1 % (37.0-47.0); Hemoglobin 9.2 g/dL (12.0-16.0); Mean Corp Hgb Conc. 33.9 g/dL (33.0-37.0); Mean Corpuscular Hgb 30.2 pg (27.0-31.0); Mean Corpuscular Volume 88.9 fL (81.0-99.0); Mean Platelet Volume 10.5 fL (7.4-10.4); Nucleated Red Blood Cells % 0 %; Platelet Count 204 10^3/uL (130-400); Red Blood Cell Count 3.05 10^6/uL (4.20-5.40); Red Cell Dist. Width 15.3 % (11.5-14.5); White Blood Cell Count 7.5 10^3/uL (4.8-10.8)
[2023-12-22 09:02] LABS: Blood Urea Nitrogen 27 mg/dl (7-17); Calcium 9.3 mg/dl (8.4-10.2); Carbon Dioxide 22 mmol/L (22-30); Chloride 107 mmol/L (98-107); Estimated Creatinine Clearance 36 ml/min; Glucose 101 mg/dl (70-99); Potassium 4.1 mmol/L (3.5-5.1); Sodium 135 mmol/L (135-145); eGFR 54.19
[2023-12-22] MEDS: MIRALAX 17 GRAMS PO (09:26)
[2023-12-22] MEDS: FLORASTOR 250 MG PO (09:26)
[2023-12-22] MEDS: LOW STRENGTH ASPIRIN 81 MG PO (09:29)
[2023-12-22] MEDS: COLACE 100 MG PO (09:29)
[2023-12-22] MEDS: PROTONIX 40 MG PO (09:29)
[2023-12-22] MEDS: SINEMET 25-100 1 TABLET PO ×3 (09:29→22:13)
[2023-12-22] MEDS: ELIQUIS 5 MG PO ×2 (09:30→22:12)
[2023-12-22] MEDS: PACERONE 100 MG PO (09:30)
[2023-12-22] MEDS: NON-FORMULARY ITEM 75 MG PO (09:30)
[2023-12-22] MEDS: ZOLOFT 50 MG PO (09:30)
[2023-12-22] MEDS: STERILE WATER FOR INJECTION 20 ML IV ×2 (10:04→22:13)
[2023-12-22] MEDS: MERREM 1000 MG IV ×2 (10:05→22:13)
--- NOTE | 2023-12-22 10:13 | W.PN.HOSP.TC ---
Addendum entered and electronically signed by Edda Soto MD 12/22/23 11:54:
CKD III
-renal function stable
Addendum entered and electronically signed by Edda Soto MD 12/22/23 10:50:
hypoxic resp failure ruled out - insufficiency
pneumonia ruled out
Original Note:
Today's Communication/Plan
-
IV Meropenem
ID consult
Assessment / Plan
Assessment / Plan
Ms. Dayan Abdullahi is a 88 yo woman with hx Parkinson's disease with associated ambulatory dysfunction, [place] resident, afib, s/p PPM, HLD, CAD, chronic indwelling sykes, hx aspiration pneumonia with admission fro septic shock 11/06 presents with cough
and shortness of breath, found to be hypoxic SpO2 85% RA, T 100.3. WBC 18, Cr 1.2, lactate 1.8.
CXR:
Right basilar opacity again seen somewhat changed in appearance in comparison to prior study at least in part could represent pneumonia.
Mild cardiomegaly.
HCT:
No acute intracranial abnormalities.
Findings again seen compatible with diffuse cortical atrophy with minor nonspecific white matter changes as described above.
Minimal posterior left sphenoid sinus opacification most likely chronic. Cannot exclude small air-fluid levels such as superimposed acute sinusitis.
CT A/P
IMPRESSION:
Four-chamber cardiomegaly. Small bilateral pleural effusions. There are bilateral groundglass opacities with nodular consolidations which may represent edema/atelectasis however superimposed infectious process can appear similar.
Moderate colonic stool burden with prominent rectal stool burden and some surrounding stranding along the rectum. Findings can be seen with developing stercoral colitis.
The urinary bladder is decompressed with Sykes catheter.
ASSESSMENT & PLAN
Sepsis with hypotension in setting of bacteremia
E. Coli ESBL Bacteremia and UTI
Hx E. Coli and Klebsiella ESBL UTI
Parkinson's Disease with urinary retention and chronic sykes catheter
Associated hypoactive lethargic TME
HX Chr dysphagia. She was on on soft bite sized food with thin liquid: S/p VSE in October 2023; concern for possible apsiration event
-IV Meropenem (day 2)
-Leukocytosis resolved
- non-con CT A/P without renal stone, e/o constipation
- monitor blood cultures until clearance
- appreciate ST
- sykes catheter exchange
-ID consult
-this is patient's 4th admission this year - [facility] discussion had with son on 12/20 - patient is DNR but he would like to continue with hospital admissions and treatment of infection if possible
Constipation
-continue bowel regimen with Miralax BID
Pre existing Dxs:
Chronic HFpEF: daily Wt
Hypertension: resume Metoprolol 12/21
Normocytic Anemia: stable
Parkinson's disease with associated chronic ambulatory dysfunction.
Atrial fibrillation on Amiodarone and Eliquis to be continued
PPM implant
Hyperlipidemia.
HX CAD
Severe protein calorie malnutrition
DVT Px: DUST SAMPLER Eliquis
Code: DNR
Anticipated Discharge: 24 - 48 hours
Subjective/Interval History
-
Date of Service: December 22, 2023
no new complaints
states she is feeling a little better
Objective Data
-
Labs:
Laboratory Results
12/22/23
07:34
WBC 7.5
Hgb 9.2 L
Hct 27.1 L
Plt Count 204
Sodium 135
Potassium 4.1
Chloride 107
Carbon Dioxide 22
BUN 27 H
Creatinine 1.0
Glucose 101 H
Calcium 9.3
Vital Signs:
Vital Signs
Temp Pulse Resp BP Pulse Ox
97.7 F 82 18 180/70 96
12/22/23 07:52 12/22/23 07:52 12/22/23 07:52 12/22/23 07:52 12/22/23 07:52
I&O
12/21/23 12/22/23 12/23/23
06:59 06:59 06:59
Intake Total 720 / 720 840 / 840
Output Total 1225 / 1225 1000 / 1000
Balance -505 / -505 -160 / -160
Review of Systems
-
History Source: Patient
All other systems: Reviewed and negative
Physical Exam
-
General: No Apparent Distress
HEENT: PERRLA
Respiratory: Clear to Auscultation; Negative Wheezes
Cardiac: Regular Rhythm and S1/S2
GI: Soft and Nontender
Musculoskeletal: No Edema
Skin: Warm and Dry; Negative Rash
Neuro: AO x 3
Psych: Calm
Data Reviewed
-
Diagnostic Radiology: Report Reviewed by me
[2023-12-22] MEDS: LOPRESSOR 25 MG PO ×2 (10:34→20:11)
--- NOTE | 2023-12-22 11:35 | PN.CDI ---
CDI
- -
CDI:
Physician Documentation Request
Admit Date: 12/19/23 22:36
Dear Doctor Charles,
Please review the following and provide your response in the progress notes.
Clinical Indicators:
- per H&P no history of renal disease
- Documented labs:
Laboratory Tests
12/19/23 12/21/23 12/22/23
19:17 04:45 07:34
Creatinine 1.2 H 1.1 H 1.0
eGFR 43.54 48.33 54.19
Please clarify which of the following accurately represents the patient's renal status:
CKD 3
CKD 2 with renal insufficiency
Other
Stages of Chronic Kidney Disease*
Level Description GFR
G1 Normal or High >90
G2 Mildly decreased 60-89
G3a Mildly to moderately decreased 45-59
G3b Moderately to severely decreased 30-44
G4 Severely decreased 15-29
G5 Kidney failure <15
Use of terms such as suspected, likely, concern for, or probable (associated with a specific diagnosis that is being evaluated, monitored, or treated as if it exists) are acceptable and can be coded in the inpatient setting, when documented at the
time of discharge.
Thank you,
Yahaira Acuña RN
CDI Specialist
Please use your independent medical judgment in providing your response.
*Source: Kidney Disease: Improving Global Outcomes (KDIGO) 2012
--- NOTE | 2023-12-22 13:13 | CM ---
Case management following for discharge planning
Chart reviewed. Spoke with pts son
Pt for [facility] at d/c - pt may need IV abx pending ID
Pts son aware of plan
Updates sent to [facility] made aware
Plan - anticipate [facility] when medically ready
--- NOTE | 2023-12-22 14:33 | PTCARENOTE ---
patient medicated with PRN Tylenol this am (See JUL) for c/o right groin pain and fell asleep afterwards, has poor Po oral intake, Po's encouraged, turns with assist x2, vss, will continue to monitor.
--- NOTE | 2023-12-22 16:33 | CON.ID ---
Consultation
-
Date/Time Consultation Requested: 12/22/2023 1013
Date/Time Consultation Performed: 12/22/2023 1613
Requesting Provider: Dr. Soto
Performing Provider: Dr. Diggs
Reason for Consultation: Bacteremia
Chief Complaint / Past History
History of Present Illness
Dayan Abdullahi is an 88-year-old female being evaluated at the request of Dr. Soto in regards to bacteremia. History is obtained from chart review, along with patient interview.
The patient is known to Infectious Diseases service, having been seen in early July for ESBL E. coli bacteremia.
She presents back to the emergency room on 12/18 following complaints of shortness of breath along with dizziness which started that day. She also was reported to have a cough. Workup in the emergency room revealed a leukocytosis and chest imaging
suggested a pulmonary infiltrate. She was placed on empiric antibiotics (cefepime/vancomycin). Blood cultures obtained at the time of admission have grown out ESBL E. coli, and a urine culture has revealed the presence of ESBL E. coli along with
Enterococcus. Infectious Diseases is asked to comment upon further antimicrobial therapy.
At this time, she notes some ongoing cough but without significant sputum production. She denies fevers although several fevers have been recorded since admission.
Past History
Additional Past Medical History:
P A-fib; on Eliquis
CAD
Anemia
HTN
Parkinson's disease
Urinary retention
Additional Past Surgical History:
PPM placement
PCTA with stenting
Hysterectomy
Hernia repair x 2
Allergy History:
No Known Allergies Allergy (Verified 12/19/23 19:11)
Medications Reviewed: Yes
Current Antibiotics:
Meropenam 1 gm IV q12
Social History
Tobacco: Non-Smoker
Alcohol: None
Drug: None
Personal: Single
Living: [facility]
Employment: Retired
Family History
Family History: Not Pertinent
Review of Systems
Vital Signs
Temp Pulse Resp BP Pulse Ox
98.6 F 66 17 147/56 97
12/22/23 15:39 12/22/23 15:39 12/22/23 15:39 12/22/23 15:39 12/22/23 15:39
Physical Exam
Physical Exam
Constitutional: No Acute Distress, Comfortable and Non-toxic
Head: Normocephalic
Eyes: No Conjunctival Hemorrhage and Sclera Anicteric
Oral: No Thrush and No Ulcers
Cardiovascular: Irregular Rate and S1/S2; Negative S3/S4 or Murmur
Pulmonary: Clear and Non Labored; Negative Wheezes or Rales
Gastrointestinal: Soft, Non Tender, Non Distended, Normal Bowel Sounds, No Rebound and No Guarding
Genito-Urinary: Padilla and Clear Urine; Negative Turbid Urine or Hematuria
Extremities: Edema (trace); Negative Cyanosis or Erythema
Skin: Warm and Dry; Negative Rash or Jaundice
Neurological: Awake and Alert
Psychological: Calm
Lab / Diagnostic Study Results
12/22/23 07:34
12/22/23 07:34
Abs Immat Gran (auto) 0.0 10^3/uL (0-0.05) 12/22/23 07:34
Absolute Neuts (auto) 5.3 10^3/uL (1.4-6.5) 12/22/23 07:34
Absolute Lymphs (auto) 0.9 10^3/uL (1.2-3.4) L 12/22/23 07:34
Absolute Monos (auto) 1.0 10^3/uL (0.1-0.6) H 12/22/23 07:34
Absolute Basos (auto) 0.0 10^3/uL (0-0.2) 12/22/23 07:34
Immature Gran % 0.3 % (0-0.5) 12/22/23 07:34
Neutrophils % 70.8 % (42.2-75.2) 12/22/23 07:34
Lymphocytes % 11.6 % (20.5-51.1) L 12/22/23 07:34
Monocytes % 13.2 % (1.7-9.3) H 12/22/23 07:34
Eosinophils % 3.6 % (0-6) 12/22/23 07:34
Basophils % 0.5 % (0-2) 12/22/23 07:34
Lactic Acid 1.8 mmol/L (0.7-2.0) 12/19/23 19:53
Ur Squamous Epith Cells >30 /LPF (Few) 12/19/23 23:14
Microbiology Results
Micro:
12/19/23 23:14 Urine Culture - Final
Urine Escherichia coli - ESBL
Enterococcus faecalis
12/19/23 23:14 Blood Culture - Preliminary
Blood/Venous Escherichia coli - ESBL
Gram Stain - Preliminary
12/21/23 04:45 Blood Culture - Preliminary
Blood/Venous No Growth in 24 hours- Final report to follow
12/20/23 01:22 MRSA Screen - Final
Nose No Methicillin Resistant Staphylococcus aureus isolated.
Imaging:
12/21/2023 CT abdomen/pelvis without contrast: Cardiomegaly noted. Small bilateral pleural effusions seen. Bilateral groundglass opacities with nodular consolidations which may represent edema/atelectasis. Moderate colonic stool burden noted.
Urinary bladder is decompressed with a Padilla catheter in place. No hydronephrosis noted.
12/19/2023 CXR (2 view): Right basilar opacity is again seen as noted on a 10/12/2023 imaging although it appears somewhat changed in appearance.
Assessment / Plan
ESBL E. coli bacteremia
Bacteriuria with ESBL E. coli / Enterococci
Chronic Padilla catheter
Leukocytosis; improved
Fever
A-fib
CAD; Hx IL
HTN
Anxiety/depression
Parkinson's disease
Vertigo
Chronic Padilla catheter
Macular degeneration
Anemia
Recommendations:
Continue with meropenem for the present.
Repeat blood cultures have been obtained; follow for clearance.
Monitor white count and temperature curve.
--- NOTE | 2023-12-22 17:20 | PTCARENOTE ---
patent's current Padilla removed and exchanged for #16 FR Padilla. Padilla inserted with 1st attempt and drainage bag to gravity. patient tolerated procedure well, will continue to monitor.
[2023-12-22] MEDS: COLACE PO (22:12)
[2023-12-22] MEDS: REMERON 7.5 MG PO (22:12)
[2023-12-22] MEDS: MIRALAX PO (22:12)
[2023-12-22] MEDS: MELATONIN 3 MG PO (22:13)
[2023-12-22] MEDS: LIPITOR 40 MG PO (22:13)
[2023-12-22] MEDS: OCEAN, SALINE MIST 1 SPRAYS NASAL (22:34)
[2023-12-23] VITALS (9 sets, daily range): BP systolic 136–178; BP diastolic 48–71; PULSE 61; O2SAT 95; BMI 24.6
--- NOTE | 2023-12-23 08:30 | PTCARENOTE ---
pt lethargic and difficult to arouse, waking only briefly to noxious stimuli. 98% on 2.5L contacting attending.
[2023-12-23] MEDS: MIRALAX PO (08:34)
--- NOTE | 2023-12-23 08:45 | W.PN.HOSP.TC ---
Today's Communication/Plan
-
IV Meropenem
appreciate ID
patient more somnolent on exam this morning but awakes to voice and able to tell me she went to bed too late, follows commands - will continue to monitor
Assessment / Plan
Assessment / Plan
Ms. Dayan Abdullahi is a 88 yo woman with hx Parkinson's disease with associated ambulatory dysfunction, [place] resident, afib, s/p PPM, HLD, CAD, chronic indwelling sykes, hx aspiration pneumonia with admission fro septic shock 11/06 presents with cough
and shortness of breath, found to be hypoxic SpO2 85% RA, T 100.3. WBC 18, Cr 1.2, lactate 1.8.
CXR:
Right basilar opacity again seen somewhat changed in appearance in comparison to prior study at least in part could represent pneumonia.
Mild cardiomegaly.
HCT:
No acute intracranial abnormalities.
Findings again seen compatible with diffuse cortical atrophy with minor nonspecific white matter changes as described above.
Minimal posterior left sphenoid sinus opacification most likely chronic. Cannot exclude small air-fluid levels such as superimposed acute sinusitis.
CT A/P
IMPRESSION:
Four-chamber cardiomegaly. Small bilateral pleural effusions. There are bilateral groundglass opacities with nodular consolidations which may represent edema/atelectasis however superimposed infectious process can appear similar.
Moderate colonic stool burden with prominent rectal stool burden and some surrounding stranding along the rectum. Findings can be seen with developing stercoral colitis.
The urinary bladder is decompressed with Sykes catheter.
ASSESSMENT & PLAN
Sepsis with hypotension in setting of bacteremia
E. Coli ESBL Bacteremia and UTI
Hx E. Coli and Klebsiella ESBL UTI
Parkinson's Disease with urinary retention and chronic sykes catheter
Associated hypoactive lethargic TME
HX Chr dysphagia. She was on on soft bite sized food with thin liquid: S/p VSE in October 2023; concern for possible apsiration event
-IV Meropenem (day 3)
-Leukocytosis resolved
- non-con CT A/P without renal stone, e/o constipation
- monitor blood cultures until clearance
- appreciate ST
- sykes catheter exchange
-ID consult
-this is patient's 4th admission this year - C discussion had with son on 12/20 - patient is DNR but he would like to continue with hospital admissions and treatment of infection if possible
Constipation
-continue bowel regimen with Miralax BID
-having BM
Pre existing Dxs:
Chronic HFpEF: daily Wt
Hypertension: resume Metoprolol 12/21
Normocytic Anemia: stable
Parkinson's disease with associated chronic ambulatory dysfunction.
Atrial fibrillation on Amiodarone and Eliquis to be continued
PPM implant
Hyperlipidemia.
HX CAD
Severe protein calorie malnutrition
DVT Px: TIRE BUSTER Eliquis
Code: DNR
Anticipated Discharge: 24 - 48 hours
Subjective/Interval History
-
Date of Service: December 23, 2023
patient more lethargic this morning but wakes up to voice
when I asked why she is so tired she stated 'because I went to bed late'
denies pain
Objective Data
-
Labs:
Laboratory Results
12/23/23
08:05
Sodium Pending
Potassium Pending
Chloride Pending
Carbon Dioxide Pending
BUN Pending
Creatinine Pending
Glucose Pending
Calcium Pending
Vital Signs:
Vital Signs
Temp Pulse Resp BP Pulse Ox
97.9 F 61 18 167/63 98
12/23/23 07:00 12/23/23 07:00 12/23/23 07:00 12/23/23 07:00 12/23/23 07:00
I&O
12/22/23 12/23/23 12/24/23
06:59 06:59 06:59
Intake Total 840 / 840 570 / 570
Output Total 1000 / 1000 950 / 950
Balance -160 / -160 -380 / -380
Review of Systems
-
History Source: Patient
All other systems: Reviewed and negative
Physical Exam
-
General: No Apparent Distress
HEENT: PERRLA
Respiratory: Clear to Auscultation; Negative Wheezes
Cardiac: Regular Rhythm and S1/S2
GI: Soft and Nontender
Musculoskeletal: No Edema
Skin: Warm and Dry; Negative Rash
Neuro: Sedated
Psych: Calm
Data Reviewed
-
Diagnostic Radiology: Report Reviewed by me
Labs: Labs Reviewed by me
[2023-12-23] MEDS: SINEMET 25-100 1 TABLET PO ×3 (08:48→21:13)
[2023-12-23] MEDS: PACERONE 100 MG PO (08:49)
[2023-12-23] MEDS: LOPRESSOR 25 MG PO ×2 (08:49→19:49)
[2023-12-23] MEDS: ELIQUIS 5 MG PO ×2 (08:49→19:48)
[2023-12-23] MEDS: FLORASTOR 250 MG PO (08:49)
[2023-12-23] MEDS: PROTONIX 40 MG PO (08:49)
[2023-12-23] MEDS: LOW STRENGTH ASPIRIN 81 MG PO (08:49)
[2023-12-23] MEDS: ZOLOFT 50 MG PO (08:49)
[2023-12-23] MEDS: NON-FORMULARY ITEM 75 MG PO (08:50)
[2023-12-23] MEDS: COLACE PO (08:56)
[2023-12-23] MEDS: MERREM 1000 MG IV (09:00)
[2023-12-23] MEDS: STERILE WATER FOR INJECTION 20 ML IV (09:00)
[2023-12-23 09:12] LABS: Blood Urea Nitrogen 25 mg/dl (7-17); Calcium 9.2 mg/dl (8.4-10.2); Carbon Dioxide 24 mmol/L (22-30); Chloride 106 mmol/L (98-107); Estimated Creatinine Clearance 36 ml/min; Glucose 94 mg/dl (70-99); Sodium 135 mmol/L (135-145); eGFR 54.19
--- NOTE | 2023-12-23 09:28 | W.PN.ID1 ---
Date of Service
Date of Service: December 23, 2023
Today's Communication
day 3 of effective antibiotics; given bacteremia would not rely on macrobid
switched to doxycycline 100 mg PO BID and amoxicillin 500 mg PO TID for 7 day total course which is through 12/26
Follow up with PCP
Assessment / Plan
ESBL E. coli bacteremia
Bacteriuria with ESBL E. coli / Enterococci
Chronic Sykes catheter
Leukocytosis; improved
Fever
A-fib
CAD; Hx ME
HTN
Anxiety/depression
Parkinson's disease
Vertigo
Chronic Sykes catheter
Macular degeneration
Anemia
Recommendations:
single blood culture was sent and is negative. no need for blood cultures to confirm clearance of GN bacteremia in my opinion
remove and replace sykes if not already done this admission
day 3 of effective antibiotics; given bacteremia would not rely on macrobid
switched to doxycycline 100 mg PO BID and amoxicillin 500 mg PO TID for 7 day total course which is through 12/26
Follow up with PCP
Chief Complaint
-: UTI and Bacteremia
Subjective / Review of Systems
afebrile
bp stable
Vital Signs / Physical Exam
Vital Signs
Vital Signs
Temp Pulse Resp BP Pulse Ox
97.9 F 61 18 167/63 98
12/23/23 07:00 12/23/23 07:00 12/23/23 07:00 12/23/23 07:00 12/23/23 07:00
Physical Exam
Constitutional: No Acute Distress
Cardiovascular: Regular Rate and S1/S2; Negative Murmur or Rub
Pulmonary: Clear and Symmetric; Negative Wheezes or Rales
Gastrointestinal: Soft, Non Tender, Non Distended and Normal Bowel Sounds
Genito-Urinary: Negative Suprapubic Tenderness
Skin: Warm and Dry; Negative Rash or Jaundice
Objective Data
Lab Data
Lab Results
12/22/23 07:34
12/23/23 08:05
Estimated Creat Clear 36 ml/min 12/23/23 08:05
Lactic Acid 1.8 mmol/L (0.7-2.0) 12/19/23 19:53
Total Bilirubin 0.9 mg/dl (0.2-1.3) 12/19/23 19:17
AST 24 U/L (14-36) 12/19/23 19:17
ALT < 10 U/L (0-35) 12/19/23 19:17
Alkaline Phosphatase 89 U/L (38-126) 12/19/23 19:17
Most recent labs reviewed as above in addition
wbc now 7.5 form 13.7, hgg stbale, plt normal, L shift resolved today
cr stable 1.0, crcl 36
single blood culture from 12/20 is no growth at 48 hours
Urine Culture Final 12/22/23-1434
CC: 80,000 CFU/ML Escherichia coli - ESBL*
CC: 100,000 CFU/ML Enterococcus faecalis
*Resistance due to extended spectrum beta lactamase.
Deacreased activity may occur with penicillins,
penicillin/inhibitor combinations, cephalosporins, and
monobactams.
Organism 1 Escherichia coli - ESBL
Organism 2 Enterococcus faecalis
EC-ESBL ENTFCL
M.I.C. RX M.I.C. RX
--------- --- --------- ---
Amoxicillin/Potas. Clavulanate <=8/4 S
Ampicillin >16 R <=2 S
Ampicillin/Sulbactam 8/4 S
Aztreonam >16 R
Cefazolin >16 R
Cefepime >16 R
Ceftazidime >16 R
Ceftriaxone >2 R
Ertapenem <=0.5 S
Ciprofloxacin >2 R
Gentamicin <=2 S
Gentamicin Synergy Screen <=500 S
Levofloxacin >4 R
Meropenem <=1 S
Nitrofurantoin-Urine Only <=32 S <=32 S
Piperacillin/Tazobactam <=8 S
Tetracycline <=4 S >8 R
Tobramycin <=2 S
Trimethoprim/Sulfamethoxazole <=2/38 S
Vancomycin 2 S
Micro Results:
12/21/23 04:45 Blood Culture - Preliminary
Blood/Venous No Growth in 48 hours- Final report to follow
12/19/23 23:14 Urine Culture - Final
Urine Escherichia coli - ESBL
Enterococcus faecalis
12/19/23 23:14 Blood Culture - Preliminary
Blood/Venous Escherichia coli - ESBL
Gram Stain - Preliminary
12/20/23 01:22 MRSA Screen - Final
Nose No Methicillin Resistant Staphylococcus aureus isolated.
Imaging:
12/21/2023 CT abdomen/pelvis without contrast: Cardiomegaly noted. Small bilateral pleural effusions seen. Bilateral groundglass opacities with nodular consolidations which may represent edema/atelectasis. Moderate colonic stool burden noted.
Urinary bladder is decompressed with a Sykes catheter in place. No hydronephrosis noted.
12/19/2023 CXR (2 view): Right basilar opacity is again seen as noted on a 10/12/2023 imaging although it appears somewhat changed in appearance.
[2023-12-23] MEDS: VIBRAMYCIN 100 MG PO ×2 (10:18→19:48)
[2023-12-23] MEDS: AMOXIL 500 MG PO ×2 (10:18→18:05)
--- NOTE | 2023-12-23 10:40 | PTOTSP ---
Speech Pathology Follow Up
Initiated PO trials of thin liquid via cup sips and straw; puree; minced and moist; and regular solid. Adequate bolus acceptance of all trials. Self fed all trials. Slow, but functional mastication of regular and minced & moist solid. Spontaneous
thin liquid wash used to clear oral residue. No overt s/s of aspiration or penetration observed with all consistencies this date. No s/s of reflux observed. Denies s/s of pharyngeal stasis/globus sensation. Recommend trial upgrade to minced & moist
solids with CARGO TRIMMER service to continue to follow.
Impression: Patient continues to p/w signs concerning for at least mild oral/pharyngeal dysphagia. Patient with acute on chronic dysphagia/aspiration risks (i.e., lethargy, sepsis; Parkinson's disease) and currently has RLL PNA with concern for
aspiration PNA.
Recommend:
1. IDDSI Level 5 Minced & Moist, IDDSI Level 0 Thin Liquids
2. Medications - whole and/or crushed in puree
3. Strategies: PO ONLY when awake/alert, FULL supervision/assistance, upright to 90 degrees, small single sips/bites, slow rate, ensure patient swallows before next sip/bite
4. Oral care 3x daily
5. Dysphagia therapy at the acute care level pending GOC.
--- NOTE | 2023-12-23 15:55 | CM ---
Case management following for d/c planning
Pt for transfer to [facility] tomorrow per provider
Pts son aware
Auth started in [employer]
Certificate # [id number]
Clinical information submitted electronically
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
Plan - transfer to [facility] when medically ready and auth obtained
[2023-12-23] MEDS: TYLENOL 650 MG PO (19:48)
[2023-12-23] MEDS: COLACE 100 MG PO (19:48)
[2023-12-23] MEDS: MIRALAX 17 GRAMS PO (19:48)
[2023-12-23] MEDS: REMERON 7.5 MG PO (21:13)
[2023-12-23] MEDS: MELATONIN 3 MG PO (21:13)
[2023-12-23] MEDS: LIPITOR 40 MG PO (21:14)
[2023-12-24] MEDS: AMOXIL 500 MG PO ×2 (02:44→09:48)
[2023-12-24 03:10] VITALS: BP 163/56
[2023-12-24 06:02] VITALS: BMI 24.4
[2023-12-24 07:00] VITALS: BP 182/63
[2023-12-24] MEDS: FLORASTOR 250 MG PO (08:57)
[2023-12-24] MEDS: SINEMET 25-100 1 TABLET PO (08:57)
[2023-12-24] MEDS: VIBRAMYCIN 100 MG PO (08:57)
[2023-12-24] MEDS: MIRALAX 17 GRAMS PO (08:57)
[2023-12-24] MEDS: LOPRESSOR 25 MG PO (08:57)
[2023-12-24] MEDS: LOW STRENGTH ASPIRIN 81 MG PO (08:57)
[2023-12-24] MEDS: ZOLOFT 50 MG PO (08:57)
[2023-12-24] MEDS: PROTONIX 40 MG PO (08:57)
[2023-12-24] MEDS: NON-FORMULARY ITEM 75 MG PO (08:58)
[2023-12-24] MEDS: COLACE 100 MG PO (08:58)
[2023-12-24] MEDS: PACERONE 100 MG PO (08:58)
[2023-12-24] MEDS: ELIQUIS 5 MG PO (08:58)
--- NOTE | 2023-12-24 09:11 | W.PN.HOSP.TC ---
Today's Communication/Plan
-
OK for DC Today
Assessment / Plan
Assessment / Plan
Ms. Dayan Abdullahi is a 88 yo woman with hx Parkinson's disease with associated ambulatory dysfunction, [place] resident, afib, s/p PPM, HLD, CAD, chronic indwelling sykes, hx aspiration pneumonia with admission fro septic shock 11/06 presents with cough
and shortness of breath, found to be hypoxic SpO2 85% RA, T 100.3. WBC 18, Cr 1.2, lactate 1.8.
CXR:
Right basilar opacity again seen somewhat changed in appearance in comparison to prior study at least in part could represent pneumonia.
Mild cardiomegaly.
HCT:
No acute intracranial abnormalities.
Findings again seen compatible with diffuse cortical atrophy with minor nonspecific white matter changes as described above.
Minimal posterior left sphenoid sinus opacification most likely chronic. Cannot exclude small air-fluid levels such as superimposed acute sinusitis.
CT A/P
IMPRESSION:
Four-chamber cardiomegaly. Small bilateral pleural effusions. There are bilateral groundglass opacities with nodular consolidations which may represent edema/atelectasis however superimposed infectious process can appear similar.
Moderate colonic stool burden with prominent rectal stool burden and some surrounding stranding along the rectum. Findings can be seen with developing stercoral colitis.
The urinary bladder is decompressed with Sykes catheter.
ASSESSMENT & PLAN
Sepsis with hypotension in setting of bacteremia
E. Coli ESBL Bacteremia and UTI
Hx E. Coli and Klebsiella ESBL UTI
Parkinson's Disease with urinary retention and chronic sykes catheter
Associated hypoactive lethargic TME
HX Chr dysphagia. She was on on soft bite sized food with thin liquid: S/p VSE in October 2023; concern for possible apsiration event
-s/p 3 days IV Meropenem --> transitioned to amoxicillin/doxy through 12/26
-Leukocytosis resolved
- non-con CT A/P without renal stone, e/o constipation
- monitor blood cultures until clearance
- appreciate ST
- sykes catheter exchange
-ID consult
-this is patient's 4th admission this year - C discussion had with son on 12/20 - patient is DNR but he would like to continue with hospital admissions and treatment of infection if possible
Constipation
-continue bowel regimen with Miralax BID
-having BM
Pre existing Dxs:
Chronic HFpEF: daily Wt
Hypertension: resume Metoprolol 12/21
Normocytic Anemia: stable
Parkinson's disease with associated chronic ambulatory dysfunction.
Atrial fibrillation on Amiodarone and Eliquis to be continued
PPM implant
Hyperlipidemia.
HX CAD
Severe protein calorie malnutrition
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
Code: DNR
Anticipated Discharge: Today
Subjective/Interval History
-
Date of Service: December 24, 2023
more awake today
no new complaints
Objective Data
-
Vital Signs:
Vital Signs
Temp Pulse Resp BP Pulse Ox
98.6 F 68 17 182/63 96
12/24/23 07:00 12/24/23 07:00 12/24/23 07:00 12/24/23 07:00 12/24/23 07:00
I&O
12/23/23 12/24/23 12/25/23
06:59 06:59 06:59
Intake Total 570 / 570 780 / 780
Output Total 950 / 950 900 / 900
Balance -380 / -380 -120 / -120
Review of Systems
-
History Source: Patient
All other systems: Reviewed and negative
Physical Exam
-
General: No Apparent Distress
HEENT: PERRLA
Respiratory: Clear to Auscultation; Negative Wheezes
Cardiac: Regular Rhythm and S1/S2
GI: Soft and Nontender
Musculoskeletal: No Edema
Skin: Warm and Dry; Negative Rash
Neuro: Sedated
Psych: Calm
Data Reviewed
-
Diagnostic Radiology: Report Reviewed by me
Labs: Labs Reviewed by me
--- NOTE | 2023-12-24 09:20 | W.DS.TRANS ---
DC Summary - Opthalmic Tech
-
Discharge Instructions:
Sleep Apnea Risk Intermediate
Discharge Diagnosis/Procedures ESBL urinary tract infection and bacteremia
Diet Other diet
Additional Diets IDSSI - 5 minced and moist
Activity As tolerated
Driving Restrictions No driving
Bathing Restrictions None
Instructions:
Stand-Alone Forms:
Changes to Home Medications: Yes
Discharge Medications:
DC Medications w/original date entered in [facility]
apixaban 5 mg tablet (Eliquis) 5 mg PO BID Blood clot prevention/tx 09/21/19
meclizine 25 mg tablet 25 mg PO [id number] PRN dizziness/vertigo 09/27/21
lidocaine 4 % topical patch 1 patch topical DAILYPRN PRN lower back pain 03/23/22
metronidazole 1 % topical gel 1 applic topical DAILYPRN PRN apply to B/L cheeks/forehead 03/23/22
acetaminophen 325 mg tablet 650 mg PO Q4HPRN PRN mild pain/temp>100 02/09/23
nitroglycerin 0.4 mg sublingual tablet 0.4 mg sublingual [id number] PRN chest pain 02/16/23
polyethylene glycol 3350 17 gram oral powder packet (Miralax) 17 g PO DAILY Constipation #0 ea 02/19/23
amiodarone 100 mg tablet 100 mg PO DAILY Arrhythmia 06/09/23
cholecalciferol (vitamin D3) 25 mcg (1,000 unit) tablet 50 mcg PO DAILY Supplement 06/09/23
nystatin 100,000 unit/gram topical powder 1 applic topical [id number] PRN rash 06/09/23
ondansetron HCl 4 mg tablet 4 mg PO [id number] PRN nausea 06/09/23
sertraline 50 mg tablet 50 mg PO DAILY Depression 06/09/23
atorvastatin 40 mg tablet 40 mg PO HS High Cholesterol 07/18/23
menthol 5 % topical patch (Icy Hot (menthol)) 1 patch topical BID lower back pain 07/18/23
carbidopa 25 mg-levodopa 100 mg tablet (Sinemet) 1 tab PO TID Neurological Condition ##0 07/20/23
bisacodyl 10 mg rectal suppository (Dulcolax (bisacodyl)) 10 mg MN DAILYPRN PRN constipation 08/26/23
magnesium hydroxide 400 mg/5 mL oral suspension (Milk of Magnesia) 30 ml PO DAILY PRN if no bm on day 4 08/26/23
pantoprazole 40 mg granules delayed-release for susp in packet 40 mg PO DAILY GERD 08/26/23
polyvinyl alcohol-povidone (PF) 1.4 %-0.6 % eye drops in a dropperette (Refresh Classic (PF)) 1 drp BOTH EYES QID Eye Condition 08/26/23
sodium phosphates 19 gram-7 gram/118 mL enema (Fleet Enema) 118 ml MN DAILYPRN PRN constipation 08/26/23
Uqora 1 packet PO DAILY uti prophylaxis 10/11/23
docusate sodium 100 mg capsule 100 mg PO BID Constipation 10/12/23
aspirin 81 mg chewable tablet (Children's Aspirin) 81 mg PO DAILY Blood clot prevention/tx #30 tabs 10/18/23
cyanocobalamin (vitamin B-12) 1,000 mcg tablet 1,000 mcg PO DAILY low normal B12 #0 tabs 10/18/23
metoprolol tartrate 25 mg tablet 25 mg PO BID Arrhythmia #0 tabs 10/18/23
mirtazapine 15 mg tablet (Remeron) 7.5 mg (1/2 x 15 mg) PO HS Mental Health/Anxiety #0 tabs 10/18/23
Saccharomyces boulardii 250 mg capsule (Florastor) 250 mg PO DAILY Gastrointestinal Issue 12/19/23
ascorbic acid (vitamin C) 1,000 mg tablet (Vitamin C) 1,000 mg PO BID Supplement 12/19/23
calcium carbonate 200 mg PO BIDPRN PRN heartburn 12/19/23
melatonin 3 mg tablet 3 mg PO HS insomnia 12/19/23
vibegron 75 mg tablet (Gemtesa) 75 mg PO DAILY Urinary Issue 12/19/23
amoxicillin 500 mg capsule 500 mg PO Q8H #11 caps 12/24/23
doxycycline hyclate 100 mg capsule 100 mg PO Q12 #7 caps 12/24/23
Home Medication Changes
doxycycline 100 mg PO BID and amoxicillin 500 mg PO TID for 7 day total course which is through 12/26
Pending Results: No
[2023-12-24 11:00] VITALS: BP 170/60
--- NOTE | 2023-12-24 13:28 | W.DCSUMMARY ---
Discharge Summary
Discharge Data
Date of Admission: 12/19/23
Date of Discharge: 12/24/23
-
Pending Results: No
Hospital Course
Discharging Physician : Dr. Edda Soto
Disposition : SNF
Primary care physician : Dr. Juan Diego York
Principal Discharge diagnosis : ESBL UTI and Bacteremia
Hospital Course :
Ms. Dayan Abdullahi is a 88 yo woman with hx Parkinson's disease with associated ambulatory dysfunction and chronic indwelling sykes, [place] resident, afib, s/p PPM, HLD, CAD, hx aspiration pneumonia, multiple admissions over past year and history of
resistant UTI presents with lethargy and cough, found to be hypoxic SpO2 85% RA, T 100.3. WBC 18, Cr 1.2, lactate 1.8. CXR with concern for pneumonia and UA inflamed. She was initially admitted for treatment of aspiration pneumonia, urine and
blood cultures then resulted with ESBL giving diagnosis of sepsis secondary to ESBL urinary tract infection with bacteremia. Antibiotics changed to IV Meropenem. ID consulted and patient transitioned to oral therapy: doxycycline and amoxicillin to
complete through 12/27/23. TME improved prior to discharge. She is discharged to SNF.
With multiple readmissions and frailty, GOC discussion again had with son who would like to continue treatment for infections and hospitalizations if needed. She remains DNR.
Time spent on discharge was 35 minutes.
Important imaging findings :
CXR:
Right basilar opacity again seen somewhat changed in appearance in comparison to prior study at least in part could represent pneumonia.
Mild cardiomegaly.
Head CT
No acute intracranial abnormalities.
Findings again seen compatible with diffuse cortical atrophy with minor nonspecific white matter changes as described above.
Minimal posterior left sphenoid sinus opacification most likely chronic. Cannot exclude small air-fluid levels such as superimposed acute sinusitis.
CT A/P
IMPRESSION:
Four-chamber cardiomegaly. Small bilateral pleural effusions. There are bilateral groundglass opacities with nodular consolidations which may represent edema/atelectasis however superimposed infectious process can appear similar.
Moderate colonic stool burden with prominent rectal stool burden and some surrounding stranding along the rectum. Findings can be seen with developing stercoral colitis.
The urinary bladder is decompressed with Sykes catheter.
Procedure findings :
Discharge Plan
-
Patient Disposition: Penitentiary/SNF
Discharge Diagnosis/Procedures: ESBL urinary tract infection and bacteremia
Diet: Other diet
Additional Diets: IDSSI - 5 minced and moist
Activity: As tolerated
Driving Restrictions: No driving
Bathing Restrictions: None
Referrals:
Juan Diego York MD [Family Provider] - in less than 1 week
Additional Discharge Medication Instructions: Take doxycycline 100 mg PO BID and amoxicillin 500 mg PO TID for 7 day total course which is through 12/26
Prescriptions:
New
amoxicillin 500 mg Capsule
500 mg PO Q8H Qty: 11 0RF
doxycycline hyclate 100 mg Capsule
100 mg PO Q12 Qty: 7 0RF
Continued
Eliquis 5 MG tablet
5 mg PO BID
meclizine 25 MG tablet
25 mg PO [id number] PRN (Reason: dizziness/vertigo)
metronidazole 1 % Gel
1 applic TOPICAL DAILYPRN PRN (Reason: apply to B/L cheeks/forehead)
lidocaine 4 % Adhesive Patch,Medicated
1 patch TOPICAL DAILYPRN PRN (Reason: lower back pain)
acetaminophen 325 mg Tablet
650 mg PO Q4HPRN MDD 3000 mg PRN (Reason: mild pain/temp>100)
nitroglycerin 0.4 mg Tablet, Sublingual
0.4 mg SUBLINGUAL [id number] PRN (Reason: chest pain)
polyethylene glycol 3350 [Miralax] 17 gram Powder In Packet
17 g PO DAILY Qty: 0 0RF
Patient Comments:
08/26/2023: hold for loose stools.
ondansetron HCl 4 mg Tablet
4 mg PO [id number] PRN (Reason: nausea)
nystatin 100,000 unit/gram Powder
1 applic TOPICAL [id number] PRN (Reason: rash)
sertraline 50 mg Tablet
50 mg PO DAILY
amiodarone 100 mg Tablet
100 mg PO DAILY
cholecalciferol (vitamin D3) 25 mcg (1,000 unit) Tablet
50 mcg PO DAILY
Icy Hot (menthol) 5 % Adhesive Patch,Medicated
1 patch TOPICAL BID
Rx Instructions:
apply to lower back
atorvastatin 40 mg tablet
40 mg PO HS
carbidopa-levodopa [Sinemet] 25-100 mg Tablet
1 tab PO TID Qty: 0
magnesium hydroxide [Milk of Magnesia] 400 mg/5 mL Suspension
30 ml PO DAILY PRN (Reason: if no bm on day 4)
bisacodyl [Dulcolax (bisacodyl)] 10 mg Suppository
10 mg KS DAILYPRN PRN (Reason: constipation)
Fleet Enema 19-7 gram/118 mL Enema
118 ml KS DAILYPRN PRN (Reason: constipation)
pantoprazole [address] For Susp In Packet
40 mg PO DAILY
Refresh Classic (PF) 1.4-0.6 % dropperette
1 drp BOTH EYES QID
Uqora packet
1 packet PO DAILY
docusate sodium 100 mg capsule
100 mg PO BID
cyanocobalamin (vitamin B-12) 1,000 mcg Tablet
1,000 mcg PO DAILY Qty: 0 0RF
aspirin [Children's Aspirin] 81 mg Tablet,Chewable
81 mg PO DAILY Qty: 30 0RF
metoprolol tartrate 25 mg Tablet
25 mg PO BID Qty: 0 0RF
mirtazapine [Remeron] 15 mg Tablet
7.5 mg PO HS Qty: 0 0RF
calcium carbonate 200 mg calcium (500 mg) Tablet,Chewable
200 mg PO BIDPRN PRN (Reason: heartburn)
Saccharomyces boulardii [Florastor] 250 mg Capsule
250 mg PO DAILY
Gemtesa 75 mg Tablet
75 mg PO DAILY
ascorbic acid (vitamin C) [Vitamin C] 1,000 MG tablet
1,000 mg PO BID
melatonin 3 mg tablet
3 mg PO HS
Discharge Orders:
Discharge Patient (As Directed); Ordered 12/24/23
Ordered By: Edda Soto
Discharge Date and Time
Discharge Date/Time: 12/24/23 11:53
Print Language: CAMBOD[place]
== END 2023-12-24 11:53 | DRG 698 ==
LOC: 3 WEST ACU 22:36
PROVIDERS: Clinical Nurse Specialist Family Health; Physician Assistant Medical; Registered Nurse; ADMITTING PHYSICIAN Internal Medicine; ATTENDING PHYSICIAN Student in an Organized Health Care Education/Training Program; CONSULT PHYSICIAN Internal Medicine Infectious Disease; EMERGENCY PHYSICIAN Student in an Organized Health Care Education/Training Program; FAMILY PHYSICIAN Family Medicine
DX: T83.511A Infection and inflammatory reaction due to indwelling urethral catheter, initial encounter (principal); A41.51 Sepsis due to Escherichia coli [E. coli]; E43 Unspecified severe protein-calorie malnutrition; G92.8 Other toxic encephalopathy; I50.32 Chronic diastolic (congestive) heart failure; I13.0 Hypertensive heart and chronic kidney disease with heart failure and stage 1 through stage 4 chronic kidney disease, or unspecified chronic kidney disease; Z16.12 Extended spectrum beta lactamase (ESBL) resistance; N39.0 Urinary tract infection, site not specified; Y73.2 Prosthetic and other implants, materials and accessory gastroenterology and urology devices associated with adverse incidents; Y92.9 Unspecified place or not applicable; Y84.6 Urinary catheterization as the cause of abnormal reaction of the patient, or of later complication, without mention of misadventure at the time of the procedure; D64.9 Anemia, unspecified; F32.A Depression, unspecified; F41.9 Anxiety disorder, unspecified; H35.30 Unspecified macular degeneration; E78.5 Hyperlipidemia, unspecified; R26.2 Difficulty in walking, not elsewhere classified; N18.30 Chronic kidney disease, stage 3 unspecified; R13.10 Dysphagia, unspecified; R09.02 Hypoxemia; R06.89 Other abnormalities of breathing; K59.00 Constipation, unspecified; I25.10 Atherosclerotic heart disease of native coronary artery without angina pectoris; I48.0 Paroxysmal atrial fibrillation; G20.A1 Parkinson's disease without dyskinesia, without mention of fluctuations; Z66 Do not resuscitate; I25.2 Old myocardial infarction; Z11.52 Encounter for screening for COVID-19; Z95.5 Presence of coronary angioplasty implant and graft; Z95.0 Presence of cardiac pacemaker; Z79.01 Long term (current) use of anticoagulants; Z87.01 Personal history of pneumonia (recurrent); Z68.24 Body mass index [BMI] 24.0-24.9, adult; Z87.440 Personal history of urinary (tract) infections
CPT/HCPCS: 70450; 71046; 74176; 80048; 80053; 81003; 81015; 83605; 83735; 84484; 85025; 85027; 87040; 87070; 87077; 87086; 87149; 87186; 87205; 87811; 92526; 92610; 93005; 94640; 96365; 96374; 97116; 97163; 97167; 97530; 97535; 99285; J2185

== ENCOUNTER → 2023-12-26 09:49 | Outpatient (REF) | payer OTHER, SELFPAY ==
[2023-12-26 10:49] LABS: % Basophils 0.7 % (0-2); % Immature Granulocytes 0.7 % (0-0.5); % Lymphocytes 19.5 % (20.5-51.1); % Neutrophils 62.1 % (42.2-75.2); Absolute Basophils 0.1 10^3/uL (0-0.2); Absolute Eosinophils 0.4 10^3/uL (0-0.7); Absolute Immature Granulocytes 0.1 10^3/uL (0-0.05); Absolute Lymphocytes 1.6 10^3/uL (1.2-3.4); Absolute Neutrophils 5.1 10^3/uL (1.4-6.5); Hematocrit 28.1 % (37.0-47.0); Hemoglobin 9.5 g/dL (12.0-16.0); Mean Corp Hgb Conc. 33.8 g/dL (33.0-37.0); Mean Corpuscular Hgb 29.9 pg (27.0-31.0); Mean Corpuscular Volume 88.4 fL (81.0-99.0); Mean Platelet Volume 10.2 fL (7.4-10.4); Nucleated Red Blood Cells % 0 %; Platelet Count 292 10^3/uL (130-400); Red Blood Cell Count 3.18 10^6/uL (4.20-5.40); White Blood Cell Count 8.2 10^3/uL (4.8-10.8)
[2023-12-26 11:15] LABS: ALT (SGPT) 11 U/L (0-35); AST (SGOT) 23 U/L (14-36); Alkaline Phosphatase 70 U/L (38-126); Blood Urea Nitrogen 19 mg/dl (7-17); Calcium 9.2 mg/dl (8.4-10.2); Carbon Dioxide 27 mmol/L (22-30); Chloride 104 mmol/L (98-107); Glucose 103 mg/dl (70-99); Sodium 136 mmol/L (135-145); Total Protein 5.4 g/dl (6.3-8.2); eGFR > 60.00
[2023-12-26 12:10] LABS: Total Bilirubin 0.7 mg/dl (0.2-1.3)
== END ==
LOC: OLABP 09:49
PROVIDERS: ATTENDING PHYSICIAN Family Medicine
DX: I11.9 Hypertensive heart disease without heart failure (principal); B96.20 Unspecified Escherichia coli [E. coli] as the cause of diseases classified elsewhere; Z79.2 Long term (current) use of antibiotics; I48.0 Paroxysmal atrial fibrillation; I21.4 Non-ST elevation (NSTEMI) myocardial infarction; N39.0 Urinary tract infection, site not specified; E87.1 Hypo-osmolality and hyponatremia; I49.5 Sick sinus syndrome; Z95.0 Presence of cardiac pacemaker; G20.A1 Parkinson's disease without dyskinesia, without mention of fluctuations; G31.84 Mild cognitive impairment of uncertain or unknown etiology; R26.2 Difficulty in walking, not elsewhere classified; F32.9 Major depressive disorder, single episode, unspecified
CPT/HCPCS: 36415; 80053; 85025

== ENCOUNTER → 2023-12-28 11:49 | Outpatient (REF) | payer OTHER, SELFPAY ==
[2023-12-28 12:20] LABS: % Basophils 0.9 % (0-2); % Eosinophils 5.6 % (0-6); % Immature Granulocytes 0.6 % (0-0.5); % Lymphocytes 19.7 % (20.5-51.1); % Monocytes 11.7 % (1.7-9.3); % Neutrophils 61.5 % (42.2-75.2); Absolute Basophils 0.1 10^3/uL (0-0.2); Absolute Eosinophils 0.5 10^3/uL (0-0.7); Absolute Immature Granulocytes 0.1 10^3/uL (0-0.05); Absolute Lymphocytes 1.7 10^3/uL (1.2-3.4); Absolute Neutrophils 5.2 10^3/uL (1.4-6.5); Hematocrit 27.2 % (37.0-47.0); Hemoglobin 9.2 g/dL (12.0-16.0); Mean Corp Hgb Conc. 33.8 g/dL (33.0-37.0); Mean Corpuscular Hgb 29.8 pg (27.0-31.0); Mean Platelet Volume 9.9 fL (7.4-10.4); Nucleated Red Blood Cells % 0 %; Platelet Count 325 10^3/uL (130-400); Red Blood Cell Count 3.09 10^6/uL (4.20-5.40); Red Cell Dist. Width 15.1 % (11.5-14.5); White Blood Cell Count 8.5 10^3/uL (4.8-10.8)
[2023-12-28 12:27] LABS: Blood Urea Nitrogen 21 mg/dl (7-17); Carbon Dioxide 24 mmol/L (22-30); Chloride 106 mmol/L (98-107); Glucose 91 mg/dl (70-99); Potassium 4.3 mmol/L (3.5-5.1); Sodium 137 mmol/L (135-145); eGFR > 60.00
== END ==
LOC: OLABP 11:49
PROVIDERS: ATTENDING PHYSICIAN Family Medicine
DX: I11.9 Hypertensive heart disease without heart failure (principal); B96.20 Unspecified Escherichia coli [E. coli] as the cause of diseases classified elsewhere; Z79.2 Long term (current) use of antibiotics; I48.0 Paroxysmal atrial fibrillation; I21.4 Non-ST elevation (NSTEMI) myocardial infarction; N39.0 Urinary tract infection, site not specified; E87.1 Hypo-osmolality and hyponatremia; Z95.0 Presence of cardiac pacemaker; G20.A1 Parkinson's disease without dyskinesia, without mention of fluctuations; R26.2 Difficulty in walking, not elsewhere classified; F32.9 Major depressive disorder, single episode, unspecified; G31.84 Mild cognitive impairment of uncertain or unknown etiology
CPT/HCPCS: 36415; 80048; 85025

== ENCOUNTER → 2024-01-11 12:43 | Outpatient (REF) | payer OTHER, SELFPAY ==
[2024-01-11 13:26] LABS: % Basophils 0.9 % (0-2); % Eosinophils 4.2 % (0-6); % Immature Granulocytes 0.1 % (0-0.5); % Monocytes 11.8 % (1.7-9.3); Absolute Basophils 0.1 10^3/uL (0-0.2); Absolute Eosinophils 0.3 10^3/uL (0-0.7); Absolute Lymphocytes 1.6 10^3/uL (1.2-3.4); Absolute Monocytes 0.9 10^3/uL (0.1-0.6); Absolute Neutrophils 4.7 10^3/uL (1.4-6.5); Hemoglobin 9.5 g/dL (12.0-16.0); Mean Corp Hgb Conc. 32.8 g/dL (33.0-37.0); Mean Corpuscular Hgb 29.6 pg (27.0-31.0); Mean Corpuscular Volume 90.3 fL (81.0-99.0); Mean Platelet Volume 11.3 fL (7.4-10.4); Nucleated Red Blood Cells % 0 %; Platelet Count 246 10^3/uL (130-400); Red Blood Cell Count 3.21 10^6/uL (4.20-5.40); Red Cell Dist. Width 15.7 % (11.5-14.5); White Blood Cell Count 7.6 10^3/uL (4.8-10.8)
[2024-01-11 13:31] LABS: ALT (SGPT) 10 U/L (0-35); AST (SGOT) 19 U/L (14-36); Albumin 3.1 g/dl (3.5-5.0); Alkaline Phosphatase 78 U/L (38-126); Blood Urea Nitrogen 29 mg/dl (7-17); Carbon Dioxide 28 mmol/L (22-30); Chloride 105 mmol/L (98-107); Glucose 95 mg/dl (70-99); Potassium 4.8 mmol/L (3.5-5.1); Sodium 140 mmol/L (135-145); Total Bilirubin 0.8 mg/dl (0.2-1.3); Total Protein 5.4 g/dl (6.3-8.2); eGFR 43.54
[2024-01-11 13:47] LABS: Urine Albumin Negative (Neg - Trace); Urine Bilirubin Negative (Negative); Urine Character Slightly Cloudy (Clear); Urine Color Yellow; Urine Glucose Negative (Negative); Urine Ketone Negative (Negative); Urine Leukocyte 1+ (Negative); Urine Nitrite Positive (Negative); Urine Occult Blood Negative (Negative); Urine Urobilinogen Negative (Neg - 1+)
[2024-01-11 14:07] LABS: Urine Squamous Cell 0-2 /LPF (Few)
[2024-01-11 14:08] LABS: Urine Bacteria Few (Negative)
[2024-01-11 14:11] LABS: Urine Red Blood Cell 0-2 /HPF (0-2); Urine Triple Phosphate Crystal Present; Urine White Cell 30-40 /HPF (0-5)
== END ==
LOC: OLABP 12:43
PROVIDERS: ATTENDING PHYSICIAN Family Medicine
DX: I11.9 Hypertensive heart disease without heart failure (principal); B96.20 Unspecified Escherichia coli [E. coli] as the cause of diseases classified elsewhere; Z79.2 Long term (current) use of antibiotics; I48.0 Paroxysmal atrial fibrillation; I21.4 Non-ST elevation (NSTEMI) myocardial infarction; N39.0 Urinary tract infection, site not specified; E87.1 Hypo-osmolality and hyponatremia; I49.5 Sick sinus syndrome; Z95.0 Presence of cardiac pacemaker; G20.A1 Parkinson's disease without dyskinesia, without mention of fluctuations; R26.2 Difficulty in walking, not elsewhere classified; F32.9 Major depressive disorder, single episode, unspecified; G31.84 Mild cognitive impairment of uncertain or unknown etiology
CPT/HCPCS: 36415; 80053; 81003; 81015; 85025; 87077; 87086; 87186

== ENCOUNTER → 2024-01-18 11:31 | Outpatient (REF) | payer OTHER, SELFPAY | LOC: RAD 11:31 | PROVIDERS: ATTENDING PHYSICIAN Nurse Practitioner | DX: N28.89 Other specified disorders of kidney and ureter (principal) | CPT/HCPCS: 74178; Q9967 ==

== ENCOUNTER → 2024-01-20 10:01 | Outpatient (REF) | payer OTHER, SELFPAY | LOC: RST 10:01 | PROVIDERS: ATTENDING PHYSICIAN Family Medicine | DX: R13.10 Dysphagia, unspecified (principal) | CPT/HCPCS: 74230; 92611 ==

== ENCOUNTER → 2024-04-25 10:42 | Outpatient (REF) | payer OTHER, SELFPAY ==
[2024-04-25 13:11] LABS: Urine Albumin Negative (Neg - Trace); Urine Bilirubin Negative (Negative); Urine Character Clear (Clear); Urine Color Yellow; Urine Glucose Negative (Negative); Urine Ketone Negative (Negative); Urine Leukocyte 2+ (Negative); Urine Nitrite Negative (Negative); Urine Occult Blood 1+ (Negative); Urine Urobilinogen Negative (Neg - 1+)
[2024-04-25 14:58] LABS: Urine Bacteria Moderate (Negative)
[2024-04-25 14:59] LABS: Urine Red Blood Cell 0-2 /HPF (0-2); Urine Squamous Cell 0-2 /LPF (Few)
== END ==
LOC: OLABP 10:42
PROVIDERS: ATTENDING PHYSICIAN Family Medicine
DX: I11.9 Hypertensive heart disease without heart failure (principal); B96.20 Unspecified Escherichia coli [E. coli] as the cause of diseases classified elsewhere; Z79.2 Long term (current) use of antibiotics; I48.0 Paroxysmal atrial fibrillation; N28.0 Ischemia and infarction of kidney
CPT/HCPCS: 81003; 81015; 87086

== ENCOUNTER → 2024-04-27 11:10 | Outpatient (REF) | payer OTHER, SELFPAY ==
[2024-04-27 16:31] LABS: Urine Albumin Negative (Neg - Trace); Urine Bilirubin Negative (Negative); Urine Character Very Cloudy (Clear); Urine Color Yellow; Urine Glucose Negative (Negative); Urine Ketone Negative (Negative); Urine Leukocyte 2+ (Negative); Urine Nitrite Positive (Negative); Urine Occult Blood Negative (Negative); Urine Urobilinogen Negative (Neg - 1+)
[2024-04-27 16:51] LABS: Urine Squamous Cell 0-2 /LPF (Few); Urine Triple Phosphate Crystal Present
[2024-04-27 16:52] LABS: Urine Bacteria Many (Negative); Urine Red Blood Cell 0-2 /HPF (0-2); Urine White Cell 0-2 /HPF (0-5)
== END ==
LOC: OLABP 11:10
PROVIDERS: ATTENDING PHYSICIAN Family Medicine
DX: I11.9 Hypertensive heart disease without heart failure (principal); B96.20 Unspecified Escherichia coli [E. coli] as the cause of diseases classified elsewhere; Z79.2 Long term (current) use of antibiotics; I48.0 Paroxysmal atrial fibrillation; I21.4 Non-ST elevation (NSTEMI) myocardial infarction; N39.0 Urinary tract infection, site not specified; E87.1 Hypo-osmolality and hyponatremia; I49.5 Sick sinus syndrome; Z95.0 Presence of cardiac pacemaker; R26.2 Difficulty in walking, not elsewhere classified; G20.A1 Parkinson's disease without dyskinesia, without mention of fluctuations; F32.9 Major depressive disorder, single episode, unspecified; G31.84 Mild cognitive impairment of uncertain or unknown etiology
CPT/HCPCS: 81003; 81015; 87086

== ENCOUNTER → 2024-05-17 09:31 | Outpatient (REF) | payer OTHER, SELFPAY ==
[2024-05-17 11:15] LABS: % Eosinophils 5.4 % (0-6); % Immature Granulocytes 0.3 % (0-0.5); % Lymphocytes 24.2 % (20.5-51.1); % Monocytes 11.9 % (1.7-9.3); % Neutrophils 57.2 % (42.2-75.2); Absolute Basophils 0.1 10^3/uL (0-0.2); Absolute Eosinophils 0.3 10^3/uL (0-0.7); Absolute Lymphocytes 1.4 10^3/uL (1.2-3.4); Absolute Monocytes 0.7 10^3/uL (0.1-0.6); Absolute Neutrophils 3.3 10^3/uL (1.4-6.5); Hemoglobin 10.7 g/dL (12.0-16.0); Mean Corp Hgb Conc. 31.5 g/dL (33.0-37.0); Mean Corpuscular Hgb 29.7 pg (27.0-31.0); Mean Corpuscular Volume 94.4 fL (81.0-99.0); Mean Platelet Volume 10.2 fL (7.4-10.4); Nucleated Red Blood Cells % 0 %; Platelet Count 219 10^3/uL (130-400); Red Cell Dist. Width 14.6 % (11.5-14.5); White Blood Cell Count 5.8 10^3/uL (4.8-10.8)
[2024-05-17 12:19] LABS: ALT (SGPT) < 10 U/L (0-35); AST (SGOT) 16 U/L (14-36); Albumin 3.3 g/dl (3.5-5.0); Alkaline Phosphatase 88 U/L (38-126); Blood Urea Nitrogen 34 mg/dl (7-17); Calcium 8.9 mg/dl (8.4-10.2); Carbon Dioxide 28 mmol/L (22-30); Chloride 104 mmol/L (98-107); Glucose 101 mg/dl (70-99); HDL Cholesterol 39 mg/dl; LDL Cholesterol, Calculated 34 mg/dl; Potassium 4.7 mmol/L (3.5-5.1); Sodium 138 mmol/L (135-145); Total Bilirubin 0.4 mg/dl (0.2-1.3); Total Cholesterol 93 mg/dl (50-199); Total Protein 5.9 g/dl (6.3-8.2); Triglyceride 103 mg/dl (10-149); Very Low Density Lipoprotein 20 mg/dl (0-30); eGFR 43.54
[2024-05-17 13:12] LABS: TSH 3.93 uIU/ml (0.47-4.68)
== END ==
LOC: OLABP 09:31
PROVIDERS: ATTENDING PHYSICIAN Family Medicine
DX: I11.9 Hypertensive heart disease without heart failure (principal); B96.20 Unspecified Escherichia coli [E. coli] as the cause of diseases classified elsewhere; Z79.2 Long term (current) use of antibiotics; I21.4 Non-ST elevation (NSTEMI) myocardial infarction; N39.0 Urinary tract infection, site not specified; E87.1 Hypo-osmolality and hyponatremia; I49.5 Sick sinus syndrome; G20.A1 Parkinson's disease without dyskinesia, without mention of fluctuations
CPT/HCPCS: 36415; 80053; 80061; 84443; 85025

== ENCOUNTER → 2024-08-24 09:45 | Outpatient (REF) | payer OTHER, SELFPAY ==
[2024-08-24 10:03] LABS: Hematocrit 29.9 % (37.0-47.0); Hemoglobin 10.2 g/dL (12.0-16.0); Mean Corp Hgb Conc. 34.1 g/dL (33.0-37.0); Mean Corpuscular Hgb 31.4 pg (27.0-31.0); Mean Platelet Volume 10.6 fL (7.4-10.4); Platelet Count 202 10^3/uL (130-400); Red Blood Cell Count 3.25 10^6/uL (4.20-5.40); White Blood Cell Count 6.5 10^3/uL (4.8-10.8)
[2024-08-24 10:17] LABS: Blood Urea Nitrogen 25 mg/dl (7-17); Calcium 8.6 mg/dl (8.4-10.2); Carbon Dioxide 23 mmol/L (22-30); Chloride 106 mmol/L (98-107); Glucose 118 mg/dl (70-99); Potassium 4.4 mmol/L (3.5-5.1); Sodium 138 mmol/L (135-145); eGFR > 60.00
[2024-08-24 10:27] LABS: NT-proBNP 1220 pg/ml; Troponin I < 0.012 ng/ml
== END ==
LOC: OLABP 09:45
PROVIDERS: ATTENDING PHYSICIAN Family Medicine
DX: I11.9 Hypertensive heart disease without heart failure (principal); B96.20 Unspecified Escherichia coli [E. coli] as the cause of diseases classified elsewhere; Z79.2 Long term (current) use of antibiotics; I48.0 Paroxysmal atrial fibrillation; I21.4 Non-ST elevation (NSTEMI) myocardial infarction; N39.0 Urinary tract infection, site not specified; E87.1 Hypo-osmolality and hyponatremia; I49.5 Sick sinus syndrome; Z95.0 Presence of cardiac pacemaker; G20.A1 Parkinson's disease without dyskinesia, without mention of fluctuations; R26.2 Difficulty in walking, not elsewhere classified; F32.9 Major depressive disorder, single episode, unspecified; G31.84 Mild cognitive impairment of uncertain or unknown etiology
CPT/HCPCS: 36415; 80048; 83880; 84484; 85027

== ENCOUNTER → 2024-09-11 12:02 | Outpatient (REF) | payer OTHER, SELFPAY ==
[2024-09-12 12:54] LABS: Urine Albumin 2+ (Neg - Trace); Urine Bilirubin Negative (Negative); Urine Character Cloudy (Clear); Urine Color Yellow; Urine Glucose Negative (Negative); Urine Ketone Negative (Negative); Urine Leukocyte 3+ (Negative); Urine Nitrite Positive (Negative); Urine Occult Blood 2+ (Negative); Urine Specific Gravity 1.015 (<1.030); Urine Urobilinogen Negative (Neg - 1+)
[2024-09-12 13:02] LABS: Urine White Cell 80-90 /HPF (0-5)
[2024-09-12 13:03] LABS: Urine Amorphous Seen; Urine Bacteria Moderate (Negative)
== END ==
LOC: OLABP 12:02
PROVIDERS: ATTENDING PHYSICIAN Family Medicine
DX: I11.9 Hypertensive heart disease without heart failure (principal); B96.20 Unspecified Escherichia coli [E. coli] as the cause of diseases classified elsewhere; Z79.2 Long term (current) use of antibiotics; I21.4 Non-ST elevation (NSTEMI) myocardial infarction; N39.0 Urinary tract infection, site not specified; E87.1 Hypo-osmolality and hyponatremia; I49.5 Sick sinus syndrome; Z95.0 Presence of cardiac pacemaker; G20.A1 Parkinson's disease without dyskinesia, without mention of fluctuations; R26.2 Difficulty in walking, not elsewhere classified; G31.84 Mild cognitive impairment of uncertain or unknown etiology; F32.9 Major depressive disorder, single episode, unspecified
CPT/HCPCS: 81003; 81015; 87086

== ENCOUNTER → 2024-09-12 11:32 | Outpatient (REF) | payer OTHER, SELFPAY ==
[2024-09-12 12:36] LABS: Hematocrit 33.5 % (37.0-47.0); Mean Corp Hgb Conc. 32.8 g/dL (33.0-37.0); Mean Corpuscular Hgb 30.8 pg (27.0-31.0); Mean Corpuscular Volume 93.8 fL (81.0-99.0); Mean Platelet Volume 11.2 fL (7.4-10.4); Platelet Count 271 10^3/uL (130-400); Red Blood Cell Count 3.57 10^6/uL (4.20-5.40); Red Cell Dist. Width 13.8 % (11.5-14.5); White Blood Cell Count 7.2 10^3/uL (4.8-10.8)
[2024-09-12 13:04] LABS: ALT (SGPT) < 10 U/L (0-35); AST (SGOT) 14 U/L (14-36); Alkaline Phosphatase 71 U/L (38-126); Blood Urea Nitrogen 31 mg/dl (7-17); Calcium 9.1 mg/dl (8.4-10.2); Carbon Dioxide 26 mmol/L (22-30); Chloride 107 mmol/L (98-107); Glucose 105 mg/dl (70-99); Potassium 4.7 mmol/L (3.5-5.1); Sodium 140 mmol/L (135-145); Total Bilirubin 0.8 mg/dl (0.2-1.3); Total Protein 5.6 g/dl (6.3-8.2); eGFR 48.03
== END ==
LOC: OLABP 11:32
PROVIDERS: ATTENDING PHYSICIAN Family Medicine
DX: I11.9 Hypertensive heart disease without heart failure (principal); B96.20 Unspecified Escherichia coli [E. coli] as the cause of diseases classified elsewhere; Z79.2 Long term (current) use of antibiotics; I48.0 Paroxysmal atrial fibrillation; I21.4 Non-ST elevation (NSTEMI) myocardial infarction; N39.0 Urinary tract infection, site not specified; E87.1 Hypo-osmolality and hyponatremia; I49.5 Sick sinus syndrome; Z95.0 Presence of cardiac pacemaker; R26.2 Difficulty in walking, not elsewhere classified; G31.84 Mild cognitive impairment of uncertain or unknown etiology
CPT/HCPCS: 36415; 80053; 84443; 85027

== ENCOUNTER → 2024-09-14 11:52 | Outpatient (REF) | payer OTHER, SELFPAY ==
[2024-09-14 16:14] LABS: Urine Albumin 2+ (Neg - Trace); Urine Bilirubin Negative (Negative); Urine Character Clear (Clear); Urine Color Yellow; Urine Glucose Negative (Negative); Urine Ketone Negative (Negative); Urine Leukocyte 3+ (Negative); Urine Nitrite Positive (Negative); Urine Occult Blood 1+ (Negative); Urine Specific Gravity 1.015 (<1.030); Urine Urobilinogen Negative (Neg - 1+)
[2024-09-14 16:28] LABS: Urine Squamous Cell 0-2 /LPF (Few)
[2024-09-14 16:29] LABS: Urine Bacteria Many (Negative); Urine White Cell 80-90 /HPF (0-5)
== END ==
LOC: OLABP 11:52
PROVIDERS: ATTENDING PHYSICIAN Family Medicine
DX: I48.0 Paroxysmal atrial fibrillation (principal); B96.20 Unspecified Escherichia coli [E. coli] as the cause of diseases classified elsewhere; Z79.2 Long term (current) use of antibiotics; I11.9 Hypertensive heart disease without heart failure; I21.4 Non-ST elevation (NSTEMI) myocardial infarction; N39.0 Urinary tract infection, site not specified; E87.1 Hypo-osmolality and hyponatremia; I49.5 Sick sinus syndrome; Z95.0 Presence of cardiac pacemaker; G31.84 Mild cognitive impairment of uncertain or unknown etiology; G20.A1 Parkinson's disease without dyskinesia, without mention of fluctuations; R26.2 Difficulty in walking, not elsewhere classified; F32.9 Major depressive disorder, single episode, unspecified
CPT/HCPCS: 81003; 81015; 87086

== ENCOUNTER → 2024-09-16 12:52 | Outpatient (REF) | payer OTHER, SELFPAY | LOC: OLABP 12:52 | PROVIDERS: ATTENDING PHYSICIAN Family Medicine | DX: N39.0 Urinary tract infection, site not specified (principal) | CPT/HCPCS: 87086 ==

== ENCOUNTER → 2024-10-01 11:11 | Outpatient (REF) | payer OTHER, SELFPAY ==
[2024-10-01 12:35] LABS: % Basophils 0.7 % (0-2); % Eosinophils 3.3 % (0-6); % Immature Granulocytes 0.4 % (0-0.5); % Lymphocytes 18.2 % (20.5-51.1); % Monocytes 10.9 % (1.7-9.3); % Neutrophils 66.5 % (42.2-75.2); Absolute Basophils 0.1 10^3/uL (0-0.2); Absolute Eosinophils 0.3 10^3/uL (0-0.7); Absolute Lymphocytes 1.5 10^3/uL (1.2-3.4); Absolute Monocytes 0.9 10^3/uL (0.1-0.6); Absolute Neutrophils 5.4 10^3/uL (1.4-6.5); Hematocrit 33.5 % (37.0-47.0); Hemoglobin 11.1 g/dL (12.0-16.0); Mean Corp Hgb Conc. 33.1 g/dL (33.0-37.0); Mean Corpuscular Hgb 31.4 pg (27.0-31.0); Mean Corpuscular Volume 94.6 fL (81.0-99.0); Mean Platelet Volume 10.7 fL (7.4-10.4); Nucleated Red Blood Cells % 0 %; Platelet Count 228 10^3/uL (130-400); Red Blood Cell Count 3.54 10^6/uL (4.20-5.40); Red Cell Dist. Width 14.6 % (11.5-14.5); White Blood Cell Count 8.2 10^3/uL (4.8-10.8)
[2024-10-01 13:20] LABS: ALT (SGPT) < 10 U/L (0-35); AST (SGOT) 13 U/L (14-36); Albumin 3.5 g/dl (3.5-5.0); Alkaline Phosphatase 77 U/L (38-126); Blood Urea Nitrogen 36 mg/dl (7-17); Calcium 8.7 mg/dl (8.4-10.2); Carbon Dioxide 25 mmol/L (22-30); Chloride 109 mmol/L (98-107); Glucose 93 mg/dl (70-99); Potassium 4.9 mmol/L (3.5-5.1); Sodium 140 mmol/L (135-145); Total Protein 5.9 g/dl (6.3-8.2); eGFR 43.27
[2024-10-01 13:42] LABS: TSH Reflex To Free T4 3.44 uIU/ml (0.47-4.68)
== END ==
LOC: OLABP 11:11
PROVIDERS: ATTENDING PHYSICIAN Family Medicine
DX: I11.9 Hypertensive heart disease without heart failure (principal); B96.20 Unspecified Escherichia coli [E. coli] as the cause of diseases classified elsewhere; Z79.2 Long term (current) use of antibiotics; I48.0 Paroxysmal atrial fibrillation; I21.4 Non-ST elevation (NSTEMI) myocardial infarction; N39.0 Urinary tract infection, site not specified; E87.1 Hypo-osmolality and hyponatremia; I49.5 Sick sinus syndrome; Z95.0 Presence of cardiac pacemaker; G20.A1 Parkinson's disease without dyskinesia, without mention of fluctuations; G31.84 Mild cognitive impairment of uncertain or unknown etiology; R26.2 Difficulty in walking, not elsewhere classified; F32.9 Major depressive disorder, single episode, unspecified
CPT/HCPCS: 36415; 80053; 84443; 85025

== ENCOUNTER → 2024-11-16 07:08 | Outpatient (REF) | payer OTHER, SELFPAY ==
[2024-11-16 07:50] LABS: Urine Character Clear (Clear)
[2024-11-16 08:00] LABS: Urine Squamous Cell 0-2 /LPF (Few)
[2024-11-16 08:01] LABS: Urine Red Blood Cell 0-2 /HPF (0-2)
== END ==
LOC: OLABP 07:08
PROVIDERS: ATTENDING PHYSICIAN Family Medicine
DX: R26.2 Difficulty in walking, not elsewhere classified (principal); B96.20 Unspecified Escherichia coli [E. coli] as the cause of diseases classified elsewhere; Z79.2 Long term (current) use of antibiotics; I11.9 Hypertensive heart disease without heart failure; I48.0 Paroxysmal atrial fibrillation; I21.4 Non-ST elevation (NSTEMI) myocardial infarction; N39.0 Urinary tract infection, site not specified; E87.1 Hypo-osmolality and hyponatremia; I49.5 Sick sinus syndrome; Z95.0 Presence of cardiac pacemaker; G20.A1 Parkinson's disease without dyskinesia, without mention of fluctuations; G31.84 Mild cognitive impairment of uncertain or unknown etiology; F32.9 Major depressive disorder, single episode, unspecified
CPT/HCPCS: 81003; 81015; 87077; 87086

== ENCOUNTER → 2025-01-15 12:23 | Outpatient (REF) | payer OTHER, SELFPAY ==
[2025-01-15 13:12] LABS: Hematocrit 34.1 % (37.0-47.0); Hemoglobin 11.2 g/dL (12.0-16.0); Mean Corp Hgb Conc. 32.8 g/dL (33.0-37.0); Mean Corpuscular Volume 95.0 fL (81.0-99.0); Nucleated Red Blood Cells % 0 %; Platelet Count 238 10^3/uL (130-400); Red Cell Dist. Width 14.0 % (11.5-14.5)
[2025-01-15 13:36] LABS: Blood Urea Nitrogen 38 mg/dl (7-17); Calcium 8.7 mg/dl (8.4-10.2); Carbon Dioxide 23 mmol/L (22-30); Chloride 108 mmol/L (98-107); Glucose 87 mg/dl (70-99); Potassium 4.7 mmol/L (3.5-5.1); Sodium 137 mmol/L (135-145); eGFR 43.27
== END ==
LOC: OLABP 12:23
PROVIDERS: ATTENDING PHYSICIAN Family Medicine
DX: R26.2 Difficulty in walking, not elsewhere classified (principal); B96.20 Unspecified Escherichia coli [E. coli] as the cause of diseases classified elsewhere; Z79.2 Long term (current) use of antibiotics; I11.9 Hypertensive heart disease without heart failure; I48.0 Paroxysmal atrial fibrillation; I21.4 Non-ST elevation (NSTEMI) myocardial infarction; N39.0 Urinary tract infection, site not specified; E87.1 Hypo-osmolality and hyponatremia; I49.5 Sick sinus syndrome; Z95.0 Presence of cardiac pacemaker; G20.A1 Parkinson's disease without dyskinesia, without mention of fluctuations; F29 Unspecified psychosis not due to a substance or known physiological condition; G31.84 Mild cognitive impairment of uncertain or unknown etiology
CPT/HCPCS: 36415; 80048; 85025